=== PATIENT | male | born 1965 | race African-American/Black ===

== ENCOUNTER → 2016-05-22 | Outpatient (CLI) | payer OTHER ==
[2016-05-22 12:27] LABS: ALANINE AMINOTRANSFERASE 24 U/L (21-72); ALBUMIN 4.1 g/dL (3.5-5.0); ALKALINE PHOSPHATASE 130 U/L (38-126); ANION GAP 15 (5-19); ASPARTATE AMINO TRANSFERASE 15 U/L (17-59); BILIRUBIN,DIRECT 0.3 mg/dL (0.0-0.4); BILIRUBIN,TOTAL 0.5 mg/dL (0.2-1.3); BLOOD UREA NITROGEN 42 mg/dL (7-20); CALCIUM 9.6 mg/dL (8.4-10.2); CARBON DIOXIDE 23 mmol/L (22-30); CHLORIDE 102 mmol/L (98-107); CHOLESTEROL 229.78 mg/dL (0-200); CREATINE KINASE 490 U/L (55-170); CREATININE RESULT 4.01 mg/dL (0.52-1.25); Direct HDL 35 mg/dL (>40); GLUCOSE 360 mg/dL (75-110); MAGNESIUM 1.8 mg/dL (1.6-2.3); PHOSPHORUS 3.8 mg/dL (2.5-4.5); POTASSIUM 5.4 mmol/L (3.6-5.0); SODIUM 139.5 mmol/L (137-145); TOTAL PROTEIN 7.1 g/dL (6.3-8.2); TRIGLYCERIDES 289 mg/dL (<150)
[2016-05-22 12:38] LABS: DIRECT LDL 139 mg/dL (<100)
[2016-05-22 12:48] LABS: VLDL CHOLESTEROL 57.8 mg/dL (10-31)
== END ==
LOC: CCC 11:12
DX: I12.9 Hypertensive chronic kidney disease with stage 1 through stage 4 chronic kidney disease, or unspecified chronic kidney disease (principal); N18.9 Chronic kidney disease, unspecified; E11.9 Type 2 diabetes mellitus without complications; E78.5 Hyperlipidemia, unspecified
CPT/HCPCS: 36415; 80048; 80061; 80076; 82550; 83735; 84100

== ENCOUNTER → 2016-06-09 | Outpatient (CLI) | payer OTHER ==
[2016-06-09 11:06] LABS: ANION GAP 16 (5-19); BLOOD UREA NITROGEN 45 mg/dL (7-20); CALCIUM 9.6 mg/dL (8.4-10.2); CARBON DIOXIDE 21 mmol/L (22-30); CHLORIDE 108 mmol/L (98-107); GLUCOSE 105 mg/dL (75-110); MAGNESIUM 1.9 mg/dL (1.6-2.3); PHOSPHORUS 4.9 mg/dL (2.5-4.5); POTASSIUM 4.1 mmol/L (3.6-5.0); SODIUM 144.8 mmol/L (137-145)
== END ==
LOC: OD 10:00
DX: I12.9 Hypertensive chronic kidney disease with stage 1 through stage 4 chronic kidney disease, or unspecified chronic kidney disease (principal); N18.4 Chronic kidney disease, stage 4 (severe); E11.9 Type 2 diabetes mellitus without complications
CPT/HCPCS: 36415; 80048; 83036; 83735; 84100

== ENCOUNTER 2017-01-16 00:29 | Emergency (ER) | payer OTHER ==
[2017-01-16] MEDS ORDERED: NORMAL SALINE 1000 ML 1,000 ML IV ONE ×3 (01:16→03:10)
--- NOTE | 2017-01-16 01:17 | ER Document Report ---
ED General - General Mode of Arrival: Ambulatory Information source: Patient TRAVEL OUTSIDE OF THE [place] IN LAST 30 DAYS: No - HPI Onset: Just prior to arrival Quality of pain: Cramping <JONNY BIGGS - Last Filed: 01/16/17 01:27> <KANDY MARQUEZ - Last Filed: 01/16/17 05:13> - General Chief Complaint: High Blood Sugar Stated Complaint: THIGH AND HAND PAIN Time Seen by Provider: 01/16/17 01:08 Notes: Patient is a 51 year old male with a history of Insulin Dependent Diabetes presents to the emergency department complaining of severe cramping in his extremities onset around 22:30 tonight. 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 At bedside patient states only his right leg is cramping. Patient also states he has had frequent urination. Patient currently takes Neurontin. (JONNY BIGGS) - Related Data Allergies/Adverse Reactions: No Known Allergies Allergy (Verified 12/17/15 02:47) Past Medical History - General Information source: Patient - Social History Smoking Status: Never Smoker Cigarette use (# per day): No Chew tobacco use (# tins/day): No Smoking Education Provided: No Frequency of alcohol use: None Family History: Reviewed & Not Pertinent Patient has suicidal ideation: No Patient has homicidal ideation: No - Past Medical History Cardiac Medical History: Reports: Hx Hypercholesterolemia, Hx Hypertension Endocrine Medical History: Reports: Hx Diabetes Mellitus Type 1, Hx Diabetes Mellitus Type 2 - complicated by Neuropathy, nephropathy.Has proteinuria but unsure of his GI Medical History: Reports: Hx Gastroesophageal Reflux Disease Musculoskeltal Medical History: Reports Hx Arthritis <JONNY BIGGS - Last Filed: 01/16/17 01:27> Review of Systems - Review of Systems Constitutional: No symptoms reported EENT: No symptoms reported Cardiovascular: No symptoms reported Respiratory: No symptoms reported Gastrointestinal: No symptoms reported Genitourinary: See HPI, Frequency Male Genitourinary: No symptoms reported Musculoskeletal: See HPI, Other - severe cramping in all extremities. Skin: No symptoms reported Hematologic/Lymphatic: No symptoms reported Neurological/Psychological: No symptoms reported -: Yes All other systems reviewed and negative <JONNY BIGGS - Last Filed: 01/16/17 01:27> Physical Exam - General General appearance: Appears well, Alert In distress: None - HEENT Head: Normocephalic, Atraumatic Conjunctiva: Normal Pupils: PERRL Mucous membranes: Moist - Respiratory Respiratory status: No respiratory distress Chest status: Nontender Breath sounds: Normal - Cardiovascular Rhythm: Regular Heart sounds: Normal auscultation Murmur: No Friction rub: No Gallop: None auscultated - Abdominal Inspection: Obese Distension: No distension Bowel sounds: Normal Tenderness: Nontender Organomegaly: No organomegaly - Back Back: Normal - Extremities General upper extremity: Normal ROM General lower extremity: Normal ROM - Neurological Neuro grossly intact: Yes Cognition: Normal Orientation: AAOx4 [place] Coma Scale Eye Opening: Spontaneous [place] Coma Scale Verbal: Oriented [place] Coma Scale Motor: Obeys Commands Olga Coma Scale Total: 15 Speech: Normal - Psychological Associated symptoms: Normal affect, Normal mood - Skin Skin Temperature: Warm Skin Moisture: Dry <JONNY BIGGS - Last Filed: 01/16/17 01:27> Course - Laboratory Result Diagrams: 01/16/17 01:05 01/16/17 01:05 <JONNY BIGGS - Last Filed: 01/16/17 01:27> - Laboratory Result Diagrams: 01/16/17 01:05 01/16/17 01:05 <KANDY MARQUEZ - Last Filed: 01/16/17 05:13> - Re-evaluation Re-evalutation: 01/16/17 05:09 The patient's hemoglobin A1c is greater than 14. The BUN is 69 with a creatinine of 8.07 yielding a GFR of 8 the urine has greater than 500 protein and greater than 500 glucose the last lab work checked in the computer shows an April and May of this year he had a creatinine of 4.01 and 4.10 this is almost 2 times what it was in November of last year, today is 8.07 He is advised of the significance of this worsening renal failure and poorly controlled diabetes and is encouraged to take copies of all his lab work [facility] to discuss better diabetes control and nephrology referral. (KANDY MARQUEZ) - Laboratory Laboratory results interpreted by me: 01/16/17 01/16/17 01/16/17 01:03 01:05 01:05 RBC 3.96 L Hgb 11.3 L Hct 33.3 L Sodium 133.7 L Carbon Dioxide 19 L BUN 69 H Creatinine 8.07 H Est GFR ( Amer) 8 L Est GFR (Non-Af Amer) 7 L Glucose 411 H* POC Glucose 366 H Hemoglobin A1c % Alkaline Phosphatase 164 H Creatine Kinase Urine Protein Urine Glucose (UA) Urine Blood 01/16/17 01/16/17 01/16/17 01:05 01:05 02:55 RBC Hgb Hct Sodium Carbon Dioxide BUN Creatinine Est GFR ( Amer) Est GFR (Non-Af Amer) Glucose POC Glucose Hemoglobin A1c % > 14.0 H Alkaline Phosphatase Creatine Kinase 498 H Urine Protein >=500 H Urine Glucose (UA) >=500 H Urine Blood SMALL H Discharge <JONNY BIGGS - Last Filed: 01/16/17 01:27> <KANDY MARQUEZ - Last Filed: 01/16/17 05:13> - Discharge Clinical Impression: Muscle cramps, Poorly controlled diabetes mellitus, Dehydration Hyperglycemia due to type 2 diabetes mellitus Qualifiers: Diabetes mellitus local intermodal truck driver insulin use: unspecified local intermodal truck driver insulin use status Qualified Code(s): E11.65 - Type 2 diabetes mellitus with hyperglycemia Rhabdomyolysis Qualifiers: Rhabdomyolysis type: non-traumatic Qualified Code(s): M62.82 - Rhabdomyolysis Renal failure (ARF), acute on chronic Qualifiers: Chronic kidney disease stage: stage 5, not on chronic dialysis Condition: Stable Disposition: HOME, SELF-CARE Additional Instructions: Evaluation of your lab work today shows your diabetes is very poorly controlled , and your kidney function is declining rapidly. You must address these issues with your doctor, or you will soon be on dialysis. You need to drink a lot more water throughout the day and evening for the next few days. You should be sure to take your insulin on time, and check your blood sugars. [facility] with the [facility] or a local medical doctor in the next 2-3 days , and take the copies of the lab work with you.. RETURN TO THE EMERGENCY ROOM IF ANY NEW OR WORSENING SYMPTOMS. Scribe Attestation: 01/16/17 05:13 I personally performed the services described in the documentation, reviewed and edited the documentation which was dictated to the scribe in my presence, and it accurately records my words and actions. (KANDY MARQUEZ) Scribe Documentation - Scribe Written by Scribe:: Patricia Mesa, 01/16/2017 01:36 acting as scribe for :: María <JONNY BIGGS - Last Filed: 01/16/17 01:27>
[2017-01-16 01:19] LABS: ABSOLUTE BASOPHILS # (AUTO) 0.1 10^3/uL (0.0-0.2); ABSOLUTE EOSINOPHILS # (AUTO) 0.1 10^3/uL (0.0-0.6); ABSOLUTE LYMPHOCYTES (AUTO) 1.2 10^3/uL (0.5-4.7); ABSOLUTE MONOCYTES (AUTO) 0.4 10^3/uL (0.1-1.4); ABSOLUTE NEUT (AUTO) 4.4 10^3/uL (1.7-8.2); BASOPHILS % (AUTO) 1.1 % (0-2); EOSINOPHILS % (AUTO) 1.2 % (0-6); HEMATOCRIT 33.3 % (37.9-51.0); HEMOGLOBIN 11.3 g/dL (13.5-17.0); HGB HCT DIFFERENCE 0.6; LYMPHOCYTES % (AUTO) 19.1 % (13-45); MEAN CORPUSCULAR HEMOGLOBIN 28.6 pg (27.0-33.4); MEAN CORPUSCULAR VOLUME 84 fl (80-97); MONOCYTES % (AUTO) 5.9 % (3-13); RED BLOOD COUNT 3.96 10^6/uL (4.35-5.55); RED CELL DISTRIBUTION WIDTH 13.1 % (11.5-14.0); SEGMENTED NEUTROPHILS % (AUTO) 72.7 % (42-78)
[2017-01-16 01:20] LABS: ADD ON TESTING BLD IN LAB ACKNOWLEDGE
[2017-01-16 01:52] LABS: ALANINE AMINOTRANSFERASE 21 U/L (21-72); ALBUMIN 3.7 g/dL (3.5-5.0); ALKALINE PHOSPHATASE 164 U/L (38-126); ANION GAP 16 (5-19); ASPARTATE AMINO TRANSFERASE 18 U/L (17-59); BILIRUBIN,DIRECT 0.4 mg/dL (0.0-0.4); BILIRUBIN,TOTAL 0.5 mg/dL (0.2-1.3); BLOOD UREA NITROGEN 69 mg/dL (7-20); CALCIUM 8.5 mg/dL (8.4-10.2); CARBON DIOXIDE 19 mmol/L (22-30); CHLORIDE 99 mmol/L (98-107); CREATININE RESULT 8.07 mg/dL (0.52-1.25); POTASSIUM 4.2 mmol/L (3.6-5.0); SODIUM 133.7 mmol/L (137-145); TOTAL PROTEIN 6.6 g/dL (6.3-8.2)
[2017-01-16 02:02] LABS: GLUCOSE 411 mg/dL (75-110)
[2017-01-16 02:03] LABS: MAGNESIUM 1.9 mg/dL (1.6-2.3)
[2017-01-16 02:14] LABS: ADD ON TESTING BLD IN LAB ACKNOWLEDGE
[2017-01-16 02:42] LABS: CREATINE KINASE 498 U/L (55-170)
[2017-01-16 03:27] LABS: APPEARANCE,URINE CLEAR; BILIRUBIN,URINE NEGATIVE (NEGATIVE); GLUCOSE, URINE >=500 mg/dL (NEGATIVE); KETONES,URINE NEGATIVE (NEGATIVE); LEUKOCYTE ESTERASE,URINE NEGATIVE (NEGATIVE); NITRITE,URINE NEGATIVE (NEGATIVE); PROTEIN,URINE >=500 mg/dL (NEGATIVE); UROBILINOGEN,URINE NEGATIVE mg/dL (<2.0)
[2017-01-16 05:21] VITALS: BP 174/94
== END 2017-01-16 05:23 | disposition home or self-care (01) ==
LOC: ER 00:29
DX: E11.65 Type 2 diabetes mellitus with hyperglycemia (principal); N18.5 Chronic kidney disease, stage 5; M62.82 Rhabdomyolysis; E86.0 Dehydration; R35.0 Frequency of micturition; Z79.4 Long term (current) use of insulin
CPT/HCPCS: 99284; 96360; 96361; 36415; 82962; 82550; 83735; 85025; 80053; 81001; 83036; J7030

== ENCOUNTER 2017-03-14 22:07 | Inpatient (IN) | payer SELFPAY ==
[2017-03-14] MEDS ORDERED: IPRATROPIUM/ALBUTEROL 0.5-2.5 MG/3 ML AMPUL NEB ONE (23:37)
[2017-03-14] MEDS ORDERED: ACETAMINOPHEN 325 MG TABLET PO ONE (23:37)
--- NOTE | 2017-03-14 23:40 | ER Document Report ---
ED Medical Screen (RME) - General Chief Complaint: Congestion Stated Complaint: CONGESTION, DIFFICUTLY BREATHING Time Seen by Provider: 03/14/17 23:36 TRAVEL OUTSIDE OF THE [place] IN LAST 30 DAYS: No - HPI Notes: 03/14/17 23:38 51-year-old male with a history of hypertension, diabetes, hyperlipidemia presents today with complaints of shortness of breath and cough 4 days. states he has been diaphoretic and sweaty today. Reports fevers and chills. Reports at times productive cough. Denies any chest pain. Denies any nausea vomiting or diarrhea. Has taken [id number] sinus medication without relief. Denies any rashes. Worse with time, nothing makes better. Patient forgot to take his p.m. dosing of his blood pressure medication, cannot remember the name of it. I have greeted and performed a rapid initial assessment of this patient. A comprehensive ED assessment and evaluation of the patient, analysis of test results and completion of medical decision making process will be conducted by an additional ED providers. 03/14/17 23:39 - Related Data Allergies/Adverse Reactions: No Known Allergies Allergy (Verified 03/14/17 22:20) Past Medical History - Past Medical History Cardiac Medical History: Reports: Hx Hypercholesterolemia, Hx Hypertension Denies: Hx Congestive Heart Failure, Hx DVT, Hx Heart Attack, Hx Pulmonary Embolism Pulmonary Medical History: Denies: Hx Asthma, Hx COPD Neurological Medical History: Denies: Hx Seizures Endocrine Medical History: Reports: Hx Diabetes Mellitus Type 1, 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 Denies: Hx Hyperthyroidism, Hx Hypothyroidism Renal/ Medical History: Denies: Hx Peritoneal Dialysis GI Medical History: Reports: Hx Gastroesophageal Reflux Disease. Denies: Hx Cirrhosis, Hx Hepatitis Musculoskeltal Medical History: Reports Hx Arthritis Skin Medical History: Denies Hx Eczema, Denies Hx Psoriasis Psychiatric Medical History: Denies: Hx Depression Infectious Medical History: Denies: Hx Hepatitis Physical Exam - Vital signs Vitals: Temp Pulse Resp BP Pulse Ox 98.7 F 110 H 18 197/99 H 97 03/14/17 22:23 03/14/17 22:23 03/14/17 22:23 03/14/17 22:23 03/14/17 22:23 - Respiratory Respiratory status: No respiratory distress Chest status: Nontender Breath sounds: Decreased air movement, Wheezing Chest palpation: Normal - Cardiovascular Rhythm: Tachycardia Heart sounds: Normal auscultation Pulses: Normal: Radial Course - Vital Signs Vital signs: Temp Pulse Resp BP Pulse Ox 98.7 F 110 H 18 197/99 H 97 03/14/17 22:23 03/14/17 22:23 03/14/17 22:23 03/14/17 22:23 03/14/17 22:23
[2017-03-14] MEDS ORDERED: HYDRALAZINE HCL 10 MG TABLET PO ONE (23:41)
--- NOTE | 2017-03-15 01:05 | RADIOLOGY REPORT (SQ) ---
EXAM DESCRIPTION: CHEST PA/LAT CLINICAL HISTORY: 51 years, Male, cough x 1 week COMPARISON: None. NUMBER OF VIEWS: 2 LIMITATIONS: None. FINDINGS: Pulmonary vascular congestion. Normal cardiac silhouette. Mild disc desiccation. IMPRESSION: Pulmonary vascular congestion. 2011 [employer]- All Rights Reserved
--- NOTE | 2017-03-15 01:18 | ER Document Report ---
ED General - General Chief Complaint: Congestion Stated Complaint: CONGESTION, DIFFICUTLY BREATHING Time Seen by Provider: 03/14/17 23:36 Notes: Patient is a 51-year-old male who presents emergency department with a chief complaint of chest congestion, shortness of breath and orthopnea for the past 4 days. Patient states that his symptoms started on Tuesday and got progressively worse with her apnea developing on Tuesday. Patient states that today he developed dyspnea on exertion. Patient states that he has been taking cold medicines at home from [facility] with minimal improvement in his symptoms. Admits to nonproductive cough denies any fevers but admits to diaphoresis. Denies any nausea, vomiting, diarrhea. States that he has been pooping less. Admits to normal urine output. Denies any chest pain at this time. Denies any weight gain, lower extremity edema. Past medical history significant for hypertension, hyperlipidemia, diabetes on Lantus, Humalog and metformin. Review of the chart shows evidence of stage III kidney disease. Patient states that he has never followed up with the neurologist that he was evaluated by here in December. Admits to possible history of TIA Denies any past surgeries Social history: Denies any tobacco, alcohol or drug use. Primary care is with [facility] TRAVEL OUTSIDE OF THE [place] IN LAST 30 DAYS: No - Related Data Allergies/Adverse Reactions: No Known Allergies Allergy (Verified 03/14/17 22:20) Past Medical History - Social History Smoking Status: Current Every Day Smoker Family History: Reviewed & Not Pertinent - Past Medical History Cardiac Medical History: Reports: Hx Hypercholesterolemia, Hx Hypertension Denies: Hx Congestive Heart Failure, Hx DVT, Hx Heart Attack, Hx Pulmonary Embolism Pulmonary Medical History: Denies: Hx Asthma, Hx COPD Neurological Medical History: Denies: Hx Seizures Endocrine Medical History: Reports: Hx Diabetes Mellitus Type 1, 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 Denies: Hx Hyperthyroidism, Hx Hypothyroidism Renal/ Medical History: Denies: Hx Peritoneal Dialysis GI Medical History: Reports: Hx Gastroesophageal Reflux Disease. Denies: Hx Cirrhosis, Hx Hepatitis Musculoskeltal Medical History: Reports Hx Arthritis Skin Medical History: Denies Hx Eczema, Denies Hx Psoriasis Psychiatric Medical History: Denies: Hx Depression Infectious Medical History: Denies: Hx Hepatitis Review of Systems - Review of Systems Constitutional: See HPI EENT: No symptoms reported Cardiovascular: See HPI Respiratory: See HPI Gastrointestinal: No symptoms reported Musculoskeletal: No symptoms reported Neurological/Psychological: No symptoms reported -: Yes All other systems reviewed and negative Physical Exam - Vital signs Vitals: Temp Pulse Resp BP Pulse Ox 98.7 F 110 H 18 197/99 H 97 03/14/17 22:23 03/14/17 22:23 03/14/17 22:23 03/14/17 22:23 03/14/17 22:23 - Notes Notes: PHYSICAL EXAM GENERAL: Alert, interacts well. HEAD: Normocephalic, atraumatic. EYES: Pupils equal, round, and reactive to light. Extraocular movements intact. ENT: Oral mucosa moist, tongue midline. NECK: Full range of motion. Supple. Trachea midline. LUNGS: rales noted on expiration bilaterally no respiratory distress. HEART: Regular rate and rhythm. No murmurs, gallops, or rubs. ABDOMEN: Soft, nondistended, nontender. No guarding, rebound, or rigidity.. Bowel sounds present in all 4 quadrants. EXTREMITIES: Moves all 4 extremities spontaneously. No edema, radial and dorsalis pedis pulses 2/4 bilaterally. No cyanosis. NEUROLOGICAL: Alert and oriented x4. Normal speech. PSYCH: Normal affect, normal mood. SKIN: Warm, dry, normal turgor. No rashes or lesions noted. Course - Re-evaluation Re-evalutation: 03/15/17 02:55 Patient is a 51-year-old male who is hemodynamically stable, no acute distress and afebrile. Physical exam concerning for volume overload. CBC stable without any evidence of leukocytosis or anemia. Chemistry concerning for acute on chronic renal failure with associated heart failure. IV access being established and obtaining an EKG at this time. Patient will require inpatient treatment will evaluate patient is able to stay at our facility. 03/15/17 04:04 Patient to be admitted to the [facility] under the hospitalist who will receive emergency dialysis later today acute on chronic renal failure - Vital Signs Vital signs: Temp Pulse Resp BP Pulse Ox 98.4 F 106 H 27 H 140/85 H 96 03/15/17 02:28 03/15/17 02:28 03/15/17 07:01 03/15/17 07:01 03/15/17 07:01 - Laboratory Result Diagrams: 03/14/17 01:52 03/14/17 01:52 Laboratory results interpreted by me: 03/14/17 03/14/17 03/15/17 01:52 01:52 01:52 RBC 3.73 L Hgb 10.6 L Hct 32.4 L RDW 16.1 H Potassium 5.2 H Carbon Dioxide 20 L BUN 68 H Creatinine 10.03 H Est GFR ( Amer) 7 L Est GFR (Non-Af Amer) 5 L Glucose 530 H* AST 11 L Alkaline Phosphatase 129 H Creatine Kinase 357 H NT-Pro-B Natriuret Pep 8270 H Total Protein 6.0 L Albumin 3.4 L - Diagnostic Test Radiology reviewed: Image reviewed, Reports reviewed - EKG Interpretation by Me EKG shows normal: Sinus rhythm Rate: Normal Rhythm: NSR When compared to previous EKG there are: No significant change Discharge - Discharge Clinical Impression: Chronic kidney disease, stage III (moderate) HTN (hypertension) Qualifiers: Hypertension type: unspecified Qualified Code(s): I10 - Essential (primary) hypertension Heart failure Qualifiers: Heart failure type: unspecified Heart failure chronicity: unspecified Qualified Code(s): I50.9 - Heart failure, unspecified Condition: Stable Disposition: ADMITTED INPATIENT Admitting Provider: Hospitalist Unit Admitted: [facility]
[2017-03-15 02:19] LABS: ABSOLUTE BASOPHILS # (AUTO) 0.1 10^3/uL (0.0-0.2); ABSOLUTE EOSINOPHILS # (AUTO) 0.2 10^3/uL (0.0-0.6); ABSOLUTE LYMPHOCYTES (AUTO) 2.1 10^3/uL (0.5-4.7); ABSOLUTE MONOCYTES (AUTO) 0.7 10^3/uL (0.1-1.4); ABSOLUTE NEUT (AUTO) 5.5 10^3/uL (1.7-8.2); BASOPHILS % (AUTO) 0.8 % (0-2); EOSINOPHILS % (AUTO) 2.2 % (0-6); HEMATOCRIT 32.4 % (37.9-51.0); HEMOGLOBIN 10.6 g/dL (13.5-17.0); LYMPHOCYTES % (AUTO) 24.9 % (13-45); MEAN CORPUSCULAR HEMOGLOBIN 28.5 pg (27.0-33.4); MEAN CORPUSCULAR HGB CONC 32.8 g/dL (32.0-36.0); MEAN CORPUSCULAR VOLUME 87 fl (80-97); MONOCYTES % (AUTO) 7.9 % (3-13); PLATELET COUNT 289 10^3/uL (150-450); RED BLOOD COUNT 3.73 10^6/uL (4.35-5.55); RED CELL DISTRIBUTION WIDTH 16.1 % (11.5-14.0); SEGMENTED NEUTROPHILS % (AUTO) 64.2 % (42-78); TOTAL CELLS COUNTED % (AUTO) 100 %; WHITE BLOOD COUNT 8.5 10^3/uL (4.0-10.5)
[2017-03-15 02:27] LABS: ALANINE AMINOTRANSFERASE 21 U/L (21-72); ALBUMIN 3.4 g/dL (3.5-5.0); ALKALINE PHOSPHATASE 129 U/L (38-126); ANION GAP 14 (5-19); ASPARTATE AMINO TRANSFERASE 11 U/L (17-59); BILIRUBIN,DIRECT 0.3 mg/dL (0.0-0.4); BILIRUBIN,TOTAL 0.3 mg/dL (0.2-1.3); BLOOD UREA NITROGEN 68 mg/dL (7-20); CALCIUM 8.4 mg/dL (8.4-10.2); CARBON DIOXIDE 20 mmol/L (22-30); CHLORIDE 104 mmol/L (98-107); CREATINE KINASE 357 U/L (55-170); POTASSIUM 5.2 mmol/L (3.6-5.0); SODIUM 138.3 mmol/L (137-145)
[2017-03-15 02:31] LABS: C-REACTIVE PROTEIN < 5.0 mg/L (<10.0)
[2017-03-15 02:33] LABS: GLUCOSE 530 mg/dL (75-110)
[2017-03-15 02:36] LABS: CREATINE KINASE MB 3.33 ng/mL (<4.55)
[2017-03-15 02:39] LABS: TROPONIN I 0.138 ng/mL
[2017-03-15] MEDS ORDERED: INSULIN REG, HUMAN 100 UNIT/ML 3 ML VIAL (PYX) SUBCUT ONE (03:06)
[2017-03-15] MEDS ORDERED: NITROGLYCERIN 2% OINTMENT 1 GM PACKET TP ONE (04:00)
[2017-03-15] MEDS ORDERED: INFLUENZA ADLT QUAD (36MOS+) 2017-18 VAC 0.5 ML SYR IM PRN (04:42)
[2017-03-15] MEDS ORDERED: OXYCODONE-ACETAMINOPHEN 5-325 MG TABLET PO PRN (04:58)
[2017-03-15] MEDS ORDERED: INSULIN REG, HUMAN 100 UNIT/ML 3 ML VIAL (PYX) IV ONE (05:06)
[2017-03-15 05:54] LABS: APPEARANCE,URINE CLEAR; BILIRUBIN,URINE NEGATIVE (NEGATIVE); COLOR,URINE STRAW; GLUCOSE, URINE >=500 mg/dL (NEGATIVE); KETONES,URINE NEGATIVE (NEGATIVE); LEUKOCYTE ESTERASE,URINE NEGATIVE (NEGATIVE); NITRITE,URINE NEGATIVE (NEGATIVE); PROTEIN,URINE >=500 mg/dL (NEGATIVE); URINE SPECIFIC GRAVITY 1.011; UROBILINOGEN,URINE NEGATIVE mg/dL (<2.0)
[2017-03-15] MEDS: HYDRALAZINE HCL 50 MG TABLET PO SCH ×3 (06:09→21:55)
[2017-03-15] MEDS: HEPARIN SOD (PORCINE) 5,000 UNIT/ML 1 ML SYRINGE SUBCUT SCH ×3 (06:10→21:56)
[2017-03-15 06:11] LABS: URINE AMPHETAMINES SCREEN NEGATIVE; URINE BARBITURATES SCREEN NEGATIVE; URINE BENZODIAZEPINES SCREEN NEGATIVE; URINE COCAINE SCREEN NEGATIVE; URINE MARIJUANA (THC) SCREEN NEGATIVE; URINE METHADONE SCREEN NEGATIVE; URINE PHENCYCLIDINE SCREEN NEGATIVE
--- NOTE | 2017-03-15 06:26 | PDOC H&P ---
History of Present Illness Admission Date/PCP: 03/15/17 04:08 History of Present Illness: NAKUL MCNEIL is a 51 year old male with past medical history of diabetes, hypertension, and chronic kidney disease who presents to the emergency department with shortness of breath. He reports that he has had a cough over the last several days as well as increasing shortness of breath, orthopnea, and dyspnea on exertion. He denies any lower extremity swelling. He denies any chest pain, and cough productive of purulent sputum. He reports he does still make urine. Patient is referred to the hospitalist service for acute on chronic renal failure with volume overload and hyperglycemia. Past Medical History Cardiac Medical History: Reports: Hyperlipidema, Hypertension Denies: Congestive Heart Failure, DVT, Myocardial Infarction, Pulmonary Embolism Pulmonary Medical History: Denies: Asthma, Chronic Obstructive Pulmonary Disease (COPD) Neurological Medical History: Denies: Seizures Endocrine Medical History: Reports: Diabetes Mellitus Type 1, Diabetes Mellitus Type 2 - complicated by Neuropathy, nephropathy.Has proteinuria but unsure of his Denies: Hyperthyroidism, Hypothyroidism Renal/ Medical History: Reports: Chronic Kidney Disease GI Medical History: Reports: Gastroesophageal Reflux Disease Denies: Cirrhosis, Hepatitis Musculoskeltal Medical History: Reports: Arthritis Skin Medical History: Denies: Eczema, Psoriasis Psychiatric Medical History: Denies: Depression Past Surgical History Past Surgical History: Reports: None Social History Smoking Status: Never Smoker Frequency of Alcohol Use: None Hx Recreational Drug Use: No Drugs: None Hx Prescription Drug Abuse: No - Advance Directive Resuscitation Status: Full Code Surrogate healthcare decision maker:: Sharon Marie, significant other Family History Family History: CAD, DM Parental Family History Reviewed: Yes Children Family History Reviewed: Yes Sibling(s) Family History Reviewed.: Yes Medication/Allergy Home Medications: Amlodipine Besylate 10 mg PO DAILY 12/17/15 Aspirin [Aspirin EC] 81 mg PO DAILY 12/17/15 Atorvastatin Calcium 80 mg PO DAILY 12/17/15 Gabapentin [Neurontin 100 mg Capsule] 100 mg PO TID 12/17/15 Insulin Glargine,Hum.rec.anlog [Lantus] 35 unit SQ QAM 12/17/15 Insulin Glargine,Hum.rec.anlog [Lantus] 65 unit SUBCUT QHS 12/17/15 Lisinopril [Zestril] 10 mg PO BID 12/17/15 Hydralazine HCl [Apresoline 50 mg Tablet] 100 mg PO Q8 #90 tablet 12/20/15 Allergies/Adverse Reactions: No Known Allergies Allergy (Verified 03/14/17 22:20) Review of Systems Constitutional: PRESENT: fatigue, weakness. ABSENT: chills, fever(s), headache( s), weight gain, weight loss Eyes: ABSENT: visual disturbances Ears: ABSENT: hearing changes Cardiovascular: PRESENT: dyspnea on exertion, orthropnea. ABSENT: chest pain, edema, palpitations Respiratory: PRESENT: cough, dyspnea. ABSENT: hemoptysis, sputum Gastrointestinal: ABSENT: abdominal pain, constipation, diarrhea, hematemesis, hematochezia, melena, nausea, vomiting Genitourinary: ABSENT: dysuria, hematuria Musculoskeletal: ABSENT: joint swelling Integumentary: ABSENT: rash, wounds Neurological: ABSENT: abnormal gait, abnormal speech, confusion, dizziness, focal weakness, syncope Psychiatric: ABSENT: anxiety, depression, homidical ideation, suicidal ideation Endocrine: ABSENT: cold intolerance, heat intolerance, polydipsia, polyuria Hematologic/Lymphatic: ABSENT: easy bleeding, easy bruising Physical Exam Vital Signs: Temp Pulse Resp BP Pulse Ox 98.4 F 106 H 23 H 171/95 H 96 03/15/17 02:28 03/15/17 02:28 03/15/17 04:01 03/15/17 04:01 03/15/17 04:01 General appearance: PRESENT: mild distress, obese, well-developed, well- nourished Head exam: PRESENT: atraumatic, normocephalic Eye exam: PRESENT: conjunctiva pink, EOMI, PERRLA. ABSENT: scleral icterus Ear exam: PRESENT: normal external ear exam Mouth exam: PRESENT: moist, tongue midline Neck exam: PRESENT: JVD. ABSENT: lymphadenopathy, thyromegaly, tracheal deviation Respiratory exam: PRESENT: rales - Bilateral, symmetrical, tachypnea, unlabored. ABSENT: accessory muscle use, retraction, rhonchi, wheezes Cardiovascular exam: PRESENT: RRR, +S1, +S2, systolic murmur, tachycardia. ABSENT: diastolic murmur, rubs Pulses: PRESENT: normal dorsalis pedis pul Vascular exam: PRESENT: normal capillary refill GI/Abdominal exam: PRESENT: normal bowel sounds, soft. ABSENT: distended, guarding, mass, organolmegaly, rebound, tenderness Rectal exam: PRESENT: deferred Extremities exam: PRESENT: full ROM, pedal edema. ABSENT: calf tenderness, clubbing Neurological exam: PRESENT: alert, awake, oriented to person, oriented to place , oriented to time, oriented to situation, CN II-XII grossly intact. ABSENT: motor sensory deficit Psychiatric exam: PRESENT: appropriate affect, normal mood. ABSENT: homicidal ideation, suicidal ideation Skin exam: PRESENT: dry, intact, warm. ABSENT: cyanosis, rash Results Laboratory Results: 03/14/17 03/14/17 03/15/17 01:52 01:52 01:52 Hgb 10.6 L Plt Count 289 Potassium 5.2 H Chloride 104 Carbon Dioxide 20 L Anion Gap 14 BUN 68 H Creatinine 10.03 H Glucose 530 H* Alkaline Phosphatase 129 H Creatine Kinase 357 H Troponin I 0.138 NT-Pro-B Natriuret Pep 8270 H Total Protein 6.0 L Albumin 3.4 L Urine Ketones 03/15/17 05:35 Hgb Plt Count Potassium Chloride Carbon Dioxide Anion Gap BUN Creatinine Glucose Alkaline Phosphatase Creatine Kinase Troponin I NT-Pro-B Natriuret Pep Total Protein Albumin Urine Ketones NEGATIVE Impressions: Chest X-Ray 03/14/17 23:08 IMPRESSION: Pulmonary vascular congestion. 2010 [employer]- All Rights Reserved Assessment & Plan - Diagnosis (1) Acute on chronic renal failure Qualifiers: Chronic kidney disease stage: stage 4 (severe) Is this a current diagnosis for this admission?: Yes Plan: We will consult nephrology. 12/16/15 12/17/15 12/18/15 23:47 04:34 06:15 Creatinine 3.81 H 3.69 H 2.76 H 12/19/15 12/20/15 05/22/16 06:07 06:35 11:18 Creatinine 2.56 H 2.34 H 4.01 H 06/09/16 01/16/17 03/14/17 10:13 01:05 01:52 Creatinine 4.10 H 8.07 H 10.03 H Concerned that this could be possibly related to dehydration due to his hypoglycemia, but patient's anion gap actually appears to be getting smaller and overall patient does not appear clinically dehydrated. He does appear to be clinically volume overloaded. (2) Heart failure Qualifiers: Heart failure type: unspecified Heart failure chronicity: unspecified Qualified Code(s): I50.9 - Heart failure, unspecified Is this a current diagnosis for this admission?: Yes Plan: We will obtain echo. Likely secondary to diastolic dysfunction. Hold lisinopril or any JEB/ARB at this time. Patient currently on hydralazine and Norvasc. (3) HTN (hypertension) Qualifiers: Hypertension type: unspecified Qualified Code(s): I10 - Essential (primary ) hypertension Is this a current diagnosis for this admission?: Yes (4) Hyperosmolar non-ketotic state in patient with type 2 diabetes mellitus Is this a current diagnosis for this admission?: Yes Plan: Resume patient's home Lantus and a carb controlled diet. At this time I am reluctant to give this patient in the amount of volume as he does appear to be quite volume overloaded. (5) Hyperlipidemia Qualifiers: Hyperlipidemia type: unspecified Qualified Code(s): E78.5 - Hyperlipidemia , unspecified Is this a current diagnosis for this admission?: Yes (6) Anemia in chronic renal disease Is this a current diagnosis for this admission?: Yes Plan: Patient likely has anemia secondary to chronic renal disease. Place iron studies. - Time Time Spent: 30 to 50 Minutes Medications reviewed and adjusted accordingly: Yes - Inpatient Certification Based on my medical assessment, after consideration of the patient's comorbidities, presenting symptoms, or acuity I expect that the services needed warrant INPATIENT care.: Yes I certify that my determination is in accordance with my understanding of Medicare's requirements for reasonable and necessary INPATIENT services [42 CFR 412.3e].: Yes Medical Necessity: Need For Continuous Telemetry Monitoring, Risk of Complication if Not Cared For in Hospital Post Hospital Care: D/C Rn Forensic Documentation
[2017-03-15 07:11] LABS: VENOUS BLOOD BASE EXCESS -2.9 mmol/L; VENOUS BLOOD HCO3 21.8 mmol/L (20-32); VENOUS BLOOD PCO2 37.7 mmHg (35-63); VENOUS BLOOD PH 7.38 (7.30-7.42)
[2017-03-15 07:13] LABS: RETICULOCYTE COUNT (AUTO) 1.63 % (0.66-2.85)
[2017-03-15 07:23] LABS: IRON(TIBC) 56.1 ug/dL (49-181)
[2017-03-15 07:52] LABS: CREATINE KINASE MB 3.19 ng/mL (<4.55); TROPONIN I 0.151 ng/mL
[2017-03-15] MEDS ORDERED: INSULIN GLARGINE,HUM.REC.ANLOG 1,000 UNIT/10 ML UNIT SUBCUT SCH ×2 (08:00→22:00)
--- NOTE | 2017-03-15 09:48 | EKG REPORT ---
SEVERITY:- BORDERLINE ECG - SINUS RHYTHM PROBABLE LEFT ATRIAL ABNORMALITY BORDERLINE PROLONGED QT INTERVAL : Confirmed by: Franco Carpio 15-Mar-2017 09:48:17
[2017-03-15] MEDS: ASPIRIN 81 MG TABLET, ENT COATED PO SCH (10:53)
[2017-03-15] MEDS: AMLODIPINE BESYLATE 10 MG TABLET PO SCH (10:53)
[2017-03-15] MEDS: GABAPENTIN 100 MG CAPSULE PO SCH ×3 (10:54→18:00)
[2017-03-15] MEDS: ATORVASTATIN CALCIUM 80 MG TABLET PO SCH (10:54)
[2017-03-15] MEDS ORDERED: DEXTROSE 40% GEL 15 GM TUBE PO PRN ×2 (11:41)
[2017-03-15] MEDS ORDERED: DEXTROSE 50%-WATER 25 GM/50 ML DISP.SYRIN IV PRN ×2 (11:41)
[2017-03-15] MEDS ORDERED: GLUCAGON,HUMAN RECOMB 1 MG INJ IM PRN (11:41)
[2017-03-15] MEDS: INSULIN LISPRO 100 UNIT/ML 3 ML VIAL SUBCUT PRN ×3 (12:50→22:00)
[2017-03-15 13:34] LABS: CREATINE KINASE MB 2.98 ng/mL (<4.55); TROPONIN I 0.131 ng/mL
--- NOTE | 2017-03-15 17:02 | PDOC PROGRESS REPORT ---
Subjective Progress Note for:: 03/15/17 Subjective:: The patient is a 51-year-old male with a past medical history of diabetes, hypertension and chronic kidney disease. He came into the emergency department with increasing shortness of breath, dyspnea on exertion, orthopnea and PND. Apparently, he has known chronic kidney disease. He had an appointment to establish with a physician in the outpatient setting but could not make the appointment secondary to car trouble. Reason For Visit: HHNS, CKD, HYPERTENSIVE EMERGENCY Physical Exam Vital Signs: Temp Pulse Resp BP Pulse Ox 98.2 F 106 H 23 H 173/92 H 99 03/15/17 14:19 03/15/17 02:28 03/15/17 16:03 03/15/17 16:03 03/15/17 16:03 Intake & Output 03/14/17 03/15/17 03/16/17 06:59 06:59 06:59 Output Total 600 Balance -600 Additional comments: The patient is a middle-aged black male. He is well-developed and well- nourished. His cognition and mentation are appropriate. He does not appear to be in significant distress at this time. His facial appearance is unremarkable. His neck is supple. His lungs do not demonstrate rales. He has some scattered crackles in the basilar lung berry and some diminished breath sounds at the bases but otherwise, his lung berry are surprisingly clear. His cardiac exam demonstrates a regular rate and rhythm. I did not appreciate any murmurs, gallops or rubs. The abdomen is soft. Bowel sounds are noted in the lower quadrants. He does not have guarding or rebound noted and there are no hernias or masses present. Extremities only show trace edema. The skin is warm , dry and intact without lesions or rashes. Results Laboratory Results: 03/15/17 03/15/17 03/15/17 05:35 06:56 06:56 Retic Count (auto) Absolute Retic VBG pH 7.38 VBG pCO2 37.7 VBG HCO3 21.8 VBG Base Excess -2.9 Iron TIBC % Saturation Ferritin Vitamin B12 Folate TSH 2.66 Urine Color STRAW Urine Appearance CLEAR Urine pH 6.0 Ur Specific [place] 1.011 Urine Protein >=500 H Urine Glucose (UA) >=500 H Urine Ketones NEGATIVE Urine Blood SMALL H Urine Nitrite NEGATIVE Ur Leukocyte Esterase NEGATIVE Urine WBC (Auto) 1 Urine RBC (Auto) 1 01/16/18 01/16/18 06:56 06:56 Retic Count (auto) 1.63 Absolute Retic 0.060 VBG pH VBG pCO2 VBG HCO3 VBG Base Excess Iron 56.1 TIBC 260 % Saturation 22 Ferritin 114.00 Vitamin B12 588.0 Folate 11.40 TSH Urine Color Urine Appearance Urine pH Ur Specific [place] Urine Protein Urine Glucose (UA) Urine Ketones Urine Blood Urine Nitrite Ur Leukocyte Esterase Urine WBC (Auto) Urine RBC (Auto) 03/15/17 03/15/17 03/15/17 06:56 06:56 12:50 Creatine Kinase 329 H 310 H CK-MB (CK-2) 3.19 Troponin I 0.151 03/15/17 12:50 Creatine Kinase CK-MB (CK-2) 2.98 Troponin I 0.131 Impressions: Chest X-Ray 03/14/17 23:08 IMPRESSION: Pulmonary vascular congestion. 2010 [email or web address]- All Rights Reserved Assessment & Plan - Diagnosis (1) Acute on chronic renal failure Qualifiers: Chronic kidney disease stage: stage 4 (severe) Is this a current diagnosis for this admission?: Yes Plan: The patient presents with progressive kidney disease. He may require dialysis at some point in the near future. Nephrology has been consulted. He is still making urine at this point in time. He may also benefit from diuresis with Lasix. (2) Diabetes 1.5, managed as type 2 Is this a current diagnosis for this admission?: Yes Plan: At this point in time I do not think that the patient has hyperosmolar nonketotic coma. We will aggressively lower his blood sugars with insulin at this time. (3) Hyperglycemia Is this a current diagnosis for this admission?: Yes Plan: See above (4) Ventricular tachycardia Is this a current diagnosis for this admission?: Yes Plan: Continue telemetry monitoring. Will check troponins. Echocardiogram is pending. (5) Anemia in chronic renal disease Is this a current diagnosis for this admission?: Yes Plan: No intervention necessary at this time. (6) Heart failure Qualifiers: Heart failure type: unspecified Heart failure chronicity: unspecified Qualified Code(s): I50.9 - Heart failure, unspecified Is this a current diagnosis for this admission?: Yes Plan: Again, the suspicion is for diastolic congestive heart failure or diastolic dysfunction. Echocardiogram has been ordered. (7) HTN (hypertension) Qualifiers: Hypertension type: unspecified Qualified Code(s): I10 - Essential (primary ) hypertension Is this a current diagnosis for this admission?: Yes Plan: Continue amlodipine and hydralazine. We will get input from nephrology as patient may still be responsive to Lasix as he still making urine. (8) Hyperlipidemia Qualifiers: Hyperlipidemia type: unspecified Qualified Code(s): E78.5 - Hyperlipidemia , unspecified Is this a current diagnosis for this admission?: Yes Plan: Patient is receiving atorvastatin. - Inpatient Certification Medical Necessity: Significant Comorbidiites Make Outpatient Treatment Too Risky , Need Close Monitoring Due to Risk of Patient Decompensation, Need For Continuous Telemetry Monitoring, Risk of Complication if Not Cared For in Hospital, Risk of Diagnosis Which Will Require Inpatient Eval/Care/Monitoring
--- NOTE | 2017-03-15 18:07 | PDOC CONSULTATION ---
Consultation Consult Date: 03/15/17 Consult reason:: Acute on chronic kidney disease now stage V History of Present Illness Admission Date/PCP: 03/15/17 04:08 History of Present Illness: NAKUL MCNEIL is a 51 year old male with past medical history of diabetes, hypertension, and progressive chronic kidney disease who presents to the emergency department with shortness of breath. He reports that he has had a cough over the last several days as well as increasing shortness of breath, orthopnea, and dyspnea on exertion. He denies any lower extremity swelling. He denies any chest pain, and cough productive of purulent sputum. No history of nausea vomiting or diarrhea. He reports he does still make urine. Evaluations in the ER revealed that patient had hypertensive urgency and nonketotic hyperosmolar state. His creatinine now is 10+. Reviewing his labs from the last couple of years his creatinine was 2+ in and then it was 4+ in early 2016 and then 8 in late 2016. He has no insurance and he gets his medical care from the [facility] which is very erratic. He has been a diabetic for the last 15 years complicated by neuropathy and retinopathy. Obviously because of lack of medications on a continuous basis he takes his medications inconsistently. The same goes with hypertension. He takes sporadic nonsteroidals. He denies any history of obstructive uropathy. No history of any hematuria. No family history of dialysis/ESRD. Currently he feels comfortable and denies any specific symptoms. Past Medical History Cardiac Medical History: Reports: Hyperlipidemia, Hypertension-primary Denies: DVT, Myocardial Infarction, Pulmonary Embolism Pulmonary Medical History: Denies: Asthma, Chronic Obstructive Pulmonary Disease (COPD) Neurological Medical History: Denies: Seizures Endocrine Medical History: Reports: Diabetes Mellitus Type 2 - complicated by Neuropathy, nephropathy.Has proteinuria but unsure of his Denies: Hyperthyroidism, Hypothyroidism Renal/ Medical History: Reports: Chronic Kidney Disease Stage IV GI Medical History: Reports: Gastroesophageal Reflux Disease Denies: Cirrhosis, Hepatitis Musculoskeltal Medical History: Reports: Arthritis Skin Medical History: Denies: Eczema, Psoriasis Psychiatric Medical History: Denies: Depression Past Surgical History Past Surgical History: Reports: None Social History Smoking Status: Current Every Day Smoker Frequency of Alcohol Use: None Hx Recreational Drug Use: No Drugs: None Hx Prescription Drug Abuse: No - Advance Directive Resuscitation Status: Full Code Family History Parental Family History Reviewed: Yes - Unsure about mother's history who when he was young. Father had ische Children Family History Reviewed: No Sibling(s) Family History Reviewed.: Yes - History of diabetes in siblings but no CKD. Medication/Allergy Home Medications: Amlodipine Besylate [Norvasc 10 mg Tablet] 10 mg PO QHS 03/15/17 Aspirin [Aspirin EC] 81 mg PO DAILY 03/15/17 Gabapentin [Neurontin 300 mg Capsule] 300 mg PO Q12 03/15/17 Insulin Glargine,Hum.rec.anlog [Lantus Solostar] 30 unit SQ Q12 03/15/17 Insulin Lispro [Humalog Insulin 100 Unit/1 ml 3 ml Vial] 10 unit SUBCUT WBRKFST 03/15/17 Insulin Lispro [Humalog Insulin 100 Unit/1 ml 3 ml Vial] 20 unit SUBCUT WSUPPER 03/15/17 Lisinopril [Prinivil 10 mg Tablet] 10 mg PO DAILY 03/15/17 Allergies/Adverse Reactions: No Known Allergies Allergy (Verified 03/14/17 22:20) Review of Systems Constitutional: PRESENT: fatigue. ABSENT: anorexia, chills, fever(s), headache( s), night sweats, weakness Nose, Mouth, and Throat: ABSENT: mouth pain, sore throat Cardiovascular: PRESENT: dyspnea on exertion. ABSENT: chest pain, edema, orthropnea Gastrointestinal: ABSENT: abdominal pain, bloating, diarrhea, dysphagia, heartburn, hematemesis, hematochezia Genitourinary: ABSENT: dysuria, hematuria Neurological: ABSENT: abnormal movements, focal weakness, frequent falls Hematologic/Lymphatic: ABSENT: easy bruising, lymphadenopathy Physical Exam Vital Signs: Temp Pulse Resp BP Pulse Ox 98.2 F 106 H 34 H 182/89 H 98 03/15/17 14:19 03/15/17 02:28 03/15/17 17:01 03/15/17 17:01 03/15/17 17:01 Intake & Output 03/14/17 03/15/17 03/16/17 06:59 06:59 06:59 Output Total 600 Balance -600 General appearance: PRESENT: no acute distress Eye exam: PRESENT: conjunctiva pink, EOMI, PERRLA Mouth exam: PRESENT: neck supple. ABSENT: moist Neck exam: ABSENT: lymphadenopathy, meningismus, tenderness, thyromegaly, tracheal deviation Respiratory exam: PRESENT: clear to auscultation ursula. ABSENT: crackles, rhonchi Cardiovascular exam: PRESENT: +S1, +S2, systolic murmur GI/Abdominal exam: PRESENT: normal bowel sounds, soft. ABSENT: diminished bowel sounds, organomegaly, tenderness Extremities exam: ABSENT: pedal edema Neurological exam: PRESENT: alert, awake, oriented to person, oriented to place , oriented to time, other - Negative for asterixis Skin exam: PRESENT: dry. ABSENT: cyanosis, erythema, mottled Results Laboratory Results: 03/15/17 03/15/17 03/15/17 05:35 06:56 06:56 Retic Count (auto) Absolute Retic VBG pH 7.38 VBG pCO2 37.7 VBG HCO3 21.8 VBG Base Excess -2.9 Iron TIBC % Saturation Ferritin Vitamin B12 Folate TSH 2.66 Urine Color STRAW Urine Appearance CLEAR Urine pH 6.0 Ur Specific [place] 1.011 Urine Protein >=500 H Urine Glucose (UA) >=500 H Urine Ketones NEGATIVE Urine Blood SMALL H Urine Nitrite NEGATIVE Ur Leukocyte Esterase NEGATIVE Urine WBC (Auto) 1 Urine RBC (Auto) 1 03/15/17 03/15/17 06:56 06:56 Retic Count (auto) 1.63 Absolute Retic 0.060 VBG pH VBG pCO2 VBG HCO3 VBG Base Excess Iron 56.1 TIBC 260 % Saturation 22 Ferritin 114.00 Vitamin B12 588.0 Folate 11.40 TSH Urine Color Urine Appearance Urine pH Ur Specific [place] Urine Protein Urine Glucose (UA) Urine Ketones Urine Blood Urine Nitrite Ur Leukocyte Esterase Urine WBC (Auto) Urine RBC (Auto) 03/15/17 03/15/17 03/15/17 06:56 06:56 12:50 Creatine Kinase 329 H 310 H CK-MB (CK-2) 3.19 Troponin I 0.151 03/15/17 12:50 Creatine Kinase CK-MB (CK-2) 2.98 Troponin I 0.131 Impressions: Chest X-Ray 03/14/17 23:08 IMPRESSION: Pulmonary vascular congestion. 2010 [employer]- All Rights Reserved Assessment & Plan - Diagnosis (1) Acute on chronic renal failure Qualifiers: Chronic kidney disease stage: stage 4 (severe) Is this a current diagnosis for this admission?: Yes Plan: This patient has complicated diabetes with progressive CKD which as per review of labs had reached CKD stage V as of late 2017. He however has no uremic symptoms. Lites are stable but for mild hyperkalemia. Obviously there is an acute component in his present labs that needs to be reviewed on a continuous basis. Presently there is no acute indications for renal replacements discussed with patient on tight blood sugar blood pressure control which seems to be going to be difficult given his lack of insurance and continue his medical care. I am going to start him on clonidine for controlling his blood pressure along with gentle hydration. Monitor. (2) CKD (chronic kidney disease), stage IV Plan: Secondary to diabetic nephropathy. Discussed at length the consequences of poorly controlled blood sugar and and hypertension. (3) Hypertensive urgency Plan: Is better controlled. Starting clonidine and monitor. (4) Hyperkalemia Plan: Discussed the consequences of hyperkalemia including sudden in the face of advanced CKD stage V. Discussed with him about importance of strict renal diet. (5) Hyperosmolar non-ketotic state in patient with type 2 diabetes mellitus Is this a current diagnosis for this admission?: Yes Plan: As per hospitalist.
[2017-03-15] MEDS: 1/2 NORMAL SALINE 1,000 ML IV PRN (18:55)
[2017-03-15 20:18] LABS: ANION GAP 12 (5-19); BLOOD UREA NITROGEN 75 mg/dL (7-20); CALCIUM 8.8 mg/dL (8.4-10.2); CARBON DIOXIDE 20 mmol/L (22-30); CHLORIDE 105 mmol/L (98-107); MAGNESIUM 1.9 mg/dL (1.6-2.3); SODIUM 136.9 mmol/L (137-145)
[2017-03-15 20:29] LABS: CREATINE KINASE MB 2.91 ng/mL (<4.55); TROPONIN I 0.121 ng/mL
[2017-03-15 20:38] LABS: GLUCOSE 434 mg/dL (75-110)
[2017-03-15] MEDS: CLONIDINE HCL 0.1 MG TABLET PO SCH (21:55)
[2017-03-15] MEDS: INSULIN GLARGINE,HUM.REC.ANLOG 1,000 UNIT/10 ML UNIT SUBCUT SCH (22:01)
[2017-03-15] MEDS ORDERED: HYDRALAZINE HCL INJ/PF 20 MG/1 ML SDV IV PRN (23:00)
[2017-03-15 23:08] LABS: ANION GAP 15 (5-19); BLOOD UREA NITROGEN 74 mg/dL (7-20); CARBON DIOXIDE 19 mmol/L (22-30); CHLORIDE 104 mmol/L (98-107); POTASSIUM 4.7 mmol/L (3.6-5.0); SODIUM 137.9 mmol/L (137-145)
[2017-03-15 23:24] LABS: GLUCOSE 405 mg/dL (75-110)
[2017-03-16] MEDS: CLONIDINE HCL 0.1 MG TABLET PO SCH ×3 (06:34→21:04)
[2017-03-16] MEDS: HEPARIN SOD (PORCINE) 5,000 UNIT/ML 1 ML SYRINGE SUBCUT SCH ×3 (06:34→21:04)
[2017-03-16] MEDS: HYDRALAZINE HCL 50 MG TABLET PO SCH ×3 (06:34→21:05)
[2017-03-16 06:49] LABS: ABSOLUTE BASOPHILS # (AUTO) 0.1 10^3/uL (0.0-0.2); ABSOLUTE EOSINOPHILS # (AUTO) 0.2 10^3/uL (0.0-0.6); ABSOLUTE LYMPHOCYTES (AUTO) 1.5 10^3/uL (0.5-4.7); ABSOLUTE MONOCYTES (AUTO) 0.6 10^3/uL (0.1-1.4); ABSOLUTE NEUT (AUTO) 4.8 10^3/uL (1.7-8.2); EOSINOPHILS % (AUTO) 2.9 % (0-6); HEMATOCRIT 30.4 % (37.9-51.0); HEMOGLOBIN 10.2 g/dL (13.5-17.0); LYMPHOCYTES % (AUTO) 20.7 % (13-45); MEAN CORPUSCULAR HEMOGLOBIN 28.8 pg (27.0-33.4); MEAN CORPUSCULAR HGB CONC 33.6 g/dL (32.0-36.0); MEAN CORPUSCULAR VOLUME 86 fl (80-97); PLATELET COUNT 264 10^3/uL (150-450); RED BLOOD COUNT 3.55 10^6/uL (4.35-5.55); RED CELL DISTRIBUTION WIDTH 15.6 % (11.5-14.0); SEGMENTED NEUTROPHILS % (AUTO) 67.4 % (42-78); TOTAL CELLS COUNTED % (AUTO) 100 %; WHITE BLOOD COUNT 7.2 10^3/uL (4.0-10.5)
[2017-03-16 07:07] LABS: CHOLESTEROL 221.09 mg/dL (0-200); MAGNESIUM 1.9 mg/dL (1.6-2.3); PHOSPHORUS 4.8 mg/dL (2.5-4.5); TRIGLYCERIDES 244 mg/dL (<150)
[2017-03-16 07:19] LABS: DIRECT LDL 117 mg/dL (<100)
[2017-03-16 07:20] LABS: VLDL CHOLESTEROL 48.8 mg/dL (10-31)
[2017-03-16] MEDS: INSULIN GLARGINE,HUM.REC.ANLOG 1,000 UNIT/10 ML UNIT SUBCUT SCH ×2 (09:16→21:33)
[2017-03-16] MEDS: GABAPENTIN 100 MG CAPSULE PO SCH ×3 (09:17→17:08)
[2017-03-16] MEDS: AMLODIPINE BESYLATE 10 MG TABLET PO SCH (09:17)
[2017-03-16] MEDS: ASPIRIN 81 MG TABLET, ENT COATED PO SCH (09:17)
[2017-03-16] MEDS: INSULIN LISPRO 100 UNIT/ML 3 ML VIAL SUBCUT PRN ×4 (09:17→21:34)
[2017-03-16] MEDS: ATORVASTATIN CALCIUM 80 MG TABLET PO SCH (09:17)
[2017-03-16] MEDS: 1/2 NORMAL SALINE 1,000 ML IV PRN (09:22)
[2017-03-16 10:28] LABS: ANION GAP 14 (5-19); BLOOD UREA NITROGEN 71 mg/dL (7-20); CALCIUM 8.8 mg/dL (8.4-10.2); CARBON DIOXIDE 18 mmol/L (22-30); CHLORIDE 108 mmol/L (98-107); GLUCOSE 259 mg/dL (75-110); POTASSIUM 4.8 mmol/L (3.6-5.0); SODIUM 140.1 mmol/L (137-145)
--- NOTE | 2017-03-16 12:36 | PDOC PROGRESS REPORT ---
Subjective Progress Note for:: 03/16/17 Reason For Visit: Seen today.No c/o chest pains, dyspnea. No nausea or vomiting. Very good appetite.Labs and vital signs reviewed with patient. Physical Exam Vital Signs: Temp Pulse Resp BP Pulse Ox 98.6 F 94 18 134/68 H 94 03/16/17 08:18 03/16/17 08:18 03/16/17 08:18 03/16/17 08:18 03/16/17 08:18 Intake & Output 03/15/17 03/16/17 03/17/17 06:59 06:59 06:59 Intake Total 900 Output Total 600 Balance 300 General appearance: PRESENT: no acute distress Respiratory exam: PRESENT: clear to auscultation ursula. ABSENT: crackles, rhonchi Cardiovascular exam: PRESENT: +S1, +S2, systolic murmur GI/Abdominal exam: PRESENT: normal bowel sounds, soft. ABSENT: diminished bowel sounds, organomegaly, tenderness Extremities exam: ABSENT: pedal edema Neurological exam: PRESENT: alert, awake, oriented to person, oriented to place , oriented to time Skin exam: ABSENT: dry, erythema Results Laboratory Results: 03/16/17 06:23 03/16/17 09:59 03/15/17 03/15/17 03/15/17 06:56 19:30 22:30 WBC RBC Hgb Hct MCV MCH MCHC RDW Plt Count Seg Neutrophils % Lymphocytes % Monocytes % Eosinophils % Basophils % Absolute Neutrophils Absolute Lymphocytes Absolute Monocytes Absolute Eosinophils Absolute Basophils Sodium 136.9 L 137.9 Potassium 5.0 4.7 Chloride 105 104 Carbon Dioxide 20 L 19 L Anion Gap 12 15 BUN 75 H 74 H Creatinine 10.36 H 10.33 H Est GFR ( Amer) 6 L 6 L Est GFR (Non-Af Amer) 5 L 5 L Glucose 434 H* 405 H* Calcium 8.8 9.0 Phosphorus Magnesium 1.9 Transferrin 206 Triglycerides Cholesterol LDL Cholesterol Direct VLDL Cholesterol HDL Cholesterol PTH Intact 03/16/17 03/16/17 03/16/17 06:23 06:23 06:23 WBC 7.2 RBC 3.55 L Hgb 10.2 L Hct 30.4 L MCV 86 MCH 28.8 MCHC 33.6 RDW 15.6 H Plt Count 264 Seg Neutrophils % 67.4 Lymphocytes % 20.7 Monocytes % 8.0 Eosinophils % 2.9 Basophils % 1.0 Absolute Neutrophils 4.8 Absolute Lymphocytes 1.5 Absolute Monocytes 0.6 Absolute Eosinophils 0.2 Absolute Basophils 0.1 Sodium Potassium Chloride Carbon Dioxide Anion Gap BUN Creatinine Est GFR ( Amer) Est GFR (Non-Af Amer) Glucose Calcium Phosphorus 4.8 H Magnesium 1.9 Transferrin Triglycerides 244 H Cholesterol 221.09 H LDL Cholesterol Direct 117 H VLDL Cholesterol 48.8 H HDL Cholesterol 38 L PTH Intact Cancelled 03/16/17 03/16/17 07:07 09:59 WBC RBC Hgb Hct MCV MCH MCHC RDW Plt Count Seg Neutrophils % Lymphocytes % Monocytes % Eosinophils % Basophils % Absolute Neutrophils Absolute Lymphocytes Absolute Monocytes Absolute Eosinophils Absolute Basophils Sodium 140.1 Potassium 4.8 Chloride 108 H Carbon Dioxide 18 L Anion Gap 14 BUN 71 H Creatinine 10.45 H Est GFR ( Amer) 6 L Est GFR (Non-Af Amer) 5 L Glucose 259 H Calcium 8.8 Phosphorus Magnesium Transferrin Triglycerides Cholesterol LDL Cholesterol Direct VLDL Cholesterol HDL Cholesterol PTH Intact 490.0 H 03/15/17 03/15/17 03/15/17 06:56 06:56 12:50 Creatine Kinase 329 H 310 H CK-MB (CK-2) 3.19 Troponin I 0.151 03/15/17 03/15/17 03/15/17 12:50 19:30 19:30 Creatine Kinase 333 H CK-MB (CK-2) 2.98 2.91 Troponin I 0.131 0.121 Impressions: Chest X-Ray 03/14/17 23:08 IMPRESSION: Pulmonary vascular congestion. 2010 [employer]- All Rights Reserved Assessment & Plan - Diagnosis (1) Acute on chronic renal failure Qualifiers: Chronic kidney disease stage: stage 4 (severe) Is this a current diagnosis for this admission?: Yes Plan: This patient has complicated diabetes with progressive CKD which as per review of labs had reached CKD stage V as of late 2017. He however has no uremic symptoms. Lites are stable . Presently there is no acute indications for renal replacements. Discussed with patient on tight blood sugar blood pressure control which seems to be going to be difficult given his lack of insurance and continue his medical care. Right now BP and sugar seems decent. Needs out patient follow up to determine when he would need to start [employer]. Monitor. (2) CKD (chronic kidney disease), stage IV Plan: Secondary to diabetic nephropathy. Discussed at length the consequences of poorly controlled blood sugar and and hypertension. (3) Hypertensive urgency Plan: Is better controlled. Adv to continue on the clonidine and monitor. (4) Hyperkalemia Plan: Discussed the consequences of hyperkalemia including sudden in the face of advanced CKD stage V. Discussed with him about importance of strict renal diet. (5) Hyperosmolar non-ketotic state in patient with type 2 diabetes mellitus Is this a current diagnosis for this admission?: Yes Plan: As per hospitalist. (6) Anemia in chronic renal disease Is this a current diagnosis for this admission?: Yes Plan: Needs out patient monitoring.
--- NOTE | 2017-03-16 13:28 | PDOC PROGRESS REPORT ---
Subjective Progress Note for:: 03/16/17 Subjective:: The patient is a 51-year-old male who has had underlying diabetes for many years. He has both diabetic retinopathy and nephropathy. The patient came into the emergency department yesterday with worsening shortness of breath. Apparently, he was diagnosed with chronic kidney disease stage V back in December 2016. Looking back in the records it looks like he has had progressive kidney disease over the last several years. In any event the patient has had difficulty maintaining outpatient appointments secondary to lack of insurance. He presented yesterday with evidence of volume overload and uncontrolled blood sugars. He also has mild hyperkalemia. His high blood pressure is also uncontrolled. Reason For Visit: HHNS, CKD, HYPERTENSIVE EMERGENCY Physical Exam Vital Signs: Temp Pulse Resp BP Pulse Ox 98.6 F 94 18 134/68 H 94 03/16/17 08:18 03/16/17 08:18 03/16/17 08:18 03/16/17 08:18 03/16/17 08:18 Intake & Output 03/15/17 03/16/17 03/17/17 06:59 06:59 06:59 Intake Total 900 Output Total 600 Balance 300 Additional comments: The patient is noted to be sitting up on room air. He does appear to be less dyspneic and tachypneic than yesterday. His facial appearance is unremarkable. His lungs are in fact clear to auscultation bilaterally. His cardiac exam is regular without murmurs, gallops or rubs. The abdomen is obese but soft. Bowel sounds are present in the lower quadrants. He does not have guarding or rebound noted and there are no hernias or masses present. Surprisingly, the patient does not have any lower extremity edema. He does have some increased pigmentation of the lower extremities. Otherwise, there are no acute skin lesions or rashes. Results Laboratory Results: 03/16/17 06:23 03/16/17 09:59 03/15/17 03/15/17 03/15/17 06:56 19:30 22:30 WBC RBC Hgb Hct MCV MCH MCHC RDW Plt Count Seg Neutrophils % Lymphocytes % Monocytes % Eosinophils % Basophils % Absolute Neutrophils Absolute Lymphocytes Absolute Monocytes Absolute Eosinophils Absolute Basophils Sodium 136.9 L 137.9 Potassium 5.0 4.7 Chloride 105 104 Carbon Dioxide 20 L 19 L Anion Gap 12 15 BUN 75 H 74 H Creatinine 10.36 H 10.33 H Est GFR ( Amer) 6 L 6 L Est GFR (Non-Af Amer) 5 L 5 L Glucose 434 H* 405 H* Calcium 8.8 9.0 Phosphorus Magnesium 1.9 Transferrin 206 Triglycerides Cholesterol LDL Cholesterol Direct VLDL Cholesterol HDL Cholesterol PTH Intact 03/16/17 03/16/17 03/16/17 06:23 06:23 06:23 WBC 7.2 RBC 3.55 L Hgb 10.2 L Hct 30.4 L MCV 86 MCH 28.8 MCHC 33.6 RDW 15.6 H Plt Count 264 Seg Neutrophils % 67.4 Lymphocytes % 20.7 Monocytes % 8.0 Eosinophils % 2.9 Basophils % 1.0 Absolute Neutrophils 4.8 Absolute Lymphocytes 1.5 Absolute Monocytes 0.6 Absolute Eosinophils 0.2 Absolute Basophils 0.1 Sodium Potassium Chloride Carbon Dioxide Anion Gap BUN Creatinine Est GFR ( Amer) Est GFR (Non-Af Amer) Glucose Calcium Phosphorus 4.8 H Magnesium 1.9 Transferrin Triglycerides 244 H Cholesterol 221.09 H LDL Cholesterol Direct 117 H VLDL Cholesterol 48.8 H HDL Cholesterol 38 L PTH Intact Cancelled 03/16/17 03/16/17 07:07 09:59 WBC RBC Hgb Hct MCV MCH MCHC RDW Plt Count Seg Neutrophils % Lymphocytes % Monocytes % Eosinophils % Basophils % Absolute Neutrophils Absolute Lymphocytes Absolute Monocytes Absolute Eosinophils Absolute Basophils Sodium 140.1 Potassium 4.8 Chloride 108 H Carbon Dioxide 18 L Anion Gap 14 BUN 71 H Creatinine 10.45 H Est GFR ( Amer) 6 L Est GFR (Non-Af Amer) 5 L Glucose 259 H Calcium 8.8 Phosphorus Magnesium Transferrin Triglycerides Cholesterol LDL Cholesterol Direct VLDL Cholesterol HDL Cholesterol PTH Intact 490.0 H 03/15/17 03/15/17 03/15/17 06:56 06:56 12:50 Creatine Kinase 329 H 310 H CK-MB (CK-2) 3.19 Troponin I 0.151 03/15/17 03/15/17 03/15/17 12:50 19:30 19:30 Creatine Kinase 333 H CK-MB (CK-2) 2.98 2.91 Troponin I 0.131 0.121 Impressions: Chest X-Ray 03/14/17 23:08 IMPRESSION: Pulmonary vascular congestion. 2010 [employer]- All Rights Reserved Assessment & Plan - Diagnosis (1) Acute on chronic renal failure Qualifiers: Chronic kidney disease stage: stage 4 (severe) Is this a current diagnosis for this admission?: Yes Plan: Nephrology is following. I greatly appreciate Dr. Del Toro's recommendations. I have consulted Dr. Kristina Chou for consideration of fistula placement for the impending need for dialysis. (2) Diabetes 1.5, managed as type 2 Is this a current diagnosis for this admission?: Yes Plan: Blood sugars have improved significantly overnight. Continue basal insulin and sliding scale. (3) Hyperglycemia Is this a current diagnosis for this admission?: Yes Plan: See above. (4) Ventricular tachycardia Is this a current diagnosis for this admission?: Yes Plan: Continue telemetry monitoring. Troponins are slightly elevated likely secondary to underlying chronic kidney disease. Echocardiogram has been done, but the interpretation is pending at this time. (5) Anemia in chronic renal disease Is this a current diagnosis for this admission?: Yes Plan: Stable. Transfusion is not required at this time. (6) Heart failure Qualifiers: Heart failure type: unspecified Heart failure chronicity: unspecified Qualified Code(s): I50.9 - Heart failure, unspecified Is this a current diagnosis for this admission?: Yes Plan: Again, the suspicion is for diastolic congestive heart failure or diastolic dysfunction. Echocardiogram has been ordered and completed. Interpretation is pending. (7) HTN (hypertension) Qualifiers: Hypertension type: unspecified Qualified Code(s): I10 - Essential (primary ) hypertension Is this a current diagnosis for this admission?: Yes Plan: Continue amlodipine and hydralazine. Clonidine was added yesterday per nephrology. (8) Hyperlipidemia Qualifiers: Hyperlipidemia type: unspecified Qualified Code(s): E78.5 - Hyperlipidemia , unspecified Is this a current diagnosis for this admission?: Yes Plan: Patient is receiving atorvastatin. - Time Time Spent with patient: 25-34 minutes - Inpatient Certification Medical Necessity: Significant Comorbidiites Make Outpatient Treatment Too Risky , Need Close Monitoring Due to Risk of Patient Decompensation, Need For IV Fluids, Need For Continuous Telemetry Monitoring, Need for Surgery, Risk of Complication if Not Cared For in Hospital
--- NOTE | 2017-03-16 18:59 | XCELERA REPORT ---
[address] [address] Transthoracic Echocardiogram Report Name: NAKUL MCNEIL Age: 51 yrs Gender: Male : 1965 Patient Status: Inpatient Patient Location: [address] [place] [address] Study Date: 03/16/2017 10:53 AM Height: 75 in Weight: 275 lb BSA: 2.5 m2 Procedure: A two-dimensional transthoracic echocardiogram with color flow Doppler was performed. Study Quality: Good. Reason For Study: CHF History: CHF. Ordering Physician: WICHO RODRIGUEZ Performed By: Azucena Artis Interpretation Summary The left ventricle is normal in size. There is mild concentric left ventricular hypertrophy. LV EF is 60% Left ventricular systolic function is normal. Doppler measurements suggest normal left ventricular diastolic function The left ventricular wall motion is normal. There is no thrombus. There is no ventricular septal defect visualized. The right ventricle is normal in size and function. The right atrium is normal. The left atrium is mildly dilated. The interatrial septum is intact with no evidence for an atrial septal defect. There is no evidence of mitral valve prolapse. There is no vegetation seen on the mitral valve. There is no mitral valve stenosis. There is no mitral regurgitation noted. There is no aortic valve stenosis There is no LVOT obstruction. No aortic regurgitation is present. There is no tricuspid stenosis. No tricuspid regurgitation. uNABLE TO CALCULATE RVSP DUE TO LACK OF TR JET. There is no pulmonic valvular stenosis. There is no pulmonic valvular regurgitation. The aortic root is normal size. There is no pericardial effusion. MMode/2D Measurements & Calculations RVDd: 3.0 cm LVIDd: 5.6 cm FS: 31.0 % Ao root diam: 3.1 cm IVSd: 1.3 cm LVIDs: 3.9 cm EDV(Teich): 153.6 ml LVPWd: 1.0 cm ESV(Teich): 64.3 ml Ao root area: 7.4 cm2 EF(Teich): 58.1 % LA dimension: 4.3 cm Doppler Measurements & Calculations MV E max walker: MV P1/2t max walker: Ao V2 max: LV V1 max P.7 cm/sec 100.7 cm/sec 135.5 cm/sec 3.2 mmHg MV A max walker: MV P1/2t: 49.4 msec Ao max PG: LV V1 max: 69.6 cm/sec 7.6 mmHg 89.8 cm/sec MV E/A: 1.4 MVA(P1/2t): 4.4 cm2 MV dec slope: 596.5 cm/sec2 MV dec time: 0.17 sec PA V2 max: 116.0 cm/sec PA max P.4 mmHg Left Ventricle The left ventricle is normal in size. There is mild concentric left ventricular hypertrophy. LV EF is 60%. Left ventricular systolic function is normal. Doppler measurements suggest normal left ventricular diastolic function. The left ventricular wall motion is normal. There is no thrombus. There is no ventricular septal defect visualized. Right Ventricle The right ventricle is normal in size and function. Atria The right atrium is normal. The left atrium is mildly dilated. The interatrial septum is intact with no evidence for an atrial septal defect. Mitral Valve There is no evidence of mitral valve prolapse. There is no vegetation seen on the mitral valve. There is no mitral valve stenosis. There is no mitral regurgitation noted. Aortic Valve There is no aortic valvular vegetation. There is no aortic valve stenosis. There is no LVOT obstruction. No aortic regurgitation is present. Tricuspid Valve There is no tricuspid stenosis. No tricuspid regurgitation. uNABLE TO CALCULATE RVSP DUE TO LACK OF TR JET. Pulmonic Valve There is no pulmonic valvular stenosis. There is no pulmonic valvular regurgitation. Great Vessels The aortic root is normal size. Effusions There is no pericardial effusion. : WICHO RODRIGUEZ > Gypsy Recinos
[2017-03-17] MEDS: HEPARIN SOD (PORCINE) 5,000 UNIT/ML 1 ML SYRINGE SUBCUT SCH ×3 (05:42→21:12)
[2017-03-17] MEDS: CLONIDINE HCL 0.1 MG TABLET PO SCH ×3 (05:42→21:13)
[2017-03-17] MEDS: HYDRALAZINE HCL 50 MG TABLET PO SCH ×3 (05:44→21:14)
[2017-03-17] MEDS: ASPIRIN 81 MG TABLET, ENT COATED PO SCH (09:40)
[2017-03-17] MEDS: GABAPENTIN 100 MG CAPSULE PO SCH ×3 (09:40→17:22)
[2017-03-17] MEDS: ATORVASTATIN CALCIUM 80 MG TABLET PO SCH (09:40)
[2017-03-17] MEDS: AMLODIPINE BESYLATE 10 MG TABLET PO SCH (09:40)
[2017-03-17] MEDS: INSULIN GLARGINE,HUM.REC.ANLOG 1,000 UNIT/10 ML UNIT SUBCUT SCH ×2 (09:40→21:25)
[2017-03-17 11:02] LABS: ANION GAP 10 (5-19); BLOOD UREA NITROGEN 73 mg/dL (7-20); CARBON DIOXIDE 20 mmol/L (22-30); CHLORIDE 106 mmol/L (98-107); GLUCOSE 168 mg/dL (75-110); POTASSIUM 4.9 mmol/L (3.6-5.0); SODIUM 136.1 mmol/L (137-145)
[2017-03-17] MEDS: INSULIN LISPRO 100 UNIT/ML 3 ML VIAL SUBCUT PRN ×3 (12:26→21:26)
--- NOTE | 2017-03-17 13:41 | PDOC PROGRESS REPORT ---
Subjective Progress Note for:: 03/17/17 Subjective:: Denies any complaints. Reason For Visit: HHNS, CKD, HYPERTENSIVE EMERGENCY Physical Exam Vital Signs: Temp Pulse Resp BP Pulse Ox 97.5 F 87 22 H 137/71 H 98 03/17/17 09:17 03/17/17 09:17 03/17/17 09:17 03/17/17 09:17 03/17/17 09:17 Intake & Output 03/16/17 03/17/17 03/18/17 06:59 06:59 06:59 Intake Total 900 2484 Output Total 600 Balance 300 2484 Weight 130.7 kg General appearance: PRESENT: no acute distress Eye exam: PRESENT: conjunctiva pink. ABSENT: scleral icterus Mouth exam: PRESENT: moist, tongue midline Neck exam: ABSENT: JVD Respiratory exam: PRESENT: clear to auscultation ursula. ABSENT: rales, rhonchi, wheezes Cardiovascular exam: PRESENT: RRR. ABSENT: diastolic murmur, rubs, systolic murmur GI/Abdominal exam: PRESENT: normal bowel sounds, soft. ABSENT: distended, guarding, mass, organolmegaly, rebound, tenderness Extremities exam: ABSENT: calf tenderness, clubbing, pedal edema Neurological exam: PRESENT: alert, awake, oriented to person, oriented to place , oriented to time, oriented to situation, CN II-XII grossly intact. ABSENT: motor sensory deficit Psychiatric exam: PRESENT: appropriate affect Skin exam: PRESENT: dry, intact, warm. ABSENT: cyanosis, rash Results Laboratory Results: 03/16/17 06:23 03/17/17 10:35 03/17/17 10:35 Sodium 136.1 L Potassium 4.9 Chloride 106 Carbon Dioxide 20 L Anion Gap 10 BUN 73 H Creatinine 10.28 H Est GFR ( Amer) 6 L Est GFR (Non-Af Amer) 5 L Glucose 168 H Calcium 9.0 03/15/17 05:35 Clean Catch Midstream Urine Culture - Final NO GROWTH 2 DAYS 03/15/17 03/15/17 03/15/17 06:56 06:56 12:50 Creatine Kinase 329 H 310 H CK-MB (CK-2) 3.19 Troponin I 0.151 03/15/17 03/15/17 03/15/17 12:50 19:30 19:30 Creatine Kinase 333 H CK-MB (CK-2) 2.98 2.91 Troponin I 0.131 0.121 Impressions: Chest X-Ray 03/14/17 23:08 IMPRESSION: Pulmonary vascular congestion. 2010 [employer]- All Rights Reserved Assessment & Plan - Diagnosis (1) Acute on chronic renal failure Qualifiers: Chronic kidney disease stage: stage 4 (severe) Is this a current diagnosis for this admission?: Yes Plan: We have asked vascular surgery to evaluate for AV fistula placement. The patient currently is euvolemic and has no hyperkalemia. He could potentially be discharged after evaluation by vascular surgery. (2) Anemia in chronic renal disease Is this a current diagnosis for this admission?: Yes Plan: Hemoglobin has remained stable. (3) Diabetes 1.5, managed as type 2 Is this a current diagnosis for this admission?: Yes Plan: Continue with Lantus and sliding scale insulin. (4) Heart failure Qualifiers: Heart failure type: unspecified Heart failure chronicity: unspecified Qualified Code(s): I50.9 - Heart failure, unspecified Is this a current diagnosis for this admission?: Yes Plan: Patient is currently euvolemic. (5) Hyperkalemia Is this a current diagnosis for this admission?: Yes Plan: This has resolved. Secondary to chronic renal failure. (6) HTN (hypertension) Qualifiers: Hypertension type: unspecified Qualified Code(s): I10 - Essential (primary ) hypertension Is this a current diagnosis for this admission?: Yes Plan: Continue with the Norvasc, clonidine and hydralazine. (7) Hyperlipidemia Qualifiers: Hyperlipidemia type: unspecified Qualified Code(s): E78.5 - Hyperlipidemia , unspecified Is this a current diagnosis for this admission?: Yes Plan: Continue with Lipitor. - Time Time Spent with patient: 25-34 minutes - Inpatient Certification Medical Necessity: Need Close Monitoring Due to Risk of Patient Decompensation
--- NOTE | 2017-03-17 23:47 | Physician Advisory Note ---
Physician Advisor ProgressNote .: Pursuant to the plan for [facility], I have reviewed the medical record for this patient. Physician Advisor Statement: Nice documentation of ARF on CRF stage 4. Please document, if you agree: 1. "Acute CHF, likely type, evidenced by (+)JVD, bilat rales, tachypnea, pedal edema, & pulmonary vascular congestion" ("HF w/preserved EF"? High Output CHF due to ____?) - or was CHF ruled out ? 2. "Hypertensive emergency, evidenced by " (specify what acute organ dysfunction/failure is due to the syst BP's >180) - will need to make a very strong case for this dx if believe it is present, since previous notes indicated "essential HTN" - - or is it "Hypertensive urgency" (which doesn't need to be associated with acute organ failure)? Thanks! CK
[2017-03-18] MEDS: HEPARIN SOD (PORCINE) 5,000 UNIT/ML 1 ML SYRINGE SUBCUT SCH ×2 (05:25→13:50)
[2017-03-18] MEDS: HYDRALAZINE HCL 50 MG TABLET PO SCH ×2 (05:27→13:50)
[2017-03-18] MEDS: CLONIDINE HCL 0.1 MG TABLET PO SCH ×2 (05:27→13:51)
[2017-03-18 05:47] LABS: ANION GAP 13 (5-19); BLOOD UREA NITROGEN 81 mg/dL (7-20); CALCIUM 8.7 mg/dL (8.4-10.2); CARBON DIOXIDE 19 mmol/L (22-30); CHLORIDE 107 mmol/L (98-107); GLUCOSE 57 mg/dL (75-110); POTASSIUM 4.4 mmol/L (3.6-5.0); SODIUM 138.6 mmol/L (137-145)
[2017-03-18] MEDS: ASPIRIN 81 MG TABLET, ENT COATED PO SCH (09:12)
[2017-03-18] MEDS: GABAPENTIN 100 MG CAPSULE PO SCH ×3 (09:12→17:35)
[2017-03-18] MEDS: ATORVASTATIN CALCIUM 80 MG TABLET PO SCH (09:12)
[2017-03-18] MEDS: INSULIN GLARGINE,HUM.REC.ANLOG 1,000 UNIT/10 ML UNIT SUBCUT SCH (09:13)
[2017-03-18] MEDS: AMLODIPINE BESYLATE 10 MG TABLET PO SCH (09:13)
--- NOTE | 2017-03-18 10:35 | PDOC PROGRESS REPORT ---
Subjective Progress Note for:: 03/18/17 Subjective:: He was sitting up in his chair when I came to see him. Currently he has not complaints. He denies SOB, decreased appetite, and N/V. Reason For Visit: HHNS, CKD, HYPERTENSIVE EMERGENCY Physical Exam Vital Signs: Temp Pulse Resp BP Pulse Ox 97.9 F 100 18 137/75 H 96 03/18/17 07:55 03/18/17 07:55 03/18/17 07:55 03/18/17 07:55 03/18/17 07:55 Intake & Output 03/17/17 03/18/17 03/19/17 06:59 06:59 06:59 Intake Total 2484 1816 Output Total 4 Balance 2484 1812 Weight 130.7 kg 131.2 kg General appearance: PRESENT: no acute distress, well-developed, well-nourished Mouth exam: PRESENT: moist, tongue midline Neck exam: PRESENT: full ROM. ABSENT: JVD Respiratory exam: PRESENT: clear to auscultation ursula. ABSENT: accessory muscle use, chest wall tenderness, crackles, rales, rhonchi, wheezes Cardiovascular exam: PRESENT: +S1, +S2, systolic murmur GI/Abdominal exam: PRESENT: normal bowel sounds, soft. ABSENT: diminished bowel sounds, organomegaly, tenderness Extremities exam: PRESENT: pedal edema - -trace+. ABSENT: tenderness Musculoskeletal exam: PRESENT: normal inspection. ABSENT: tenderness Neurological exam: PRESENT: alert, awake, oriented to person, oriented to place , oriented to time, oriented to situation Psychiatric exam: PRESENT: appropriate affect, normal mood Skin exam: PRESENT: dry, intact, warm. ABSENT: rash Results Laboratory Results: 03/16/17 06:23 03/18/17 05:06 03/17/17 03/18/17 10:35 05:06 Sodium 136.1 L 138.6 Potassium 4.9 4.4 Chloride 106 107 Carbon Dioxide 20 L 19 L Anion Gap 10 13 BUN 73 H 81 H Creatinine 10.28 H 10.54 H Est GFR ( Amer) 6 L 6 L Est GFR (Non-Af Amer) 5 L 5 L Glucose 168 H 57 L Calcium 9.0 8.7 03/15/17 05:35 Clean Catch Midstream Urine Culture - Final NO GROWTH 2 DAYS 03/15/17 03/15/17 03/15/17 06:56 06:56 12:50 Creatine Kinase 329 H 310 H CK-MB (CK-2) 3.19 Troponin I 0.151 03/15/17 03/15/17 03/15/17 12:50 19:30 19:30 Creatine Kinase 333 H CK-MB (CK-2) 2.98 2.91 Troponin I 0.131 0.121 Impressions: Chest X-Ray 03/14/17 23:08 IMPRESSION: Pulmonary vascular congestion. 2010 [employer]- All Rights Reserved Assessment & Plan - Diagnosis (1) CKD (chronic kidney disease) stage 5, GFR less than 15 ml/min Plan: This looks to be his new baseline creatinine. 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 Potassium is stable. No SOB. He will be seen by Dr. Chou today for evaluation of fistula placement. After that he is stable for discharge from nephrology's standpoint. Would like him to follow up with Dr. Del Toro' offices in two weeks. (2) Acute on chronic renal failure Qualifiers: Chronic kidney disease stage: stage 4 (severe) Is this a current diagnosis for this admission?: Yes Plan: looks to have a new baseline creatinine (3) Anemia in chronic renal disease Is this a current diagnosis for this admission?: Yes Plan: currently stable (4) Hyperkalemia Is this a current diagnosis for this admission?: Yes Plan: resolved (5) Hypertensive urgency Plan: resolved and blood pressure is currently controlled.
[2017-03-18 11:21] LABS: ANION GAP 13 (5-19); BLOOD UREA NITROGEN 78 mg/dL (7-20); CALCIUM 8.8 mg/dL (8.4-10.2); CARBON DIOXIDE 18 mmol/L (22-30); CHLORIDE 103 mmol/L (98-107); GLUCOSE 158 mg/dL (75-110); SODIUM 134.1 mmol/L (137-145)
[2017-03-18 12:43] VITALS: BP 132/75
--- NOTE | 2017-03-18 17:28 | PDOC DISCHARGE SUMMARY ---
General - Admit/Disc Date/PCP Admission Date/Primary Care Provider: 03/15/17 04:08 Discharge Date: 03/18/17 - Discharge Diagnosis (1) Acute on chronic renal failure Is this a current diagnosis for this admission?: Yes (2) Anemia in chronic renal disease Is this a current diagnosis for this admission?: Yes (3) Diabetes 1.5, managed as type 2 Is this a current diagnosis for this admission?: Yes (4) Heart failure Is this a current diagnosis for this admission?: Yes Summary: Echocardiogram showed no systolic or diastolic dysfunction. Is presumed to be diastolic dysfunction because of his elevated blood pressures when he presented. (5) Hyperkalemia Is this a current diagnosis for this admission?: Yes (6) HTN (hypertension) Is this a current diagnosis for this admission?: Yes (7) Hyperlipidemia Is this a current diagnosis for this admission?: Yes - Additional Information Resuscitation Status: Full Code Discharge Diet: Cardiac, Diabetic Discharge Activity: Activity As Tolerated, Balance Activity w/Rest, Weigh Daily Prescriptions: Atorvastatin Calcium [Lipitor 80 mg Tablet] 80 mg PO DAILY #30 tablet Calcitriol [Rocaltrol 0.25 mcg Capsule] 0.25 mcg PO DAILY #30 capsule Clonidine HCl [Catapres 0.1 mg Tablet] 0.1 mg PO Q8 #90 tablet Hydralazine HCl [Apresoline 50 mg Tablet] 100 mg PO Q8 #90 tablet Home Medications: Amlodipine Besylate [Norvasc 10 mg Tablet] 10 mg PO QHS 03/15/17 Aspirin [Aspirin EC] 81 mg PO DAILY 03/15/17 Gabapentin [Neurontin 300 mg Capsule] 300 mg PO Q12 03/15/17 Insulin Glargine,Hum.rec.anlog [Lantus Solostar] 30 unit SQ Q12 03/15/17 Insulin Lispro [Humalog Insulin (Lispro) 100 unit/mL] 10 unit SUBCUT WBRKFST Insulin Lispro [Humalog Insulin (Lispro) 100 unit/mL] 20 unit SUBCUT WSUPPER Lisinopril [Prinivil 10 mg Tablet] 10 mg PO DAILY 03/15/17 Atorvastatin Calcium [Lipitor 80 mg Tablet] 80 mg PO DAILY #30 tablet 03/18/17 Calcitriol [Rocaltrol 0.25 mcg Capsule] 0.25 mcg PO DAILY #30 capsule 03/18/17 Clonidine HCl [Catapres 0.1 mg Tablet] 0.1 mg PO Q8 #90 tablet 03/18/17 Flu Vacc [id number] [id number] Up/Pf [Fluzone Adlt Quad [id number] Vac 0.5 ml Syr] 0.5 ml IM .DISCHARGE PRN disp.syrin 03/18/17 Hydralazine HCl [Apresoline 50 mg Tablet] 100 mg PO Q8 #90 tablet 03/18/17 History of Present Illness History of Present Illness: NAKUL MCNEIL is a 51 year old male with history diabetes, hypertension and chronic renal failure presented to emergency room with shortness of breath. He has had a cough also along worsening shortness of breath, orthopnea, and dyspnea on exertion. Patient was noted to have an elevated blood pressure when he presented. He has no history of congestive heart failure. He does have known chronic renal failure stage IV. Patient was found to have congestive heart failure and is admitted for treatment. Hospital Course Hospital Course: 51-year-old male with chronic renal failure who presented with shortness of breath. Patient was found to have elevated blood pressures and was thought to have diastolic dysfunction. His blood pressure was lowered with the addition of clonidine and his wheezing improved. Also was noted to have hyperkalemia. Patient was seen by nephrology and given that his shortness of breath resolved as well as his hypokalemia there was no indications for acute dialysis. They have recommended that we manage his blood pressures and that he follow-up for impending dialysis in the near future. The patient also had an echocardiogram done while he was here and showed no evidence for systolic dysfunction. He had a normal ejection fraction and no obvious diastolic dysfunction. It is presumed that he did have diastolic dysfunction acute secondary to his elevated blood pressures when he presented. On the day of discharge he was back to his baseline. The patient has not yet seen vascular surgery for consideration of a fistula. Physical Exam Vital Signs: Temp Pulse Resp BP Pulse Ox 97.5 F 96 18 132/75 H 99 03/18/17 11:57 03/18/17 14:00 03/18/17 11:57 03/18/17 11:57 03/18/17 11:57 Intake & Output 03/17/17 03/18/17 03/19/17 06:59 06:59 06:59 Intake Total 2484 1816 459 Output Total 4 Balance 2484 1812 459 Weight 130.7 kg 131.2 kg General appearance: PRESENT: no acute distress Eye exam: PRESENT: conjunctiva pink. ABSENT: scleral icterus Mouth exam: PRESENT: moist, tongue midline Neck exam: ABSENT: JVD Respiratory exam: PRESENT: clear to auscultation ursula. ABSENT: rales, rhonchi, wheezes Cardiovascular exam: PRESENT: RRR. ABSENT: diastolic murmur, rubs, systolic murmur GI/Abdominal exam: PRESENT: normal bowel sounds, soft. ABSENT: distended, guarding, mass, organolmegaly, rebound, tenderness Extremities exam: ABSENT: calf tenderness, clubbing, pedal edema Neurological exam: PRESENT: alert, awake, oriented to person, oriented to place , oriented to time, oriented to situation, CN II-XII grossly intact. ABSENT: motor sensory deficit Psychiatric exam: PRESENT: appropriate affect Skin exam: PRESENT: dry, intact, warm. ABSENT: cyanosis, rash Results Laboratory Results: 03/16/17 06:23 03/18/17 10:00 03/18/17 03/18/17 05:06 10:00 Sodium 138.6 134.1 L Potassium 4.4 5.0 Chloride 107 103 Carbon Dioxide 19 L 18 L Anion Gap 13 13 BUN 81 H 78 H Creatinine 10.54 H 10.57 H Est GFR ( Amer) 6 L 6 L Est GFR (Non-Af Amer) 5 L 5 L Glucose 57 L 158 H Calcium 8.7 8.8 03/15/17 03/15/17 03/15/17 06:56 06:56 12:50 Creatine Kinase 329 H 310 H CK-MB (CK-2) 3.19 Troponin I 0.151 03/15/17 03/15/17 03/15/17 12:50 19:30 19:30 Creatine Kinase 333 H CK-MB (CK-2) 2.98 2.91 Troponin I 0.131 0.121 Impressions: Chest X-Ray 03/14/17 23:08 IMPRESSION: Pulmonary vascular congestion. 2010 [employer]- All Rights Reserved Qualifiers PATEINT BEING DISCHARGED WITH ANY OF THE FOLLOWING DIAGNOSIS?: Heart Failure HF Pt discharged on evidence-based Beta Nancy:: Yes Plan Discharge Plan: We will follow-up with Dr. Del Toro in 2 weeks. Patient will need to schedule an outpatient appointment with vascular surgery for fistula placement. Time Spent: Less than 30 Minutes
[2017-03-19] MEDS ORDERED: CALCITRIOL 0.25 MCG CAPSULE PO SCH (10:00)
== END 2017-03-18 17:49 | disposition home or self-care (01) | DRG 292 ==
LOC: ER 22:07 → EH 03-15 04:08 → 3W 03-15 22:17
PROVIDERS: ADMIT Family Medicine; ATTEND Family Medicine
DX: I13.2 Hypertensive heart and chronic kidney disease with heart failure and with stage 5 chronic kidney disease, or end stage renal disease (principal); N17.9 Acute kidney failure, unspecified; I47.2 Ventricular tachycardia; N18.5 Chronic kidney disease, stage 5; I50.9 Heart failure, unspecified; I16.0 Hypertensive urgency; E87.5 Hyperkalemia; E11.22 Type 2 diabetes mellitus with diabetic chronic kidney disease; E11.65 Type 2 diabetes mellitus with hyperglycemia; E78.5 Hyperlipidemia, unspecified; F17.210 Nicotine dependence, cigarettes, uncomplicated; Z79.4 Long term (current) use of insulin; Z79.84 Long term (current) use of oral hypoglycemic drugs; Z79.82 Long term (current) use of aspirin; Z79.899 Other long term (current) drug therapy
CPT/HCPCS: 36415; 71046; 80048; 80053; 80061; 80307; 81001; 82550; 82553; 82607; 82728; 82746; 82803; 82962; 83036; 83540; 83550; 83735; 83880; 83970; 84100; 84443; 84466; 84484; 85025; 85045; 86140; 87086; 93005; 93010; 93306; 94640; 99285; J1644; J1815; J3490; J7620

== ENCOUNTER → 2017-04-14 | Outpatient (CLI) | payer SELFPAY ==
[2017-04-14 14:52] LABS: HEMATOCRIT 32.3 % (37.9-51.0); HEMOGLOBIN 10.7 g/dL (13.5-17.0); MEAN CORPUSCULAR VOLUME 88 fl (80-97); PLATELET COUNT 236 10^3/uL (150-450); RED BLOOD COUNT 3.68 10^6/uL (4.35-5.55); RED CELL DISTRIBUTION WIDTH 15.9 % (11.5-14.0); WHITE BLOOD COUNT 5.8 10^3/uL (4.0-10.5)
[2017-04-14 15:02] LABS: APPEARANCE,URINE CLEAR; BILIRUBIN,URINE NEGATIVE (NEGATIVE); COLOR,URINE YELLOW; GLUCOSE, URINE 50 mg/dL (NEGATIVE); KETONES,URINE NEGATIVE (NEGATIVE); LEUKOCYTE ESTERASE,URINE NEGATIVE (NEGATIVE); NITRITE,URINE NEGATIVE (NEGATIVE); PROTEIN,URINE >=500 mg/dL (NEGATIVE); UROBILINOGEN,URINE NEGATIVE mg/dL (<2.0)
[2017-04-14 15:11] LABS: ANION GAP 17 (5-19); BLOOD UREA NITROGEN 80 mg/dL (7-20); CALCIUM 9.3 mg/dL (8.4-10.2); CARBON DIOXIDE 17 mmol/L (22-30); CHLORIDE 107 mmol/L (98-107); GLUCOSE 70 mg/dL (75-110); PHOSPHORUS 5.4 mg/dL (2.5-4.5); POTASSIUM 4.2 mmol/L (3.6-5.0); SODIUM 140.7 mmol/L (137-145)
== END ==
LOC: OD 14:15
PROVIDERS: ATTEND Internal Medicine Nephrology
DX: I12.0 Hypertensive chronic kidney disease with stage 5 chronic kidney disease or end stage renal disease (principal); N18.5 Chronic kidney disease, stage 5; E11.9 Type 2 diabetes mellitus without complications
CPT/HCPCS: 36415; 80048; 81001; 83970; 84100; 85027

== ENCOUNTER → 2017-05-23 | Outpatient (CLI) | payer SELFPAY ==
[2017-05-23 10:08] LABS: APPEARANCE,URINE CLEAR; BILIRUBIN,URINE NEGATIVE (NEGATIVE); COLOR,URINE STRAW; GLUCOSE, URINE 50 mg/dL (NEGATIVE); KETONES,URINE NEGATIVE (NEGATIVE); LEUKOCYTE ESTERASE,URINE NEGATIVE (NEGATIVE); NITRITE,URINE NEGATIVE (NEGATIVE); PROTEIN,URINE >=500 mg/dL (NEGATIVE); UROBILINOGEN,URINE NEGATIVE mg/dL (<2.0)
[2017-05-23 10:11] LABS: HEMATOCRIT 33.2 % (37.9-51.0); HEMOGLOBIN 10.8 g/dL (13.5-17.0); MEAN CORPUSCULAR HEMOGLOBIN 28.8 pg (27.0-33.4); MEAN CORPUSCULAR HGB CONC 32.6 g/dL (32.0-36.0); MEAN CORPUSCULAR VOLUME 88 fl (80-97); PLATELET COUNT 238 10^3/uL (150-450); RED BLOOD COUNT 3.77 10^6/uL (4.35-5.55); RED CELL DISTRIBUTION WIDTH 14.7 % (11.5-14.0); WHITE BLOOD COUNT 4.5 10^3/uL (4.0-10.5)
[2017-05-23 10:25] LABS: ALANINE AMINOTRANSFERASE 22 U/L (21-72); ALBUMIN 3.6 g/dL (3.5-5.0); ALKALINE PHOSPHATASE 85 U/L (38-126); ANION GAP 17 (5-19); ASPARTATE AMINO TRANSFERASE 12 U/L (17-59); BILIRUBIN,DIRECT 0.4 mg/dL (0.0-0.4); BILIRUBIN,TOTAL 0.4 mg/dL (0.2-1.3); BLOOD UREA NITROGEN 96 mg/dL (7-20); CALCIUM 8.9 mg/dL (8.4-10.2); CARBON DIOXIDE 15 mmol/L (22-30); CHLORIDE 104 mmol/L (98-107); GLUCOSE 146 mg/dL (75-110); PHOSPHORUS 7.6 mg/dL (2.5-4.5); POTASSIUM 5.2 mmol/L (3.6-5.0); SODIUM 136.4 mmol/L (137-145); TOTAL PROTEIN 6.1 g/dL (6.3-8.2)
[2017-05-23 11:04] LABS: UR PRO/CREAT RATIO RESULT 8.5 mg/mg (0.0-0.2); URINE PROTEIN 769.8 mg/dL (<12)
== END ==
LOC: OD 09:21
PROVIDERS: ATTEND Internal Medicine Nephrology
DX: I12.9 Hypertensive chronic kidney disease with stage 1 through stage 4 chronic kidney disease, or unspecified chronic kidney disease (principal); N18.3 Chronic kidney disease, stage 3 (moderate); D64.9 Anemia, unspecified; E11.9 Type 2 diabetes mellitus without complications
CPT/HCPCS: 36415; 80053; 81001; 82570; 83735; 83970; 84100; 84156; 85027

== ENCOUNTER → 2017-06-17 | Outpatient (CLI) | payer SELFPAY ==
[2017-06-17 15:53] LABS: HEMATOCRIT 29.4 % (37.9-51.0); HEMOGLOBIN 9.8 g/dL (13.5-17.0); MEAN CORPUSCULAR HEMOGLOBIN 29.2 pg (27.0-33.4); MEAN CORPUSCULAR HGB CONC 33.4 g/dL (32.0-36.0); MEAN CORPUSCULAR VOLUME 87 fl (80-97); PLATELET COUNT 201 10^3/uL (150-450); RED BLOOD COUNT 3.37 10^6/uL (4.35-5.55); RED CELL DISTRIBUTION WIDTH 14.1 % (11.5-14.0); WHITE BLOOD COUNT 3.5 10^3/uL (4.0-10.5)
[2017-06-17 16:45] LABS: ANION GAP 19 (5-19); BLOOD UREA NITROGEN 101 mg/dL (7-20); CARBON DIOXIDE 17 mmol/L (22-30); CHLORIDE 103 mmol/L (98-107); GLUCOSE 130 mg/dL (75-110); POTASSIUM 4.4 mmol/L (3.6-5.0); SODIUM 139.1 mmol/L (137-145)
== END ==
LOC: OD 14:44
PROVIDERS: ATTEND Physician Assistant Medical
DX: E11.22 Type 2 diabetes mellitus with diabetic chronic kidney disease (principal); I12.9 Hypertensive chronic kidney disease with stage 1 through stage 4 chronic kidney disease, or unspecified chronic kidney disease; N18.5 Chronic kidney disease, stage 5; D64.9 Anemia, unspecified
CPT/HCPCS: 36415; 80048; 85027

== ENCOUNTER 2017-06-28 09:57 | Inpatient (IN) | payer SELFPAY ==
--- NOTE | 2017-06-28 10:36 | ER Document Report ---
ED Medical Screen (RME) - General Chief Complaint: Weakness Stated Complaint: COUGH/SHORTNESS OF BREATH Time Seen by Provider: 06/28/17 10:31 Notes: The patient is a 51-year-old male, past medical history CKD, presents with frequent coughing over the past few days. His blood work from 10 days ago showed a BUN of 102 and creatinine of 15.4. His flag decorator, Dr. Del Toro, told him to go to the ER to begin preparation for dialysis because he does not have insurance. PE: Frequent dry cough, RRR, rhonchi I have greeted and performed a rapid initial assessment of this patient. A comprehensive ED assessment and evaluation of the patient, analysis of test results and completion of the medical decision making process will be conducted by additional ED providers. TRAVEL OUTSIDE OF THE [place] IN LAST 30 DAYS: No - Related Data Allergies/Adverse Reactions: No Known Allergies Allergy (Verified 06/28/17 10:03) Past Medical History - Social History Frequency of alcohol use: None Drug Abuse: None - Past Medical History Cardiac Medical History: Reports: Hx Hypercholesterolemia, Hx Hypertension Denies: Hx Congestive Heart Failure, Hx DVT, Hx Heart Attack, Hx Pulmonary Embolism Pulmonary Medical History: Denies: Hx Asthma, Hx COPD Neurological Medical History: Denies: Hx Seizures Endocrine Medical History: Reports: Hx Diabetes Mellitus Type 1, 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 Denies: Hx Hyperthyroidism, Hx Hypothyroidism Renal/ Medical History: Denies: Hx Peritoneal Dialysis GI Medical History: Reports: Hx Gastroesophageal Reflux Disease. Denies: Hx Cirrhosis, Hx Hepatitis Musculoskeltal Medical History: Reports Hx Arthritis Skin Medical History: Denies Hx Eczema, Denies Hx Psoriasis Psychiatric Medical History: Denies: Hx Depression Infectious Medical History: Denies: Hx Hepatitis - Immunizations History of Influenza Vaccine for 11/2016 - 04/2017 Season: No Physical Exam - Vital signs Vitals: Temp Pulse Resp BP Pulse Ox 98.4 F 94 14 170/103 H 95 06/28/17 10:07 06/28/17 10:07 06/28/17 10:07 06/28/17 10:07 06/28/17 10:07 Course - Vital Signs Vital signs: Temp Pulse Resp BP Pulse Ox 98.4 F 94 14 170/103 H 95 06/28/17 10:07 06/28/17 10:07 06/28/17 10:07 06/28/17 10:07 06/28/17 10:07
[2017-06-28 11:15] LABS: ABSOLUTE BASOPHILS # (AUTO) 0.1 10^3/uL (0.0-0.2); ABSOLUTE EOSINOPHILS # (AUTO) 0.6 10^3/uL (0.0-0.6); ABSOLUTE MONOCYTES (AUTO) 0.2 10^3/uL (0.1-1.4); ABSOLUTE NEUT (AUTO) 3.4 10^3/uL (1.7-8.2); BASOPHILS % (AUTO) 1.1 % (0-2); EOSINOPHILS % (AUTO) 11.3 % (0-6); HEMOGLOBIN 10.7 g/dL (13.5-17.0); LYMPHOCYTES % (AUTO) 18.5 % (13-45); MEAN CORPUSCULAR HEMOGLOBIN 28.8 pg (27.0-33.4); MEAN CORPUSCULAR HGB CONC 33.3 g/dL (32.0-36.0); MEAN CORPUSCULAR VOLUME 87 fl (80-97); MONOCYTES % (AUTO) 4.4 % (3-13); PLATELET COUNT 285 10^3/uL (150-450); RED CELL DISTRIBUTION WIDTH 14.3 % (11.5-14.0); SEGMENTED NEUTROPHILS % (AUTO) 64.7 % (42-78); TOTAL CELLS COUNTED % (AUTO) 100 %; WHITE BLOOD COUNT 5.3 10^3/uL (4.0-10.5)
--- NOTE | 2017-06-28 11:26 | ER Document Report ---
ED General - General Chief Complaint: Weakness Stated Complaint: COUGH/SHORTNESS OF BREATH Time Seen by Provider: 06/28/17 10:31 Notes: 51-year-old male presents to the ER complaining of cough and shortness of breath. The patient has a history of chronic kidney disease has been following with Dr. Del Toro nephrology. Patient's labs have been getting worse and the patient was told on Tuesday to go to the emergency department. The patient waited till today Tuesday and is come in for evaluation. Patient is a he has been coughing which is been the same for several months he is short of breath with exertion. The patient denies any fever chills or sore throat. Denies any chest pain. Does complain of dyspnea upon exertion. TRAVEL OUTSIDE OF THE [place] IN LAST 30 DAYS: No - Related Data Allergies/Adverse Reactions: No Known Allergies Allergy (Verified 06/28/17 10:03) Past Medical History - Social History Smoking Status: Never Smoker Frequency of alcohol use: None Drug Abuse: None Family History: Reviewed & Not Pertinent Patient has suicidal ideation: No Patient has homicidal ideation: No - Past Medical History Cardiac Medical History: Reports: Hx Hypercholesterolemia, Hx Hypertension Denies: Hx Congestive Heart Failure, Hx DVT, Hx Heart Attack, Hx Pulmonary Embolism Pulmonary Medical History: Denies: Hx Asthma, Hx COPD Neurological Medical History: Denies: Hx Seizures Endocrine Medical History: Reports: Hx Diabetes Mellitus Type 1, 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 Denies: Hx Hyperthyroidism, Hx Hypothyroidism Renal/ Medical History: Denies: Hx Peritoneal Dialysis GI Medical History: Reports: Hx Gastroesophageal Reflux Disease. Denies: Hx Cirrhosis, Hx Hepatitis Musculoskeltal Medical History: Reports Hx Arthritis Skin Medical History: Denies Hx Eczema, Denies Hx Psoriasis Psychiatric Medical History: Denies: Hx Depression Infectious Medical History: Denies: Hx Hepatitis Review of Systems - Review of Systems Cardiovascular: denies: Chest pain Respiratory: Cough, Short of breath. denies: Hurts to breathe, Hemoptysis -: Yes All other systems reviewed and negative Physical Exam - Vital signs Vitals: Temp Pulse Resp BP Pulse Ox 98.4 F 94 14 170/103 H 95 06/28/17 10:07 06/28/17 10:06/28/17 10:06/28/17 10:07 06/28/17 10:07 - Notes Notes: GENERAL_APPEARANCE: well_nourished, alert, cooperative VITALS: reviewed, see vital signs table. HEAD: no_swelling\tenderness on the head. EYES: PERRL, EOMI, conjunctiva_clear. NOSE: no_nasal_discharge. MOUTH: (-)decreased moisture. THROAT: no_tonsilar_inflammation, no_airway_obstruction. no_lymphadenopathy NECK: supple, no_neck_tenderness, (-)thyromegaly. BACK: no_back_tenderness. CHEST_WALL: no_chest_tenderness. LUNGS: no_wheezing, bibasilar crackles, no_rhonchi, (-)accessory muscle use, good air exchange bilateral. HEART: normal_rate, normal_rhythm, normal_S1, normal_S2, (-)S3, (-)S4, no_ murmur, no_rub. ABDOMEN: normal_BS, soft, no_abd_tenderness, (-)guarding, (-)rebound, no_ organomegaly, no_abd_masses. EXTREMITIES: good pulses in all_extremities, no_swelling\tenderness in the extremities, 1+_edema. SKIN: warm, dry, good_color, no_rash. MENTAL_STATUS: speech_clear, oriented_X_3, normal_affect, responds_ appropriately to questions. NEURO: Neg Motor or Sensory Deficits on exam, CN 2-12 intact, DTR 2+ symmetric x 4, No cerbellar signs Course - Re-evaluation Re-evalutation: 06/28/17 11:25 51-year-old male with a history of chronic kidney disease presents with cough and shortness of breath. Patient was told to come to the ER on Tuesday. He is waited till Tuesday. He does have some crackles on auscultation. We will redraw his labs and call nephrology. He has never had dialysis in the past. 06/28/17 12:47 Show pulmonary edema. Lab work shows a normal potassium and an elevated BUN and creatinine. I called Dr. Del Toro nephrology. His instructions were to give the patient a high dose of Lasix and diurese him admit him to the hospitalist service will continue diuresing. Patient will need consultation by Dr. Chou surgery for peritoneal dialysis catheter placement. The patient is dyspneic on exertion but not at rest. He is not dropping his sats and is stable at this time. Chest X-Ray 06/28/17 10:34 IMPRESSION: Congestive failure with pulmonary edema. Laboratory 06/28/17 06/28/17 10:53 10:53 WBC 5.3 RBC 3.70 L Hgb 10.7 L Hct 32.0 L MCV 87 MCH 28.8 MCHC 33.3 RDW 14.3 H Plt Count 285 Seg Neutrophils % 64.7 Lymphocytes % 18.5 Monocytes % 4.4 Eosinophils % 11.3 H Basophils % 1.1 Absolute Neutrophils 3.4 Absolute Lymphocytes 1.0 Absolute Monocytes 0.2 Absolute Eosinophils 0.6 Absolute Basophils 0.1 Sodium 141.8 Potassium 4.3 Chloride 103 Carbon Dioxide 21 L Anion Gap 18 BUN 94 H Creatinine 15.64 H Est GFR ( Amer) 4 L Est GFR (Non-Af Amer) 3 L Glucose 255 H Calcium 7.8 L Total Bilirubin 0.5 Direct Bilirubin 0.5 H Neonat Total Bilirubin Not Reportable Neonat Direct Bilirubin Not Reportable Neonat Indirect Bili Not Reportable AST 16 L ALT 15 L Alkaline Phosphatase 76 Total Protein 6.6 Albumin 3.5 - Vital Signs Vital signs: Temp Pulse Resp BP Pulse Ox 98.4 F 94 14 170/103 H 95 06/28/17 10:07 06/28/17 10:07 06/28/17 10:07 06/28/17 10:07 06/28/17 10:07 - Laboratory Result Diagrams: 06/28/17 10:53 06/28/17 10:53 Laboratory results interpreted by me: 06/28/17 06/28/17 10:53 10:53 RBC 3.70 L Hgb 10.7 L Hct 32.0 L RDW 14.3 H Eosinophils % 11.3 H Carbon Dioxide 21 L BUN 94 H Creatinine 15.64 H Est GFR ( Amer) 4 L Est GFR (Non-Af Amer) 3 L Glucose 255 H Calcium 7.8 L Direct Bilirubin 0.5 H AST 16 L ALT 15 L Discharge - Discharge Clinical Impression: Acute on chronic renal failure Qualifiers: Acute renal failure type: unspecified Chronic kidney disease stage: stage 4 ( severe) Qualified Code(s): N17.9 - Acute kidney failure, unspecified; N18.4 - Chronic kidney disease, stage 4 (severe); N18.4 - Chronic kidney disease, stage 4 (severe); N18.4 - Chronic kidney disease, stage 4 (severe); N18.4 - Chronic kidney disease, stage 4 (severe) Pulmonary edema Qualifiers: Chronicity: acute Qualified Code(s): J81.0 - Acute pulmonary edema Condition: Fair Disposition: ADMITTED INPATIENT Admitting Provider: Hospitalist
[2017-06-28 11:33] LABS: ALANINE AMINOTRANSFERASE 15 U/L (21-72); ALBUMIN 3.5 g/dL (3.5-5.0); ALKALINE PHOSPHATASE 76 U/L (38-126); ANION GAP 18 (5-19); ASPARTATE AMINO TRANSFERASE 16 U/L (17-59); BILIRUBIN,DIRECT 0.5 mg/dL (0.0-0.4); BILIRUBIN,TOTAL 0.5 mg/dL (0.2-1.3); BLOOD UREA NITROGEN 94 mg/dL (7-20); CALCIUM 7.8 mg/dL (8.4-10.2); CARBON DIOXIDE 21 mmol/L (22-30); CHLORIDE 103 mmol/L (98-107); GLUCOSE 255 mg/dL (75-110); POTASSIUM 4.3 mmol/L (3.6-5.0); SODIUM 141.8 mmol/L (137-145); TOTAL PROTEIN 6.6 g/dL (6.3-8.2)
--- NOTE | 2017-06-28 12:01 | RADIOLOGY REPORT (SQ) ---
EXAM DESCRIPTION: CHEST 2 VIEWS COMPLETED DATE/TIME: 06/28/2017 11:10 am REASON FOR STUDY: kidney failure, cough COMPARISON: 03/15/2017 EXAM PARAMETERS: NUMBER OF VIEWS: two views TECHNIQUE: Digital Frontal and Lateral radiographic views of the chest acquired. RADIATION DOSE: NA LIMITATIONS: none FINDINGS: LUNGS AND PLEURA: Perihilar and basilar opacities. Small effusions. MEDIASTINUM AND HILAR STRUCTURES: No masses or contour abnormalities. HEART AND VASCULAR STRUCTURES: Heart enlarged. Vascular congestion. BONES: No acute findings. HARDWARE: None in the chest. OTHER: No other significant finding. IMPRESSION: Congestive failure with pulmonary edema. TECHNICAL DOCUMENTATION: JOB ID: [id number] [employer]- All Rights Reserved Reading location - IP/workstation name: [email or web address]
[2017-06-28] MEDS ORDERED: FUROSEMIDE INJ/PF 100 MG/10 ML SDV IV ONE (12:44)
[2017-06-28] MEDS ORDERED: DEXTROSE 50%-WATER SYRINGE 12.5 GM/25 ML DOSE IV PRN (16:19)
[2017-06-28] MEDS ORDERED: DEXTROSE 40% GEL 15 GM TUBE PO PRN (16:19)
[2017-06-28] MEDS ORDERED: DEXTROSE 40% GEL 15 GM TUBE X 2 PO PRN (16:19)
[2017-06-28] MEDS ORDERED: GLUCAGON,HUMAN RECOMB 1 MG INJ IM PRN (16:19)
[2017-06-28] MEDS ORDERED: DEXTROSE 50%-WATER SYRINGE 25 GM/50 ML DOSE IV PRN (16:19)
--- NOTE | 2017-06-28 16:25 | PDOC CONSULTATION ---
Consultation Consult Date: 06/28/17 Consult reason:: ESRD History of Present Illness Admission Date/PCP: 06/28/17 14:16 JAZMIN DEL TORO MD History of Present Illness: NAKUL MCNEIL is a 51 year old male with history CKD5, CHF, long standing hypertension and diabetes that is poorly controlled comes in complaining of SOB. He was seen by Dr. Del Toro last Tuesday and was advised to go to the ER due to SOB. He had not been taking his meds because he ran out of money to buy them with. He decided to wait until today to come to the ER. He says that he was getting progressively worse and was to the point where he was SOB while laying down. He showed up to the ED SOB, a chest x-ray was done showing CHF with some edema. He was given 100mg of IV lasix and started to improve. When examining him he says that he is still SOB exerting himself, but currently can lay down without being short of breath. He is currently coughing with clear sputum. He denies chest pain, fevers, chills, n/v/d/c or decreased appetite. Past Medical History Cardiac Medical History: Reports: Hyperlipidemia, Hypertension-primary Denies: DVT, Myocardial Infarction, Pulmonary Embolism Pulmonary Medical History: Denies: Asthma, Chronic Obstructive Pulmonary Disease (COPD) Neurological Medical History: Denies: Seizures Endocrine Medical History: Reports: Diabetes Mellitus Type 1, Diabetes Mellitus Type 2 - complicated by Neuropathy, nephropathy.Has proteinuria but unsure of his Denies: Hyperthyroidism, Hypothyroidism Renal/ Medical History: Reports: Chronic Kidney Disease Stage IV GI Medical History: Reports: Gastroesophageal Reflux Disease Denies: Cirrhosis, Hepatitis Musculoskeltal Medical History: Reports: Arthritis Skin Medical History: Denies: Eczema, Psoriasis Psychiatric Medical History: Denies: Depression Past Surgical History Past Surgical History: Reports: None Social History Smoking Status: Never Smoker Frequency of Alcohol Use: None Hx Recreational Drug Use: No Drugs: None Hx Prescription Drug Abuse: No - Advance Directive Resuscitation Status: Full Code Family History Parental Family History Reviewed: No Children Family History Reviewed: NA Sibling(s) Family History Reviewed.: NA Medication/Allergy Home Medications: Aspirin [Aspirin EC] 81 mg PO DAILY 03/15/17 Insulin Glargine,Hum.rec.anlog [Lantus Solostar] 15 unit SQ Q12 03/15/17 Insulin Lispro [Humalog Insulin (Lispro) 100 unit/mL] 5 unit SUBCUT WBRKFST Insulin Lispro [Humalog Insulin (Lispro) 100 unit/mL] 10 unit SUBCUT WSUPPER Lisinopril [Prinivil 10 mg Tablet] 10 mg PO DAILY 03/15/17 Atorvastatin Calcium [Lipitor 80 mg Tablet] 80 mg PO DAILY #30 tablet 03/18/17 Allergies/Adverse Reactions: No Known Allergies Allergy (Verified 06/28/17 10:03) Review of Systems Constitutional: ABSENT: anorexia, chills, fever(s), weakness Eyes: ABSENT: visual disturbances Cardiovascular: PRESENT: dyspnea on exertion, edema, orthropnea. ABSENT: chest pain, palpitations Respiratory: PRESENT: cough, dyspnea, sputum - -clear Gastrointestinal: ABSENT: abdominal pain, constipation, diarrhea, nausea, vomiting Genitourinary: ABSENT: difficulty urinating, dysuria Musculoskeletal: ABSENT: back pain, muscle weakness Neurological: PRESENT: numbness, tingling. ABSENT: confusion, dizziness, focal weakness, weakness Psychiatric: ABSENT: anxiety, depression Physical Exam Vital Signs: Temp Pulse Resp BP Pulse Ox 98.4 F 86 14 170/103 H 95 06/28/17 10:07 06/28/17 15:12 06/28/17 10:07 06/28/17 10:07 06/28/17 10:07 General appearance: PRESENT: no acute distress - -at the time of examination, well-developed, well-nourished Eye exam: PRESENT: PERRLA. ABSENT: scleral icterus Mouth exam: PRESENT: moist, neck supple Neck exam: PRESENT: full ROM. ABSENT: JVD Respiratory exam: PRESENT: clear to auscultation ursula, crackles - -bases of the lungs, rales. ABSENT: accessory muscle use, rhonchi, wheezes Cardiovascular exam: PRESENT: RRR, +S1, +S2, systolic murmur GI/Abdominal exam: PRESENT: normal bowel sounds, soft. ABSENT: ascites, distended, firm, tenderness Extremities exam: PRESENT: pedal edema, +1 edema. ABSENT: tenderness, +2 edema Musculoskeletal exam: PRESENT: normal inspection. ABSENT: tenderness Neurological exam: PRESENT: alert, awake, oriented to person, oriented to place , oriented to time, oriented to situation Psychiatric exam: PRESENT: appropriate affect, normal mood Skin exam: PRESENT: dry, intact, warm. ABSENT: cyanosis Results Impressions: Chest X-Ray 06/28/17 10:34 IMPRESSION: Congestive failure with pulmonary edema. Assessment & Plan - Diagnosis (1) ESRD (end stage renal disease) Plan: Converting to dialysis. Will look to have Dr. Chou place a PD catheter tomorrow morning and will look to start fast track PD. Will also set him up on lasix 80mg Q8 (2) Acute on chronic renal failure Qualifiers: Acute renal failure type: unspecified Chronic kidney disease stage: stage 4 (severe) Qualified Code(s): N17.9 - Acute kidney failure, unspecified; N18.4 - Chronic kidney disease, stage 4 (severe); N18.4 - Chronic kidney disease , stage 4 (severe); N18.4 - Chronic kidney disease, stage 4 (severe); N18.4 - Chronic kidney disease, stage 4 (severe) Plan: will set him up for lasix 80mg q8 (3) Hypertension Qualifiers: Hypertension type: essential hypertension Qualified Code(s): I10 - Essential (primary) hypertension Is this a current diagnosis for this admission?: Yes Plan: Will need to restart on home bp meds once more fluid is removed. (4) Pulmonary edema Qualifiers: Chronicity: acute Qualified Code(s): J81.0 - Acute pulmonary edema Plan: start lasix 80mg q8 (5) Anemia in chronic renal disease Plan: stable (6) Diabetes 1.5, managed as type 2 Is this a current diagnosis for this admission?: Yes Plan: discussed proper diet and tighter control of sugar levels (7) Metabolic acidosis Plan: stable (8) Hypocalcemia Plan: will reassess for the need to start a calcium supplement once more fluid is removed - Notes Notes: patient's case and care plan was discussed with Dr. Del Toro
[2017-06-28] MEDS: FUROSEMIDE INJ/PF 40 MG/4 ML SDV IV SCH (16:59)
[2017-06-28] MEDS: INSULIN LISPRO 100 UNIT/ML 3 ML VIAL SUBCUT PRN ×2 (16:59→22:58)
[2017-06-28] MEDS ORDERED: TUBERCULIN,PURIF.PROT.DERIV. 5 TU/0.1 ML TEST 1 ML VIAL ID ONE (18:00)
[2017-06-28] MEDS: INSULIN DETEMIR 100 UNIT/ML 3 ML PEN SUBCUT SCH (22:58)
[2017-06-29] MEDS: FUROSEMIDE INJ/PF 40 MG/4 ML SDV IV SCH ×3 (02:11→17:10)
[2017-06-29 06:48] LABS: HEMATOCRIT 32.5 % (37.9-51.0); HEMOGLOBIN 10.9 g/dL (13.5-17.0); MEAN CORPUSCULAR HGB CONC 33.7 g/dL (32.0-36.0); MEAN CORPUSCULAR VOLUME 86 fl (80-97); PLATELET COUNT 294 10^3/uL (150-450); RED BLOOD COUNT 3.78 10^6/uL (4.35-5.55); RED CELL DISTRIBUTION WIDTH 14.3 % (11.5-14.0); WHITE BLOOD COUNT 5.9 10^3/uL (4.0-10.5)
[2017-06-29 07:03] LABS: BLOOD UREA NITROGEN 91 mg/dL (7-20); CALCIUM 8.1 mg/dL (8.4-10.2); GLUCOSE 217 mg/dL (75-110); POTASSIUM 4.3 mmol/L (3.6-5.0)
[2017-06-29 07:08] LABS: CARBON DIOXIDE 20 mmol/L (22-30); CHLORIDE 99 mmol/L (98-107); SODIUM 138.6 mmol/L (137-145)
[2017-06-29 07:13] LABS: ANION GAP 20 (5-19)
[2017-06-29 07:33] LABS: ABSOLUTE LYMPHOCYTES# (MANUAL) 1.2 10^3/uL (0.5-4.7); ABSOLUTE MONOCYTES # (MANUAL) 0.2 10^3/uL (0.1-1.4); BASOPHILS % (MANUAL) 4 % (0-2); EOSINOPHILS % (MANUAL) 5 % (0-6); LYMPHOCYTES % (MANUAL) 20 % (13-45); MONOCYTES % (MANUAL) 3 % (3-13); SEGMENTED NEUTROPHILS % (MAN) 68 % (42-78); TOTAL CELLS COUNTED 100
[2017-06-29 07:34] LABS: BURR CELLS SLIGHT; HYPOCHROMASIA SLIGHT; PLATELET COMMENT ADEQUATE; POIKILOCYTOSIS SLIGHT; SCHISTOCYTES SLIGHT
--- NOTE | 2017-06-29 09:48 | PDOC H&P ---
History of Present Illness Admission Date/PCP: JAZMIN DEL TORO MD Patient complains of: Cough, sob History of Present Illness: NAKUL MCNEIL is a 51 year old male with history of diabetes mellitus type 2 , hypertension, chronic kidney disease, sees Dr. Del Toro of nephrology. Patient has had problems with cough in the past week, sometimes productive of frothy sputum. Also has had worsening shortness of breath and orthopnea, no PND. No chest pain or palpitations. Labs were checked by his billet header and creatinine was found to have significantly worsened and patient thought to be in end-stage renal disease. He was referred to the emergency room where evaluation significant for BUN 94, creatinine 15.6. Chest x-ray revealed CHF. Patient denies fever or chills. He was referred to the hospitalist service for admission to initiate peritoneal dialysis. Patient still makes urine. He received a high dose of Lasix 100 mg in the ED and is making good urine and breathing improving. Past Medical History Cardiac Medical History: Reports: Hyperlipidema, Hypertension Denies: Congestive Heart Failure, DVT, Myocardial Infarction, Pulmonary Embolism Pulmonary Medical History: Denies: Asthma, Chronic Obstructive Pulmonary Disease (COPD) Neurological Medical History: Denies: Seizures Endocrine Medical History: Reports: Diabetes Mellitus Type 1, Diabetes Mellitus Type 2 - complicated by Neuropathy, nephropathy.Has proteinuria but unsure of his Denies: Hyperthyroidism, Hypothyroidism GI Medical History: Reports: Gastroesophageal Reflux Disease Denies: Cirrhosis, Hepatitis Musculoskeltal Medical History: Reports: Arthritis Skin Medical History: Denies: Eczema, Psoriasis Psychiatric Medical History: Denies: Depression Social History Smoking Status: Never Smoker Frequency of Alcohol Use: None Hx Recreational Drug Use: No Drugs: None Hx Prescription Drug Abuse: No Family History Family History: Reviewed & Not Pertinent Parental Family History Reviewed: Yes Children Family History Reviewed: Yes Sibling(s) Family History Reviewed.: Yes Medication/Allergy Home Medications: Aspirin [Aspirin EC] 81 mg PO DAILY 03/15/17 Insulin Glargine,Hum.rec.anlog [Lantus Solostar] 15 unit SQ Q12 03/15/17 Insulin Lispro [Humalog Insulin (Lispro) 100 unit/mL] 5 unit SUBCUT WBRKFST Insulin Lispro [Humalog Insulin (Lispro) 100 unit/mL] 10 unit SUBCUT WSUPPER Lisinopril [Prinivil 10 mg Tablet] 10 mg PO DAILY 03/15/17 Atorvastatin Calcium [Lipitor 80 mg Tablet] 80 mg PO DAILY #30 tablet 03/18/17 Allergies/Adverse Reactions: No Known Allergies Allergy (Verified 06/28/17 10:03) Review of Systems Review of Systems: CONSTITUTIONAL : Fever, chills -- No; unexpalined fatigue --patient has fatigue EENT: Denies eye, ear, throat, or mouth pain or symptoms. Denies nasal or sinus congestion or discharge. Denies throat, tongue, or mouth swelling or difficulty swallowing. CARDIOVASCULAR: Denies chest pain. No racing heart RESPIRATORY: As in HPI. GASTROINTESTINAL: Denies abdominal pain or distention. Denies nausea, vomiting , or diarrhea. No rectal bleeding. GENITOURINARY: Urinary symptoms -- no. MUSCULOSKELETAL: No acute weakness SKIN: Denies rash, lesions or sores. HEMATOLOGIC : Denies easy bruising or bleeding. LYMPHATIC: Denies swollen, enlarged glands. NEUROLOGICAL: New weakness, headaches, slured speach - No PSYCHIATRIC: Changes anxiety or stress, depression, suicidal ideation, or homicidal ideation -- No ALL OTHER SYSTEMS REVIEWED AND NEGATIVE. Physical Exam Vital Signs: Temp Pulse Resp BP Pulse Ox 98.4 F 94 14 170/103 H 95 06/28/17 10:07 06/28/17 10:07 06/28/17 10:07 06/28/17 10:07 06/28/17 10:07 Intake & Output 06/27/17 06/28/17 06/29/17 06:59 06:59 06:59 Weight 115.5 kg GENERAL: Well-developed, no acute distress HEENT: Normocephalic/atraumatic NECK supple, no JVD CARDIOVASCULAR: RRR, normal S1-S2 LUNGS: Few basilar crackles bilaterally ABDOMEN: Soft, NT, NL bowel sounds EXTREMITIES: Trace pedal lower extremity edema, no clubbing or cyanosis NEUROLOGICAL: Alert, oriented x 3, nonfocal Results Laboratory Results: 06/28/17 10:53 06/28/17 10:53 06/28/17 06/28/17 10:53 10:53 WBC 5.3 RBC 3.70 L Hgb 10.7 L Hct 32.0 L MCV 87 MCH 28.8 MCHC 33.3 RDW 14.3 H Plt Count 285 Seg Neutrophils % 64.7 Lymphocytes % 18.5 Monocytes % 4.4 Eosinophils % 11.3 H Basophils % 1.1 Absolute Neutrophils 3.4 Absolute Lymphocytes 1.0 Absolute Monocytes 0.2 Absolute Eosinophils 0.6 Absolute Basophils 0.1 Sodium 141.8 Potassium 4.3 Chloride 103 Carbon Dioxide 21 L Anion Gap 18 BUN 94 H Creatinine 15.64 H Est GFR ( Amer) 4 L Est GFR (Non-Af Amer) 3 L Glucose 255 H Calcium 7.8 L Total Bilirubin 0.5 AST 16 L ALT 15 L Alkaline Phosphatase 76 Total Protein 6.6 Albumin 3.5 Impressions: Chest X-Ray 06/28/17 10:34 IMPRESSION: Congestive failure with pulmonary edema. Assessment & Plan - Diagnosis (1) Pulmonary edema Qualifiers: Chronicity: acute Qualified Code(s): J81.0 - Acute pulmonary edema Plan: Suspect secondary to worsening renal failure, now new end-stage renal disease. Will diurese aggressively with IV Lasix per billet header's recommendation. Plan is to catheter placed and patient begin peritoneal dialysis. (2) CKD (chronic kidney disease) stage 5, GFR less than 15 ml/min Is this a current diagnosis for this admission?: Yes Plan: Suspect stage 5/now new end-stage renal disease. Patient to have catheter placed to start peritoneal dialysis. Dr. Chou consulted for this. I have also consult his billet header, Dr. Duque. (3) Diabetes 1.5, managed as type 2 Is this a current diagnosis for this admission?: Yes Plan: Continue home regimen, also Accu-Cheks with sliding scale insulin coverage. (4) Hypertension Qualifiers: Hypertension type: essential hypertension Qualified Code(s): I10 - Essential (primary) hypertension Is this a current diagnosis for this admission?: Yes Plan: Start home regimen and monitor. - Inpatient Certification Based on my medical assessment, after consideration of the patient's comorbidities, presenting symptoms, or acuity I expect that the services needed warrant INPATIENT care.: Yes Medical Necessity: Failure to Improve With Outpatient Therapy, Need Close Monitoring Due to Risk of Patient Decompensation
[2017-06-29] MEDS ORDERED: LISINOPRIL 10 MG TABLET PO SCH (10:00)
[2017-06-29] MEDS: INSULIN DETEMIR 100 UNIT/ML 3 ML PEN SUBCUT SCH ×2 (10:01→22:27)
--- NOTE | 2017-06-29 10:01 | PDOC PROGRESS REPORT ---
Subjective Progress Note for:: 06/29/17 Subjective:: Still with cough. Shortness of breath slightly better. No chest pain or palpitations, no nausea or vomiting. Denies fever or chills. Status post catheter placement this morning plan is to start peritoneal dialysis. Reason For Visit: VOLUME OVERLOAD NEW ESRD Physical Exam Vital Signs: Temp Pulse Resp BP Pulse Ox 98.7 F 96 22 H 178/101 H 95 06/29/17 07:00 06/29/17 07:00 06/29/17 07:00 06/29/17 07:00 06/29/17 07:00 Intake & Output 06/28/17 06/29/17 06/30/17 06:59 06:59 06:59 Intake Total 996 Output Total 1300 Balance -304 Weight 115.5 kg GEN: NAD, well-developed, well-nourished CV: RRR, NL S1S2 LUNGS: Few crackles bilaterally ABDOMEN Soft, NT, +BS EXTERMITIES: No e/c/c, catheter right groin NEURO: Alert, oriented 3, nonfocal Results Laboratory Results: 06/29/17 06:34 06/29/17 06:34 06/29/17 06/29/17 06:34 06:34 WBC 5.9 RBC 3.78 L Hgb 10.9 L Hct 32.5 L MCV 86 MCH 29.0 MCHC 33.7 RDW 14.3 H Plt Count 294 Seg Neutrophils % Not Reportable Lymphocytes % Not Reportable Monocytes % Not Reportable Eosinophils % Not Reportable Basophils % Not Reportable Absolute Neutrophils Not Reportable Absolute Lymphocytes Not Reportable Absolute Monocytes Not Reportable Absolute Eosinophils Not Reportable Absolute Basophils Not Reportable Sodium 138.6 Potassium 4.3 Chloride 99 Carbon Dioxide 20 L Anion Gap 20 H BUN 91 H Creatinine 15.86 H Est GFR ( Amer) 4 L Est GFR (Non-Af Amer) 3 L Glucose 217 H Calcium 8.1 L Impressions: Chest X-Ray 06/28/17 10:34 IMPRESSION: Congestive failure with pulmonary edema. Assessment & Plan - Diagnosis (1) Pulmonary edema Qualifiers: Chronicity: acute Qualified Code(s): J81.0 - Acute pulmonary edema Is this a current diagnosis for this admission?: Yes Plan: Suspect secondary to worsening renal failure, now new end-stage renal disease. Patient to start dialysis today and plans for diureses will be per nephrology. (2) CKD (chronic kidney disease) stage 5, GFR less than 15 ml/min Is this a current diagnosis for this admission?: Yes Plan: Suspect stage 5/now new end-stage renal disease. Patient to start dialysis. (3) Diabetes 1.5, managed as type 2 Is this a current diagnosis for this admission?: Yes Plan: Continue home regimen, also Accu-Cheks with sliding scale insulin coverage. (4) Hypertension Qualifiers: Hypertension type: essential hypertension Qualified Code(s): I10 - Essential (primary) hypertension Is this a current diagnosis for this admission?: Yes Plan: Continue management. Continue to monitor. (5) Anemia in chronic renal disease Is this a current diagnosis for this admission?: Yes Plan: Stable. Will continue to follow.
[2017-06-29] MEDS ORDERED: HEPARIN SOD (PORCINE) 1,000 UNIT/ML 10 ML VIAL IV PRN (12:17)
[2017-06-29] MEDS ORDERED: LISINOPRIL 10 MG TABLET PO ONE (16:23)
--- NOTE | 2017-06-29 16:25 | PDOC PROGRESS REPORT ---
Subjective Progress Note for:: 06/29/17 Subjective:: Patient seen on dialysis this morning. He is undergoing dialysis without any issues. He is feeling better compared to when he first came into the hospital and even better than when he first woke up this morning.Labs and medications were reviewed. Orders for dialysis were discussed with the treating dialysis nurse. Reason For Visit: VOLUME OVERLOAD NEW ESRD Physical Exam Vital Signs: Temp Pulse Resp BP Pulse Ox 98.8 F 102 H 18 151/113 H 95 06/29/17 15:52 06/29/17 15:52 06/29/17 15:52 06/29/17 15:52 06/29/17 15:52 Intake & Output 06/28/17 06/29/17 06/30/17 06:59 06:59 06:59 Intake Total 996 Output Total 1300 Balance -304 Weight 115.5 kg General appearance: PRESENT: no acute distress, well-developed, well-nourished Mouth exam: PRESENT: moist, neck supple Neck exam: PRESENT: full ROM. ABSENT: JVD Respiratory exam: PRESENT: crackles, rales, rhonchi. ABSENT: accessory muscle use, clear to auscultation ursula, wheezes Cardiovascular exam: PRESENT: RRR, +S1, +S2, systolic murmur GI/Abdominal exam: PRESENT: normal bowel sounds, soft. ABSENT: ascites, distended, firm, tenderness Extremities exam: ABSENT: pedal edema, tenderness, +1 edema, +2 edema Musculoskeletal exam: PRESENT: normal inspection. ABSENT: tenderness Neurological exam: PRESENT: alert, awake, oriented to person, oriented to place , oriented to time, oriented to situation Skin exam: PRESENT: dry, intact. ABSENT: cyanosis, warm Results Laboratory Results: 06/29/17 06:34 06/29/17 06:34 06/29/17 06/29/17 06:34 06:34 WBC 5.9 RBC 3.78 L Hgb 10.9 L Hct 32.5 L MCV 86 MCH 29.0 MCHC 33.7 RDW 14.3 H Plt Count 294 Seg Neutrophils % Not Reportable Lymphocytes % Not Reportable Monocytes % Not Reportable Eosinophils % Not Reportable Basophils % Not Reportable Absolute Neutrophils Not Reportable Absolute Lymphocytes Not Reportable Absolute Monocytes Not Reportable Absolute Eosinophils Not Reportable Absolute Basophils Not Reportable Sodium 138.6 Potassium 4.3 Chloride 99 Carbon Dioxide 20 L Anion Gap 20 H BUN 91 H Creatinine 15.86 H Est GFR ( Amer) 4 L Est GFR (Non-Af Amer) 3 L Glucose 217 H Calcium 8.1 L Impressions: Chest X-Ray 06/28/17 10:34 IMPRESSION: Congestive failure with pulmonary edema. Assessment & Plan - Diagnosis (1) ESRD (end stage renal disease) Plan: Patient had to be shifted to hemodialysis because he was not able to lay flat. Dr. Chou placed a temporary femoral catheter. He will place a PD cath once more fluid is removed. Patient is undergoing dialysis without any issues. Vital Signs are stable. Plan to remove 3-4 L as tolerated. Dialysis is being supervised to ensure safe and smooth procedure. Orders reviewed with the nurse. (2) Hypertension Qualifiers: Hypertension type: essential hypertension Qualified Code(s): I10 - Essential (primary) hypertension Is this a current diagnosis for this admission?: Yes Plan: increasing lisinopril to 20mg (3) Pulmonary edema Qualifiers: Chronicity: acute Qualified Code(s): J81.0 - Acute pulmonary edema Is this a current diagnosis for this admission?: Yes Plan: improving, removed several liters off and continue IV lasix (4) Anemia in chronic renal disease Is this a current diagnosis for this admission?: Yes Plan: currently stable (5) Diabetes 1.5, managed as type 2 Is this a current diagnosis for this admission?: Yes (6) Metabolic acidosis Plan: will re-evaluate after dialysis (7) Hypocalcemia Plan: improving
[2017-06-29] MEDS ORDERED: DEXTROSE 50%-WATER 25 GM/50 ML DISP.SYRIN IV PRN ×2 (16:43)
[2017-06-29] MEDS ORDERED: DEXTROSE 40% GEL 15 GM TUBE PO PRN ×2 (16:43)
[2017-06-29] MEDS ORDERED: GLUCAGON,HUMAN RECOMB 1 MG INJ SUBCUT PRN (16:43)
--- NOTE | 2017-06-29 17:05 | Operative Report ---
Operative Report DATE OF SURGERY: 06/29/17 PREOPERATIVE DIAGNOSIS: 1. End-stage renal disease on hemodialysis. 2. Multiple comorbidities. POSTOPERATIVE DIAGNOSIS: 1. End-stage renal disease on hemodialysis. 2. Multiple comorbidities. OPERATION: 1. Ultrasound evaluation of the right femoral vein. 2. Insertion of temporary hemodialysis catheter in the right femoral vein under real-time ultrasound guidance. SURGEON: JOMAR CUEVAS [employer]CHANIC: None ANESTHESIA: Local TISSUE REMOVED OR ALTERED: Not applicable. COMPLICATIONS: None. ESTIMATED BLOOD LOSS: 5 mL. INTRAOPERATIVE FINDINGS: Of a satisfactory right femoral vein estimated to be about 2 centimeters in diameter. Satisfactory access skin using real-time ultrasound guidance. Easy egress of blood and ingress of heparinized saline. PROCEDURE: After obtaining informed consent, the patient was positioned supine at bedside. The[ left groin] and adjacent areas were prepared with chlorhexidine and draped out with sterile linen. After the universal timeout the procedure commenced. A steriley sheathed ultrasound probe was used to evaluate the [right femoral vein]. Local anesthesia was infiltrated adjacent to the probe. Access into the left femoral was accomplished using a micropuncture needle followed, by micropuncture wire and then with a micropuncture catheter. This was followed by introduction of a 0.035 guidewire, the skin opening was enlarged slightly, serially larger dilators were now placed followed by introduction of a triaysis catheter. All of these transitions were smooth. Each lumen was aspirated of blood and irrigated with heparinized solution. The catheter was now sutured to the skin using 3-0 nylon. A Bio A patch was now applied, followed by sterile dressings. Caps were placed on the end of the each of the lumens. The procedure concluded. Copies dictated operative report to Dr. Jomar Chou MD.
--- NOTE | 2017-06-29 17:10 | PDOC CONSULTATION ---
Consultation Consult Date: 06/28/17 Attending physician:: JOMAR VANESSA Consult reason:: This patient presented in congestive heart failure due to overload. He needs dialysis. Appropriate dialysis access is needed. History of Present Illness Admission Date/PCP: 06/28/17 14:16 JAZMIN DEL TORO MD Patient complains of: Shortness of breath. History of Present Illness: NAKUL MCNEIL is a 51 year old male. He has been followed by Dr. Del Toro for this for some time. Lately this has been worsening and presenting mostly with shortness of breath particularly when lying flat. This prompted his arrival in the emergency room was where he is he has been evaluated and admitted. Past Medical History Cardiac Medical History: Reports: Hyperlipidema, Hypertension Denies: Congestive Heart Failure, DVT, Myocardial Infarction, Pulmonary Embolism Pulmonary Medical History: Denies: Asthma, Chronic Obstructive Pulmonary Disease (COPD) Neurological Medical History: Denies: Seizures Endocrine Medical History: Reports: Diabetes Mellitus Type 1, Diabetes Mellitus Type 2 - complicated by Neuropathy, nephropathy.Has proteinuria but unsure of his Denies: Hyperthyroidism, Hypothyroidism GI Medical History: Reports: Gastroesophageal Reflux Disease Denies: Cirrhosis, Hepatitis Musculoskeltal Medical History: Reports: Arthritis Skin Medical History: Denies: Eczema, Psoriasis Psychiatric Medical History: Denies: Depression Past Surgical History Past Surgical History: Reports: None Social History Smoking Status: Never Smoker Frequency of Alcohol Use: None Hx Recreational Drug Use: No Drugs: None Hx Prescription Drug Abuse: No - Advance Directive Resuscitation Status: Full Code Family History Family History: Reviewed & Not Pertinent Parental Family History Reviewed: No Children Family History Reviewed: No Sibling(s) Family History Reviewed.: No Medication/Allergy Home Medications: Aspirin [Aspirin EC] 81 mg PO DAILY 03/15/17 Insulin Glargine,Hum.rec.anlog [Lantus Solostar] 15 unit SQ Q12 03/15/17 Insulin Lispro [Humalog Insulin (Lispro) 100 unit/mL] 5 unit SUBCUT WBRKFST Insulin Lispro [Humalog Insulin (Lispro) 100 unit/mL] 10 unit SUBCUT WSUPPER Lisinopril [Prinivil 10 mg Tablet] 10 mg PO DAILY 03/15/17 Atorvastatin Calcium [Lipitor 80 mg Tablet] 80 mg PO DAILY #30 tablet 03/18/17 Allergies/Adverse Reactions: No Known Allergies Allergy (Verified 06/28/17 10:03) Physical Exam Vital Signs: Temp Pulse Resp BP Pulse Ox 98.8 F 117 H 18 151/113 H 95 06/29/17 16:35 06/29/17 16:35 06/29/17 16:35 06/29/17 16:35 06/29/17 16:35 Intake & Output 06/28/17 06/29/17 06/30/17 06:59 06:59 06:59 Intake Total 996 Output Total 1300 Balance -304 Weight 115.5 kg Additional comments: Constitutional: Well-developed well-nourished -[place] gentleman. No apparent acute distress. Eyes: Mucous membranes pink and moist, pupils equal and reactive to light. Conjunctiva normal. Cornea normal. ENT: Hearing grossly normal. External pinna normal to inspection. Teeth intact. Tongue normal to inspection. Cardiac: Heart sounds 1 and 2 normal, no murmurs. Respiratory breath sounds are present bilaterally, normal. Normal respiratory effort. Skin: Normal to inspection. No ulcers, normal turgor. Abdomen: Soft, nontender. Liver and spleen are not palpably enlarged. Bowel sounds are normal. No hernia noted. Surgical scars absent. Psychiatric: Judgment, memory, insight seem normal. Mood is pleasant and appropriate. Extremities: Upper extremities show normal range of movement. Pulses present noted to the radial arteries. Capillary refill normal. No cyanosis noted. No muscle wasting noted. . Results Laboratory Results: 06/29/17 06:34 06/29/17 06:34 06/29/17 06/29/17 06:34 06:34 WBC 5.9 RBC 3.78 L Hgb 10.9 L Hct 32.5 L MCV 86 MCH 29.0 MCHC 33.7 RDW 14.3 H Plt Count 294 Seg Neutrophils % Not Reportable Lymphocytes % Not Reportable Monocytes % Not Reportable Eosinophils % Not Reportable Basophils % Not Reportable Absolute Neutrophils Not Reportable Absolute Lymphocytes Not Reportable Absolute Monocytes Not Reportable Absolute Eosinophils Not Reportable Absolute Basophils Not Reportable Sodium 138.6 Potassium 4.3 Chloride 99 Carbon Dioxide 20 L Anion Gap 20 H BUN 91 H Creatinine 15.86 H Est GFR ( Amer) 4 L Est GFR (Non-Af Amer) 3 L Glucose 217 H Calcium 8.1 L Impressions: Chest X-Ray 06/28/17 10:34 IMPRESSION: Congestive failure with pulmonary edema. Assessment & Plan - Diagnosis (2) Hypertension Qualifiers: Hypertension type: essential hypertension Qualified Code(s): I10 - Essential (primary) hypertension Is this a current diagnosis for this admission?: Yes (3) Diabetes 1.5, managed as type 2 Is this a current diagnosis for this admission?: Yes (4) Heart failure Qualifiers: Heart failure type: unspecified Heart failure chronicity: unspecified Qualified Code(s): I50.9 - Heart failure, unspecified - Plan Summary Plan Summary: This patient requires dialysis due to worsening renal failure. Ideally he would be started on peritoneal dialysis. Because this would require general anesthesia for optimal placement, an initial dialysis via a catheter seems well indicated. This was discussed with the patient who is agreeable. At this point the plan will be to go ahead and put in a temporary hemodialysis catheter and follow with insertion of a peritoneal dialysis catheter under general anesthesia in the operating room. This is most likely be laparoscopic. Risks including infection, bleeding, heart , lung complications, injury to other structures, failure of catheter were discussed with the patient. His questions and concerns addressed and he wishes to proceed.
--- NOTE | 2017-06-29 17:36 | RADIOLOGY REPORT (SQ) ---
EXAM DESCRIPTION: CHEST 2 VIEWS COMPLETED DATE/TIME: 06/29/2017 5:26 pm REASON FOR STUDY: follow up xray COMPARISON: Two-view chest 06/28/2017, 03/15/2017 EXAM PARAMETERS: NUMBER OF VIEWS: two views TECHNIQUE: Digital Frontal and Lateral radiographic views of the chest acquired. RADIATION DOSE: NA LIMITATIONS: none FINDINGS: LUNGS AND PLEURA: There is persistent consolidation in the medial right lung base worrisom e for pneumonia.There is persistent left lower lobe diffuse airspace disease worrisome for pneumonia. These findings are stable compared to 06/28/2017. No gross pleural effusions or pneumothorax. MEDIASTINUM AND HILAR STRUCTURES: No masses or contour abnormalities. HEART AND VASCULAR STRUCTURES: Heart normal size. No evidence for failure. BONES: No acute findings. HARDWARE: None in the chest. OTHER: No other significant finding. IMPRESSION: No change in consolidation medial right lung base and left lower lobe worrisome for pneu monia. TECHNICAL DOCUMENTATION: JOB ID: [id number] [employer]- All Rights Reserved Reading location - IP/workstation name: [email or web address]
[2017-06-29] MEDS: INSULIN LISPRO 100 UNIT/ML 3 ML VIAL SUBCUT PRN ×2 (17:45→22:28)
[2017-06-29 17:52] LABS: HEMATOCRIT 33.5 % (37.9-51.0); HEMOGLOBIN 11.3 g/dL (13.5-17.0); MEAN CORPUSCULAR HEMOGLOBIN 29.2 pg (27.0-33.4); MEAN CORPUSCULAR HGB CONC 33.7 g/dL (32.0-36.0); MEAN CORPUSCULAR VOLUME 87 fl (80-97); PLATELET COUNT 285 10^3/uL (150-450); RED BLOOD COUNT 3.86 10^6/uL (4.35-5.55); RED CELL DISTRIBUTION WIDTH 14.5 % (11.5-14.0); WHITE BLOOD COUNT 6.1 10^3/uL (4.0-10.5)
[2017-06-29 18:16] LABS: ANION GAP 19 (5-19); CALCIUM 8.4 mg/dL (8.4-10.2); CARBON DIOXIDE 21 mmol/L (22-30); CHLORIDE 96 mmol/L (98-107); POTASSIUM 4.2 mmol/L (3.6-5.0); SODIUM 136.2 mmol/L (137-145)
[2017-06-29 18:31] LABS: BLOOD UREA NITROGEN 68 mg/dL (7-20)
[2017-06-29 18:33] LABS: GLUCOSE 412 mg/dL (75-110)
[2017-06-29] MEDS ORDERED: METOPROLOL TARTRATE 25 MG TABLET PO ONE (23:45)
[2017-06-30] MEDS: FUROSEMIDE INJ/PF 40 MG/4 ML SDV IV SCH (02:57)
[2017-06-30] MEDS ORDERED: CEFAZOLIN 1 GM/D5W RTU 1 GM/50 ML RTUPB IV PRN (05:00)
[2017-06-30 05:35] LABS: ABSOLUTE BASOPHILS # (AUTO) 0.1 10^3/uL (0.0-0.2); ABSOLUTE EOSINOPHILS # (AUTO) 0.6 10^3/uL (0.0-0.6); ABSOLUTE LYMPHOCYTES (AUTO) 0.9 10^3/uL (0.5-4.7); ABSOLUTE MONOCYTES (AUTO) 0.4 10^3/uL (0.1-1.4); BASOPHILS % (AUTO) 1.1 % (0-2); EOSINOPHILS % (AUTO) 12.3 % (0-6); HEMATOCRIT 31.9 % (37.9-51.0); HEMOGLOBIN 10.7 g/dL (13.5-17.0); MEAN CORPUSCULAR HEMOGLOBIN 28.8 pg (27.0-33.4); MEAN CORPUSCULAR HGB CONC 33.6 g/dL (32.0-36.0); MEAN CORPUSCULAR VOLUME 86 fl (80-97); MONOCYTES % (AUTO) 7.4 % (3-13); PLATELET COUNT 246 10^3/uL (150-450); RED BLOOD COUNT 3.72 10^6/uL (4.35-5.55); RED CELL DISTRIBUTION WIDTH 14.2 % (11.5-14.0); SEGMENTED NEUTROPHILS % (AUTO) 61.2 % (42-78); TOTAL CELLS COUNTED % (AUTO) 100 %; WHITE BLOOD COUNT 4.9 10^3/uL (4.0-10.5)
[2017-06-30 06:02] LABS: ANION GAP 19 (5-19); BLOOD UREA NITROGEN 72 mg/dL (7-20); CALCIUM 8.1 mg/dL (8.4-10.2); CARBON DIOXIDE 24 mmol/L (22-30); CHLORIDE 100 mmol/L (98-107); GLUCOSE 190 mg/dL (75-110); POTASSIUM 4.1 mmol/L (3.6-5.0); SODIUM 143.3 mmol/L (137-145)
[2017-06-30] MEDS ORDERED: BUPIVACAINE HCL 0.25 % INJ/PF (2.5 MG/1 ML) 30 ML VIAL ONE (07:26)
[2017-06-30] MEDS ORDERED: LIDOCAINE 0.5% INJ-PF (5 MG/ML) 50 ML SDV ONE (07:26)
[2017-06-30] MEDS ORDERED: BACITRACIN INJ 50,000 UNIT VIAL ONE (07:26)
[2017-06-30] MEDS ORDERED: HEPARIN SOD (PORCINE) 1,000 UNIT/ML 1 ML VIAL ONE (07:26)
[2017-06-30 07:43] LABS: HEPATITS B SURFACE ANTIGEN Negative (Negative)
[2017-06-30 08:13] LABS: HEPATITIS B CORE AB TOT Negative (Negative); HEPATITIS B SURFACE AB QUANT <3.1 mIU/mL (Immunity>9.9)
[2017-06-30] MEDS ORDERED: LISINOPRIL 10 MG TABLET PO SCH (10:00)
[2017-06-30] MEDS ORDERED: CEFAZOLIN INJ 1 GM VIAL ONE (10:47)
[2017-06-30] MEDS ORDERED: KETAMINE HCL INJ 500 MG/10 ML VIAL ONE (10:52)
[2017-06-30] MEDS ORDERED: FENTANYL CITRATE INJ/PF 100 MCG/2 ML AMPUL ONE (10:52)
[2017-06-30] MEDS ORDERED: MIDAZOLAM 2 MG/2 ML INJ ONE (10:53)
[2017-06-30] MEDS ORDERED: PROPOFOL INJ 200 MG/20 ML VIAL IV ONE (10:53)
[2017-06-30] MEDS ORDERED: DIPHENHYDRAMINE HCL 50 MG/ML VIAL IV PRN (12:30)
[2017-06-30] MEDS ORDERED: ONDANSETRON HCL INJ/PF 4 MG/2 ML SDV IV PRN (12:30)
[2017-06-30] MEDS ORDERED: PROMETHAZINE HCL INJ 25 MG/1 ML VIAL IV PRN (12:30)
--- NOTE | 2017-06-30 12:45 | Operative Report ---
Operative Report DATE OF SURGERY: 06/29/17 PREOPERATIVE DIAGNOSIS: 1. End-stage renal disease on hemodialysis. 2. Multiple comorbidities. POSTOPERATIVE DIAGNOSIS: 1. End-stage renal disease on hemodialysis. 2. Multiple comorbidities. OPERATION: 1. Ultrasound evaluation of the right femoral vein. 2. Insertion of PermCath hemodialysis catheter in the right internal jugular vein under real- time ultrasound guidance. 3. Angiogram and interpretation. SURGEON: JOMAR CUEVAS GRAIN MERCHANDISER: None ANESTHESIA: LMAC TISSUE REMOVED OR ALTERED: Not applicable. COMPLICATIONS: None. ESTIMATED BLOOD LOSS: 5 mL. INTRAOPERATIVE FINDINGS: Of a satisfactory right internal jugular vein estimated to be about 1.5 centimeters in diameter. Satisfactory access skin using real-time ultrasound guidance. Easy egress of blood and ingress of heparinized saline. PROCEDURE: After obtaining informed consent, the patient was taken to the operating room and positioned supine. The [right neck] and chest were prepared with chlorhexidine and draped out with sterile linen. After the " universal timeout ", in which it was verified that the patient continued to receive antibiotic, the procedure commenced. A steriley sheathed ultrasound probe was used to evaluate the [right internal jugular] vein. Local anesthesia was infiltrated adjacent to the probe. Access into the [right internal jugular] vein was obtained using a micropuncture needle, followed by micropuncture wire and then a micropuncture catheter. This was followed by introduction of a 0.035 guidewire the tip of which was placed down into the inferior vena cava . A 27 cm long [split catheter] was now positioned over the chest and an exit site marked and locally anesthetized ,the catheter was placed between the 2 incisions. Proximally, the catheter was now positioned using a peel-away sheath, after dilation. Easy ingress of heparinized solution and egress of blood obtained through both ports. A completion angiogram was done by injecting contrast. The findings were as dictated. The neck incision was now closed using interrupted 3-0 PDS to the subcutaneous tissues, the catheter was anchored at the exit site using 3-0 PDS. A Biopatch device was now placed adjacent to the catheter. Dressings were applied and the procedure concluded. Exposure time: [0.7 minutes]. Exposure: [3.9 cGy] per centimeters squared. Contrast amount: [15 mL] of [id number] low osmolality. Copies of the dictated operative report for Dr. Jomar Chou MD.concluded. Copies of the dictated operative report for Dr. Jomar Chou MD.
--- NOTE | 2017-06-30 13:26 | RADIOLOGY REPORT (SQ) ---
EXAM DESCRIPTION: FLUORO/CV PLACEMENT COMPLETED DATE/TIME: 06/30/2017 12:42 pm REASON FOR STUDY: PERMCATH PLCMD RIGHT SIDE ASST WITH FLUORO IN OR COMPARISON: TWO-VIEW CHEST 06/29/2017 FLUOROSCOPY TIME: 1 MINUTES 18 digital series of images saved to PACS. TECHNIQUE: Intra-operative images acquired during surgical procedure to evaluate progress. NUMBER OF IMAGES: 18 digital series of images saved to pac's LIMITATIONS: None. FINDINGS: Intra procedural imaging and fluoro during central venous dialysis catheter placement by Sudha Chou. Please see the operative report for further details IMPRESSION: Intra procedural imaging and fluoro COMMENT: Quality ID [id number]: Final reports for procedures using fluoroscopy that document radiation exp osure indices, or exposure time and number of fluorographic images (if radiation exposure indices are not available) Please consult full operative report of the attending physician for description of the procedure. TECHNICAL DOCUMENTATION: JOB ID: [id number] [employer]- All Rights Reserved Reading location - IP/workstation name: [email or web address]
--- NOTE | 2017-06-30 13:30 | PDOC PROGRESS REPORT ---
Subjective Progress Note for:: 06/30/17 Subjective:: Patient was seen laying down in his bed this morning. Denies beign short of breath while laying down. He is still occasionally coughing with some clear sputum coming up. He denies fever or chills. He denies chest pain, n/v/d/c or decreased appetite. Reason For Visit: VOLUME OVERLOAD NEW ESRD Physical Exam Vital Signs: Temp Pulse Resp BP Pulse Ox 97.8 F 91 25 H 187/105 H 97 06/30/17 13:05 06/30/17 13:05 06/30/17 13:05 06/30/17 13:05 06/30/17 13:05 Intake & Output 06/29/17 06/30/17 07/01/17 06:59 06:59 06:59 Intake Total 996 750 15 Output Total 1300 4300 0 Balance -304 -3550 15 Weight 115.5 kg 112.2 kg General appearance: PRESENT: no acute distress, well-developed, well-nourished Mouth exam: PRESENT: moist, neck supple Neck exam: PRESENT: full ROM. ABSENT: JVD Respiratory exam: PRESENT: crackles - -bases of the lungs. ABSENT: accessory muscle use, clear to auscultation ursula, rales, rhonchi, stridor, wheezes Cardiovascular exam: PRESENT: RRR, +S1, +S2, systolic murmur GI/Abdominal exam: PRESENT: normal bowel sounds, soft. ABSENT: ascites, distended, firm, tenderness Extremities exam: PRESENT: pedal edema, +1 edema. ABSENT: tenderness, +2 edema Musculoskeletal exam: PRESENT: normal inspection. ABSENT: tenderness Neurological exam: PRESENT: alert, awake, oriented to person, oriented to place , oriented to time, oriented to situation Skin exam: PRESENT: dry, intact, warm. ABSENT: cyanosis Results Laboratory Results: 06/30/17 04:53 06/30/17 04:53 06/29/17 06/29/17 06/30/17 17:42 17:42 04:53 WBC 6.1 4.9 RBC 3.86 L 3.72 L Hgb 11.3 L 10.7 L Hct 33.5 L 31.9 L MCV 87 86 MCH 29.2 28.8 MCHC 33.7 33.6 RDW 14.5 H 14.2 H Plt Count 285 246 Seg Neutrophils % 61.2 Lymphocytes % 18.0 Monocytes % 7.4 Eosinophils % 12.3 H Basophils % 1.1 Absolute Neutrophils 3.0 Absolute Lymphocytes 0.9 Absolute Monocytes 0.4 Absolute Eosinophils 0.6 Absolute Basophils 0.1 Sodium 136.2 L Potassium 4.2 Chloride 96 L Carbon Dioxide 21 L Anion Gap 19 BUN 68 H D Creatinine 11.75 H Est GFR ( Amer) 6 L Est GFR (Non-Af Amer) 5 L Glucose 412 H* Calcium 8.4 06/30/17 04:53 WBC RBC Hgb Hct MCV MCH MCHC RDW Plt Count Seg Neutrophils % Lymphocytes % Monocytes % Eosinophils % Basophils % Absolute Neutrophils Absolute Lymphocytes Absolute Monocytes Absolute Eosinophils Absolute Basophils Sodium 143.3 Potassium 4.1 Chloride 100 Carbon Dioxide 24 Anion Gap 19 BUN 72 H Creatinine 13.29 H Est GFR ( Amer) 5 L Est GFR (Non-Af Amer) 4 L Glucose 190 H Calcium 8.1 L 06/28/17 16:44 Nasophary (Mrsa Only) MRSA Culture - Final NO MRSA RECOVERED Impressions: Chest X-Ray 06/29/17 00:00 IMPRESSION: No change in consolidation medial right lung base and left lower lobe worrisome for pneumonia. Assessment & Plan - Diagnosis (1) ESRD (end stage renal disease) Plan: will look to continue dialysis tomorrow and remove more fluid. Awaiting the opportunity to get a PD catheter placed. (2) Hypertension Qualifiers: Hypertension type: essential hypertension Qualified Code(s): I10 - Essential (primary) hypertension Is this a current diagnosis for this admission?: Yes Plan: metoprolol was recently increased to 25mg bid. Will look to reassess in the afternoon and will adjust accordingly (3) Pulmonary edema Qualifiers: Chronicity: acute Qualified Code(s): J81.0 - Acute pulmonary edema Is this a current diagnosis for this admission?: Yes Plan: improving will look to get a chest x-ray (4) Anemia in chronic renal disease Is this a current diagnosis for this admission?: Yes Plan: stable (5) Diabetes 1.5, managed as type 2 Is this a current diagnosis for this admission?: Yes (6) Metabolic acidosis Plan: stable (7) Hypocalcemia Plan: improving with fluid removal (8) Pneumonia Plan: will look to get a sputum culture and PA and lateral chest x-ray. Will reassess from there and consider starting him on ceftriaxone
[2017-06-30] MEDS: INSULIN DETEMIR 100 UNIT/ML 3 ML PEN SUBCUT SCH ×2 (13:47→21:31)
[2017-06-30] MEDS: METOPROLOL TARTRATE 25 MG TABLET PO SCH ×2 (13:48→18:23)
--- NOTE | 2017-06-30 16:50 | RADIOLOGY REPORT (SQ) ---
EXAM DESCRIPTION: CHEST 2 VIEWS COMPLETED DATE/TIME: 06/30/2017 4:12 pm REASON FOR STUDY: possible pneumonia or CHF COMPARISON: 06/29/2017 EXAM PARAMETERS: NUMBER OF VIEWS: two views TECHNIQUE: Digital Frontal and Lateral radiographic views of the chest acquired. RADIATION DOSE: NA LIMITATIONS: none FINDINGS: LUNGS AND PLEURA: There is persistent consolidation predominately in the perihilar regions bilaterally left greater than right which demonstrate only minimal if any interval improvement. Rem aining lung berry are clear. No pneumothorax is seen. MEDIASTINUM AND HILAR STRUCTURES: No masses or contour abnormalities. HEART AND VASCULAR STRUCTURES: Heart normal size. No evidence for failure. BONES: No acute findings. HARDWARE: PermCath is identified with its tip at the approximate junction of superior vena cava and r ight atrium. OTHER: No other significant finding. IMPRESSION: Persistent consolidation predominately in the perihilar regions bilaterally left greater than right demonstrating only minimal if any interval improvement. No pneumothorax is seen. PermCa th as noted above. Other findings as noted above TECHNICAL DOCUMENTATION: JOB ID: [id number] [employer]- All Rights Reserved Reading location - IP/workstation name: [email or web address]
[2017-06-30] MEDS ORDERED: CEFTRIAXONE 1 GM/D5W RTU 1 GM/50 ML RTUPB IV SCH (18:00)
[2017-06-30] MEDS ORDERED: CEFTRIAXONE SODIUM 1,000 MG in DEXTROSE 5%-WATER 50 ML IV SCH (18:00)
[2017-06-30] MEDS: INSULIN LISPRO 100 UNIT/ML 3 ML VIAL SUBCUT PRN ×2 (18:23→21:45)
[2017-06-30] MEDS: FUROSEMIDE INJ/PF 100 MG/10 ML SDV IV SCH (18:24)
[2017-06-30] MEDS ORDERED: ACETAMINOPHEN 325 MG TABLET PO PRN (19:44)
[2017-06-30] MEDS: DIPHENHYDRAMINE HCL 25 MG CAPSULE PO SCH (21:31)
[2017-06-30 21:36] LABS: HEPATITIS C QUANTITATION HCV Not Detected IU/mL (.)
--- NOTE | 2017-06-30 22:11 | PDOC PROGRESS REPORT ---
Subjective Progress Note for:: 06/30/17 Subjective:: Doing okay, status post insertion of PermCath hemodialysis catheter in the right internal jugular vein and has received a session of hemodialysis. Peritoneal dialysis is not started at this time because there was concern for possible pneumonia. No chest pain or palpitation, no significant shortness of breath. Denies fever or chills at this time. Patient appears to have a low- grade fever at 99 today. Reason For Visit: VOLUME OVERLOAD NEW ESRD Physical Exam Vital Signs: Temp Pulse Resp BP Pulse Ox 98.8 F 89 18 160/95 H 96 06/30/17 15:56 06/30/17 15:56 06/30/17 15:56 06/30/17 15:56 06/30/17 15:56 Intake & Output 06/29/17 06/30/17 07/01/17 06:59 06:59 06:59 Intake Total 996 750 165 Output Total 1300 4300 5 Balance -304 -3550 160 Weight 115.5 kg 112.2 kg GEN: NAD, well-developed, well-nourished CV: RRR, NL S1S2, PermCath IJ LUNGS: Few crackles bilaterally ABDOMEN Soft, NT, +BS EXTERMITIES: No e/c/c, catheter right groin NEURO: Alert, oriented 3, nonfocal Results Laboratory Results: 06/30/17 04:53 06/30/17 04:53 06/30/17 06/30/17 04:53 04:53 WBC 4.9 RBC 3.72 L Hgb 10.7 L Hct 31.9 L MCV 86 MCH 28.8 MCHC 33.6 RDW 14.2 H Plt Count 246 Seg Neutrophils % 61.2 Lymphocytes % 18.0 Monocytes % 7.4 Eosinophils % 12.3 H Basophils % 1.1 Absolute Neutrophils 3.0 Absolute Lymphocytes 0.9 Absolute Monocytes 0.4 Absolute Eosinophils 0.6 Absolute Basophils 0.1 Sodium 143.3 Potassium 4.1 Chloride 100 Carbon Dioxide 24 Anion Gap 19 BUN 72 H Creatinine 13.29 H Est GFR ( Amer) 5 L Est GFR (Non-Af Amer) 4 L Glucose 190 H Calcium 8.1 L 06/28/17 16:44 Nasophary (Mrsa Only) MRSA Culture - Final NO MRSA RECOVERED Impressions: Guidance Fluoroscopy 06/30/17 00:00 IMPRESSION: Intra procedural imaging and fluoro Chest X-Ray 06/30/17 10:11 IMPRESSION: Persistent consolidation predominately in the perihilar regions bilaterally left greater than right demonstrating only minimal if any interval improvement. No pneumothorax is seen. PermCath as noted above. Other findings as noted above Assessment & Plan - Diagnosis (1) Pulmonary edema Qualifiers: Chronicity: acute Qualified Code(s): J81.0 - Acute pulmonary edema Is this a current diagnosis for this admission?: Yes Plan: Suspect secondary to worsening renal failure, now new end-stage renal disease. Patient is status post PermCath and received hemodialysis today, with further plans for dialysis per nephrology. (2) CKD (chronic kidney disease) stage 5, GFR less than 15 ml/min Is this a current diagnosis for this admission?: Yes Plan: Suspect stage 5/now new end-stage renal disease. Patient started on dialysis. (3) Diabetes 1.5, managed as type 2 Is this a current diagnosis for this admission?: Yes Plan: Continue home regimen, also Accu-Cheks with sliding scale insulin coverage. (4) Hypertension Qualifiers: Hypertension type: essential hypertension Qualified Code(s): I10 - Essential (primary) hypertension Is this a current diagnosis for this admission?: Yes Plan: Continue management. Continue to monitor. (5) Anemia in chronic renal disease Is this a current diagnosis for this admission?: Yes Plan: Stable. Will continue to follow. (6) Pneumonia Is this a current diagnosis for this admission?: Yes Plan: This is possible. Chest x-ray with suspicion of consolidation perihilar bilaterally. Patient has normal white count, although today with low-grade fever of 99. Sputum cultures pending. Will obtain blood cultures and start empiric antibiotics with Levaquin. Consider consulting [facility] infectious disease for assistance.
[2017-07-01] MEDS: FUROSEMIDE INJ/PF 100 MG/10 ML SDV IV SCH ×3 (01:12→18:55)
[2017-07-01] MEDS: INSULIN LISPRO 100 UNIT/ML 3 ML VIAL SUBCUT PRN ×3 (08:18→19:01)
[2017-07-01 08:55] LABS: ABSOLUTE BASOPHILS # (AUTO) 0.1 10^3/uL (0.0-0.2); ABSOLUTE EOSINOPHILS # (AUTO) 0.9 10^3/uL (0.0-0.6); ABSOLUTE LYMPHOCYTES (AUTO) 0.9 10^3/uL (0.5-4.7); ABSOLUTE MONOCYTES (AUTO) 0.4 10^3/uL (0.1-1.4); ABSOLUTE NEUT (AUTO) 4.2 10^3/uL (1.7-8.2); BASOPHILS % (AUTO) 1.2 % (0-2); HEMATOCRIT 34.4 % (37.9-51.0); HEMOGLOBIN 11.3 g/dL (13.5-17.0); LYMPHOCYTES % (AUTO) 13.5 % (13-45); MEAN CORPUSCULAR HEMOGLOBIN 28.4 pg (27.0-33.4); MEAN CORPUSCULAR HGB CONC 32.8 g/dL (32.0-36.0); MEAN CORPUSCULAR VOLUME 87 fl (80-97); MONOCYTES % (AUTO) 6.5 % (3-13); PLATELET COUNT 271 10^3/uL (150-450); RED BLOOD COUNT 3.97 10^6/uL (4.35-5.55); RED CELL DISTRIBUTION WIDTH 14.5 % (11.5-14.0); SEGMENTED NEUTROPHILS % (AUTO) 64.8 % (42-78); TOTAL CELLS COUNTED % (AUTO) 100 %; WHITE BLOOD COUNT 6.4 10^3/uL (4.0-10.5)
[2017-07-01 09:14] LABS: ANION GAP 18 (5-19); BLOOD UREA NITROGEN 81 mg/dL (7-20); CALCIUM 8.6 mg/dL (8.4-10.2); CARBON DIOXIDE 23 mmol/L (22-30); CHLORIDE 97 mmol/L (98-107); GLUCOSE 375 mg/dL (75-110); POTASSIUM 4.5 mmol/L (3.6-5.0); SODIUM 138.3 mmol/L (137-145)
[2017-07-01] MEDS ORDERED: AZITHROMYCIN 500 MG in DEXTROSE 5%-WATER 250 ML IV SCH (10:00)
--- NOTE | 2017-07-01 10:19 | Physician Advisory Note ---
Physician Advisor ProgressNote .: Pursuant to the plan for [facility], I have reviewed the medical record for this patient. Physician Advisor Statement: Please consider documenting, if you agree: 1. "Possible Pneumonia, suspect gram-____ type, present [or developing] on admission, & evidenced by " -S/s of PNA documented by attg so far: cough, sputum, SOB, temp elevation -S/s of PNA documented by ED dr/nursing, but not yet by attg: crackles, tachycardia,, tachypnea, 2. "Acute CHF with preserved EF, due to ESRD w/fluid overload, evidenced by orthopnea, SOB, SRIVASTAVA, crackles, acute pulmonary edema on CXR, ..." ? -Initial CXR was read as "CHF", & pt remains on Lasix. EF 60% & there is mild concentric LVH on ECHO from February. -CHF w/preserved EF can result from ESRD with insufficient/missed/unstarted dialysis. Thanks! CK
[2017-07-01] MEDS: LISINOPRIL 10 MG TABLET PO SCH (11:06)
[2017-07-01] MEDS: INSULIN DETEMIR 100 UNIT/ML 3 ML PEN SUBCUT SCH ×2 (11:08→21:12)
[2017-07-01] MEDS ORDERED: ALTEPLASE INJ 2 MG VIAL (CATH CLEARANCE) IV ONE (13:00)
[2017-07-01] MEDS ORDERED: CLONIDINE HCL 0.1 MG TABLET PO ONE (16:14)
--- NOTE | 2017-07-01 17:27 | PDOC PROGRESS REPORT ---
Subjective Progress Note for:: 07/01/17 Subjective:: No overnight events. Feeling fatigued. PLanned to get iHD today. Awaiting placement at outpatient dialysis unit. No other complaints. Reason For Visit: VOLUME OVERLOAD NEW ESRD Physical Exam Vital Signs: Temp Pulse Resp BP Pulse Ox 98.4 F 96 16 154/102 H 96 07/01/17 12:00 07/01/17 14:00 07/01/17 12:00 07/01/17 12:00 07/01/17 12:00 Intake & Output 06/30/17 07/01/17 07/02/17 06:59 06:59 06:59 Intake Total 750 375 Output Total 4300 355 Balance -3550 20 Weight 112.2 kg 113.5 kg General appearance: PRESENT: no acute distress, obese, other - Pleasant, resting in bed Mouth exam: PRESENT: moist Respiratory exam: PRESENT: clear to auscultation ursula, unlabored Cardiovascular exam: PRESENT: +S1, +S2. ABSENT: tachycardia GI/Abdominal exam: PRESENT: soft. ABSENT: tenderness Neurological exam: PRESENT: alert, awake, CN II-XII grossly intact Psychiatric exam: PRESENT: appropriate affect Results Laboratory Results: 07/01/17 08:33 07/01/17 08:33 07/01/17 07/01/17 08:33 08:33 WBC 6.4 RBC 3.97 L Hgb 11.3 L Hct 34.4 L MCV 87 MCH 28.4 MCHC 32.8 RDW 14.5 H Plt Count 271 Seg Neutrophils % 64.8 Lymphocytes % 13.5 Monocytes % 6.5 Eosinophils % 14.0 H Basophils % 1.2 Absolute Neutrophils 4.2 Absolute Lymphocytes 0.9 Absolute Monocytes 0.4 Absolute Eosinophils 0.9 H Absolute Basophils 0.1 Sodium 138.3 Potassium 4.5 Chloride 97 L Carbon Dioxide 23 Anion Gap 18 BUN 81 H Creatinine 14.34 H Est GFR ( Amer) 4 L Est GFR (Non-Af Amer) 4 L Glucose 375 H Calcium 8.6 Impressions: Guidance Fluoroscopy 06/30/17 00:00 IMPRESSION: Intra procedural imaging and fluoro Chest X-Ray 06/30/17 10:11 IMPRESSION: Persistent consolidation predominately in the perihilar regions bilaterally left greater than right demonstrating only minimal if any interval improvement. No pneumothorax is seen. PermCath as noted above. Other findings as noted above Assessment & Plan - Diagnosis (1) ESRD (end stage renal disease) Is this a current diagnosis for this admission?: Yes Plan: New diagnosis. Received iHD on 06/30 again today - Due to lack of insurance will need to have assistance with getting set up for HD as outpatient prior to discharge - Nephrology following, appreciate rec - Will need permanent PD cath placed (2) Hypertension Qualifiers: Hypertension type: essential hypertension Qualified Code(s): I10 - Essential (primary) hypertension Is this a current diagnosis for this admission?: Yes Plan: BP remain elevated, will likely improve following dialysis, - Continued current meds including lopressor, lisinopril - If BP remain elevated on 07/02, will add 3rd agent (3) Heart failure Qualifiers: Heart failure type: unspecified Heart failure chronicity: unspecified Qualified Code(s): I50.9 - Heart failure, unspecified Is this a current diagnosis for this admission?: Yes Plan: History of HFpEF likely due to ESRD - Continue to monitor, medical management - on BB per above (4) Hyperglycemia Is this a current diagnosis for this admission?: Yes Plan: Blood sugars remain elevated - Will consider changing to Lantus on .5 - Time Time Spent with patient: 15-24 minutes Anticipated discharge: Home Within: within 72 hours
[2017-07-01] MEDS: METOPROLOL TARTRATE 25 MG TABLET PO SCH ×2 (18:52→18:55)
[2017-07-01] MEDS: DIPHENHYDRAMINE HCL 25 MG CAPSULE PO SCH (21:12)
[2017-07-02] MEDS: FUROSEMIDE INJ/PF 100 MG/10 ML SDV IV SCH ×3 (02:49→18:34)
[2017-07-02 06:55] LABS: ANION GAP 12 (5-19); BLOOD UREA NITROGEN 63 mg/dL (7-20); CALCIUM 8.5 mg/dL (8.4-10.2); CARBON DIOXIDE 28 mmol/L (22-30); CHLORIDE 98 mmol/L (98-107); GLUCOSE 284 mg/dL (75-110); POTASSIUM 3.8 mmol/L (3.6-5.0); SODIUM 138.4 mmol/L (137-145)
[2017-07-02] MEDS: INSULIN LISPRO 100 UNIT/ML 3 ML VIAL SUBCUT PRN ×4 (08:41→21:22)
[2017-07-02] MEDS: INSULIN DETEMIR 100 UNIT/ML 3 ML PEN SUBCUT SCH ×2 (11:24→21:22)
[2017-07-02] MEDS: LISINOPRIL 10 MG TABLET PO SCH (11:25)
[2017-07-02] MEDS: METOPROLOL TARTRATE 25 MG TABLET PO SCH ×2 (11:25→18:34)
--- NOTE | 2017-07-02 12:15 | PDOC PROGRESS REPORT ---
Subjective Progress Note for:: 07/02/17 Subjective:: Tolerated dialysis yesterday afternoon without issue. Doing well today. No other complaints. Requesting to go outside and walk. Reason For Visit: VOLUME OVERLOAD NEW ESRD Physical Exam Vital Signs: Temp Pulse Resp BP Pulse Ox 99.0 F 95 16 157/110 H 97 07/02/17 08:16 07/02/17 08:16 07/02/17 08:16 07/02/17 08:16 07/02/17 08:16 Intake & Output 07/01/17 07/02/17 07/03/17 06:59 06:59 06:59 Intake Total 375 1176 Output Total 355 1475 Balance 20 -299 Weight 113.5 kg 109.8 kg General appearance: PRESENT: no acute distress, cooperative, well-developed, well-nourished Mouth exam: PRESENT: moist Respiratory exam: PRESENT: unlabored Cardiovascular exam: PRESENT: +S1, +S2. ABSENT: tachycardia GI/Abdominal exam: PRESENT: soft. ABSENT: tenderness Neurological exam: PRESENT: alert, awake, CN II-XII grossly intact Psychiatric exam: PRESENT: appropriate affect Skin exam: PRESENT: dry Results Laboratory Results: 07/01/17 08:33 07/02/17 06:20 07/02/17 06:20 Sodium 138.4 Potassium 3.8 Chloride 98 Carbon Dioxide 28 Anion Gap 12 BUN 63 H Creatinine 12.12 H Est GFR ( Amer) 5 L Est GFR (Non-Af Amer) 4 L Glucose 284 H Calcium 8.5 Impressions: Guidance Fluoroscopy 06/30/17 00:00 IMPRESSION: Intra procedural imaging and fluoro Chest X-Ray 06/30/17 10:11 IMPRESSION: Persistent consolidation predominately in the perihilar regions bilaterally left greater than right demonstrating only minimal if any interval improvement. No pneumothorax is seen. PermCath as noted above. Other findings as noted above Assessment & Plan - Diagnosis (1) ESRD (end stage renal disease) Is this a current diagnosis for this admission?: Yes Plan: New diagnosis. Received iHD on 06/30, next 07/03 - Due to lack of insurance will need to have assistance with getting set up for HD as outpatient prior to discharge - Nephrology following, appreciate rec - Will need permanent PD cath placed (2) Hypertension Qualifiers: Hypertension type: essential hypertension Qualified Code(s): I10 - Essential (primary) hypertension Is this a current diagnosis for this admission?: Yes Plan: BP better controlled on current regimen and with iHD - Continued current meds including lopressor and lisinopril - If BP remain elevated over weekend, will add 3rd agent (3) Heart failure Qualifiers: Heart failure type: unspecified Heart failure chronicity: unspecified Qualified Code(s): I50.9 - Heart failure, unspecified Is this a current diagnosis for this admission?: Yes Plan: History of HFpEF likely due to ESRD - Continue to monitor, medical management - on Beta-wilber per above (4) Hyperglycemia Is this a current diagnosis for this admission?: Yes Plan: Blood sugars remain elevated - Increased Levemir from 10U to 20U BID - Continue sliding scale - Time Anticipated discharge: Home Within: within 72 hours
[2017-07-02] MEDS: DIPHENHYDRAMINE HCL 25 MG CAPSULE PO SCH (21:22)
[2017-07-03] MEDS: FUROSEMIDE INJ/PF 100 MG/10 ML SDV IV SCH ×3 (01:10→17:07)
[2017-07-03 05:44] LABS: ANION GAP 13 (5-19); BLOOD UREA NITROGEN 70 mg/dL (7-20); CALCIUM 8.9 mg/dL (8.4-10.2); CARBON DIOXIDE 29 mmol/L (22-30); CHLORIDE 99 mmol/L (98-107); GLUCOSE 112 mg/dL (75-110); POTASSIUM 4.1 mmol/L (3.6-5.0); SODIUM 140.8 mmol/L (137-145)
[2017-07-03] MEDS: LISINOPRIL 10 MG TABLET PO SCH (10:24)
[2017-07-03] MEDS: INSULIN DETEMIR 100 UNIT/ML 3 ML PEN SUBCUT SCH ×2 (10:24→22:26)
[2017-07-03] MEDS: METOPROLOL TARTRATE 25 MG TABLET PO SCH ×2 (10:25→17:10)
[2017-07-03] MEDS: INSULIN LISPRO 100 UNIT/ML 3 ML VIAL SUBCUT PRN ×3 (12:01→22:26)
--- NOTE | 2017-07-03 14:18 | PDOC PROGRESS REPORT ---
Subjective Progress Note for:: 07/03/17 Subjective:: Doing well overall. Had mild muscle cramps yesterday but otherwise no complaints. Went outside and walked with his . Denies fevers, chills, CP, SOB, NV. PO intake good. Reason For Visit: VOLUME OVERLOAD NEW ESRD Physical Exam Vital Signs: Temp Pulse Resp BP Pulse Ox 98.6 F 84 14 140/89 H 99 07/03/17 00:00 07/03/17 00:00 07/03/17 00:00 07/03/17 00:00 07/03/17 00:00 Intake & Output 07/02/17 07/03/17 07/04/17 06:59 06:59 06:59 Intake Total 1176 1219 Output Total 1475 1175 Balance -299 44 Weight 109.8 kg General appearance: PRESENT: no acute distress, cooperative Respiratory exam: PRESENT: unlabored Cardiovascular exam: PRESENT: +S1, +S2 GI/Abdominal exam: PRESENT: soft. ABSENT: tenderness Musculoskeletal exam: PRESENT: ambulatory Neurological exam: PRESENT: alert, awake, CN II-XII grossly intact Psychiatric exam: PRESENT: appropriate affect Results Laboratory Results: 07/01/17 08:33 07/03/17 05:15 07/03/17 05:15 Sodium 140.8 Potassium 4.1 Chloride 99 Carbon Dioxide 29 Anion Gap 13 BUN 70 H Creatinine 14.06 H Est GFR ( Amer) 4 L Est GFR (Non-Af Amer) 4 L Glucose 112 H Calcium 8.9 Impressions: Guidance Fluoroscopy 06/30/17 00:00 IMPRESSION: Intra procedural imaging and fluoro Chest X-Ray 06/30/17 10:11 IMPRESSION: Persistent consolidation predominately in the perihilar regions bilaterally left greater than right demonstrating only minimal if any interval improvement. No pneumothorax is seen. PermCath as noted above. Other findings as noted above Assessment & Plan - Diagnosis (1) ESRD (end stage renal disease) Is this a current diagnosis for this admission?: Yes Plan: New diagnosis. Received iHD on 06/30, next 07/03 - Due to lack of insurance will need to have assistance with getting set up for HD as outpatient prior to discharge - Nephrology following, appreciate rec - Will need permanent PD cath placed (2) Hypertension Qualifiers: Hypertension type: essential hypertension Qualified Code(s): I10 - Essential (primary) hypertension Is this a current diagnosis for this admission?: Yes Plan: BP better controlled on current regimen and with iHD - Continued current meds including lopressor and lisinopril - If BP remain elevated over weekend, will add 3rd agent (3) Heart failure Qualifiers: Heart failure type: unspecified Heart failure chronicity: unspecified Qualified Code(s): I50.9 - Heart failure, unspecified Is this a current diagnosis for this admission?: Yes Plan: History of HFpEF likely due to ESRD - Continue to monitor, medical management - on Beta-wilber per above (4) Hyperglycemia Is this a current diagnosis for this admission?: Yes Plan: Blood sugars remain elevated - Increased to Levemir 25 BID, if remain elevated would increased to 30U - Continue sliding scale - Time Time Spent with patient: Less than 15 minutes Anticipated discharge: Home Within: Other - When outpatient dialysis has been set
[2017-07-03] MEDS: DIPHENHYDRAMINE HCL 25 MG CAPSULE PO SCH (22:26)
[2017-07-04] MEDS: FUROSEMIDE INJ/PF 100 MG/10 ML SDV IV SCH ×3 (02:57→18:07)
[2017-07-04 06:43] LABS: HEMATOCRIT 34.2 % (37.9-51.0); HEMOGLOBIN 11.3 g/dL (13.5-17.0); MEAN CORPUSCULAR HEMOGLOBIN 28.7 pg (27.0-33.4); MEAN CORPUSCULAR HGB CONC 33.2 g/dL (32.0-36.0); MEAN CORPUSCULAR VOLUME 86 fl (80-97); PLATELET COUNT 238 10^3/uL (150-450); RED BLOOD COUNT 3.95 10^6/uL (4.35-5.55); RED CELL DISTRIBUTION WIDTH 14.1 % (11.5-14.0); WHITE BLOOD COUNT 7.7 10^3/uL (4.0-10.5)
[2017-07-04 07:03] LABS: ANION GAP 19 (5-19); BLOOD UREA NITROGEN 76 mg/dL (7-20); CALCIUM 8.7 mg/dL (8.4-10.2); CARBON DIOXIDE 23 mmol/L (22-30); CHLORIDE 98 mmol/L (98-107); GLUCOSE 159 mg/dL (75-110); POTASSIUM 3.8 mmol/L (3.6-5.0); SODIUM 139.5 mmol/L (137-145)
[2017-07-04] MEDS: INSULIN LISPRO 100 UNIT/ML 3 ML VIAL SUBCUT PRN (07:04)
--- NOTE | 2017-07-04 11:18 | PDOC PROGRESS REPORT ---
Subjective Progress Note for:: 07/04/17 Reason For Visit: Seen on dialysis. Patient undergoing dialysis without any issues. Vital signs are stable. Patient denies any history of chest pain shortness of breath. Orders were discussed with the treating dialysis nurse. Patient posted for PD catheter most likely tomorrow. Labs and medications were reviewed. Physical Exam Vital Signs: Temp Pulse Resp BP Pulse Ox 98.5 F 90 16 144/81 H 100 07/04/17 08:00 07/04/17 08:00 07/04/17 08:00 07/04/17 08:00 07/04/17 08:00 Intake & Output 07/03/17 07/04/17 07/05/17 06:59 06:59 06:59 Intake Total 1219 831 Output Total 1175 2500 Balance 44 -1669 Weight 109.5 kg General appearance: PRESENT: no acute distress Respiratory exam: PRESENT: clear to auscultation ursula. ABSENT: crackles, rhonchi Cardiovascular exam: PRESENT: RRR, +S1, +S2, systolic murmur GI/Abdominal exam: PRESENT: normal bowel sounds, soft. ABSENT: ascites, distended, firm, tenderness Neurological exam: PRESENT: awake, oriented to person, oriented to place, oriented to time Results Laboratory Results: 07/04/17 05:23 07/04/17 05:23 07/04/17 07/04/17 05:23 05:23 WBC 7.7 RBC 3.95 L Hgb 11.3 L Hct 34.2 L MCV 86 MCH 28.7 MCHC 33.2 RDW 14.1 H Plt Count 238 Sodium 139.5 Potassium 3.8 Chloride 98 Carbon Dioxide 23 Anion Gap 19 BUN 76 H Creatinine 14.76 H Est GFR ( Amer) 4 L Est GFR (Non-Af Amer) 3 L Glucose 159 H Calcium 8.7 Impressions: Guidance Fluoroscopy 06/30/17 00:00 IMPRESSION: Intra procedural imaging and fluoro Chest X-Ray 06/30/17 10:11 IMPRESSION: Persistent consolidation predominately in the perihilar regions bilaterally left greater than right demonstrating only minimal if any interval improvement. No pneumothorax is seen. PermCath as noted above. Other findings as noted above Assessment & Plan - Diagnosis (1) ESRD (end stage renal disease) Is this a current diagnosis for this admission?: Yes Plan: Patient undergoing dialysis without any issues. Is being supervised to ensure safe and smooth procedure. Vital signs are stable. Orders were reviewed and discussed with the treating dialysis nurse. Will remove approximately 2-3 L as tolerated. (2) Hypertension Qualifiers: Hypertension type: essential hypertension Qualified Code(s): I10 - Essential (primary) hypertension Is this a current diagnosis for this admission?: Yes Plan: Quite well controlled. Continue current medications. See response further to dialysis and fluid removal. (3) Anemia in chronic renal disease Is this a current diagnosis for this admission?: Yes Plan: No current indications for erythropoietin. Monitor. (4) Diabetes 1.5, managed as type 2 Is this a current diagnosis for this admission?: Yes Plan: As per hospitalist.
[2017-07-04] MEDS: INSULIN DETEMIR 100 UNIT/ML 3 ML PEN SUBCUT SCH ×2 (12:37→22:32)
[2017-07-04] MEDS: LISINOPRIL 10 MG TABLET PO SCH (12:38)
[2017-07-04] MEDS: METOPROLOL TARTRATE 25 MG TABLET PO SCH ×2 (12:38→18:09)
[2017-07-04] MEDS ORDERED: INSULIN DETEMIR 100 UNIT/ML 3 ML PEN SUBCUT SCH (12:55)
--- NOTE | 2017-07-04 16:56 | PDOC PROGRESS REPORT ---
Subjective Progress Note for:: 07/04/17 Subjective:: Patient seen resting inside of the bed. He denies any chest pain, shortness of breath or dyspnea. Is not requiring any oxygen any further. He recently returned from dialysis. He denies any significant problems with hemodialysis today being his second treatment. Denies any nausea, vomiting or abdominal pain. He denies any diarrhea. He denies any significant arthralgias or myalgias. Remaining review of systems are negative. Reason For Visit: VOLUME OVERLOAD NEW ESRD Physical Exam Vital Signs: Temp Pulse Resp BP Pulse Ox 98.6 F 86 16 135/83 H 100 07/04/17 16:00 07/04/17 16:00 07/04/17 16:00 07/04/17 16:00 07/04/17 16:00 Intake & Output 07/03/17 07/04/17 07/05/17 06:59 06:59 06:59 Intake Total 1219 831 Output Total 1175 2500 3000 Balance 44 -6049 -3000 Weight 109.5 kg General appearance: PRESENT: no acute distress, well-developed, well-nourished Head exam: PRESENT: atraumatic, normocephalic Eye exam: PRESENT: conjunctiva pink, EOMI, PERRLA. ABSENT: scleral icterus Ear exam: PRESENT: normal external ear exam Mouth exam: PRESENT: moist, tongue midline Teeth exam: PRESENT: poor dentation Neck exam: ABSENT: carotid bruit, JVD, lymphadenopathy, thyromegaly Respiratory exam: PRESENT: clear to auscultation ursula. ABSENT: rales, rhonchi, wheezes Cardiovascular exam: PRESENT: RRR. ABSENT: diastolic murmur, rubs, systolic murmur Pulses: PRESENT: normal dorsalis pedis pul Vascular exam: PRESENT: normal capillary refill GI/Abdominal exam: PRESENT: normal bowel sounds, soft. ABSENT: distended, guarding, mass, organolmegaly, rebound, tenderness Rectal exam: PRESENT: deferred Extremities exam: PRESENT: full ROM. ABSENT: calf tenderness, clubbing, pedal edema Musculoskeletal exam: PRESENT: ambulatory Neurological exam: PRESENT: alert, awake, oriented to person, oriented to place , oriented to time, oriented to situation, CN II-XII grossly intact. ABSENT: motor sensory deficit Psychiatric exam: PRESENT: appropriate affect, normal mood. ABSENT: homicidal ideation, suicidal ideation Skin exam: PRESENT: dry, intact, warm. ABSENT: cyanosis, rash Results Laboratory Results: 07/04/17 05:23 07/04/17 05:23 18 07/04/17 05:23 05:23 WBC 7.7 RBC 3.95 L Hgb 11.3 L Hct 34.2 L MCV 86 MCH 28.7 MCHC 33.2 RDW 14.1 H Plt Count 238 Sodium 139.5 Potassium 3.8 Chloride 98 Carbon Dioxide 23 Anion Gap 19 BUN 76 H Creatinine 14.76 H Est GFR ( Amer) 4 L Est GFR (Non-Af Amer) 3 L Glucose 159 H Calcium 8.7 Impressions: Guidance Fluoroscopy 06/30/17 00:00 IMPRESSION: Intra procedural imaging and fluoro Chest X-Ray 06/30/17 10:11 IMPRESSION: Persistent consolidation predominately in the perihilar regions bilaterally left greater than right demonstrating only minimal if any interval improvement. No pneumothorax is seen. PermCath as noted above. Other findings as noted above Assessment & Plan - Diagnosis (1) ESRD (end stage renal disease) Is this a current diagnosis for this admission?: Yes Plan: Patient had his second dialysis treatment today. Social work is attempting to get outpatient dialysis set up at [facility] as an outpatient. The patient will be following up with Dr Jian Chou as an outpatient for PD catheter placement (2) Hypertension Qualifiers: Hypertension type: essential hypertension Qualified Code(s): I10 - Essential (primary) hypertension Is this a current diagnosis for this admission?: Yes Plan: Continue current medications he is normotensive (3) Hypocalcemia Is this a current diagnosis for this admission?: Yes Plan: Replete and monitor (4) Pulmonary edema Qualifiers: Chronicity: acute Qualified Code(s): J81.0 - Acute pulmonary edema Is this a current diagnosis for this admission?: Yes Plan: Resolved with dialysis. Echo in February showed an EF of 60% with no diastolic dysfunction (5) Anemia in chronic renal disease Is this a current diagnosis for this admission?: Yes Plan: Stable (6) Hyperlipidemia Qualifiers: Hyperlipidemia type: unspecified Qualified Code(s): E78.5 - Hyperlipidemia , unspecified Is this a current diagnosis for this admission?: Yes Plan: Continue statin (7) Diabetes 1.5, managed as type 1 Is this a current diagnosis for this admission?: Yes Plan: Increased lantus to 25 units bid - Time Time Spent with patient: 15-24 minutes Medications reviewed and adjusted accordingly: Yes Anticipated discharge: Home
[2017-07-04] MEDS ORDERED: INSULIN LISPRO 100 UNIT/ML 3 ML VIAL SUBCUT ONE ×2 (18:00→19:45)
[2017-07-04 22:59] LABS: HEMATOCRIT 36.9 % (37.9-51.0); HEMOGLOBIN 12.3 g/dL (13.5-17.0); MEAN CORPUSCULAR HEMOGLOBIN 28.9 pg (27.0-33.4); MEAN CORPUSCULAR HGB CONC 33.4 g/dL (32.0-36.0); MEAN CORPUSCULAR VOLUME 87 fl (80-97); PLATELET COUNT 270 10^3/uL (150-450); RED BLOOD COUNT 4.26 10^6/uL (4.35-5.55); RED CELL DISTRIBUTION WIDTH 14.3 % (11.5-14.0); WHITE BLOOD COUNT 6.9 10^3/uL (4.0-10.5)
[2017-07-04 23:05] LABS: ANION GAP 18 (5-19); CALCIUM 8.8 mg/dL (8.4-10.2); CARBON DIOXIDE 26 mmol/L (22-30); CHLORIDE 95 mmol/L (98-107); GLUCOSE 127 mg/dL (75-110); POTASSIUM 3.4 mmol/L (3.6-5.0); SODIUM 139.2 mmol/L (137-145)
[2017-07-04 23:50] LABS: BLOOD UREA NITROGEN 55 mg/dL (7-20)
[2017-07-04] MEDS: DIPHENHYDRAMINE HCL 25 MG CAPSULE PO SCH (23:54)
[2017-07-05] MEDS: FUROSEMIDE INJ/PF 100 MG/10 ML SDV IV SCH ×3 (03:06→17:13)
[2017-07-05] MEDS: INSULIN LISPRO 100 UNIT/ML 3 ML VIAL SUBCUT PRN ×4 (09:23→21:47)
[2017-07-05] MEDS: LISINOPRIL 10 MG TABLET PO SCH (09:48)
[2017-07-05] MEDS: METOPROLOL TARTRATE 25 MG TABLET PO SCH ×2 (09:48→17:13)
[2017-07-05] MEDS: INSULIN DETEMIR 100 UNIT/ML 3 ML PEN SUBCUT SCH ×2 (09:48→21:47)
--- NOTE | 2017-07-05 10:57 | PDOC PROGRESS REPORT ---
Subjective Progress Note for:: 07/05/17 Subjective:: Patient seen resting inside of the bed. He denies any chest pain, shortness of breath or dyspnea. Is not requiring any oxygen any further. He recently returned from dialysis. He denies any significant problems with hemodialysis today being his second treatment. Denies any nausea, vomiting or abdominal pain. He denies any diarrhea. He denies any significant arthralgias or myalgias. Remaining review of systems are negative. Reason For Visit: VOLUME OVERLOAD NEW ESRD Physical Exam Vital Signs: Temp Pulse Resp BP Pulse Ox 98.6 F 86 18 139/83 H 100 07/05/17 07:26 07/05/17 07:26 07/05/17 07:26 07/05/17 07:26 07/05/17 07:26 Intake & Output 07/04/17 07/05/17 07/06/17 06:59 06:59 06:59 Intake Total 831 858 Output Total 2500 6500 Balance -2524 -7675 Weight 109.5 kg 106.5 kg General appearance: PRESENT: no acute distress, obese, well-developed, well- nourished Head exam: PRESENT: atraumatic, normocephalic Eye exam: PRESENT: conjunctiva pink, EOMI, PERRLA. ABSENT: scleral icterus Ear exam: PRESENT: normal external ear exam Mouth exam: PRESENT: moist, tongue midline Teeth exam: PRESENT: poor dentation Neck exam: PRESENT: carotid bruit, full ROM Respiratory exam: PRESENT: clear to auscultation ursula. ABSENT: rales, rhonchi, wheezes Cardiovascular exam: PRESENT: RRR. ABSENT: diastolic murmur, rubs, systolic murmur Pulses: PRESENT: normal dorsalis pedis pul Vascular exam: PRESENT: normal capillary refill GI/Abdominal exam: PRESENT: normal bowel sounds, soft. ABSENT: distended, guarding, mass, organolmegaly, rebound, tenderness Rectal exam: PRESENT: deferred Extremities exam: PRESENT: full ROM. ABSENT: calf tenderness, clubbing, pedal edema Neurological exam: PRESENT: alert, awake, oriented to person, oriented to place , oriented to time, oriented to situation, CN II-XII grossly intact. ABSENT: motor sensory deficit Psychiatric exam: PRESENT: appropriate affect, normal mood. ABSENT: homicidal ideation, suicidal ideation Skin exam: PRESENT: dry, intact, warm. ABSENT: cyanosis, rash Results Laboratory Results: 07/04/17 22:15 07/04/17 22:15 07/04/17 07/04/17 22:15 22:15 WBC 6.9 RBC 4.26 L Hgb 12.3 L Hct 36.9 L MCV 87 MCH 28.9 MCHC 33.4 RDW 14.3 H Plt Count 270 Sodium 139.2 Potassium 3.4 L Chloride 95 L Carbon Dioxide 26 Anion Gap 18 BUN 55 H D Creatinine 10.96 H Est GFR ( Amer) 6 L Est GFR (Non-Af Amer) 5 L Glucose 127 H Calcium 8.8 Impressions: Guidance Fluoroscopy 06/30/17 00:00 IMPRESSION: Intra procedural imaging and fluoro Chest X-Ray 06/30/17 10:11 IMPRESSION: Persistent consolidation predominately in the perihilar regions bilaterally left greater than right demonstrating only minimal if any interval improvement. No pneumothorax is seen. PermCath as noted above. Other findings as noted above Assessment & Plan - Diagnosis (1) ESRD (end stage renal disease) Is this a current diagnosis for this admission?: Yes Plan: Patient had his second dialysis treatment today. Social work is attempting to get outpatient dialysis set up at [facility] as an outpatient. The patient will be following up with Dr Jian Chou as an outpatient for PD catheter placement (2) Hypertension Qualifiers: Hypertension type: essential hypertension Qualified Code(s): I10 - Essential (primary) hypertension Is this a current diagnosis for this admission?: Yes Plan: Continue current medications he is normotensive (3) Hypocalcemia Is this a current diagnosis for this admission?: Yes Plan: Replete and monitor (4) Pulmonary edema Qualifiers: Chronicity: acute Qualified Code(s): J81.0 - Acute pulmonary edema Is this a current diagnosis for this admission?: Yes Plan: Resolved with dialysis. Echo in February showed an EF of 60% with no diastolic dysfunction (5) Anemia in chronic renal disease Is this a current diagnosis for this admission?: Yes Plan: Stable (6) Hyperlipidemia Qualifiers: Hyperlipidemia type: unspecified Qualified Code(s): E78.5 - Hyperlipidemia , unspecified Is this a current diagnosis for this admission?: Yes Plan: Continue statin (7) Diabetes 1.5, managed as type 1 Is this a current diagnosis for this admission?: Yes Plan: Increased lantus to 25 units bid - Time Time Spent with patient: 25-34 minutes Total Critical Time (Minutes): 15 Medications reviewed and adjusted accordingly: Yes
--- NOTE | 2017-07-05 15:10 | RADIOLOGY REPORT (SQ) ---
EXAM DESCRIPTION: CHEST 2 VIEWS COMPLETED DATE/TIME: 07/05/2017 2:38 pm REASON FOR STUDY: PNEUMONIA COMPARISON: 06/30/2017 EXAM PARAMETERS: NUMBER OF VIEWS: two views TECHNIQUE: Digital Frontal and Lateral radiographic views of the chest acquired. RADIATION DOSE: NA LIMITATIONS: none FINDINGS: LUNGS AND PLEURA: Improved aeration with residual subsegmental airspace disease in the [place]. No effusions. MEDIASTINUM AND HILAR STRUCTURES: No masses or contour abnormalities. HEART AND VASCULAR STRUCTURES: Stable heart size. BONES: No acute findings. HARDWARE: None in the chest. OTHER: Stable position of right-sided central line. IMPRESSION: Improving pneumonia. TECHNICAL DOCUMENTATION: JOB ID: [id number] [employer]- All Rights Reserved Reading location - IP/workstation name: [facility] [email or web address]
[2017-07-05] MEDS: DIPHENHYDRAMINE HCL 25 MG CAPSULE PO SCH (21:47)
[2017-07-06] MEDS: FUROSEMIDE INJ/PF 100 MG/10 ML SDV IV SCH ×3 (04:01→17:58)
[2017-07-06 07:06] LABS: HEMATOCRIT 35.7 % (37.9-51.0); HEMOGLOBIN 11.8 g/dL (13.5-17.0); MEAN CORPUSCULAR HEMOGLOBIN 28.5 pg (27.0-33.4); MEAN CORPUSCULAR HGB CONC 32.9 g/dL (32.0-36.0); MEAN CORPUSCULAR VOLUME 87 fl (80-97); PLATELET COUNT 215 10^3/uL (150-450); RED BLOOD COUNT 4.13 10^6/uL (4.35-5.55); WHITE BLOOD COUNT 6.8 10^3/uL (4.0-10.5)
[2017-07-06 07:25] LABS: ANION GAP 17 (5-19); BLOOD UREA NITROGEN 66 mg/dL (7-20); CALCIUM 9.2 mg/dL (8.4-10.2); CARBON DIOXIDE 24 mmol/L (22-30); CHLORIDE 96 mmol/L (98-107); GLUCOSE 163 mg/dL (75-110); POTASSIUM 4.2 mmol/L (3.6-5.0); SODIUM 137.2 mmol/L (137-145)
[2017-07-06] MEDS ORDERED: SUCCINYLCHOLINE CHLORIDE INJ 200 MG/10 ML VIAL ONE (09:11)
[2017-07-06] MEDS ORDERED: NEOSTIGMINE METHYLSULFATE 10 MG/10 ML VIAL ONE (09:11)
[2017-07-06] MEDS ORDERED: GLYCOPYRROLATE INJ 0.4 MG/2 ML VIAL ONE (09:11)
[2017-07-06] MEDS ORDERED: LIDOCAINE 2% INJ-PF (20 MG/ML) 2 ML AMPUL ONE (09:11)
[2017-07-06] MEDS ORDERED: ONDANSETRON HCL INJ/PF 4 MG/2 ML SDV ONE (09:11)
[2017-07-06] MEDS ORDERED: KETOROLAC TROMETHAMINE 60 MG/2 ML SDV ONE (09:11)
[2017-07-06] MEDS ORDERED: METOCLOPRAMIDE HCL INJ/PF 10 MG/2 ML SDV ONE (09:11)
[2017-07-06] MEDS ORDERED: ROCURONIUM BROMIDE INJ 50 MG/5 ML VIAL IV ONE (09:11)
[2017-07-06] MEDS: INSULIN DETEMIR 100 UNIT/ML 3 ML PEN SUBCUT SCH ×2 (10:13→21:32)
[2017-07-06] MEDS ORDERED: BUPIVACAINE HCL 0.25 % INJ/PF (2.5 MG/1 ML) 30 ML VIAL ONE (10:19)
[2017-07-06] MEDS ORDERED: BACITRACIN INJ 50,000 UNIT VIAL ONE (10:19)
[2017-07-06] MEDS ORDERED: LIDOCAINE 0.5% INJ-PF (5 MG/ML) 50 ML SDV ONE (10:19)
[2017-07-06] MEDS ORDERED: HEPARIN SODIUM,PORCINE/NS/PF 0 UNIT/0 ML RTUINJ IV ONE (10:26)
[2017-07-06] MEDS: METOPROLOL TARTRATE 25 MG TABLET PO SCH ×2 (10:30→17:58)
[2017-07-06] MEDS: LISINOPRIL 10 MG TABLET PO SCH (10:31)
[2017-07-06] MEDS ORDERED: FENTANYL CITRATE INJ/PF 100 MCG/2 ML AMPUL ONE (10:47)
[2017-07-06] MEDS ORDERED: MIDAZOLAM 2 MG/2 ML INJ ONE (10:47)
[2017-07-06] MEDS ORDERED: PROPOFOL INJ 200 MG/20 ML VIAL IV ONE (10:48)
[2017-07-06] MEDS ORDERED: HYDROMORPHONE HCL INJ/PF 2 MG/ML AMPULE ONE (10:48)
[2017-07-06] MEDS ORDERED: MEPERIDINE HCL/PF INJ 25 MG/1 ML DISP.SYRIN IV PRN (12:05)
[2017-07-06] MEDS ORDERED: PROMETHAZINE HCL INJ 25 MG/1 ML VIAL IV PRN ×2 (12:05)
[2017-07-06] MEDS ORDERED: OXYCODONE-ACETAMINOPHEN 5-325 MG TABLET PO PRN ×2 (12:05)
[2017-07-06] MEDS ORDERED: ONDANSETRON HCL INJ/PF 4 MG/2 ML SDV IV PRN (12:05)
[2017-07-06] MEDS ORDERED: DIPHENHYDRAMINE HCL 50 MG/ML VIAL IV PRN (12:05)
[2017-07-06] MEDS ORDERED: FENTANYL CITRATE INJ/PF 100 MCG/2 ML AMPUL IV PRN ×3 (12:05)
[2017-07-06] MEDS ORDERED: HEPARIN SOD (PORCINE) 1,000 UNIT/ML 1 ML VIAL ONE (12:16)
[2017-07-06] MEDS ORDERED: HEPARIN SOD (PORCINE) 1,000 UNIT/ML 10 ML VIAL ONE (12:17)
--- NOTE | 2017-07-06 12:55 | Operative Report ---
Operative Report DATE OF SURGERY: 06/29/17 PREOPERATIVE DIAGNOSIS: 1. End-stage renal disease on hemodialysis. 2. Multiple comorbidities. POSTOPERATIVE DIAGNOSIS: 1. End-stage renal disease on hemodialysis. 2. Multiple comorbidities. OPERATION: Laparoscopically guided insertion of peritoneal dialysis catheter. SURGEON: JOMAR CUEVAS SOCIAL WELFARE RESEARCH WORKER: SIN CRUZ ANESTHESIA: GA TISSUE REMOVED OR ALTERED: Not applicable. COMPLICATIONS: None. ESTIMATED BLOOD LOSS: 5 mL. INTRAOPERATIVE FINDINGS: Of a satisfactory placement with tip well down in the pelvis. Photographs taken for documentation. Ingress of heparinized solution quite easily also egress. Both 200 mils of heparinized saline were left intraperitoneal intentionally. Inspection of the abdomen shows intestine in the pelvis with no omentum to impede flow. PROCEDURE: After obtaining informed consent and going over the procedure with the patient, he was taken to the operating room, [he was] anesthetized and intubated. The abdomen was prepped and draped in the usual sterile fashion. After the universal timeout, in which it was verified that the patient received IV antibiotic, the procedure commenced. The topographical location for the peritoneal dialysis catheter was sketched by applying it to the anterior abdominal wall. The reference point was the pubic symphysis the coil of the catheter, just beneath this level. In this way the position for the cuffs and the external catheter exit were ascertained and marked. The catheter was now replaced in antibiotic containing solution. An entry into the abdomen was sketched just to the right of the midline and transversely in the epigastrium. Local anesthesia was infiltrated. A 1 cm, transverse incision was made with a [15 blade scalpel]. Dissection now proceeded to the medial aspect of the right rectus sheath. This was opened and the muscle gently reflected. The posterior rectus sheath and peritoneum were opened between hemostats and entry was gained to the peritoneal cavity. This allowed introduction of a 5 mm laparoscopic port. The abdomen was now insufflated with carbon dioxide up to a maximum pressure of 12 mm of mercury. The camera was inserted and a good view gained of the abdomen. Photographs were taken. Local anesthesia was now infiltrated and an incision made in respect to the curve of the catheter. A 1 cm transverse incision was made at this point and dissection proceeded down to the rectus sheath. This was opened and a Veress needle on a reducing sleeve were were now introduced through the rectus muscle and the manipulated down to about 4 cm inferior to the incision. The peritoneum was now entered and the Veress needle removed. The internal cannula was now placed under direct vision. A swan neck peritoneal dialysis catheter was now placed on a stylette. Great care was taken to keep the orientation in reference to the white line on the catheter. It was now inserted into the peritoneal cavity under direct vision, through the introducer. As the catheter entered the abdomen the stylette was slowly withdrawn allowing it to assume its normal orientation and shape within the peritoneal cavity. Both the stylet and introducer were removed so as to place the internal cuff about 3 cm from the entry point of the peritoneal cavity, and within the rectus sheath. This was verified with respect to the incision. The external curve of the catheter was allowed to form precisely at the level of the incision. Externally the catheter was affixed to a Todd stylette which was now used to tunnel the catheter in the subcutaneous tissues to its exit site where it was now used to exit the skin. The catheter orientation and position and, particularly the 2 cuffs of the catheter were verified. Once this was done the external portion of the catheter was affixed to a Leur lock adapter and connected to a sterile IV tubing. This allowed introduction of 1 L of heparinized saline into the peritoneal cavity via the catheter. This occurred with brisk and free flow of fluid into the peritoneal cavity. Once the entire liter had been infused, the bag was now placed beneath the level of the patient and very satisfactory outflow was observed. With this in place, the camera and the catheter were removed and abdomen desufflated. The subcutaneous tissue in each incision was closed with interrupted 3-0 PDS. The skin in each incision was closed using interrupted and continuous sutures of 4-0 Monocryl. Once about 800 mils of the Infusaid had been passively removed from the abdomen, the catheter was flushed with 10 mL of heparinized solution and capped. The bio a patch was applied at the exit site. Benzoin was applied and Steri-Strips used to reinforce each of the wounds. It was also used to help anchor the Biopatch. It was also used to anchor the main catheter so that any external pressure would not dislodge the catheter. Dry gauze and tape applied and the procedure concluded.
--- NOTE | 2017-07-06 13:11 | PDOC PROGRESS REPORT ---
Subjective Progress Note for:: 07/06/17 Subjective:: Seen on dialysis. Patient undergoing dialysis without any issues. Vital signs are stable. Patient denies any history of chest pain or shortness of breath. Orders were discussed with the treating dialysis nurse. He is going to have a PD catheter placed today after dialysis. Reason For Visit: VOLUME OVERLOAD NEW ESRD Physical Exam Vital Signs: Temp Pulse Resp BP Pulse Ox 98.2 F 77 18 134/84 H 100 07/06/17 10:16 07/06/17 10:16 07/06/17 10:16 07/06/17 10:16 07/06/17 10:16 Intake & Output 07/05/17 07/06/17 07/07/17 06:59 06:59 06:59 Intake Total 858 766 Output Total 6500 600 500 Balance -5642 166 -500 Weight 106.5 kg 108.3 kg General appearance: PRESENT: no acute distress, well-developed, well-nourished Mouth exam: PRESENT: moist, neck supple Neck exam: PRESENT: full ROM. ABSENT: JVD Respiratory exam: PRESENT: clear to auscultation ursula. ABSENT: accessory muscle use, crackles, rales, rhonchi, wheezes Cardiovascular exam: PRESENT: RRR, +S1, +S2, systolic murmur GI/Abdominal exam: PRESENT: normal bowel sounds, soft. ABSENT: ascites, distended, firm, tenderness Neurological exam: PRESENT: alert, awake, oriented to person, oriented to place , oriented to time, oriented to situation Skin exam: PRESENT: dry, intact, warm. ABSENT: cyanosis Results Laboratory Results: 07/06/17 06:09 07/06/17 06:09 07/06/17 07/06/17 06:09 06:09 WBC 6.8 RBC 4.13 L Hgb 11.8 L Hct 35.7 L MCV 87 MCH 28.5 MCHC 32.9 RDW 14.0 Plt Count 215 Sodium 137.2 Potassium 4.2 Chloride 96 L Carbon Dioxide 24 Anion Gap 17 BUN 66 H Creatinine 12.71 H Est GFR ( Amer) 5 L Est GFR (Non-Af Amer) 4 L Glucose 163 H Calcium 9.2 Impressions: Guidance Fluoroscopy 06/30/17 00:00 IMPRESSION: Intra procedural imaging and fluoro Chest X-Ray 07/05/17 00:00 IMPRESSION: Improving pneumonia. Assessment & Plan - Diagnosis (1) ESRD (end stage renal disease) Is this a current diagnosis for this admission?: Yes Plan: Patient undergoing dialysis without any issues. Is being supervised to ensure safe and smooth procedure. Vital signs are stable. Orders were reviewed and discussed with the treating dialysis nurse. Will remove approximately 0.5L. Gets PD catheter placed today. Tomorrow if he is stable, he is clear for discharge for HD at one of the units. Once his PD cath heals he will then be transitioned to PD. (2) Hypertension Qualifiers: Hypertension type: essential hypertension Qualified Code(s): I10 - Essential (primary) hypertension Is this a current diagnosis for this admission?: Yes Plan: controlled (3) Pulmonary edema Qualifiers: Chronicity: acute Qualified Code(s): J81.0 - Acute pulmonary edema Is this a current diagnosis for this admission?: Yes Plan: resolved (4) Anemia in chronic renal disease Is this a current diagnosis for this admission?: Yes Plan: currently not needing procrit (5) Diabetes 1.5, managed as type 2 Is this a current diagnosis for this admission?: Yes - Notes Notes: case and care plan were reviewed with Dr. Del Toro
--- NOTE | 2017-07-06 15:08 | PDOC PROGRESS REPORT ---
Subjective Progress Note for:: 07/06/17 Subjective:: Seen during hemodialysis. Scheduled for a peritoneal dialysis catheter later today. Reason For Visit: VOLUME OVERLOAD NEW ESRD Physical Exam Vital Signs: Temp Pulse Resp BP Pulse Ox 97.6 F 71 16 132/83 H 100 07/06/17 13:41 07/06/17 13:41 07/06/17 13:41 07/06/17 13:41 07/06/17 13:41 Intake & Output 07/05/17 07/06/17 07/07/17 05:59 05:59 05:59 Intake Total 978 766 700 Output Total 7300 1145 Balance -6322 766 -445 Weight 241 lb 6.499 oz 234 lb 12.677 oz 238 lb 12.17 oz General appearance: PRESENT: no acute distress Respiratory exam: PRESENT: clear to auscultation ursula Cardiovascular exam: PRESENT: RRR GI/Abdominal exam: PRESENT: soft Extremities exam: ABSENT: other - No edema Neurological exam: PRESENT: alert Psychiatric exam: PRESENT: appropriate affect Skin exam: PRESENT: warm Results Laboratory Results: 07/06/17 06:09 07/06/17 06:09 07/06/17 07/06/17 06:09 06:09 WBC 6.8 RBC 4.13 L Hgb 11.8 L Hct 35.7 L MCV 87 MCH 28.5 MCHC 32.9 RDW 14.0 Plt Count 215 Sodium 137.2 Potassium 4.2 Chloride 96 L Carbon Dioxide 24 Anion Gap 17 BUN 66 H Creatinine 12.71 H Est GFR ( Amer) 5 L Est GFR (Non-Af Amer) 4 L Glucose 163 H Calcium 9.2 Impressions: Guidance Fluoroscopy 06/30/17 00:00 IMPRESSION: Intra procedural imaging and fluoro Chest X-Ray 07/05/17 00:00 IMPRESSION: Improving pneumonia. Assessment & Plan - Diagnosis (1) ESRD (end stage renal disease) Is this a current diagnosis for this admission?: Yes Plan: Currently on hemodialysis. Plan is to transition him to peritoneal. I would anticipate he can go home tomorrow and continue hemodialysis until his peritoneal dialysis catheter is healed. (2) Diabetes 1.5, managed as type 1 Is this a current diagnosis for this admission?: Yes Plan: Continue current medications and cover with sliding scale insulin. (3) Hypertension Qualifiers: Hypertension type: essential hypertension Qualified Code(s): I10 - Essential (primary) hypertension Is this a current diagnosis for this admission?: Yes Plan: Well-controlled on current medications. (4) Anemia in chronic renal disease Is this a current diagnosis for this admission?: Yes Plan: Stable. No need for Procrit
[2017-07-06] MEDS: INSULIN LISPRO 100 UNIT/ML 3 ML VIAL SUBCUT PRN ×2 (17:58→21:32)
[2017-07-06] MEDS: OXYCODONE-ACETAMINOPHEN 5-325 MG TABLET PO PRN ×2 (18:12→23:49)
[2017-07-06] MEDS ORDERED: INSULIN REG, HUMAN 100 UNIT/ML 3 ML VIAL (PYX) ONE (21:29)
[2017-07-06] MEDS: DIPHENHYDRAMINE HCL 25 MG CAPSULE PO SCH (21:32)
[2017-07-06] MEDS ORDERED: INSULIN REG, HUMAN 100 UNIT/ML 3 ML VIAL (PYX) IV ONE (22:00)
[2017-07-07] MEDS: FUROSEMIDE INJ/PF 100 MG/10 ML SDV IV SCH ×2 (03:25→10:05)
[2017-07-07 06:07] LABS: ANION GAP 16 (5-19); BLOOD UREA NITROGEN 64 mg/dL (7-20); CALCIUM 8.5 mg/dL (8.4-10.2); CARBON DIOXIDE 25 mmol/L (22-30); CHLORIDE 93 mmol/L (98-107); GLUCOSE 369 mg/dL (75-110); POTASSIUM 4.7 mmol/L (3.6-5.0); SODIUM 133.6 mmol/L (137-145)
[2017-07-07] MEDS: INSULIN LISPRO 100 UNIT/ML 3 ML VIAL SUBCUT PRN (07:24)
[2017-07-07] MEDS ORDERED: INSULIN LISPRO 100 UNIT/ML 3 ML VIAL SUBCUT PRN (08:31)
[2017-07-07] MEDS ORDERED: INSULIN DETEMIR 100 UNIT/ML 3 ML PEN SUBCUT SCH (10:00)
--- NOTE | 2017-07-07 10:04 | PDOC PROGRESS REPORT ---
Subjective Progress Note for:: 07/07/17 Subjective:: Patient was sitting up in his chair with no complaints at the time of examination. Patient denies chest pain or SOB. His abdomen is a little sore. Had PD catheter placed yesterday. Reason For Visit: VOLUME OVERLOAD NEW ESRD Physical Exam Vital Signs: Temp Pulse Resp BP Pulse Ox 98.6 F 86 18 141/83 H 100 07/07/17 00:00 07/07/17 02:00 07/07/17 00:00 07/07/17 00:00 07/07/17 00:00 Intake & Output 07/06/17 07/07/17 07/08/17 06:59 06:59 06:59 Intake Total 766 1610 Output Total 600 845 Balance 166 765 Weight 108.3 kg 106.2 kg General appearance: PRESENT: no acute distress, well-developed, well-nourished Mouth exam: PRESENT: moist, neck supple Neck exam: PRESENT: full ROM. ABSENT: JVD Respiratory exam: PRESENT: clear to auscultation ursula. ABSENT: accessory muscle use, crackles, rales, rhonchi, wheezes Cardiovascular exam: PRESENT: RRR, +S1, +S2, systolic murmur GI/Abdominal exam: PRESENT: normal bowel sounds, soft. ABSENT: ascites, distended, firm, tenderness Extremities exam: ABSENT: pedal edema, tenderness, +1 edema, +2 edema Musculoskeletal exam: PRESENT: normal inspection. ABSENT: tenderness Neurological exam: PRESENT: alert, awake, oriented to person, oriented to place , oriented to time, oriented to situation Psychiatric exam: PRESENT: appropriate affect, normal mood Skin exam: PRESENT: dry, intact, warm. ABSENT: cyanosis Results Laboratory Results: 07/06/17 06:09 07/07/17 05:10 07/07/17 05:10 Sodium 133.6 L Potassium 4.7 Chloride 93 L Carbon Dioxide 25 Anion Gap 16 BUN 64 H Creatinine 11.72 H Est GFR ( Amer) 6 L Est GFR (Non-Af Amer) 5 L Glucose 369 H Calcium 8.5 Impressions: Guidance Fluoroscopy 06/30/17 00:00 IMPRESSION: Intra procedural imaging and fluoro Chest X-Ray 07/05/17 00:00 IMPRESSION: Improving pneumonia. Assessment & Plan - Diagnosis (1) ESRD (end stage renal disease) Is this a current diagnosis for this admission?: Yes Plan: If discharge planning has him lined up for the [place] dialysis unit as outpatient than he is ready for discharge from nephrology's standpoint. Orders will be placed to continue HD for now and start PD once his catheter site has healed. (2) Hypertension Qualifiers: Hypertension type: essential hypertension Qualified Code(s): I10 - Essential (primary) hypertension Is this a current diagnosis for this admission?: Yes Plan: controlled (3) Pulmonary edema Qualifiers: Chronicity: acute Qualified Code(s): J81.0 - Acute pulmonary edema Is this a current diagnosis for this admission?: Yes Plan: stable (4) Anemia in chronic renal disease Is this a current diagnosis for this admission?: Yes Plan: currently not needing procrit (5) Diabetes 1.5, managed as type 2 Is this a current diagnosis for this admission?: Yes - Notes Notes: care plan was discussed with Dr. Del Toro
[2017-07-07] MEDS: OXYCODONE-ACETAMINOPHEN 5-325 MG TABLET PO PRN (10:05)
[2017-07-07] MEDS: LISINOPRIL 10 MG TABLET PO SCH (10:05)
[2017-07-07] MEDS: METOPROLOL TARTRATE 25 MG TABLET PO SCH (10:05)
[2017-07-07 12:53] VITALS: BP 124/80
--- NOTE | 2017-07-07 13:21 | PDOC DISCHARGE SUMMARY ---
General - Admit/Disc Date/PCP Admission Date/Primary Care Provider: 06/28/17 14:16 JAZMIN DEL TORO MD Discharge Date: 07/07/17 - Discharge Diagnosis (1) ESRD (end stage renal disease) Is this a current diagnosis for this admission?: Yes Summary: Previously stage V chronic kidney disease now at end-stage. Started on hemodialysis. A peritoneal dialysis catheter was also placed and once that has healed he will be transitioned over to PD (2) Diabetes 1.5, managed as type 1 Is this a current diagnosis for this admission?: Yes Summary: Very poorly controlled. Noncompliant with medications due to financial concerns. (3) Hypertension Is this a current diagnosis for this admission?: Yes Summary: Very poorly controlled. Eyes with medications due to financial concerns. (4) Anemia in chronic renal disease Is this a current diagnosis for this admission?: Yes Summary: Stable. No need for Procrit as yet - Additional Information Resuscitation Status: Full Code Discharge Diet: Cardiac, Diabetic Discharge Activity: Activity As Tolerated, Balance Activity w/Rest, Weigh Daily Prescriptions: Insulin Glargine,Hum.rec.anlog [Lantus Solostar] 30 unit SQ Q12 #1 insuln.pen Insulin Lispro [Humalog Insulin (Lispro) 100 unit/mL] 0 - 12 unit SUBCUT [id number] PRN #1 vial PRN Reason: Lisinopril [Zestril] 40 mg PO DAILY #30 tablet Metoprolol Tartrate [Lopressor 25 mg Tablet] 25 mg PO BID #60 tablet Home Medications: Aspirin [Aspirin EC] 81 mg PO DAILY 03/15/17 Atorvastatin Calcium [Lipitor 80 mg Tablet] 80 mg PO DAILY #30 tablet 03/18/17 Insulin Glargine,Hum.rec.anlog [Lantus Solostar] 30 unit SQ Q12 #1 insuln.pen Insulin Lispro [Humalog Insulin (Lispro) 100 unit/mL] 0 - 12 unit SUBCUT [id number] PRN #1 vial 07/07/17 Lisinopril [Zestril] 40 mg PO DAILY #30 tablet 07/07/17 Metoprolol Tartrate [Lopressor 25 mg Tablet] 25 mg PO BID #60 tablet 07/07/17 History of Present Illness Patient complains of: Short of breath History of Present Illness: NAKUL MCNEIL is a 51 year old male with history of diabetes mellitus type 2 , hypertension, chronic kidney disease, sees Dr. Del Toro of nephrology. Patient has had problems with cough in the past week, sometimes productive of frothy sputum. Also has had worsening shortness of breath and orthopnea, no PND. No chest pain or palpitations. Labs were checked by his packing machine pilot can router and creatinine was found to have significantly worsened and patient thought to be in end-stage renal disease. He was referred to the emergency room where evaluation significant for BUN 94, creatinine 15.6. Chest x-ray revealed CHF. Patient denies fever or chills. He was referred to the hospitalist service for admission to initiate peritoneal dialysis. Patient still makes urine. He received a high dose of Lasix 100 mg in the ED and is making good urine and breathing improving. Hospital Course Hospital Course: He was seen in consultation by nephrology. A PermCath was placed and he was started on hemodialysis. Meanwhile a peritoneal dialysis catheter has been placed. Dialysis chair is been arranged and he will continue to receive hemodialysis until he can be transitioned over to peritoneal dialysis. His blood sugars were very uncontrolled and insulin regimen was adjusted. Blood pressure was also markedly elevated and those medications have been adjusted as well. He is rather anxious to go home. Physical Exam Vital Signs: Temp Pulse Resp BP Pulse Ox 97.7 F 84 16 124/80 98 07/07/17 11:18 07/07/17 11:18 07/07/17 11:18 07/07/17 11:18 07/07/17 11:18 Intake & Output 07/06/17 07/07/17 07/08/17 05:59 05:59 05:59 Intake Total 766 1510 100 Output Total 1445 0 Balance 766 65 100 Weight 234 lb 12.677 oz 238 lb 12.17 oz 234 lb 2.095 oz General appearance: PRESENT: no acute distress, obese Respiratory exam: PRESENT: clear to auscultation ursula Cardiovascular exam: PRESENT: RRR GI/Abdominal exam: PRESENT: soft, other - Peritoneal dialysis catheter in place without evidence of infection or complication. Extremities exam: ABSENT: other - No edema Neurological exam: PRESENT: alert Psychiatric exam: PRESENT: appropriate affect Skin exam: PRESENT: warm Results Laboratory Results: 07/06/17 06:09 07/07/17 05:10 07/07/17 05:10 Sodium 133.6 L Potassium 4.7 Chloride 93 L Carbon Dioxide 25 Anion Gap 16 BUN 64 H Creatinine 11.72 H Est GFR ( Amer) 6 L Est GFR (Non-Af Amer) 5 L Glucose 369 H Calcium 8.5 Impressions: Guidance Fluoroscopy 06/30/17 00:00 IMPRESSION: Intra procedural imaging and fluoro Chest X-Ray 07/05/17 00:00 IMPRESSION: Improving pneumonia. Qualifiers - * PATIENT BEING DISCHARGED WITH ANY OF THE FOLLOWING DIAGNOSIS: No
== END 2017-07-07 12:30 | disposition home or self-care (01) | DRG 673 ==
LOC: ER 09:57 → EH 14:16 → 4N 15:10
PROVIDERS: ADMIT Internal Medicine; ATTEND Internal Medicine
PROC: 0WHG43Z Insertion of Infusion Device into Peritoneal Cavity, Percutaneous Endoscopic Approach (ICD-10-PCS; principal; 2017-06-29)
PROC: 3E1M39Z Irrigation of Peritoneal Cavity using Dialysate, Percutaneous Approach (ICD-10-PCS; 2017-06-29)
PROC: 06H033Z Insertion of Infusion Device into Inferior Vena Cava, Percutaneous Approach (ICD-10-PCS; 2017-06-29)
PROC: B549ZZA Ultrasonography of Inferior Vena Cava, Guidance (ICD-10-PCS; 2017-06-29)
PROC: 5A1D70Z Performance of Urinary Filtration, Intermittent, Less than 6 Hours Per Day (ICD-10-PCS; 2017-06-29)
PROC: 06HM33Z Insertion of Infusion Device into Right Femoral Vein, Percutaneous Approach (ICD-10-PCS; 2017-06-29)
PROC: B54BZZA Ultrasonography of Right Lower Extremity Veins, Guidance (ICD-10-PCS; 2017-06-29)
PROC: 5A1D70Z Performance of Urinary Filtration, Intermittent, Less than 6 Hours Per Day (ICD-10-PCS; 2017-07-01)
PROC: 5A1D70Z Performance of Urinary Filtration, Intermittent, Less than 6 Hours Per Day (ICD-10-PCS; 2017-07-04)
PROC: 5A1D70Z Performance of Urinary Filtration, Intermittent, Less than 6 Hours Per Day (ICD-10-PCS; 2017-07-06)
DX: I12.0 Hypertensive chronic kidney disease with stage 5 chronic kidney disease or end stage renal disease (principal); N18.6 End stage renal disease; J81.0 Acute pulmonary edema; J18.9 Pneumonia, unspecified organism; N17.9 Acute kidney failure, unspecified; E87.2 Acidosis; E11.22 Type 2 diabetes mellitus with diabetic chronic kidney disease; D63.1 Anemia in chronic kidney disease; I13.2 Hypertensive heart and chronic kidney disease with heart failure and with stage 5 chronic kidney disease, or end stage renal disease; I50.9 Heart failure, unspecified; E78.00 Pure hypercholesterolemia, unspecified; E11.40 Type 2 diabetes mellitus with diabetic neuropathy, unspecified; K21.9 Gastro-esophageal reflux disease without esophagitis; M19.90 Unspecified osteoarthritis, unspecified site; E83.51 Hypocalcemia; E11.65 Type 2 diabetes mellitus with hyperglycemia; B95.62 Methicillin resistant Staphylococcus aureus infection as the cause of diseases classified elsewhere; Z79.82 Long term (current) use of aspirin; Z79.4 Long term (current) use of insulin; Z79.899 Other long term (current) drug therapy
CPT/HCPCS: 36415; 36556; 532; 71046; 76937; 77001; 790; 80048; 80053; 82962; 85025; 85027; 86317; 86704; 87070; 87340; 87522; 96374; 99285; C1752; J0330; J0456; J0690; J0696; J1170; J1642; J1644; J1815; J1885; J1940; J2250; J2405; J2704; J2765; J3010; J3490; J7060; Q9967

== ENCOUNTER 2017-11-01 08:45 | Day surgery (SDC) | payer MEDICARE ==
[~2017-11-01 08:45] MED LIST: BACITRACIN INJ 50,000 UNIT VIAL ONE; BUPIVACAINE HCL 0.5 % INJ/PF 30 ML SDV ONE; CEFAZOLIN 1 GM/D5W RTU 1 GM/50 ML RTUPB IV PRN; HEPARIN SOD (PORCINE) 1,000 UNIT/ML 10 ML VIAL ONE; LIDOCAINE 0.5% INJ-PF (5 MG/ML) 50 ML SDV ONE; LIDOCAINE 1% INJ-PF (10 MG/ML) 30 ML SDV ONE
[2017-11-01 09:37] LABS: HEMOGLOBIN 12.4 g/dL (13.5-17.0); MEAN CORPUSCULAR HEMOGLOBIN 29.5 pg (27.0-33.4); MEAN CORPUSCULAR HGB CONC 33.4 g/dL (32.0-36.0); MEAN CORPUSCULAR VOLUME 88 fl (80-97); PLATELET COUNT 212 10^3/uL (150-450); RED BLOOD COUNT 4.19 10^6/uL (4.35-5.55); RED CELL DISTRIBUTION WIDTH 15.9 % (11.5-14.0); WHITE BLOOD COUNT 3.4 10^3/uL (4.0-10.5)
[2017-11-01 09:58] LABS: ANION GAP 11 (5-19); BLOOD UREA NITROGEN 38 mg/dL (7-20); CALCIUM 9.5 mg/dL (8.4-10.2); CARBON DIOXIDE 27 mmol/L (22-30); CHLORIDE 98 mmol/L (98-107); GLUCOSE 319 mg/dL (75-110); POTASSIUM 5.5 mmol/L (3.6-5.0); SODIUM 136.1 mmol/L (137-145)
[2017-11-01] MEDS ORDERED: NITROGLYCERIN/D5W 50 MG/250 ML RTUINJ IV ONE (10:02)
[2017-11-01] MEDS ORDERED: EPHEDRINE SULFATE INJ 50 MG/1 ML AMPULE ONE (10:17)
[2017-11-01] MEDS ORDERED: MIDAZOLAM 2 MG/2 ML INJ ONE (10:17)
[2017-11-01] MEDS ORDERED: FENTANYL CITRATE INJ/PF 100 MCG/2 ML AMPUL ONE ×2 (10:17)
[2017-11-01] MEDS ORDERED: PROPOFOL INJ 200 MG/20 ML VIAL IV ONE ×2 (10:18→13:09)
[2017-11-01] MEDS ORDERED: ONDANSETRON HCL INJ/PF 4 MG/2 ML SDV IV PRN (11:18)
[2017-11-01] MEDS ORDERED: FENTANYL CITRATE INJ/PF 100 MCG/2 ML AMPUL IV PRN ×3 (11:18)
[2017-11-01] MEDS ORDERED: DIPHENHYDRAMINE HCL 50 MG/ML VIAL IV PRN (11:18)
--- NOTE | 2017-11-01 12:21 | Operative Report ---
Operative Report PREOPERATIVE DIAGNOSIS: 1. End-stage renal disease on hemodialysis. 2. Peritoneal dialysis catheter in place. 3. Diabetes mellitus type 2. 4. Hypertension. POSTOPERATIVE DIAGNOSIS: 1. End-stage renal disease on hemodialysis. 2. Peritoneal dialysis catheter in place. 3. Diabetes mellitus type 2. 4. Hypertension. OPERATION: Insertion of left radiocephalic arteriovenous fistula. SURGEON: JOMAR CUEVAS PHOTOCOPIER TECHNICIAN: None. ANESTHESIA: LMAC TISSUE REMOVED OR ALTERED: Not applicable. COMPLICATIONS: None. ESTIMATED BLOOD LOSS: 5 mL. INTRAOPERATIVE FINDINGS: Of a satisfactory cephalic vein at the wrist easily accommodating a 3.5 mm coronary dilator. The radial artery is somewhat on the small size with some spasm appreciated. Lumen estimated to be 2-2.5 mm. Satisfactory function with good bruit auscultated externally at end of the procedure. PROCEDURE: Operative Report PROCEDURE: After reviewing the procedure with the patient, he was taken to the operating room. The patient was sedated and the [left upper extremity] prepared with chlorhexidine and draped out with sterile linen. After the "" universal timeout", in which it was verified that the patient [received IV antibiotics] the procedure commenced. The sterilely sheathed ultrasound probe was used to evaluate the left venous and arterial systems, pertinent to the previously done vein mapping. Local anesthesia was infiltrated and a longitudinal incision made over the lower f forearm,. Dissection proceeded through the subcutaneous tissues down to the cephalic vein. This was dissected out proximally and distally for about 3 cm. Likewise major branches. The the radial artery dissected out for a distance of about 1.5 cm. Rubber loops were placed on either end. The patient was given 2500 units of heparin intravenously. The cephalic vein was transected and irrigated with heparinized solution. The l branches were clipped Coronary dilators were accepted [up to 3.5 mm]. The artery was controlled proximally and distally with rubber loops. An arteriotomy approximately [1.2 cm] in length was made, the artery was irrigated proximally and distally with heparinized solution. The transected vein was now spatulated, it was then anastomosed end to side to side into the radial artery. This was done using a continuous suture of 6-0 Prolene. Controls of the fistula were now released and it was analyzed using a Doppler probe. Hemostasis was secured once optimal function was assured, the wound was irrigated with antibiotic containing solution and closed. Closure was done using interrupted 3-0 PDS for the subcutaneous tissues. The skin was closed using a continuous subcutaneous suture of 4-0 Monocryl which was reinforced with Steri-Strips over benzoin. I then left the operative field and returned with a stethoscope covered with a sterile Tegaderm dressing. This allowed external auscultation of the fistula. Auscultation was [satisfactory]. The procedure was concluded by applying a Kerlix dressing over the surgical site. DICTATING PHYSICIAN: JOMAR VANESSA M.D.
--- NOTE | 2017-11-01 13:11 | Operative Report ---
Operative Report DATE OF SURGERY: 11/01/17 PREOPERATIVE DIAGNOSIS: 1. End-stage renal disease on hemodialysis. 2. Peritoneal dialysis catheter in place. 3. Diabetes mellitus type 2. 4. Hypertension. POSTOPERATIVE DIAGNOSIS: 1. End-stage renal disease on hemodialysis. 2. Peritoneal dialysis catheter in place. 3. Diabetes mellitus type 2. 4. Hypertension. OPERATION: Removal of peritoneal dialysis catheter. SURGEON: JOMAR CUEVAS LONG DISTANCE OPERATOR: None. ANESTHESIA: LMAC TISSUE REMOVED OR ALTERED: Not applicable. COMPLICATIONS: None. ESTIMATED BLOOD LOSS: 5 mL. INTRAOPERATIVE FINDINGS: Of a well founded peritoneal dialysis catheter. The catheter was removed in its entirety including the 2 cuffs. Some bleeding was noted in the rectus muscle and this was controlled with cautery. PROCEDURE: After obtaining informed consent and going over the procedure with [the patient] , he was taken to the operating room,. The abdomen was prepped and draped in the usual sterile fashion. After the universal timeout, in which it was verified that the patient received IV antibiotic, the procedure commenced. The topographical location for the peritoneal dialysis catheter was sketched by applying it to the anterior abdominal wall.. Local anesthesia was infiltrated. A 1 cm, ncision was made with a [15 blade scalpel] at the site of the previous insertion. Dissection now proceeded to the catheter. Gentle traction was applied and the external cuff dissected away from the surrounding tissues. The catheter was now transected and brought into the main incision. Gentle traction was now applied and dissection proceeded superficially over the catheter down to the internal cough. The internal cough was now dissected out. Wants to is free the entirety of the catheter easily came out and was removed and discarded. A search for hemostasis was now done. Persisting bleeding was noted in the rectus muscle. This was carefully sought after, cauterized. Once adequate control was achieved wound was closed. Closure was done using interrupted mattress sutures of 3-0 PDS by gauze and tape.
--- NOTE | 2017-11-01 13:13 | Discharge Summary ---
Discharge Summary (SDC) - Discharge Final Diagnosis: 1. End-stage renal disease on hemodialysis. 2. Peritoneal dialysis catheter in place. 3. Diabetes mellitus type 2. 4. Hypertension. Date of Surgery: 11/01/17 Discharge Date: 11/01/17 Forms: ASU Anesthesia D/C Instruction, Discharge POC-Surgical Service Treatment or Instructions: Discharge home [after recovery per ASU criteria]. Diet , [renal],as tolerated, when fully awake advance as tolerated. Activities within moderation encouraged. Follow up in my office by appointment in about [1 week]. Call for appointment. Leave wounds [covered], [keep clean and dry, until office visit in 1 week]. Hold of on school/work [until evaluation in office]. Meds per med rec. Percocet. May shower [in 48 hrs], [try to keep operated area as dry as possible]. Prescriptions: Oxycodone HCl/Acetaminophen [Percocet 5-325 mg Tablet] 1 tab PO ASDIR PRN #15 tab PRN Reason: Referrals: JARETH POWELL DO [ACTIVE STAFF] - (Keep your scheduled follow-up appointment.) Discharge Diet: Other (Comments) - Renal, diabetic. Respiratory Treatments at Home: Deep Breathing/Coughing Discharge Activity: Activity As Tolerated Report the Following to Your Physician Immediately: Shortness of Breath, Unusual Bleeding
[2017-11-01] MEDS: OXYCODONE-ACETAMINOPHEN 5-325 MG TABLET ONE ×2 (14:15→14:33)
[2017-11-01 15:38] VITALS: BP 181/89
== END 2017-11-01 15:25 | disposition home or self-care (01) ==
LOC: OROUT 08:45
PROVIDERS: ATTEND Surgery
DX: I13.2 Hypertensive heart and chronic kidney disease with heart failure and with stage 5 chronic kidney disease, or end stage renal disease (principal); I50.9 Heart failure, unspecified; E11.22 Type 2 diabetes mellitus with diabetic chronic kidney disease; N18.6 End stage renal disease; Z99.2 Dependence on renal dialysis; E66.9 Obesity, unspecified; Z68.29 Body mass index [BMI] 29.0-29.9, adult
CPT/HCPCS: 36415; 82962; 85027; 80048; 49422; J2250; J3490 ×5; J0690; J3010; J1644; A9270; J2704; 1844

== ENCOUNTER 2017-12-13 09:24 | Day surgery (SDC) | payer MEDICARE ==
[2017-12-13] MEDS ORDERED: DIAZEPAM 5 MG TABLET PO ONE (10:00)
[2017-12-13] MEDS ORDERED: OXYCODONE-ACETAMINOPHEN 5-325 MG TABLET PO ONE (10:00)
[2017-12-13] MEDS ORDERED: DIAZEPAM 5 MG TABLET ONE (10:06)
[2017-12-13] MEDS ORDERED: OXYCODONE-ACETAMINOPHEN 5-325 MG TABLET ONE (10:06)
[2017-12-13 10:19] LABS: HEMATOCRIT 32.9 % (37.9-51.0); HEMOGLOBIN 11.3 g/dL (13.5-17.0); MEAN CORPUSCULAR HEMOGLOBIN 31.3 pg (27.0-33.4); MEAN CORPUSCULAR HGB CONC 34.3 g/dL (32.0-36.0); MEAN CORPUSCULAR VOLUME 91 fl (80-97); PLATELET COUNT 202 10^3/uL (150-450); RED CELL DISTRIBUTION WIDTH 17.3 % (11.5-14.0); WHITE BLOOD COUNT 5.3 10^3/uL (4.0-10.5)
[2017-12-13 10:24] LABS: PROTHROMBIN TIME 13.7 SEC (11.4-15.4)
[2017-12-13 10:25] LABS: PARTIAL THROMBOPLASTIN TIME 32.2 SEC (23.5-35.8)
[2017-12-13 11:01] LABS: ABSOLUTE LYMPHOCYTES# (MANUAL) 1.4 10^3/uL (0.5-4.7); ABSOLUTE MONOCYTES # (MANUAL) 0.2 10^3/uL (0.1-1.4); ABSOLUTE NEUTROPHILS# (MANUAL) 3.6 10^3/uL (1.7-8.2); ANISOCYTOSIS 2+; BASOPHILS % (MANUAL) 0 % (0-2); EOSINOPHILS % (MANUAL) 2 % (0-6); HYPOCHROMASIA SLIGHT; LYMPHOCYTES % (MANUAL) 27 % (13-45); MONOCYTES % (MANUAL) 4 % (3-13); PLATELET COMMENT ADEQUATE; POLYCHROMASIA SLIGHT; SEGMENTED NEUTROPHILS % (MAN) 67 % (42-78); TOTAL CELLS COUNTED 100; TOXIC GRANULATION SLIGHT; TOXIC VACUOLATION PRESENT
[2017-12-13] MEDS ORDERED: MIDAZOLAM 2 MG/2 ML INJ ONE (11:11)
[2017-12-13] MEDS ORDERED: HEPARIN SOD (PORCINE) 5,000 UNIT/ML 1 ML SYRINGE ONE (11:11)
[2017-12-13] MEDS ORDERED: LIDOCAINE 0.5% INJ-PF (5 MG/ML) 50 ML SDV ONE (11:11)
[2017-12-13] MEDS ORDERED: FENTANYL CITRATE INJ/PF 100 MCG/2 ML AMPUL ONE (11:11)
[2017-12-13 11:49] LABS: ANION GAP 14 (5-19); BLOOD UREA NITROGEN 50 mg/dL (7-20); CALCIUM 8.8 mg/dL (8.4-10.2); CARBON DIOXIDE 25 mmol/L (22-30); CHLORIDE 96 mmol/L (98-107); GLUCOSE 340 mg/dL (75-110); POTASSIUM 5.8 mmol/L (3.6-5.0); SODIUM 135.4 mmol/L (137-145)
--- NOTE | 2017-12-13 13:04 | EKG REPORT ---
SEVERITY:- NORMAL ECG - SINUS RHYTHM : Confirmed by: Juarez Gallo MD 13-Dec-2017 13:03:13
--- NOTE | 2017-12-13 13:29 | RADIOLOGY REPORT (SQ) ---
EXAM DESCRIPTION: FISTULAGRAM W/PLASTY COMPLETED DATE/TIME: 12/13/2017 12:26 pm REASON FOR STUDY: T82.858A T82.858A STENOSIS OF OTHER VASCULAR PROSTH DEV/GRFT, INIT Z79.01 LONG T ERM (CURRENT) USE OF ANTICOAGULANTS COMPARISON: None. FLUOROSCOPY TIME: 0.6 minutes Spot images saved to PACS. TECHNIQUE: Intra-operative images acquired during surgical procedure to evaluate progress. NUMBER OF IMAGES: 87 LIMITATIONS: None. FINDINGS: Fluoroscopy was provided for intraoperative procedure refer to the operative report furthe r IMPRESSION: IMAGE(S) OBTAINED DURING PROCEDURE. COMMENT: Quality ID [id number]: Final reports for procedures using fluoroscopy that document radiation exp osure indices, or exposure time and number of fluorographic images (if radiation exposure indices are not available) Please consult full operative report of the attending physician for description of the procedure. TECHNICAL DOCUMENTATION: JOB ID: [id number] [employer].- All Rights Reserved Reading location - IP/workstation name: [email or web address]
--- NOTE | 2017-12-13 13:42 | Discharge Summary ---
Discharge Summary (SDC) - Discharge Final Diagnosis: #1 malfunctioning AV fistula, left radiocephalic. 2. PermCath in place. 3. End-stage renal disease on hemodialysis. 4. Diabetes mellitus type 2. 5. Hypertension. Date of Surgery: 12/13/17 Discharge Date: 12/13/17 Condition: Good Forms: ASU Anesthesia D/C Instruction, Discharge POC-Surgical Service Treatment or Instructions: KEEP DRESSING CLEAN, DRY, AND INTACT UNTIL FOLLOW-UP APPOINTMENT WITH DR VANESSA. USE PERM CATH FOR DIALYSIS ACCESS. FOLLOW UP IN ONE WEEK. MAY RETURN TO WORK AFTER 24 HOURS. Referrals: JOMAR VANESSA MD [ACTIVE STAFF] - 12/22/17 1:45 pm Discharge Diet: Other (Comments) - Renal, ADA. Respiratory Treatments at Home: Deep Breathing/Coughing Discharge Activity: Activity As Tolerated, No Lifting Over 10 Pounds, No Lifting /Push/Pulling Home Care Assistance: None Needed Report the Following to Your Physician Immediately: Shortness of Breath, Nausea , Vomiting, Increase in Pain, Fever over 101 Degrees, Unusual Bleeding, Redness , Swelling, Warmth, Increased Soreness, Numbness, Tingling Sensation, IV Site Infection Signs
--- NOTE | 2017-12-13 13:49 | Operative Report ---
Operative Report DATE OF SURGERY: 12/13/17 PREOPERATIVE DIAGNOSIS: #1 malfunctioning AV fistula, left radiocephalic. 2. PermCath in place. 3. End-stage renal disease on hemodialysis. 4. Diabetes mellitus type 2. 5. Hypertension. POSTOPERATIVE DIAGNOSIS: #1 malfunctioning AV fistula, left radiocephalic. 2. PermCath in place. 3. End-stage renal disease on hemodialysis. 4. Diabetes mellitus type 2. 5. Hypertension. OPERATION: 1. Needle introduction into arteriovenous fistula left radiocephalic. Real-time ultrasound-guided. 2. Angioplasty. 3. Angiogram and interpretation. SURGEON: JOMAR CUEVAS DITCHING MACHINE ENGINEER: None. ANESTHESIA: Moderate Sedation TISSUE REMOVED OR ALTERED: Not applicable. COMPLICATIONS: None. ESTIMATED BLOOD LOSS: 2 mL. INTRAOPERATIVE FINDINGS: Of a palpable left forearm radiocephalic fistula. More appreciable on cephalad partial pressure. On the small side on ultrasound biopsy about 4 mm but dilated up to about 5 on cephalad partial obstruction. More robust and larger after dilatation with a 6 mm angioplasty balloon. Pertinently there is a large draining vein medially and about 2 cm from the anastomosis. Another lateral at 14 cm. Ligation of these would undoubtedly help with definition and maturation of the main fistula. For the time being the fistula may be accessed. I will reevaluated in a week or so. If it does not adequate for comfortable routine use we will then ligated the branches under ultrasound guidance, probably in the operating room. This was discussed with the patient. I believe he understands. PROCEDURE: PROCEDURE: After verifying the procedure and having obtained informed consent, the patient's left arm and forearm were prepared with Chlorhexidine and draped out with sterile linen. Local anesthesia infiltrated. Percutaneous access into the fistula ,[retrograde], obtained about [20 cm] from the arteriovenous anastomosis using a micro puncture needle followed by micro puncture wire and then a micro puncture catheter. This was done on ultrasound guidance using real-time access into the vein. Ultrasound was also used to size the vein. Angiogram demonstrated the aforementioned findings. Angioplasty was elected. A 0.035 [place] wire was inserted, and over this, a 5 Frisian short introducer was placed, this was followed by a 6 mm conformable angioplasty balloon . Angiogram was once more done through this with the findings as dictated above. Angioplasty was now done at the fistula body starting about 2 cm above the anastomosis. Several dilatations were needed in this relatively short 4 cm long balloon. Over a segment in the body for about 12 cms. This was done very carefully and sustained for 1 to 2 minutes. Angiogram demonstrated successful outcome. Completion angiogram demonstrated [satisfactory result]. The instrumentation was now withdrawn over hand pressure for 10 minutes. Dressings applied, procedure concluded. Exposure time: 0.6 minutes Radiation: 7.27 brannon thompson. Contrast: 25 mL of Isovue-M 300 low osmolality. DICTATING PHYSICIAN: JOMAR VANESSA M.D. cc: JOMAR VANESSA M.D. ([id number]) >>
--- NOTE | 2017-12-13 13:53 | PDOC H&P ---
General Chief Complaint: This patient presents with a relatively immature left forearm radiocephalic fistula. Usage has been suboptimal at dialysis and is therefore with referred across for correction. - Diagnosis (1) Dialysis AV fistula malfunction Is this a Current Diagnosis?: Yes (2) Diabetes 1.5, managed as type 1 Is this a Current Diagnosis?: Yes (3) ESRD (end stage renal disease) Is this a Current Diagnosis?: Yes (4) Hypertension Is this a Current Diagnosis?: Yes - Current Medications/Allergies Home Medications: Atorvastatin Calcium 80 mg PO DAILY 12/13/17 Clonidine HCl 0.2 mg PO BID 12/13/17 Furosemide [Lasix 40 mg Tablet] 40 mg PO DAILY 12/13/17 Insulin Glargine,Hum.rec.anlog [Lantus] 25 units SUBCUT DAILY 12/13/17 Sodium Bicarbonate [Sodium Bicarbonate 650 mg Tablet] 650 mg PO BID 12/13/17 Allergies/Adverse Reactions: No Known Allergies Allergy (Verified 06/28/17 10:03) Past Medical History Cardiac Medical History: Reports: Hyperlipidema, Hypertension Denies: Congestive Heart Failure, Coronary Artery Disease, DVT, Myocardial Infarction, Pulmonary Embolism Pulmonary Medical History: Denies: Asthma, Bronchitis, Chronic Obstructive Pulmonary Disease (COPD), Pneumonia Neurological Medical History: Denies: Seizures Endocrine Medical History: Reports: Diabetes Mellitus Type 1, Diabetes Mellitus Type 2 - complicated by Neuropathy, nephropathy.Has proteinuria but unsure of his Denies: Hyperthyroidism, Hypothyroidism GI Medical History: Reports: Gastroesophageal Reflux Disease Denies: Cirrhosis, Hepatitis Musculoskeltal Medical History: Reports: Arthritis Skin Medical History: Denies: Eczema, Psoriasis Psychiatric Medical History: Denies: Depression Hematology: Denies: Anemia Family History Family History: Reviewed & Not Pertinent Parental Family History Reviewed: No Children Family History Reviewed: No Sibling(s) Family History Reviewed.: No Social History Smoking Status: Never Smoker Frequency of Alcohol Use: None Hx Recreational Drug Use: No Drugs: None Hx Prescription Drug Abuse: No Physical Exam Vital Signs: Temp Pulse Resp BP Pulse Ox 97.7 F 67 16 150/87 H 100 12/13/17 10:32 12/13/17 13:15 12/13/17 13:15 12/13/17 13:15 12/13/17 13:15 Intake & Output 12/12/17 12/13/17 12/14/17 06:59 06:59 06:59 Weight 106.594 kg Additional comments: Constitutional: Well-developed well-nourished -[place] gentleman. No apparent acute distress. Eyes: Mucous membranes pink and moist, pupils equal and reactive to light. Conjunctiva normal. Cornea normal. ENT: Hearing grossly normal. External pinna normal to inspection. Teeth intact. Tongue normal to inspection. Chest: Normal to inspection. Respiratory breath sounds are present bilaterally, normal. Normal respiratory effort. Psychiatric: Judgment, memory, insight seem normal. Mood is pleasant and appropriate. Extremities: Upper extremities show normal range of movement. Pulses present noted to the radial arteries. Capillary refill normal. No cyanosis noted. No muscle wasting noted. Left forearm radiocephalic fistula palpable good thrill. Easy to palpate with cephalad partial obstruction. Impression/Plan Plan: The patient is recommended to have angiogram and possible angioplasty. The goal is successful and routine use of fistula. The risks, benefits expected outcome and alternatives are familiar to the patient. He wishes to proceed.
[2017-12-13 14:39] VITALS: BP 148/78
== END 2017-12-13 13:50 | disposition home or self-care (01) ==
LOC: CCL 09:24
PROVIDERS: ATTEND Surgery
DX: T82.858A Stenosis of other vascular prosthetic devices, implants and grafts, initial encounter (principal); Y83.2 Surgical operation with anastomosis, bypass or graft as the cause of abnormal reaction of the patient, or of later complication, without mention of misadventure at the time of the procedure; I12.0 Hypertensive chronic kidney disease with stage 5 chronic kidney disease or end stage renal disease; N18.6 End stage renal disease; Z99.2 Dependence on renal dialysis; E10.22 Type 1 diabetes mellitus with diabetic chronic kidney disease; Z79.899 Other long term (current) drug therapy; Z79.4 Long term (current) use of insulin; E78.5 Hyperlipidemia, unspecified; M19.90 Unspecified osteoarthritis, unspecified site; K21.9 Gastro-esophageal reflux disease without esophagitis
CPT/HCPCS: 36415; 85025; 85610; 85730; 80048; 36902; 76937; 93005; 93010; C1752; C1725; Q9967; C1769; J2250; J1644 ×2; A9270 ×2; J3010; J3490

== ENCOUNTER 2018-01-30 07:11 | Day surgery (SDC) | payer MEDICARE ==
[~2018-01-30 07:11] MED LIST changes: -BACITRACIN INJ 50,000 UNIT VIAL ONE; -BUPIVACAINE HCL 0.5 % INJ/PF 30 ML SDV ONE; -CEFAZOLIN 1 GM/D5W RTU 1 GM/50 ML RTUPB IV PRN; +DIAZEPAM 5 MG TABLET PO PRN; -HEPARIN SOD (PORCINE) 1,000 UNIT/ML 10 ML VIAL ONE; -LIDOCAINE 0.5% INJ-PF (5 MG/ML) 50 ML SDV ONE; -LIDOCAINE 1% INJ-PF (10 MG/ML) 30 ML SDV ONE
[2018-01-30] MEDS ORDERED: DIAZEPAM 5 MG TABLET ONE (08:10)
[2018-01-30 08:39] LABS: HEMATOCRIT 33.8 % (37.9-51.0); HEMOGLOBIN 11.5 g/dL (13.5-17.0); MEAN CORPUSCULAR HEMOGLOBIN 32.6 pg (27.0-33.4); MEAN CORPUSCULAR VOLUME 96 fl (80-97); PLATELET COUNT 259 10^3/uL (150-450); RED BLOOD COUNT 3.52 10^6/uL (4.35-5.55); RED CELL DISTRIBUTION WIDTH 15.8 % (11.5-14.0); WHITE BLOOD COUNT 4.9 10^3/uL (4.0-10.5)
[2018-01-30] MEDS ORDERED: HEPARIN SOD (PORCINE) 5,000 UNIT/ML 1 ML SYRINGE ONE (09:25)
[2018-01-30] MEDS ORDERED: MIDAZOLAM 2 MG/2 ML INJ ONE (09:25)
[2018-01-30] MEDS ORDERED: FENTANYL CITRATE INJ/PF 100 MCG/2 ML AMPUL ONE (09:25)
[2018-01-30 10:37] LABS: ANION GAP 15 (5-19); BLOOD UREA NITROGEN 66 mg/dL (7-20); CALCIUM 9.3 mg/dL (8.4-10.2); CARBON DIOXIDE 26 mmol/L (22-30); CHLORIDE 100 mmol/L (98-107); GLUCOSE 163 mg/dL (75-110); SODIUM 141.2 mmol/L (137-145)
--- NOTE | 2018-01-30 10:39 | PDOC H&P ---
General Chief Complaint: This patient was referred across from dialysis because of increased pressures in his left forearm radiocephalic fistula. - Diagnosis (1) Dialysis AV fistula malfunction Is this a Current Diagnosis?: Yes (2) ESRD (end stage renal disease) Is this a Current Diagnosis?: Yes (3) Diabetes 1.5, managed as type 2 Is this a Current Diagnosis?: Yes (4) Hypertension Is this a Current Diagnosis?: Yes - Current Medications/Allergies Home Medications: Atorvastatin Calcium 80 mg PO DAILY 12/13/17 Clonidine HCl 0.2 mg PO BID 12/13/17 Furosemide [Lasix 40 mg Tablet] 40 mg PO DAILY 12/13/17 Insulin Glargine,Hum.rec.anlog [Lantus] 25 units SUBCUT DAILY 12/13/17 Sodium Bicarbonate [Sodium Bicarbonate 650 mg Tablet] 650 mg PO BID 12/13/17 Allergies/Adverse Reactions: No Known Allergies Allergy (Verified 06/28/17 10:03) Past Medical History Cardiac Medical History: Reports: Hyperlipidema, Hypertension Denies: Congestive Heart Failure, Coronary Artery Disease, DVT, Myocardial Infarction, Pulmonary Embolism Pulmonary Medical History: Reports: Pneumonia Denies: Asthma, Bronchitis, Chronic Obstructive Pulmonary Disease (COPD) Neurological Medical History: Denies: Seizures Endocrine Medical History: Reports: Diabetes Mellitus Type 1, Diabetes Mellitus Type 2 - complicated by Neuropathy, nephropathy.Has proteinuria but unsure of his Denies: Hyperthyroidism, Hypothyroidism GI Medical History: Reports: Gastroesophageal Reflux Disease Denies: Cirrhosis, Hepatitis Musculoskeltal Medical History: Reports: Arthritis Skin Medical History: Denies: Eczema, Psoriasis Psychiatric Medical History: Denies: Depression Hematology: Denies: Anemia Family History Family History: Reviewed & Not Pertinent Parental Family History Reviewed: No Children Family History Reviewed: No Sibling(s) Family History Reviewed.: No Social History Smoking Status: Unknown if Ever Smoked Frequency of Alcohol Use: None Hx Recreational Drug Use: No Drugs: None Hx Prescription Drug Abuse: No Physical Exam Vital Signs: Temp Pulse Resp BP Pulse Ox 97.2 F 72 16 159/93 H 100 01/30/18 08:16 01/30/18 08:16 01/30/18 08:16 01/30/18 08:16 01/30/18 08:16 Intake & Output 01/29/18 01/30/18 01/31/18 06:59 06:59 06:59 Weight 108.862 kg Additional comments: Constitutional: Well-developed well-nourished -[place] gentleman. No apparent acute distress. Eyes: Mucous membranes pink and moist, pupils equal and reactive to light. Conjunctiva normal. Cornea normal. ENT: Hearing grossly normal. External pinna normal to inspection. Teeth intact. Tongue normal to inspection. Cardiac: Normal. Respiratory: Normal respiratory effort. Skin: Normal to inspection. No ulcers, normal turgor. Psychiatric: Judgment, memory, insight seem normal. Mood is pleasant and appropriate. Extremities: Upper extremities show normal range of movement. Pulses present noted to the radial arteries. Capillary refill normal. No cyanosis noted. No muscle wasting noted. Left forearm radiocephalic fistula noted. Hyper pulsatile lumen for 6 cm, softer thereafter. Impression/Plan Plan: In this patient on hemodialysis, optimal function of his AV fistula requires angiogram and possible intervention. The risks, benefits, expected outcome and alternatives are familiar to the patient and he wishes to proceed.
[2018-01-30] MEDS ORDERED: LIDOCAINE 0.5% INJ-PF (5 MG/ML) 50 ML SDV INJ PRN (10:40)
--- NOTE | 2018-01-30 10:40 | Discharge Summary ---
Discharge Summary (SDC) - Discharge Final Diagnosis: #1 malfunctioning AV fistula, left radiocephalic. 2. End-stage renal disease on hemodialysis. 3. Beatties mellitus type II. 4. Hypertension. Date of Surgery: 01/30/18 Discharge Date: 01/30/18 Condition: Good Treatment or Instructions: Discharge home [after recovery per ASU criteria]. Diet , [renal],as tolerated, when fully awake advance as tolerated. Activities within moderation encouraged. Follow up in my office by appointment in about [1 week]. Call for appointment. Leave wounds [covered], [keep clean and dry, until hemodialysis. Hold of on school/work [until evaluation in office]. Meds per med rec. May shower [in 48 hrs], [try to keep operated area as dry as possible]. Discharge Diet: Other (Comments) - Renal, diabetic. Respiratory Treatments at Home: Deep Breathing/Coughing Discharge Activity: Activity As Tolerated Report the Following to Your Physician Immediately: Shortness of Breath, Unusual Bleeding
[2018-01-30 10:45] LABS: POTASSIUM 7.6 mmol/L (3.6-5.0)
--- NOTE | 2018-01-30 10:45 | Operative Report ---
Operative Report DATE OF SURGERY: 01/30/18 PREOPERATIVE DIAGNOSIS: #1 malfunctioning AV fistula, left radiocephalic. 2. End-stage renal disease on hemodialysis. 3. Beatties mellitus type II. 4. Hypertension. POSTOPERATIVE DIAGNOSIS: #1 malfunctioning AV fistula, left radiocephalic. 2. End-stage renal disease on hemodialysis. 3. Beatties mellitus type II. 4. Hypertension. OPERATION: 1. Needle access into arteriovenous fistula. 2. Angioplasty. 3. Angiogram and interpretation. SURGEON: JOMAR CUEVAS SENIOR INSTRUCTOR: None. ANESTHESIA: Moderate Sedation TISSUE REMOVED OR ALTERED: Not applicable. COMPLICATIONS: None. ESTIMATED BLOOD LOSS: 2 mL. INTRAOPERATIVE FINDINGS: Of a well founded left radiocephalic fistula. A prominent draining branch noted laterally about 6 cm above the anastomosis. This is undoubtedly part of the fistula malfunction problem. It will need to be addressed by ligation and we will arrange to do this in the operating room at another setting. In addition stenosis at the arteriovenous anastomosis is suggested on angiogram and confirmed by the presence of a waist on a 5 mm balloon which was eliminated. Post dilatation evaluation of the fistula shows a much better thrill and function. PROCEDURE: Indication: This patient who has been successfully dialyzed through a left forearm radiocephalic fistula presents. Dialysis is noted increased pressures. He is therefore submitted for angiogram and angioplasty in the hopes of improving fistula function and prolonged access. PROCEDURE: After verifying the procedure and having obtained informed consent, the patient's left arm and forearm were prepared with Chlorhexidine and draped out with sterile linen. Local anesthesia infiltrated. Percutaneous access into the fistula ,[retrograde], obtained about [20 cm] from the arteriovenous anastomosis using a micro puncture needle followed by micro puncture wire and then a micro puncture catheter. This was done on ultrasound guidance using real-time access into the vein. Ultrasound was also used to size the vein. Angiogram demonstrated the aforementioned findings. Angioplasty was elected. A 0.035 [place] wire was inserted, and over this, a 5 Arabic short introducer was placed, this was followed by a [4] angioplasty balloon . Angioplasty was now done at the distal radial artery just at the anastomosis and over the anastomotic and perianastomotic segment. This was done very carefully using a 3 mils syringe and inflated for 1 minute. Angiogram demonstrated successful outcome. Completion angiogram demonstrated [satisfactory result]. The instrumentation was now withdrawn and mild hand pressure 10 minutes . Dressings applied, procedure concluded. Exposure time: 1.2 minutes Radiation: 3.27 mGy. Contrast: 25 mL of Isovue-M 300 low osmolality. DICTATING PHYSICIAN: JOMAR VANESSA M.D. cc: JOMAR VANESSA M.D. ([id number]) >>
[2018-01-30] MEDS ORDERED: DEXTROSE 50%-WATER 25 GM/50 ML DISP.SYRIN IV ONE (11:00)
[2018-01-30] MEDS ORDERED: CALCIUM GLUCONATE 1000 MG/10 ML INJ IV ONE (11:01)
[2018-01-30] MEDS ORDERED: INSULIN REG, HUMAN 100 UNIT/ML 3 ML VIAL (PYX) ONE (11:01)
[2018-01-30 11:36] VITALS: BP 153/86
--- NOTE | 2018-01-30 15:03 | RADIOLOGY REPORT (SQ) ---
EXAM DESCRIPTION: FISTULAGRAM W/PLASTY COMPLETED DATE/TIME: 01/30/2018 1:52 pm REASON FOR STUDY: T82.858A T82.858A STENOSIS OF OTHER VASCULAR PROSTH DEV/GRFT, INIT COMPARISON: 12/13/2017 FLUOROSCOPY TIME: 1.2 minutes 34 digital radiographic images saved to PACS. TECHNIQUE: Intra-operative images acquired during surgical procedure to evaluate progress. NUMBER OF IMAGES: 34 digital radiographic images LIMITATIONS: None. FINDINGS: Intra procedural imaging and fluoro during evaluation and plasty of left upper extremity d ialysis access. Please see Dr. Chou operative report for further details IMPRESSION: IMAGE(S) OBTAINED DURING PROCEDURE. COMMENT: Quality ID [id number]: Final reports for procedures using fluoroscopy that document radiation exp osure indices, or exposure time and number of fluorographic images (if radiation exposure indices are not available) Please consult full operative report of the attending physician for description of the procedure. TECHNICAL DOCUMENTATION: JOB ID: [id number] [employer]- All Rights Reserved Reading location - IP/workstation name: [email or web address]
--- NOTE | 2018-01-30 18:36 | EKG REPORT ---
SEVERITY:- NORMAL ECG - SINUS RHYTHM : Confirmed by: Franco Carpio 30-Jan-2018 18:36:33
== END 2018-01-30 12:15 | disposition home or self-care (01) ==
LOC: CCL 07:11
PROVIDERS: ATTEND Surgery
DX: T82.858A Stenosis of other vascular prosthetic devices, implants and grafts, initial encounter (principal); Y82.8 Other medical devices associated with adverse incidents; E11.22 Type 2 diabetes mellitus with diabetic chronic kidney disease; I12.0 Hypertensive chronic kidney disease with stage 5 chronic kidney disease or end stage renal disease; N18.6 End stage renal disease; Z99.2 Dependence on renal dialysis; Z79.4 Long term (current) use of insulin
CPT/HCPCS: 36415; 82962; 85027; 80048; 36902; 76937; 93005; 93010; C1752; C1725; C1887; C1769; J2250; J0610; J1644 ×2; J3490; A9270 ×2; J3010; J1815

== ENCOUNTER 2018-02-14 10:58 | Day surgery (SDC) | payer MEDICARE ==
[~2018-02-14 10:58] MED LIST changes: -DIAZEPAM 5 MG TABLET PO PRN; +LIDOCAINE 0.5% INJ-PF (5 MG/ML) 50 ML SDV SUBCUT PRN; +NORMAL SALINE 1000 ML (RENAL PATIENTS) IV PRN
[2018-02-14] MEDS ORDERED: LIDOCAINE 0.5% INJ-PF (5 MG/ML) 50 ML SDV ONE (11:22)
[2018-02-14] MEDS ORDERED: BUPIVACAINE HCL 0.25 % INJ/PF (2.5 MG/1 ML) 30 ML VIAL ONE (11:22)
[2018-02-14] MEDS ORDERED: FENTANYL CITRATE INJ/PF 100 MCG/2 ML AMPUL ONE (12:50)
[2018-02-14] MEDS ORDERED: MIDAZOLAM 2 MG/2 ML INJ ONE (12:50)
[2018-02-14] MEDS ORDERED: PROPOFOL INJ 200 MG/20 ML VIAL IV ONE (12:51)
[2018-02-14] MEDS ORDERED: DEXTROSE 50%-WATER 25 GM/50 ML DISP.SYRIN IV ONE (12:51)
--- NOTE | 2018-02-14 13:08 | PDOC H&P ---
General Chief Complaint: This patient has a left forearm radiocephalic fistula in use. It is suboptimal because of a draining branch. He is here today for ligation of this draining branch. - Diagnosis (1) Dialysis AV fistula malfunction Is this a Current Diagnosis?: Yes (2) ESRD (end stage renal disease) Is this a Current Diagnosis?: Yes (3) Diabetes 1.5, managed as type 2 Is this a Current Diagnosis?: Yes (4) Hypertension Is this a Current Diagnosis?: Yes - Current Medications/Allergies Home Medications: Atorvastatin Calcium 80 mg PO DAILY 12/13/17 Clonidine HCl 0.2 mg PO BID 12/13/17 Furosemide [Lasix 40 mg Tablet] 40 mg PO DAILY 12/13/17 Insulin Glargine,Hum.rec.anlog [Lantus] 25 units SUBCUT DAILY 12/13/17 Sodium Bicarbonate [Sodium Bicarbonate 650 mg Tablet] 650 mg PO BID 12/13/17 Allergies/Adverse Reactions: latex Adverse Reaction (Verified 02/14/18 12:25) Past Medical History Cardiac Medical History: Reports: Hyperlipidema, Hypertension Denies: Congestive Heart Failure, Coronary Artery Disease, DVT, Myocardial Infarction, Pulmonary Embolism Pulmonary Medical History: Reports: Pneumonia Denies: Asthma, Bronchitis, Chronic Obstructive Pulmonary Disease (COPD) Neurological Medical History: Denies: Seizures Endocrine Medical History: Reports: Diabetes Mellitus Type 1, Diabetes Mellitus Type 2 - complicated by Neuropathy, nephropathy.Has proteinuria but unsure of his Denies: Hyperthyroidism, Hypothyroidism GI Medical History: Reports: Gastroesophageal Reflux Disease Denies: Cirrhosis, Hepatitis Musculoskeltal Medical History: Reports: Arthritis Skin Medical History: Denies: Eczema, Psoriasis Psychiatric Medical History: Denies: Depression Hematology: Denies: Anemia Family History Family History: Reviewed & Not Pertinent Parental Family History Reviewed: No Children Family History Reviewed: No Sibling(s) Family History Reviewed.: No Social History Smoking Status: Never Smoker Frequency of Alcohol Use: None Hx Recreational Drug Use: No Drugs: None Hx Prescription Drug Abuse: No Physical Exam Vital Signs: Temp Pulse Resp BP Pulse Ox 98 F 71 16 161/75 H 100 02/14/18 11:30 02/14/18 11:30 02/14/18 11:30 02/14/18 11:30 02/14/18 11:30 Intake & Output 12/17/18 12/18/18 12/19/18 06:59 06:59 06:59 Intake Total 0 Balance 0 Weight 111.13 kg Additional comments: Constitutional: Well-developed well-nourished -[place] gentleman. No apparent acute distress. Eyes: Mucous membranes pink and moist, pupils equal and reactive to light. Conjunctiva normal. Cornea normal. ENT: Hearing grossly normal. External pinna normal to inspection. Teeth intact. Tongue normal to inspection. Cardiac: Heart sounds normal. Respiratory: Normal respiratory effort. Psychiatric: Judgment, memory, insight seem normal. Mood is pleasant and appropriate. Extremities: Upper extremities show normal range of movement. Pulses present noted to the radial arteries. Capillary refill normal. No cyanosis noted. No muscle wasting noted. Left forearm radiocephalic fistula. . Impression/Plan Plan: In this patient with a malfunctioning AV fistula, ligation of a draining branch is hoped to improve his function. The risks, procedure, expected benefits and alternatives were discussed with the patient and he is agreeable. He wishes to proceed.
[2018-02-14] MEDS ORDERED: CEFAZOLIN INJ 1 GM VIAL ONE (13:18)
[2018-02-14] MEDS ORDERED: MEPERIDINE HCL/PF INJ 25 MG/1 ML DISP.SYRIN IV PRN (13:28)
[2018-02-14] MEDS ORDERED: PROMETHAZINE HCL INJ 25 MG/1 ML VIAL IV PRN ×2 (13:28)
[2018-02-14] MEDS ORDERED: OXYCODONE-ACETAMINOPHEN 5-325 MG TABLET PO PRN ×2 (13:28)
[2018-02-14] MEDS ORDERED: DIPHENHYDRAMINE HCL 50 MG/ML VIAL IV PRN (13:28)
[2018-02-14] MEDS ORDERED: MORPHINE SULFATE 10 MG/ML INJ IV PRN (13:28)
[2018-02-14] MEDS ORDERED: FENTANYL CITRATE INJ/PF 100 MCG/2 ML AMPUL IV PRN ×3 (13:28)
--- NOTE | 2018-02-14 14:06 | Discharge Summary ---
Discharge Summary (SDC) - Discharge Final Diagnosis: #1 malfunctioning AV fistula, left radiocephalic. 2. End-stage renal disease on hemodialysis. 3. Diabetes mellitus type 2. 4. Hypertension. Date of Surgery: 02/14/18 Discharge Date: 02/14/18 Condition: Good Treatment or Instructions: Discharge home [after recovery per ASU criteria]. Diet , [renal],as tolerated, when fully awake advance as tolerated. Activities within moderation encouraged. Follow up in my office by appointment in about [1 week]. Call for appointment. Leave wounds [covered], [keep clean and dry, until hemodialysis. Hold of on school/work [until evaluation in office]. Meds per med rec. May shower [in 48 hrs], [try to keep operated area as dry as possible]. Discharge Diet: Other (Comments) - Renal, diabetic. Respiratory Treatments at Home: Deep Breathing/Coughing Discharge Activity: Activity As Tolerated Report the Following to Your Physician Immediately: Shortness of Breath, Unusual Bleeding
--- NOTE | 2018-02-14 14:11 | Operative Report ---
Operative Report DATE OF SURGERY: 02/14/18 PREOPERATIVE DIAGNOSIS: #1 malfunctioning AV fistula, left radiocephalic. 2. End-stage renal disease on hemodialysis. 3. Diabetes mellitus type 2. 4. Hypertension. POSTOPERATIVE DIAGNOSIS: #1 malfunctioning AV fistula, left radiocephalic. 2. End-stage renal disease on hemodialysis. 3. Diabetes mellitus type 2. 4. Hypertension. OPERATION: Ligation of draining venous branch to left forearm radiocephalic fistula. SURGEON: JOMAR CUEVAS CLOTH SECONDS SORTER: None. ANESTHESIA: LMAC TISSUE REMOVED OR ALTERED: Not applicable. COMPLICATIONS: None. ESTIMATED BLOOD LOSS: 2 mL. INTRAOPERATIVE FINDINGS: Of a well founded left radiocephalic fistula. Somewhat soft cephalad to the lateral branch. After ligation the main body of the fistula much more normal. PROCEDURE: Operative Report Indication: This patient has a left forearm radiocephalic fistula which is in use for hemodialysis. Decreased flow has been noted. Partial correction with perianastomotic dilatation. At this point a large draining branch lateral to the fistula is reducing fistula flow. The procedure today is undertaken in order to improve flow in the fistula. PROCEDURE: After reviewing the procedure with the patient, he was taken to the operating room. The patient was sedated and the [left upper extremity] prepared with chlorhexidine and draped out with sterile linen. After the "" universal timeout", in which it was verified that the patient [received IV antibiotics] the procedure commenced. The sterilely sheathed ultrasound probe was used to evaluate the left forearm AV fistula . Ultrasound to use it was used to identify the precise location of the lateral draining branch. Its effect was analyzed by temporary pressure occlusion. This confirmed his hemodynamic significance. Local anesthesia was infiltrated and a transverse incision made over the venous branch. Dissection proceeded through the subcutaneous tissues down to the draining vein. This was dissected out proximally and distally for about 0.5 cm. 2 separate 3-0 PDS sutures were used to ligate this branch. Closure was done using interrupted 3-0 PDS for the subcutaneous tissues. The skin was closed using a continuous subcutaneous suture of 4-0 Monocryl which was reinforced with Steri-Strips over benzoin. I then left the operative field and returned with a stethoscope covered with a sterile Tegaderm dressing. DICTATING PHYSICIAN: JOMAR VANESSA M.D.
[2018-02-14 16:21] VITALS: BP 163/92
== END 2018-02-14 15:50 | disposition home or self-care (01) ==
LOC: OROUT 10:58
PROVIDERS: ATTEND Surgery
DX: T82.858A Stenosis of other vascular prosthetic devices, implants and grafts, initial encounter (principal); Y83.2 Surgical operation with anastomosis, bypass or graft as the cause of abnormal reaction of the patient, or of later complication, without mention of misadventure at the time of the procedure; I12.0 Hypertensive chronic kidney disease with stage 5 chronic kidney disease or end stage renal disease; E11.22 Type 2 diabetes mellitus with diabetic chronic kidney disease; N18.6 End stage renal disease; Z99.2 Dependence on renal dialysis; E78.5 Hyperlipidemia, unspecified; Z79.4 Long term (current) use of insulin; Z79.899 Other long term (current) drug therapy; Z91.040 Latex allergy status; Z01.818 Encounter for other preprocedural examination; F43.29 Adjustment disorder with other symptoms
CPT/HCPCS: 36415; 82962; 82947; 84132; 36821; J2250; J0690; J3490 ×2; J3010; 1844; J2704

== ENCOUNTER 2018-08-20 08:01 | Inpatient (IN) | payer MEDICARE ==
[2018-08-20] MEDS ORDERED: KETOROLAC TROMETHAMINE INJ/PF 30 MG/1 ML SDV IV ONE (08:46)
[2018-08-20] MEDS ORDERED: NORMAL SALINE 1000 ML 1,000 ML IV ONE ×2 (08:46→09:01)
[2018-08-20] MEDS ORDERED: ACETAMINOPHEN 325 MG TABLET PO ONE (09:01)
[2018-08-20 09:04] LABS: HEMATOCRIT 37.5 % (37.9-51.0); HEMOGLOBIN 12.7 g/dL (13.5-17.0); MEAN CORPUSCULAR HEMOGLOBIN 32.5 pg (27.0-33.4); MEAN CORPUSCULAR HGB CONC 33.8 g/dL (32.0-36.0); MEAN CORPUSCULAR VOLUME 96 fl (80-97); PLATELET COUNT 173 10^3/uL (150-450); RED BLOOD COUNT 3.91 10^6/uL (4.35-5.55); RED CELL DISTRIBUTION WIDTH 14.6 % (11.5-14.0); WHITE BLOOD COUNT 8.7 10^3/uL (4.0-10.5)
--- NOTE | 2018-08-20 09:04 | ER Document Report ---
ED General - General Chief Complaint: Nausea/Vomiting Stated Complaint: VOMITING Time Seen by Provider: 08/20/18 08:41 Information source: Patient Notes: 53-year-old male with past medical history of dialysis, high blood pressure, and diabetes who presents today with the onset 3 days ago of initially runny nose, congestion, sore throat, and cough. Patient denies any headache, neck stiffness, chest pain, abdominal pain, dysuria, diarrhea, or rash. Patient did receive his dialysis treatment on Tuesday. His cash manager is Dr. Del Toro. TRAVEL OUTSIDE OF THE [place] IN LAST 30 DAYS: No - Related Data Allergies/Adverse Reactions: latex Adverse Reaction (Verified 08/20/18 08:06) Past Medical History - Social History Smoking Status: Never Smoker Chew tobacco use (# tins/day): No Frequency of alcohol use: Rare Drug Abuse: None Family History: Reviewed & Not Pertinent Patient has suicidal ideation: No Patient has homicidal ideation: No - Past Medical History Cardiac Medical History: Reports: Hx Coronary Artery Disease, Hx Hypercholesterolemia, Hx Hypertension Denies: Hx Congestive Heart Failure, Hx DVT, Hx Heart Attack, Hx Pulmonary Embolism Pulmonary Medical History: Reports: Hx Pneumonia Denies: Hx Asthma, Hx Bronchitis, Hx COPD Neurological Medical History: Denies: Hx Cerebrovascular Accident, Hx Seizures Endocrine Medical History: Reports: Hx Diabetes Mellitus Type 1, 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 Denies: Hx Hyperthyroidism, Hx Hypothyroidism Renal/ Medical History: Reports: Hx Peritoneal Dialysis - Jul GI Medical History: Reports: Hx Gastroesophageal Reflux Disease. Denies: Hx Cirrhosis, Hx Hepatitis Musculoskeletal Medical History: Reports Hx Arthritis Skin Medical History: Denies Hx Eczema, Denies Hx Psoriasis Psychiatric Medical History: Denies: Hx Depression Infectious Medical History: Denies: Hx Hepatitis - Immunizations Hx Diphtheria, Pertussis, Tetanus Vaccination: Yes Review of Systems - Review of Systems EENT: Nose congestion, Nose discharge. denies: Ear pain Cardiovascular: denies: Chest pain, Palpitations Gastrointestinal: denies: Abdominal pain, Diarrhea Genitourinary: denies: Burning, Dysuria Musculoskeletal: denies: Back pain Neurological/Psychological: denies: Confusion -: Yes All other systems reviewed and negative Physical Exam - Vital signs Vitals: Temp Pulse Resp BP Pulse Ox 99.6 F 126 H 24 H 202/98 H 90 L 08/20/18 08:20 08/20/18 08:20 08/20/18 08:20 08/20/18 08:20 08/20/18 08:20 Notes: Reviewed vital signs and nursing note as charted by RN. CONSTITUTIONAL: Alert and oriented and responds appropriately to questions. Well-appearing; well-nourished HEAD: Normocephalic; atraumatic EYES: PERRL; Conjunctivae clear, sclerae non-icteric ENT: Normal nose; no rhinorrhea; moist mucous membranes; pharynx minimally erythematous with no peritonsillar swelling with a midline uvula NECK: Supple without meningismus; full painless range of motion of the neck; non-tender; no cervical lymphadenopathy, no masses CARD: Regular rate and rhythm; no murmurs; symmetric distal pulses RESP: Normal chest excursion without splinting or tachypnea; breath sounds clear and equal bilaterally; scattered rhonchi without wheezing or rales ABD/GI: Normal bowel sounds; non-distended; soft, non-tender to deep palpation of all 4 quadrants of the abdomen BACK: The back appears normal and is non-tender to palpation EXT: Normal ROM in all joints; non-tender to palpation; no edema SKIN: No acute lesions noted NEURO: CN 2-12 intact; 5/5 bilateral upper and lower extremity strength with sensation intact to light touch PSYCH: The patient's mood and manner are appropriate. Grooming and personal hygiene are appropriate. Course - Re-evaluation Re-evalutation: 08/20/18 09:03 Given the history and physical examination, we will obtain basic labs, rapid strep, x-ray of the chest, blood cultures, urine analysis, and reassess. Temperature 99.6. Patient did not take any antipyretics today. Given the history of dialysis I will provide a 500 cc bolus. Given the runny nose, congestion, sore throat, and cough, I do believe that this is most likely viral in etiology. Patient has no headache, neck stiffness, rash, or other meningeal signs. Patient has no abdominal pain, dysuria, or diarrhea. He does still make some urine. I will provide Tylenol instead of Toradol. 08/20/18 10:00 Glucose as recorded. Normal lactic acid. Normal pH. Rapid strep and x-ray of the chest are pending. I will provide every 7 units of IV insulin. Q1hr accuchecks. 08/20/18 10:20 X-ray of the chest shows what appears to be a bilateral pneumonia. Normal heart size. I will provide a gram of Rocephin as well as azithromycin. Patient has not missed any dialysis sessions. No lower extremity edema. Good oxygen saturation. Blood cultures have been sent. I have called the on-call monotype keyboard operator and the patient's cash manager Dr. Del Toro will be on-call tomorrow morning. - Vital Signs Vital signs: Temp Pulse Resp BP Pulse Ox 99.6 F 126 H 20 198/94 H 98 08/20/18 08:40 08/20/18 08:20 08/20/18 08:40 08/20/18 08:40 08/20/18 08:40 - Laboratory Result Diagrams: 08/20/18 08:39 08/20/18 08:39 Laboratory results interpreted by me: 08/20/18 08/20/18 08:39 08:39 RBC 3.91 L Hgb 12.7 L Hct 37.5 L RDW 14.6 H Seg Neuts % (Manual) 91 H Lymphocytes % (Manual) 6 L Monocytes % (Manual) 2 L Sodium 134.2 L Potassium 5.2 H Chloride 94 L BUN 62 H Creatinine 12.18 H Est GFR ( Amer) 5 L Est GFR (Non-Af Amer) 4 L Glucose 554 H* Direct Bilirubin 0.8 H ALT 14 L Alkaline Phosphatase 150 H Discharge - Discharge Clinical Impression: Hyperglycemia Bilateral pneumonia Qualifiers: Pneumonia type: due to unspecified organism Lung location: unspecified part of lung Qualified Code(s): J18.9 - Pneumonia, unspecified organism Fever Qualifiers: Fever type: unspecified Qualified Code(s): R50.9 - Fever, unspecified Condition: Fair Disposition: ADMITTED INPATIENT Admitting Provider: Julito (Hospitalist) Unit Admitted: [facility]
[2018-08-20] MEDS ORDERED: ONDANSETRON HCL INJ/PF 4 MG/2 ML SDV IV ONE (09:17)
[2018-08-20 09:21] LABS: ALANINE AMINOTRANSFERASE 14 U/L (21-72); ALBUMIN 4.4 g/dL (3.5-5.0); ALKALINE PHOSPHATASE 150 U/L (38-126); ANION GAP 17 (5-19); ASPARTATE AMINO TRANSFERASE 20 U/L (17-59); BILIRUBIN,DIRECT 0.8 mg/dL (0.0-0.4); BLOOD UREA NITROGEN 62 mg/dL (7-20); CALCIUM 9.1 mg/dL (8.4-10.2); CARBON DIOXIDE 23 mmol/L (22-30); CHLORIDE 94 mmol/L (98-107); POTASSIUM 5.2 mmol/L (3.6-5.0); SODIUM 134.2 mmol/L (137-145)
--- NOTE | 2018-08-20 09:27 | RADIOLOGY REPORT (SQ) ---
EXAM DESCRIPTION: CHEST 2 VIEWS COMPLETED DATE/TIME: 08/20/2018 9:16 am REASON FOR STUDY: 11; fever COMPARISON: 07/05/2017 EXAM PARAMETERS: NUMBER OF VIEWS: two views TECHNIQUE: Digital Frontal and Lateral radiographic views of the chest acquired. RADIATION DOSE: NA LIMITATIONS: none FINDINGS: LUNGS AND PLEURA: Diffuse parenchymal opacities in the lungs particular at the bases. No effusions. No pneumothorax. MEDIASTINUM AND HILAR STRUCTURES: No masses or contour abnormalities. HEART AND VASCULAR STRUCTURES: Heart normal size. No evidence for failure. BONES: No acute findings. HARDWARE: None in the chest. OTHER: No other significant finding. IMPRESSION: Bilateral extensive pneumonia. TECHNICAL DOCUMENTATION: JOB ID: [id number] [employer]- All Rights Reserved Reading location - IP/workstation name: [email or web address]
[2018-08-20 09:29] LABS: GLUCOSE 554 mg/dL (75-110)
--- NOTE | 2018-08-20 09:32 | EKG REPORT ---
SEVERITY:- BORDERLINE ECG - SINUS TACHYCARDIA BORDERLINE PROLONGED QT INTERVAL : Confirmed by: Gypsy Recinos MD 20-Aug-2018 09:31:24
[2018-08-20 09:43] LABS: VENOUS BLOOD BASE EXCESS -2.1 mmol/L; VENOUS BLOOD HCO3 23.1 mmol/L (20-32); VENOUS BLOOD PCO2 40.7 mmHg (35-63); VENOUS BLOOD PH 7.37 (7.30-7.42)
[2018-08-20 09:53] LABS: ABSOLUTE LYMPHOCYTES# (MANUAL) 0.5 10^3/uL (0.5-4.7); ABSOLUTE MONOCYTES # (MANUAL) 0.2 10^3/uL (0.1-1.4); BASOPHILS % (MANUAL) 1 % (0-2); EOSINOPHILS % (MANUAL) 0 % (0-6); LYMPHOCYTES % (MANUAL) 6 % (13-45); MONOCYTES % (MANUAL) 2 % (3-13); SEGMENTED NEUTROPHILS % (MAN) 91 % (42-78); TOTAL CELLS COUNTED 100
[2018-08-20 09:54] LABS: ANISOCYTOSIS SLIGHT; PLATELET COMMENT ADEQUATE; TOXIC VACUOLATION PRESENT
[2018-08-20] MEDS ORDERED: INSULIN REG, HUMAN 100 UNIT/ML 3 ML VIAL (PYX) IV ONE (10:01)
[2018-08-20] MEDS ORDERED: AZITHROMYCIN INJ 500 MG VIAL IV ONE (10:19)
[2018-08-20] MEDS ORDERED: CEFTRIAXONE 1 GM/D5W RTU 1 GM/50 ML RTUPB IV ONE (10:19)
[2018-08-20 10:40] LABS: APPEARANCE,URINE CLEAR; BILIRUBIN,URINE NEGATIVE (NEGATIVE); COLOR,URINE STRAW; GLUCOSE, URINE >=500 mg/dL (NEGATIVE); KETONES,URINE TRACE mg/dL (NEGATIVE); LEUKOCYTE ESTERASE,URINE NEGATIVE (NEGATIVE); NITRITE,URINE NEGATIVE (NEGATIVE); PROTEIN,URINE 100 mg/dL (NEGATIVE); URINE SPECIFIC GRAVITY 1.012; UROBILINOGEN,URINE NEGATIVE mg/dL (<2.0)
[2018-08-20] MEDS ORDERED: ACETAMINOPHEN 325 MG TABLET PO PRN (11:10)
[2018-08-20] MEDS ORDERED: ONDANSETRON 4 MG TAB.RAPDIS PO PRN (11:10)
[2018-08-20] MEDS ORDERED: GLUCAGON,HUMAN RECOMB 1 MG INJ IM PRN (11:10)
[2018-08-20] MEDS ORDERED: TEMAZEPAM 15 MG CAPSULE PO PRN (11:10)
[2018-08-20] MEDS ORDERED: DEXTROSE 50%-WATER 25 GM/50 ML DISP.SYRIN IV PRN ×2 (11:10)
[2018-08-20] MEDS ORDERED: DEXTROSE 40% GEL 15 GM TUBE PO PRN ×2 (11:10)
--- NOTE | 2018-08-20 11:10 | PDOC H&P ---
History of Present Illness Admission Date/PCP: 08/20/18 10:50 History of Present Illness: NAKUL MCNEIL is a 53 year old black male with past medical history of hypertension, hyperlipidemia, obesity, type 2 diabetes mellitus, end-stage renal disease on renal replacement therapy presented with chief complaint fever, sore throat, cough of yellowish sputum of 3 days duration. Patient has also associated shortness of breath. Patient denies any fever, chills, chest pain, or diaphoresis but is tachycardic. Denies any nausea, vomiting, abdominal pain, diarrhea, headache, dizziness, seizure activity or urinary complaints. His chest x-ray reported as bilateral extensive pneumonia. His blood work shows sodium 134, potassium 5.2, BUN 62, creatinine 12.18 and blood glucose of 554. His last dialysis last Tuesday. His primary logger all round is Dr. Del Toro at Past Medical History Cardiac Medical History: Reports: Coronary Artery Disease, Hyperlipidema, Hypertension Denies: Congestive Heart Failure, DVT, Myocardial Infarction, Pulmonary Emb olism Pulmonary Medical History: Reports: Pneumonia Denies: Asthma, Bronchitis, Chronic Obstructive Pulmonary Disease (COPD) Neurological Medical History: Denies: Seizures Endocrine Medical History: Reports: Diabetes Mellitus Type 1, Diabetes Mellitus Type 2 - complicated by Neuropathy, nephropathy.Has proteinuria but unsure of his Denies: Hyperthyroidism, Hypothyroidism GI Medical History: Reports: Gastroesophageal Reflux Disease Denies: Cirrhosis, Hepatitis Musculoskeltal Medical History: Reports: Arthritis Skin Medical History: Denies: Eczema, Psoriasis Psychiatric Medical History: Denies: Depression Hematology: Denies: Anemia Social History Smoking Status: Never Smoker Frequency of Alcohol Use: None Hx Recreational Drug Use: No Drugs: None Hx Prescription Drug Abuse: No - Advance Directive Resuscitation Status: Full Code Family History Family History: Reviewed & Not Pertinent, DM, Hypertension Parental Family History Reviewed: Yes Children Family History Reviewed: Yes Sibling(s) Family History Reviewed.: Yes Medication/Allergy Allergies/Adverse Reactions: latex Adverse Reaction (Verified 08/20/18 08:06) Review of Systems Constitutional: ABSENT: chills, fever(s), headache(s), weight gain, weight loss Eyes: ABSENT: visual disturbances Ears: ABSENT: hearing changes Cardiovascular: ABSENT: chest pain, dyspnea on exertion, edema, orthropnea, palpitations Respiratory: PRESENT: cough, dyspnea, sputum Gastrointestinal: ABSENT: abdominal pain, constipation, diarrhea, hematemesis, hematochezia, nausea, vomiting Genitourinary: ABSENT: dysuria, hematuria Musculoskeletal: ABSENT: joint swelling Integumentary: ABSENT: rash, wounds Neurological: ABSENT: abnormal gait, abnormal speech, confusion, dizziness, focal weakness, syncope Psychiatric: ABSENT: anxiety, depression, homidical ideation, suicidal ideation Endocrine: ABSENT: cold intolerance, heat intolerance, polydipsia, polyuria Hematologic/Lymphatic: ABSENT: easy bleeding, easy bruising Physical Exam Vital Signs: Temp Pulse Resp BP Pulse Ox 99.6 F 126 H 35 H 166/78 H 99 08/20/18 08:40 08/20/18 08:20 08/20/18 10:01 08/20/18 10:01 08/20/18 10:01 Intake & Output 08/19/18 08/20/18 08/21/18 06:59 06:59 06:59 Intake Total 1000 Balance 1000 Weight 112.1 kg General appearance: PRESENT: no acute distress Head exam: PRESENT: atraumatic Eye exam: PRESENT: conjunctiva pink Neck exam: ABSENT: carotid bruit, JVD, lymphadenopathy, thyromegaly Respiratory exam: PRESENT: crackles - Bilateral Cardiovascular exam: PRESENT: RRR. ABSENT: diastolic murmur, rubs, systolic murmur GI/Abdominal exam: PRESENT: normal bowel sounds, soft. ABSENT: distended, guarding, mass, organolmegaly, rebound, tenderness Results Laboratory Results: 08/20/18 08:39 08/20/18 08:39 08/20/18 08/20/18 08/20/18 08:39 08:39 08:39 WBC 8.7 RBC 3.91 L Hgb 12.7 L Hct 37.5 L MCV 96 MCH 32.5 MCHC 33.8 RDW 14.6 H Plt Count 173 Seg Neutrophils % Not Reportable Lymphocytes % Not Reportable Monocytes % Not Reportable Eosinophils % Not Reportable Basophils % Not Reportable Absolute Neutrophils Not Reportable Absolute Lymphocytes Not Reportable Absolute Monocytes Not Reportable Absolute Eosinophils Not Reportable Absolute Basophils Not Reportable VBG pH VBG pCO2 VBG HCO3 VBG Base Excess Sodium 134.2 L Potassium 5.2 H Chloride 94 L Carbon Dioxide 23 Anion Gap 17 BUN 62 H Creatinine 12.18 H Est GFR ( Amer) 5 L Est GFR (Non-Af Amer) 4 L Glucose 554 H* Lactic Acid 1.3 Calcium 9.1 Total Bilirubin 1.0 AST 20 ALT 14 L Alkaline Phosphatase 150 H Total Protein 8.0 Albumin 4.4 Urine Color Urine Appearance Urine pH Ur Specific [place] Urine Protein Urine Glucose (UA) Urine Ketones Urine Blood Urine Nitrite Ur Leukocyte Esterase Urine WBC (Auto) Urine RBC (Auto) 08/20/18 08/20/18 08:39 10:20 WBC RBC Hgb Hct MCV MCH MCHC RDW Plt Count Seg Neutrophils % Lymphocytes % Monocytes % Eosinophils % Basophils % Absolute Neutrophils Absolute Lymphocytes Absolute Monocytes Absolute Eosinophils Absolute Basophils VBG pH 7.37 VBG pCO2 40.7 VBG HCO3 23.1 VBG Base Excess -2.1 Sodium Potassium Chloride Carbon Dioxide Anion Gap BUN Creatinine Est GFR ( Amer) Est GFR (Non-Af Amer) Glucose Lactic Acid Calcium Total Bilirubin AST ALT Alkaline Phosphatase Total Protein Albumin Urine Color STRAW Urine Appearance CLEAR Urine pH 7.0 Ur Specific [place] 1.012 Urine Protein 100 H Urine Glucose (UA) >=500 H Urine Ketones TRACE H Urine Blood SMALL H Urine Nitrite NEGATIVE Ur Leukocyte Esterase NEGATIVE Urine WBC (Auto) 1 Urine RBC (Auto) 1 Impressions: Chest X-Ray 08/20/18 08:45 IMPRESSION: Bilateral extensive pneumonia. Assessment and Plan - Diagnosis (1) Bilateral pneumonia Is this a current diagnosis for this admission?: Yes Plan: Patient has been started on Zithromax and ceftriaxone so we will continue the same antibiotics Based on his clinical progress and culture result will escalate his antibiotics if needed. (2) Hyperglycemia due to type 2 diabetes mellitus Is this a current diagnosis for this admission?: Yes Plan: We will continue his home medications and evaluate his hemoglobin A1c status. And will put him on sliding scale. (3) Coronary artery disease Qualifiers: Coronary Disease-Associated Artery/Lesion type: [place] artery Is this a current diagnosis for this admission?: Yes Plan: No anginal symptoms (4) Hypertension Qualifiers: Hypertension type: essential hypertension Qualified Code(s): I10 - Essential (primary) hypertension Is this a current diagnosis for this admission?: Yes Plan: Continue his home medication. (5) Hyperlipidemia Qualifiers: Hyperlipidemia type: unspecified Qualified Code(s): E78.5 - Hyperlipidemia, unspecified Is this a current diagnosis for this admission?: Yes Plan: Continue his home medication. (6) End stage renal disease Is this a current diagnosis for this admission?: Yes Plan: I will consult his primary logger all round. - Inpatient Certification Medical Necessity: Need Close Monitoring Due to Risk of Patient Decompensation, Need for IV Antibiotics
[2018-08-20] MEDS: HEPARIN SOD (PORCINE) 5,000 UNIT/ML 1 ML SYRINGE SUBCUT SCH ×2 (14:18→22:19)
[2018-08-20] MEDS ORDERED: METOPROLOL TARTRATE 100 MG TABLET ONE (16:55)
[2018-08-20] MEDS ORDERED: CLONIDINE HCL 0.2 MG TABLET ONE (16:55)
[2018-08-20] MEDS ORDERED: METOPROLOL TARTRATE 100 MG TABLET PO ONE (17:00)
[2018-08-20] MEDS ORDERED: CLONIDINE HCL 0.2 MG TABLET PO ONE (17:00)
[2018-08-20] MEDS: INSULIN LISPRO 100 UNIT/ML 3 ML VIAL SUBCUT SCH ×2 (17:02→17:37)
[2018-08-20] MEDS: DOCUSATE SODIUM 100 MG/10 ML UDC PO SCH (17:03)
[2018-08-20] MEDS ORDERED: CLONIDINE HCL 0.2 MG TABLET PO SCH (22:00)
[2018-08-20] MEDS ORDERED: INSULIN GLARGINE,HUM.REC.ANLOG 1,000 UNIT/10 ML VIAL (PYX) SUBCUT ONE (22:15)
[2018-08-20] MEDS: INSULIN GLARGINE,HUM.REC.ANLOG 1,000 UNIT/10 ML VIAL SUBCUT SCH (22:18)
[2018-08-20] MEDS: FAMOTIDINE 20 MG TABLET PO SCH (22:19)
[2018-08-20] MEDS: CLONIDINE HCL 0.1 MG TABLET PO SCH (22:20)
[2018-08-21 04:43] LABS: ABSOLUTE BASOPHILS # (AUTO) 0.1 10^3/uL (0.0-0.2); ABSOLUTE MONOCYTES (AUTO) 0.6 10^3/uL (0.1-1.4); ABSOLUTE NEUT (AUTO) 12.4 10^3/uL (1.7-8.2); BASOPHILS % (AUTO) 0.4 % (0-2); EOSINOPHILS % (AUTO) 0.1 % (0-6); HEMOGLOBIN 10.8 g/dL (13.5-17.0); LYMPHOCYTES % (AUTO) 6.9 % (13-45); MEAN CORPUSCULAR HGB CONC 33.7 g/dL (32.0-36.0); MEAN CORPUSCULAR VOLUME 95 fl (80-97); MONOCYTES % (AUTO) 3.9 % (3-13); PLATELET COUNT 173 10^3/uL (150-450); RED BLOOD COUNT 3.37 10^6/uL (4.35-5.55); RED CELL DISTRIBUTION WIDTH 14.3 % (11.5-14.0); SEGMENTED NEUTROPHILS % (AUTO) 88.7 % (42-78); TOTAL CELLS COUNTED % (AUTO) 100 %; WHITE BLOOD COUNT 13.9 10^3/uL (4.0-10.5)
[2018-08-21 05:05] LABS: ANION GAP 15 (5-19); BLOOD UREA NITROGEN 74 mg/dL (7-20); CALCIUM 9.2 mg/dL (8.4-10.2); CARBON DIOXIDE 23 mmol/L (22-30); CHLORIDE 99 mmol/L (98-107); GLUCOSE 119 mg/dL (75-110); SODIUM 136.9 mmol/L (137-145)
[2018-08-21] MEDS: HEPARIN SOD (PORCINE) 5,000 UNIT/ML 1 ML SYRINGE SUBCUT SCH ×3 (06:24→22:14)
[2018-08-21] MEDS: CALCIUM ACETATE 667 MG CAPSULE PO SCH ×3 (08:13→17:15)
[2018-08-21] MEDS: INSULIN LISPRO 100 UNIT/ML 3 ML VIAL SUBCUT SCH ×4 (10:30→22:12)
--- NOTE | 2018-08-21 10:43 | PDOC PROGRESS REPORT ---
Subjective Progress Note for:: 08/21/18 Subjective:: NAKUL MCNEIL is a 53 year old black male with past medical history of hypertension, hyperlipidemia, obesity, type 2 diabetes mellitus, end-stage renal disease on renal replacement therapy presented with chief complaint fever, sore throat, cough of yellowish sputum of 3 days duration. Patient has also associated shortness of breath. Patient denies any fever, chills, chest pain, or diaphoresis but is tachycardic. Denies any nausea, vomiting, abdominal pain, diarrhea, headache, dizziness, seizure activity or urinary complaints. His chest x-ray reported as bilateral extensive pneumonia. His blood work shows sodium 134, potassium 5.2, BUN 62, creatinine 12.18 and blood glucose of 554. His last dialysis last Tuesday. His primary distributor cleaner is Dr. Del Toro at 08/21/2018: Patient seen and examined while he is getting hemodialysis. He is awake alert and oriented. Reports he still has cough but the phlegm is decreasing. His blood culture is positive for gram-positive cocci in chains. Patient has been on ceftriaxone and Zithromax for bilateral pneumonia. He will have repeat chest x-ray tomorrow. Reason For Visit: BILATERAL PNEUMONIA Physical Exam Vital Signs: Temp Pulse Resp BP Pulse Ox 99.9 F 96 18 122/57 L 94 08/21/18 07:27 08/21/18 07:27 08/21/18 07:27 08/21/18 07:27 08/21/18 07:27 Intake & Output 08/20/18 08/21/18 08/22/18 06:59 06:59 06:59 Intake Total 2580 Balance 2580 Weight 113.2 kg General appearance: PRESENT: mild distress Head exam: PRESENT: atraumatic Neck exam: ABSENT: carotid bruit, JVD, lymphadenopathy, thyromegaly Respiratory exam: PRESENT: clear to auscultation ursula. ABSENT: rales, rhonchi, wheezes Cardiovascular exam: PRESENT: RRR. ABSENT: diastolic murmur, rubs, systolic murmur GI/Abdominal exam: PRESENT: normal bowel sounds, soft. ABSENT: distended, guarding, mass, organolmegaly, rebound, tenderness Neurological exam: PRESENT: alert, awake, oriented to person, oriented to place, oriented to time, oriented to situation Results Laboratory Results: 08/21/18 04:09 06/24/19 04:09 08/20/18 08/21/18 08/21/18 10:20 04:09 04:09 WBC 13.9 H RBC 3.37 L Hgb 10.8 L Hct 32.0 L MCV 95 MCH 32.0 MCHC 33.7 RDW 14.3 H Plt Count 173 Seg Neutrophils % 88.7 H Lymphocytes % 6.9 L Monocytes % 3.9 Eosinophils % 0.1 Basophils % 0.4 Absolute Neutrophils 12.4 H Absolute Lymphocytes 1.0 Absolute Monocytes 0.6 Absolute Eosinophils 0.0 Absolute Basophils 0.1 Sodium 136.9 L Potassium 5.0 Chloride 99 Carbon Dioxide 23 Anion Gap 15 BUN 74 H Creatinine 13.77 H Est GFR ( Amer) 5 L Est GFR (Non-Af Amer) 4 L Glucose 119 H Calcium 9.2 Urine Color STRAW Urine Appearance CLEAR Urine pH 7.0 Ur Specific [place] 1.012 Urine Protein 100 H Urine Glucose (UA) >=500 H Urine Ketones TRACE H Urine Blood SMALL H Urine Nitrite NEGATIVE Ur Leukocyte Esterase NEGATIVE Urine WBC (Auto) 1 Urine RBC (Auto) 1 Impressions: Chest X-Ray 08/20/18 08:45 IMPRESSION: Bilateral extensive pneumonia. Assessment and Plan - Diagnosis (1) Bilateral pneumonia Is this a current diagnosis for this admission?: Yes Plan: His blood culture is positive for gram-positive cocci in chains. Probably it is a strep pneumonia. Patient has been on ceftriaxone and Zithromax. We will adjust his antibiotics based on his clinical response and culture results. (2) Hyperglycemia due to type 2 diabetes mellitus Is this a current diagnosis for this admission?: Yes Plan: His hyperglycemia is improving. Patient is given multiple dose of Humalog yesterday. He is put on Lantus. (3) Coronary artery disease Qualifiers: Coronary Disease-Associated Artery/Lesion type: [place] artery Is this a current diagnosis for this admission?: Yes Plan: No anginal symptoms (4) Hypertension Qualifiers: Hypertension type: essential hypertension Qualified Code(s): I10 - Essential (primary) hypertension Is this a current diagnosis for this admission?: Yes Plan: Continue his home medication. (5) Hyperlipidemia Qualifiers: Hyperlipidemia type: unspecified Qualified Code(s): E78.5 - Hyperlipidemia, unspecified Is this a current diagnosis for this admission?: Yes Plan: Continue his home medication. (6) End stage renal disease Is this a current diagnosis for this admission?: Yes Plan: I will consult his primary distributor cleaner.
[2018-08-21] MEDS: CLONIDINE HCL 0.1 MG TABLET PO SCH ×3 (12:19→22:16)
[2018-08-21] MEDS: METOPROLOL TARTRATE 50 MG TABLET PO SCH ×2 (12:26→17:14)
[2018-08-21] MEDS: FAMOTIDINE 20 MG TABLET PO SCH ×2 (12:26→22:16)
[2018-08-21] MEDS: DOCUSATE SODIUM 100 MG/10 ML UDC PO SCH ×2 (12:27→17:15)
[2018-08-21] MEDS: CEFTRIAXONE 2 GM/D5W RTU 2 GM/50 ML RTUPB IV SCH (12:34)
[2018-08-21] MEDS: AZITHROMYCIN 500 MG in DEXTROSE 5%-WATER 250 ML IV SCH (13:06)
--- NOTE | 2018-08-21 14:24 | PDOC CONSULTATION ---
Consultation Consult Date: 08/21/18 Provider Consulted: Aga STEVEN History of Present Illness Admission Date/PCP: 08/20/18 10:50 History of Present Illness: NAKLU MCNEIL is a 53 year old male with a past medical history significant for ESRD on hemodialysis, diabetes mellitus, hypertension presented with compla ints of fever, chills, cough and shortness of breath of couple of days duration. Evaluations including chest x-ray at the ER revealed that the patient had bilateral pneumonia. He has been admitted and started on IV antibiotics and currently feels some better. No complaints of any chest pain fever or chills. Patient undergoing dialysis without any issues.He feels better than when he came in.Labs and medications were reviewed with the patient. Past Medical History Cardiac Medical History: Reports: Coronary Artery Disease, Hyperlipidemia, Hypertension-primary Denies: DVT, Myocardial Infarction, Pulmonary Embolism Pulmonary Medical History: Reports: Pneumonia Denies: Asthma, Bronchitis, Chronic Obstructive Pulmonary Disease (COPD) Neurological Medical History: Denies: Seizures Endocrine Medical History: Reports: Diabetes Mellitus Type 2 - complicated by Neuropathy, nephropathy.Has proteinuria but unsure of his Denies: Hyperthyroidism, Hypothyroidism Renal/ Medical History: Reports: Chronic Kidney Disease Stage IV, Secondary Hyperparathyroidism GI Medical History: Reports: Gastroesophageal Reflux Disease Denies: Cirrhosis, Hepatitis Musculoskeltal Medical History: Reports: Arthritis Skin Medical History: Denies: Eczema, Psoriasis Psychiatric Medical History: Denies: Depression Hematology Medical History: Reports Anemia of Chronic Kidney Disease Social History Smoking Status: Never Smoker Frequency of Alcohol Use: None Hx Recreational Drug Use: No Drugs: None Hx Prescription Drug Abuse: No - Advance Directive Resuscitation Status: Full Code Family History Parental Family History Reviewed: Yes - Negative for ESRD. Children Family History Reviewed: No Sibling(s) Family History Reviewed.: No Medication/Allergy Home Medications: Calcium Acetate [Phoslo 667 Mg Capsule] 667 mg PO MEALS 08/20/18 Clonidine HCl [Catapres 0.3 mg Tablet] 0.3 mg PO Q8 08/20/18 Lisinopril [Prinivil 10 mg Tablet] 20 mg PO Q12 08/20/18 Allergies/Adverse Reactions: latex Adverse Reaction (Verified 08/20/18 08:06) Review of Systems Constitutional: PRESENT: fatigue, weakness. ABSENT: anorexia, chills, fever(s), headache(s), night sweats Nose, Mouth, and Throat: ABSENT: mouth pain, sore throat Cardiovascular: PRESENT: dyspnea on exertion. ABSENT: chest pain, edema, orthropnea Respiratory: PRESENT: cough, dyspnea, sputum - Yellow-green with times tinge of blood.. ABSENT: hemoptysis Gastrointestinal: ABSENT: abdominal pain, coffee ground emesis, dysphagia, heartburn, hematemesis, hematochezia, melena, nausea, vomiting Genitourinary: ABSENT: dysuria, hematuria Musculoskeletal: ABSENT: deformity, joint swelling Integumentary: ABSENT: diaphoresis, erythema, lesions, pruritus, rash Neurological: ABSENT: abnormal movements, abnormal speech, focal weakness, frequent falls, lack of coordination, paresthesias, restless legs Hematologic/Lymphatic: ABSENT: easy bleeding, easy bruising, lymphadenopathy Physical Exam Vital Signs: Temp Pulse Resp BP Pulse Ox 98.8 F 101 H 18 147/70 H 97 08/21/18 12:24 08/21/18 12:24 08/21/18 12:24 08/21/18 12:24 08/21/18 12:24 Intake & Output 08/20/18 08/21/18 08/22/18 06:59 06:59 06:59 Intake Total 2580 300 Output Total 4200 Balance 2580 -3900 Weight 113.2 kg General appearance: PRESENT: no acute distress Respiratory exam: PRESENT: clear to auscultation ursula. ABSENT: crackles, decreased breath sounds Cardiovascular exam: PRESENT: +S1, +S2 GI/Abdominal exam: PRESENT: normal bowel sounds, soft. ABSENT: rebound, tenderness Extremities exam: ABSENT: pedal edema Neurological exam: PRESENT: alert, awake, oriented to person, oriented to place, oriented to time Psychiatric exam: PRESENT: appropriate affect Skin exam: ABSENT: cyanosis, erythema, mottled, rash Results Laboratory Results: 08/21/18 04:09 08/21/18 04:09 08/21/18 08/21/18 04:09 04:09 WBC 13.9 H RBC 3.37 L Hgb 10.8 L Hct 32.0 L MCV 95 MCH 32.0 MCHC 33.7 RDW 14.3 H Plt Count 173 Seg Neutrophils % 88.7 H Lymphocytes % 6.9 L Monocytes % 3.9 Eosinophils % 0.1 Basophils % 0.4 Absolute Neutrophils 12.4 H Absolute Lymphocytes 1.0 Absolute Monocytes 0.6 Absolute Eosinophils 0.0 Absolute Basophils 0.1 Sodium 136.9 L Potassium 5.0 Chloride 99 Carbon Dioxide 23 Anion Gap 15 BUN 74 H Creatinine 13.77 H Est GFR ( Amer) 5 L Est GFR (Non-Af Amer) 4 L Glucose 119 H Calcium 9.2 Impressions: Chest X-Ray 08/20/18 08:45 IMPRESSION: Bilateral extensive pneumonia. Assessment & Plan - Diagnosis (1) Bilateral pneumonia Qualifiers: Pneumonia type: due to unspecified organism Lung location: unspecified part of lung Qualified Code(s): J18.9 - Pneumonia, unspecified organism Plan: Patient clinically better on current antibiotic regimen. Blood cultures growing GPC. Sputum cultures pending. (2) End stage renal disease Is this a current diagnosis for this admission?: Yes Plan: Patient currently undergoing dialysis without any issues. Dialysis is being supervised to ensure safe and smooth procedure. Vital signs are stable. Plan to remove approximately 2 L as tolerated. Dialysis orders were reviewed with the treating dialysis nurse. (3) Hypertension Qualifiers: Hypertension type: essential hypertension Qualified Code(s): I10 - Essential (primary) hypertension Is this a current diagnosis for this admission?: Yes Plan: Controlled. (4) Anemia in chronic renal disease Plan: Stable. No indications for erythropoietin for this treatment. Will monitor. (5) Diabetes 1.5, managed as type 2 Plan: Advised tight control.
--- NOTE | 2018-08-21 15:13 | RADIOLOGY REPORT (SQ) ---
EXAM DESCRIPTION: CHEST SINGLE VIEW COMPLETED DATE/TIME: 08/21/2018 3:03 pm REASON FOR STUDY: Bilateral extensive pneumonia COMPARISON: 08/20/2018 EXAM PARAMETERS: NUMBER OF VIEWS: One view. TECHNIQUE: Single frontal radiographic view of the chest acquired. RADIATION DOSE: NA LIMITATIONS: None. FINDINGS: LUNGS AND PLEURA: There is improved aeration in the lungs, but there appear to be residual infiltrates, left more than right. MEDIASTINUM AND HILAR STRUCTURES: No masses. Contour normal. HEART AND VASCULAR STRUCTURES: Heart normal in size. Normal vasculature. BONES: No acute findings. HARDWARE: None in the chest. OTHER: No other significant finding. IMPRESSION: Improving pneumonia. TECHNICAL DOCUMENTATION: JOB ID: [id number] [employer]- All Rights Reserved Reading location - IP/workstation name: [email or web address]
[2018-08-21] MEDS ORDERED: INSULIN REG, HUMAN 100 UNIT/ML 3 ML VIAL (PYX) SUBCUT ONE (22:00)
[2018-08-21] MEDS: INSULIN GLARGINE,HUM.REC.ANLOG 1,000 UNIT/10 ML VIAL SUBCUT SCH (22:16)
[2018-08-22] MEDS: HEPARIN SOD (PORCINE) 5,000 UNIT/ML 1 ML SYRINGE SUBCUT SCH (06:06)
[2018-08-22] MEDS: CLONIDINE HCL 0.1 MG TABLET PO SCH (06:07)
[2018-08-22 06:26] LABS: ANION GAP 15 (5-19); BLOOD UREA NITROGEN 62 mg/dL (7-20); CALCIUM 8.6 mg/dL (8.4-10.2); CARBON DIOXIDE 25 mmol/L (22-30); CHLORIDE 90 mmol/L (98-107); GLUCOSE 359 mg/dL (75-110); POTASSIUM 4.9 mmol/L (3.6-5.0)
[2018-08-22] MEDS: INSULIN LISPRO 100 UNIT/ML 3 ML VIAL SUBCUT SCH ×2 (08:50→12:35)
[2018-08-22] MEDS: CALCIUM ACETATE 667 MG CAPSULE PO SCH ×2 (08:50→12:34)
[2018-08-22] MEDS: FAMOTIDINE 20 MG TABLET PO SCH (09:01)
[2018-08-22] MEDS: DOCUSATE SODIUM 100 MG/10 ML UDC PO SCH (09:01)
[2018-08-22] MEDS: CEFTRIAXONE 2 GM/D5W RTU 2 GM/50 ML RTUPB IV SCH (09:01)
[2018-08-22] MEDS: METOPROLOL TARTRATE 50 MG TABLET PO SCH (09:01)
[2018-08-22] MEDS: AZITHROMYCIN 500 MG in DEXTROSE 5%-WATER 250 ML IV SCH (09:53)
[2018-08-22] MEDS ORDERED: DOCUSATE SODIUM 100 MG CAPSULE PO SCH (10:00)
--- NOTE | 2018-08-22 10:21 | PDOC DISCHARGE SUMMARY ---
General - Admit/Disc Date/PCP Admission Date/Primary Care Provider: 08/20/18 10:50 Discharge Date: 08/22/18 - Discharge Diagnosis (1) Bilateral pneumonia Is this a current diagnosis for this admission?: Yes (2) Hyperglycemia due to type 2 diabetes mellitus Is this a current diagnosis for this admission?: Yes (3) Coronary artery disease Is this a current diagnosis for this admission?: Yes (4) Hypertension Is this a current diagnosis for this admission?: Yes (5) Hyperlipidemia Is this a current diagnosis for this admission?: Yes (6) End stage renal disease Is this a current diagnosis for this admission?: Yes - Additional Information Resuscitation Status: Full Code Home Medications: Calcium Acetate [Phoslo 667 Mg Capsule] 667 mg PO MEALS 08/20/18 Clonidine HCl [Catapres 0.3 mg Tablet] 0.3 mg PO Q8 08/20/18 Lisinopril [Prinivil 10 mg Tablet] 20 mg PO Q12 08/20/18 History of Present Illness History of Present Illness: NAKUL MCNEIL is a 53 year old black male with past medical history of hypertension, hyperlipidemia, obesity, type 2 diabetes mellitus, end-stage renal disease on renal replacement therapy presented with chief complaint fever, sore throat, cough of yellowish sputum of 3 days duration. Patient has also associated shortness of breath. Patient denies any fever, chills, chest pain, or diaphoresis but is tachycardic. Denies any nausea, vomiting, abdominal pain, diarrhea, headache, dizziness, seizure activity or urinary complaints. His chest x-ray reported as bilateral extensive pneumonia. His blood work shows sodium 134, potassium 5.2, BUN 62, creatinine 12.18 and blood glucose of 554. His last dialysis last Tuesday. His primary manager lab is Dr. Del Toro at [facility] Course: NAKUL MCNEIL is a 53 year old black male with past medical history of hypertension, hyperlipidemia, obesity, type 2 diabetes mellitus, end-stage renal disease on renal replacement therapy presented with chief complaint fever, sore throat, cough of yellowish sputum of 3 days duration. Patient has also as sociated shortness of breath. Patient denies any fever, chills, chest pain, or diaphoresis but is tachycardic. Denies any nausea, vomiting, abdominal pain, diarrhea, headache, dizziness, seizure activity or urinary complaints. His chest x-ray reported as bilateral extensive pneumonia. His blood work shows sodium 134, potassium 5.2, BUN 62, creatinine 12.18 and blood glucose of 554. His last dialysis last Tuesday. His primary manager lab is Dr. Del Toro at 08/21/2018: Patient seen and examined while he is getting hemodialysis. He is awake alert and oriented. Reports he still has cough but the phlegm is decreasing. His blood culture is positive for gram-positive cocci in chains. Patient has been on ceftriaxone and Zithromax for bilateral pneumonia. He will have repeat chest x-ray tomorrow. 08/22/2018: Patient seen and examined while she is sitting on recliner. He is awake alert oriented. He is not in pain or distress. He reports much improvement in his breathing. His repeat chest x-ray reported as improving pneumonia. His vital signs are within normal limits. Patient is stable enough to go home today. I will send him with Zithromax 500 mg p.o. daily for 5 days. Patient advised to follow-up with his primary care physician in 1 week. Physical Exam Vital Signs: Temp Pulse Resp BP Pulse Ox 99.6 F 79 17 103/54 L 92 08/21/18 19:27 08/21/18 19:27 08/21/18 19:27 08/21/18 19:27 08/21/18 19:27 Intake & Output 08/21/18 08/22/18 08/23/18 06:59 06:59 06:59 Intake Total 2580 620 50 Output Total 4200 Balance 2580 -3580 50 Weight 113.2 kg 114.1 kg General appearance: PRESENT: no acute distress Head exam: PRESENT: atraumatic Eye exam: PRESENT: conjunctiva pink Mouth exam: PRESENT: moist Neck exam: ABSENT: carotid bruit, JVD, lymphadenopathy, thyromegaly Respiratory exam: PRESENT: crackles. ABSENT: rales, rhonchi, wheezes Cardiovascular exam: PRESENT: RRR. ABSENT: diastolic murmur, rubs, systolic murmur Pulses: PRESENT: normal dorsalis pedis pul Neurological exam: PRESENT: alert, awake, oriented to person, oriented to place, oriented to time, oriented to situation Results Laboratory Results: 08/21/18 04:09 08/22/18 05:27 08/22/18 05:27 Sodium 130.0 L Potassium 4.9 Chloride 90 L Carbon Dioxide 25 Anion Gap 15 BUN 62 H Creatinine 11.60 H Est GFR ( Amer) 6 L Est GFR (Non-Af Amer) 5 L Glucose 359 H Calcium 8.6 08/20/18 09:45 Throat Throat Culture - Final NORMAL [place] 08/20/18 08:39 Blood Blood Culture - Final Streptococcus Mitis Impressions: Chest X-Ray 08/21/18 00:00 IMPRESSION: Improving pneumonia. Qualifiers - * PATIENT BEING DISCHARGED WITH ANY OF THE FOLLOWING DIAGNOSIS: No Acute Heart Failure - Is this a Heart Failure Patient?: No LVEF < 40%?: No- if no continue to question #3 3. Anticoagulant therapy for permanect/persistent/paraoxysmal Afib or Aflutter: N/A
[2018-08-22] MEDS ORDERED: INSULIN LISPRO 100 UNIT/ML 3 ML VIAL SUBCUT ONE (12:15)
[2018-08-22 12:51] VITALS: BP 138/68
== END 2018-08-22 13:58 | disposition home or self-care (01) | DRG 193 ==
LOC: ER 08:01 → EH 10:50 → 5 13:25
PROVIDERS: ADMIT Internal Medicine; ATTEND Internal Medicine
DX: J18.9 Pneumonia, unspecified organism (principal); N18.6 End stage renal disease; I12.0 Hypertensive chronic kidney disease with stage 5 chronic kidney disease or end stage renal disease; I25.10 Atherosclerotic heart disease of native coronary artery without angina pectoris; E78.5 Hyperlipidemia, unspecified; E11.40 Type 2 diabetes mellitus with diabetic neuropathy, unspecified; E11.21 Type 2 diabetes mellitus with diabetic nephropathy; K21.9 Gastro-esophageal reflux disease without esophagitis; E66.9 Obesity, unspecified; E11.22 Type 2 diabetes mellitus with diabetic chronic kidney disease; Z99.2 Dependence on renal dialysis; M19.90 Unspecified osteoarthritis, unspecified site; E11.65 Type 2 diabetes mellitus with hyperglycemia
CPT/HCPCS: 36415; 71045; 71046; 80048; 80053; 81001; 82803; 82962; 83036; 83605; 85025; 87040; 87070; 87077; 87186; 87205; 87880; 93005; 93010; 96360; 99284; J0456; J0696; J1644; J1815; J3490; J7030; J7060

== ENCOUNTER 2018-09-17 19:33 | Inpatient (IN) | payer MEDICARE ==
--- NOTE | 2018-09-17 21:17 | ER Document Report ---
ED Medical Screen (RME) - General Chief Complaint: Shortness Of Breath Stated Complaint: DIFFICULTY BREATHING Time Seen by Provider: 09/17/18 21:09 Notes: Patient is a 53-year-old male with a history of hemodialysis, hypertension, congestive heart failure and type 2 diabetes who presents to the emergency department with cough. Patient states he was diagnosed with pneumonia 1 month ago and admitted to the hospital for IV antibiotics. Patient states he was feeling better but within the past few days had developed a productive cough with bloody to yellow sputum. Patient reports chills. Patient reports midsternal chest pain that is nonradiating. Patient reports a decreased appetite. Patient reports nausea without vomiting or diarrhea. Patient denies abdominal pain. TRAVEL OUTSIDE OF THE [place] IN LAST 30 DAYS: No - Related Data Allergies/Adverse Reactions: latex Adverse Reaction (Verified 08/20/18 08:06) Past Medical History - Past Medical History Cardiac Medical History: Reports: Hx Coronary Artery Disease, Hx Hypercholesterolemia, Hx Hypertension Denies: Hx Congestive Heart Failure, Hx DVT, Hx Heart Attack, Hx Pulmonary Embolism Pulmonary Medical History: Reports: Hx Pneumonia Denies: Hx Asthma, Hx Bronchitis, Hx COPD Neurological Medical History: Denies: Hx Cerebrovascular Accident, Hx Seizures Endocrine Medical History: Reports: Hx Diabetes Mellitus Type 1, 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 Denies: Hx Hyperthyroidism, Hx Hypothyroidism Renal/ Medical History: Reports: Hx Peritoneal Dialysis - Jul GI Medical History: Reports: Hx Gastroesophageal Reflux Disease. Denies: Hx Cirrhosis, Hx Hepatitis Musculoskeltal Medical History: Reports Hx Arthritis Skin Medical History: Denies Hx Eczema, Denies Hx Psoriasis Psychiatric Medical History: Denies: Hx Depression Infectious Medical History: Denies: Hx Hepatitis - Immunizations Hx Diphtheria, Pertussis, Tetanus Vaccination: Yes History of Influenza Vaccine for 11/2016 - 04/2017 Season: Yes Influenza Administration Date for 11/2016 - 04/2017 Season: 12/29/17 Physical Exam - Vital signs Vitals: Temp Pulse Resp BP Pulse Ox 98.5 F 102 H 19 172/91 H 92 09/17/18 19:45 09/17/18 19:45 09/17/18 19:45 09/17/18 19:45 09/17/18 19:45 - Respiratory Respiratory status: No respiratory distress Breath sounds: Normal, Productive cough Course - Re-evaluation Re-evalutation: 09/17/18 21:16 I have greeted and performed a rapid initial assessment of this patient. A comprehensive ED assessment and evaluation of the patient, analysis of test results and completion of the medical decision making process will be conducted by additional ED providers. - Vital Signs Vital signs: Temp Pulse Resp BP Pulse Ox 98.5 F 102 H 19 172/91 H 92 09/17/18 19:45 09/17/18 19:45 09/17/18 19:45 09/17/18 19:45 09/17/18 19:45
--- NOTE | 2018-09-17 22:07 | ER Document Report ---
ED General - General Chief Complaint: Shortness Of Breath Stated Complaint: DIFFICULTY BREATHING Time Seen by Provider: 09/17/18 21:09 Notes: She is 53-year-old male who presents with complaint of coughing that is been increasing over last couple days. Today start having subjective chills and fevers at home. He started bringing up sputum. Occasionally there is some blood in sputum. Said most time the sputum is more yellow. He says he does have some slight pain in his chest when he coughs but it is only when he coughs and is on the right side. No vomiting. No diarrhea. No abdominal pain. He is on dialysis. He gets dialysis Tuesday. Doctor is Dr. Franky Del Toro. TRAVEL OUTSIDE OF THE [place] IN LAST 30 DAYS: No - Related Data Allergies/Adverse Reactions: latex Adverse Reaction (Verified 08/20/18 08:06) Past Medical History - Social History Smoking Status: Unknown if Ever Smoked Frequency of alcohol use: None Drug Abuse: None Family History: Reviewed & Not Pertinent, DM, Hypertension - Past Medical History Cardiac Medical History: Reports: Hx Coronary Artery Disease, Hx Hypercholesterolemia, Hx Hypertension Denies: Hx Congestive Heart Failure, Hx DVT, Hx Heart Attack, Hx Pulmonary Embolism Pulmonary Medical History: Reports: Hx Pneumonia Denies: Hx Asthma, Hx Bronchitis, Hx COPD Neurological Medical History: Denies: Hx Cerebrovascular Accident, Hx Seizures Endocrine Medical History: Reports: Hx Diabetes Mellitus Type 1, 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 Denies: Hx Hyperthyroidism, Hx Hypothyroidism Renal/ Medical History: Reports: Hx Peritoneal Dialysis - Jul GI Medical History: Reports: Hx Gastroesophageal Reflux Disease. Denies: Hx Cirrhosis, Hx Hepatitis Musculoskeletal Medical History: Reports Hx Arthritis Skin Medical History: Denies Hx Eczema, Denies Hx Psoriasis Psychiatric Medical History: Denies: Hx Depression Infectious Medical History: Denies: Hx Hepatitis - Immunizations Hx Diphtheria, Pertussis, Tetanus Vaccination: Yes Review of Systems - Review of Systems Notes: My Normal Review Basic REVIEW OF SYSTEMS: CONSTITUTIONAL : Subjective fevers EENT: Denies eye, ear, throat, or mouth pain or symptoms. Denies nasal or sinus congestion. CARDIOVASCULAR: Pain in right side of chest only with coughing. RESPIRATORY: Coughing up sputum. GASTROINTESTINAL: Denies abdominal pain. Denies nausea, vomiting, or diarrhea MUSCULOSKELETAL: Denies neck or back pain or joint pain or swelling. SKIN: Denies rash or skin lesions. HEMATOLOGIC : Denies easy bruising or bleeding. NEUROLOGICAL: Denies altered mental status or loss of consciousness. Denies headache. Denies weakness or paralysis or loss of use of either side. Denies problems with gait or speech. Denies sensory or motor loss. ALL OTHER SYSTEMS REVIEWED AND NEGATIVE. Physical Exam - Vital signs Vitals: Temp Pulse Resp BP Pulse Ox 98.5 F 102 H 19 172/91 H 92 09/17/18 19:45 09/17/18 19:45 09/17/18 19:45 09/17/18 19:45 09/17/18 19:45 - Notes Notes: General Appearance: Well nourished, alert, cooperative, no acute distress, no obvious discomfort. Vitals: reviewed, See vital signs table. Head: no swelling or tenderness to the head Eyes: PERRL, EOMI, Conjuctiva clear Mouth: No decreasd moisture Lungs: No wheezing, No rales, No rhonci, No accessory muscle use, good air exchange bilaterally. Heart: Normal rate, Regular rythm, No murmur, no rub Abdomen: Normal BS, soft, No rigidity, No abdominal tenderness, No guarding, no rebound, no abdominal masses, no organomegaly Extremities: strength 5/5 in all extremities, good pulses in all extremities, no swelling or tenderness in the extremities, no edema. Fistula in left forearm. Good palpable thrill. Good distal pulses. Skin: warm, dry, appropriate color, no rash Neuro: speech clear, oriented x 3, normal affect, responds appropriately to questions. Course - Re-evaluation Re-evalutation: 09/17/18 23:25 Patient has obvious pneumonia on chest x-ray. She worse in the right. Does not have much leukocytosis. He said some subjective fevers at home. Is not any respiratory distress but his oxygenation is a bit low at 89 to 91% when he is off oxygen. I therefore placement to the use of oxygen. His creatinine is elevated with some hyperkalemia which is expected being that he is due for dialysis tomorrow. I did discuss the case the hospice Dr. Olivaers. I have a restraining a box. He does request that I give him 1 dose of Kayexalate. I have ordered that as per the request of Dr. Olivares, hospitalist. Patient to be admitted to the hospital for continued treatment of his pneumonia. Troponin is elevated but this is expected being that the patient does have end-stage renal disease. I do not suspect HI. The only pain he has in his chest is in the right of his chest that only occurs when he coughs. Dictation of this chart was performed using voice recognition software; the refore, there may be some unintended grammatical errors. 09/17/18 23:26 - Vital Signs Vital signs: Temp Pulse Resp BP Pulse Ox 98.5 F 102 H 19 172/91 H 92 09/17/18 19:45 09/17/18 19:45 09/17/18 19:45 09/17/18 19:45 09/17/18 19:45 - Laboratory Result Diagrams: 09/17/18 22:20 09/17/18 22:20 Laboratory results interpreted by me: 09/17/18 09/17/18 22:20 22:20 RBC 3.51 L Hgb 11.0 L Hct 33.3 L RDW 14.7 H Eosinophils % 7.3 H Potassium 5.6 H BUN 66 H Creatinine 12.41 H Est GFR ( Amer) 5 L Est GFR (Non-Af Amer) 4 L Glucose 254 H - EKG Interpretation by Me Additional EKG results interpreted by me: 09/17/18 22:06 EKG is reviewed and interpreted by me. EKG shows sinus rhythm with rate of [address] segment elevation or depression. No ischemic T wave inversions. WA interval, QRS duration are within normal range. QT interval is prolonged. Old EKG for comparison is from August 20, 2018. Discharge - Discharge Clinical Impression: Pneumonia, ESRD (end stage renal disease), Hyperkalemia Condition: Stable Disposition: ADMITTED INPATIENT Admitting Provider: Marshall (Hospitalist) Unit Admitted: [facility]
--- NOTE | 2018-09-17 22:27 | RADIOLOGY REPORT (SQ) ---
XR CHEST 2 VIEWS EXAM DATE: 09/17/2018 9:14 PM CDT HISTORY: productive cough, shortness of breath. COMPARISON: 08/21/2018 FINDINGS: The heart size is within normal limits. There is a patchy opacity in the right lower lobe, increased from prior study. No pleural effusions or pneumothorax. The bony thorax is intact. IMPRESSION: Increased pneumonia in the right lower lobe.
[2018-09-17 22:33] LABS: ABSOLUTE BASOPHILS # (AUTO) 0.1 10^3/uL (0.0-0.2); ABSOLUTE EOSINOPHILS # (AUTO) 0.5 10^3/uL (0.0-0.6); ABSOLUTE LYMPHOCYTES (AUTO) 1.6 10^3/uL (0.5-4.7); ABSOLUTE MONOCYTES (AUTO) 0.3 10^3/uL (0.1-1.4); BASOPHILS % (AUTO) 1.5 % (0-2); EOSINOPHILS % (AUTO) 7.3 % (0-6); HEMATOCRIT 33.3 % (37.9-51.0); LYMPHOCYTES % (AUTO) 21.3 % (13-45); MEAN CORPUSCULAR HEMOGLOBIN 31.4 pg (27.0-33.4); MEAN CORPUSCULAR HGB CONC 33.1 g/dL (32.0-36.0); MEAN CORPUSCULAR VOLUME 95 fl (80-97); MONOCYTES % (AUTO) 4.1 % (3-13); PLATELET COUNT 198 10^3/uL (150-450); RED BLOOD COUNT 3.51 10^6/uL (4.35-5.55); RED CELL DISTRIBUTION WIDTH 14.7 % (11.5-14.0); SEGMENTED NEUTROPHILS % (AUTO) 65.8 % (42-78); TOTAL CELLS COUNTED % (AUTO) 100 %; WHITE BLOOD COUNT 7.5 10^3/uL (4.0-10.5)
[2018-09-17 22:50] LABS: ALANINE AMINOTRANSFERASE 27 U/L (21-72); ALBUMIN 4.1 g/dL (3.5-5.0); ALKALINE PHOSPHATASE 116 U/L (38-126); ANION GAP 13 (5-19); ASPARTATE AMINO TRANSFERASE 22 U/L (17-59); BILIRUBIN,DIRECT 0.4 mg/dL (0.0-0.4); BILIRUBIN,TOTAL 0.6 mg/dL (0.2-1.3); BLOOD UREA NITROGEN 66 mg/dL (7-20); CALCIUM 8.8 mg/dL (8.4-10.2); CARBON DIOXIDE 26 mmol/L (22-30); CHLORIDE 98 mmol/L (98-107); GLUCOSE 254 mg/dL (75-110); POTASSIUM 5.6 mmol/L (3.6-5.0); TOTAL PROTEIN 6.7 g/dL (6.3-8.2)
[2018-09-17] MEDS ORDERED: VANCOMYCIN HCL INJ 1000 MG VIAL IV ONE (22:53)
[2018-09-17] MEDS ORDERED: PIPERACILLIN/TAZOBACTAM 3.375 GM VIAL IV ONE (22:54)
[2018-09-17] MEDS ORDERED: SODIUM POLYSTYRENE SULFONATE 15 GM/60 ML PO ONE (23:23)
[2018-09-17] MEDS ORDERED: IPRATROPIUM/ALBUTEROL 0.5-2.5 MG/3 ML AMPUL NEB PRN (23:25)
[2018-09-17] MEDS ORDERED: GUAIFENESIN SYRP 200 MG/10 ML UDC PO PRN (23:25)
[2018-09-17] MEDS ORDERED: ACETAMINOPHEN 325 MG TABLET PO PRN (23:25)
[2018-09-17] MEDS ORDERED: FLUTICASONE NASAL SPRAY 50 MCG/SPRY 120 SPRAY/16 GM NASL ONE (23:45)
[2018-09-17] MEDS ORDERED: CLONIDINE HCL 0.1 MG TABLET PO ONE (23:45)
[2018-09-18] MEDS ORDERED: FLUTICASONE NASAL SPRAY 50 MCG/SPRY 120 SPRAY/16 GM ONE (00:50)
[2018-09-18] MEDS: IPRATROPIUM/ALBUTEROL 0.5-2.5 MG/3 ML AMPUL NEB SCH ×4 (02:24→20:22)
[2018-09-18] MEDS ORDERED: DEXTROSE 40% GEL 15 GM TUBE X 2 PO PRN (05:00)
[2018-09-18] MEDS ORDERED: DEXTROSE 50%-WATER SYRINGE 12.5 GM/25 ML DOSE IV PRN (05:00)
[2018-09-18] MEDS ORDERED: GLUCAGON,HUMAN RECOMB 1 MG INJ IM PRN (05:00)
[2018-09-18] MEDS ORDERED: DEXTROSE 50%-WATER SYRINGE 25 GM/50 ML DOSE IV PRN (05:00)
[2018-09-18] MEDS ORDERED: DEXTROSE 40% GEL 15 GM TUBE PO PRN (05:00)
[2018-09-18] MEDS ORDERED: PIPERACILLIN SODIUM/TAZOBACTAM 2.25 GM in NORMAL SALINE 50 ML IV SCH ×2 (06:00→10:00)
[2018-09-18] MEDS: CLONIDINE HCL 0.2 MG TABLET PO SCH ×3 (06:06→21:19)
[2018-09-18] MEDS: HEPARIN SOD (PORCINE) 5,000 UNIT/ML 1 ML VIAL SUBCUT SCH ×3 (06:08→21:13)
--- NOTE | 2018-09-18 06:14 | PDOC H&P ---
History of Present Illness Admission Date/PCP: 09/17/18 23:35 Patient complains of: Cough and shortness of breath History of Present Illness: NAKUL MCNEIL is a 53 year old male with a partial past medical history of end-stage renal failure on hemodialysis Mondays, Tuesday and Tuesday, hypertension, diabetes and recent pneumonia requiring inpatient treatment 1 month ago. He presents with 2 weeks of progressive shortness of breath and productive cough of yellow and somewhat bloody sputum. he denies rhinorrhea, sore throat, acid reflux, aspiration or infectious contacts. In the emergency room he is found to have a right lower lobe infiltrate. He is started on empiric antibiotics and referred to the hospitalist for admission. He admits to recent unknown p.o. antibiotic discontinued approximately 10 days ago. Past Medical History Cardiac Medical History: Reports: Coronary Artery Disease, Hyperlipidema, Hypertension Denies: Congestive Heart Failure, DVT, Myocardial Infarction, Pulmonary Embolism Pulmonary Medical History: Reports: Pneumonia Denies: Asthma, Bronchitis, Chronic Obstructive Pulmonary Disease (COPD) Neurological Medical History: Denies: Seizures Endocrine Medical History: Reports: Diabetes Mellitus Type 1, Diabetes Mellitus Type 2 - complicated by Neuropathy, nephropathy.Has proteinuria but unsure of his Denies: Hyperthyroidism, Hypothyroidism GI Medical History: Reports: Gastroesophageal Reflux Disease Denies: Cirrhosis, Hepatitis Musculoskeltal Medical History: Reports: Arthritis Skin Medical History: Denies: Eczema, Psoriasis Psychiatric Medical History: Denies: Depression, Tobacco Dependency Hematology: Denies: Anemia Past Surgical History Past Surgical History: Reports: Vascular Surgery - left arm fistula 2018 Social History Information Source: Patient, [facility] Records Smoking Status: Never Smoker Frequency of Alcohol Use: None Hx Recreational Drug Use: No Drugs: None Hx Prescription Drug Abuse: No - Advance Directive Resuscitation Status: Full Code Family History Family History: DM, Hypertension Parental Family History Reviewed: Yes Children Family History Reviewed: Yes Sibling(s) Family History Reviewed.: Yes Medication/Allergy Home Medications: Calcium Acetate [Phoslo 667 mg Capsule] 667 mg PO MEALS 08/20/18 Clonidine HCl [Catapres 0.3 mg Tablet] 0.3 mg PO Q8 08/20/18 Lisinopril [Prinivil 10 mg Tablet] 20 mg PO Q12 08/20/18 Azithromycin [Zithromax 600 mg Tablet] 600 mg PO DAILY #7 tablet 08/22/18 Allergies/Adverse Reactions: latex Adverse Reaction (Verified 08/20/18 08:06) Review of Systems Constitutional: ABSENT: chills, fever(s), headache(s), weight gain, weight loss Eyes: ABSENT: visual disturbances Ears: ABSENT: hearing changes Cardiovascular: ABSENT: chest pain, dyspnea on exertion, edema, orthropnea, palpitations Respiratory: ABSENT: cough, hemoptysis Gastrointestinal: ABSENT: abdominal pain, constipation, diarrhea, hematemesis, hematochezia, nausea, vomiting Genitourinary: ABSENT: dysuria, hematuria Musculoskeletal: ABSENT: joint swelling Integumentary: ABSENT: rash, wounds Neurological: ABSENT: abnormal gait, abnormal speech, confusion, dizziness, focal weakness, syncope Psychiatric: ABSENT: anxiety, depression, homidical ideation, suicidal ideation Endocrine: ABSENT: cold intolerance, heat intolerance, polydipsia, polyuria Hematologic/Lymphatic: ABSENT: easy bleeding, easy bruising Physical Exam Vital Signs: Temp Pulse Resp BP Pulse Ox 97.6 F 79 18 109/67 87 L 09/18/18 03:56 09/18/18 03:56 09/18/18 03:56 09/18/18 03:56 09/18/18 03:56 Intake & Output 09/16/18 09/17/18 09/18/18 11:59 11:59 11:59 Weight 73.8 kg General appearance: PRESENT: cooperative, mild distress, well-developed, well- nourished Head exam: PRESENT: atraumatic, normocephalic Eye exam: PRESENT: conjunctiva pink, EOMI, PERRLA. ABSENT: scleral icterus Ear exam: PRESENT: normal external ear exam Mouth exam: PRESENT: moist, tongue midline Neck exam: ABSENT: carotid bruit, JVD, lymphadenopathy, thyromegaly Respiratory exam: PRESENT: crackles, decreased breath sounds, retraction, rhonc hi - Bilaterally, symmetrical, tachypnea. ABSENT: accessory muscle use, wheezes Cardiovascular exam: PRESENT: RRR. ABSENT: diastolic murmur, rubs, systolic murmur Pulses: PRESENT: normal dorsalis pedis pul Vascular exam: PRESENT: normal capillary refill GI/Abdominal exam: PRESENT: normal bowel sounds, soft. ABSENT: distended, guarding, mass, organolmegaly, rebound, tenderness Rectal exam: PRESENT: deferred Extremities exam: PRESENT: full ROM. ABSENT: calf tenderness, clubbing, pedal edema Neurological exam: PRESENT: alert, awake, oriented to person, oriented to place, oriented to time, oriented to situation, CN II-XII grossly intact. ABSENT: motor sensory deficit Psychiatric exam: PRESENT: appropriate affect, normal mood. ABSENT: homicidal ideation, suicidal ideation Skin exam: PRESENT: dry, intact, warm. ABSENT: cyanosis, rash Results Laboratory Results: 09/17/18 22:20 09/17/18 22:20 09/17/18 09/17/18 22:20 22:20 WBC 7.5 RBC 3.51 L Hgb 11.0 L Hct 33.3 L MCV 95 MCH 31.4 MCHC 33.1 RDW 14.7 H Plt Count 198 Seg Neutrophils % 65.8 Lymphocytes % 21.3 Monocytes % 4.1 Eosinophils % 7.3 H Basophils % 1.5 Absolute Neutrophils 5.0 Absolute Lymphocytes 1.6 Absolute Monocytes 0.3 Absolute Eosinophils 0.5 Absolute Basophils 0.1 Sodium 137.4 Potassium 5.6 H Chloride 98 Carbon Dioxide 26 Anion Gap 13 BUN 66 H Creatinine 12.41 H Est GFR ( Amer) 5 L Est GFR (Non-Af Amer) 4 L Glucose 254 H Calcium 8.8 Total Bilirubin 0.6 AST 22 ALT 27 Alkaline Phosphatase 116 Total Protein 6.7 Albumin 4.1 09/17/18 22:20 Troponin I 0.183 Impressions: Chest X-Ray 09/17/18 21:14 IMPRESSION: Increased pneumonia in the right lower lobe. Assessment and Plan - Diagnosis (1) Pneumonia Is this a current diagnosis for this admission?: Yes Plan: Pneumonia care set deployed, given presence of elevated eosinophils a possible alternate diagnosis of acute eosinophilic pneumonia if cultures negative and th erefore addition of steroids. Follow-up CBC blood and sputum cultures (2) End stage renal disease Is this a current diagnosis for this admission?: Yes Plan: Appears euvolemic, avoid nephrotoxic meds and doses, follow-up nephrology consult (3) Hyperkalemia Is this a current diagnosis for this admission?: Yes Plan: Without peak T waves, Kayexalate trial initiated. Follow-up chemistry - Time Time Spent with patient: 25-34 minutes - Inpatient Certification Medical Necessity: Need Close Monitoring Due to Risk of Patient Decompensation
[2018-09-18 06:25] LABS: ABSOLUTE BASOPHILS # (AUTO) 0.1 10^3/uL (0.0-0.2); ABSOLUTE EOSINOPHILS # (AUTO) 0.5 10^3/uL (0.0-0.6); ABSOLUTE MONOCYTES (AUTO) 0.3 10^3/uL (0.1-1.4); ABSOLUTE NEUT (AUTO) 3.1 10^3/uL (1.7-8.2); BASOPHILS % (AUTO) 1.3 % (0-2); EOSINOPHILS % (AUTO) 8.6 % (0-6); HEMATOCRIT 29.2 % (37.9-51.0); HEMOGLOBIN 9.7 g/dL (13.5-17.0); LYMPHOCYTES % (AUTO) 32.8 % (13-45); MEAN CORPUSCULAR HEMOGLOBIN 31.3 pg (27.0-33.4); MEAN CORPUSCULAR HGB CONC 33.3 g/dL (32.0-36.0); MEAN CORPUSCULAR VOLUME 94 fl (80-97); MONOCYTES % (AUTO) 5.2 % (3-13); PLATELET COUNT 158 10^3/uL (150-450); RED BLOOD COUNT 3.11 10^6/uL (4.35-5.55); RED CELL DISTRIBUTION WIDTH 14.5 % (11.5-14.0); SEGMENTED NEUTROPHILS % (AUTO) 52.1 % (42-78); TOTAL CELLS COUNTED % (AUTO) 100 %
--- NOTE | 2018-09-18 06:31 | EKG REPORT ---
SEVERITY:- BORDERLINE ECG - SINUS RHYTHM BORDERLINE PROLONGED QT INTERVAL : Confirmed by: Juarez Gallo MD 18-Sep-2018 06:30:53
[2018-09-18 06:48] LABS: ANION GAP 13 (5-19); BLOOD UREA NITROGEN 67 mg/dL (7-20); CALCIUM 8.4 mg/dL (8.4-10.2); CARBON DIOXIDE 23 mmol/L (22-30); CHLORIDE 101 mmol/L (98-107); GLUCOSE 210 mg/dL (75-110); POTASSIUM 5.4 mmol/L (3.6-5.0)
[2018-09-18] MEDS ORDERED: ACETAMINOPHEN 325 MG TABLET PO PRN (08:00)
[2018-09-18] MEDS ORDERED: EPOETIN ALFA INJ 20000 UNIT/1 ML VIAL (RENAL) IV PRN (08:08)
[2018-09-18] MEDS ORDERED: EPOETIN ALFA-EPBX 20,000 UNITS (ESRD) in SYRINGE IV PRN (08:25)
--- NOTE | 2018-09-18 11:32 | PDOC CONSULTATION ---
Consultation Consult Date: 09/18/18 Provider Consulted: Aga STEVEN Consult reason:: ESRD for hemodialysis. History of Present Illness Admission Date/PCP: 09/17/18 23:35 History of Present Illness: NAKUL MCNEIL is a 53 year old male with a partial past medical history of end-stage renal failure on hemodialysis Mondays, Tuesday and Tuesday, hypertension, diabetes and recent pneumonia requiring inpatient treatment 1 month ago. He presents with 2 weeks of progressive shortness of breath and productive cough of yellow and somewhat bloody sputum. Evaluations in the emergency room he is found to have a right lower lobe infiltrate. Also found to have some eosinophilia. He has been begun on antibiotics. Currently he is being seen while undergoing dialysis. He is undergoing dialysis without any issues. Vital signs are stable. Dialysis orders were reviewed with the treating dialysis nurse. Labs and medications were reviewed.. Past Medical History Cardiac Medical History: Reports: Coronary Artery Disease, Hyperlipidemia, Hypertension-primary Denies: DVT, Myocardial Infarction, Pulmonary Embolism Pulmonary Medical History: Reports: Pneumonia Denies: Asthma, Bronchitis, Chronic Obstructive Pulmonary Disease (COPD) Neurological Medical History: Denies: Seizures Endocrine Medical History: Reports: Diabetes Mellitus Type 2 - complicated by Neuropathy, nephropathy.Has proteinuria but unsure of his Denies: Hyperthyroidism, Hypothyroidism Renal/ Medical History: Reports: Chronic Kidney Disease Stage IV, Secondary Hyperparathyroidism GI Medical History: Reports: Gastroesophageal Reflux Disease Denies: Cirrhosis, Hepatitis Musculoskeltal Medical History: Reports: Arthritis Skin Medical History: Denies: Eczema, Psoriasis Psychiatric Medical History: Denies: Depression, Tobacco Dependency Hematology Medical History: Reports Anemia of Chronic Kidney Disease Past Surgical History Past Surgical History: Reports: Vascular Surgery - left arm fistula 2018 Social History Smoking Status: Never Smoker Frequency of Alcohol Use: None Hx Recreational Drug Use: No Drugs: None Hx Prescription Drug Abuse: No - Advance Directive Resuscitation Status: Full Code Family History Parental Family History Reviewed: Yes - Denies any history of ESRD. Children Family History Reviewed: No Sibling(s) Family History Reviewed.: No Medication/Allergy Home Medications: Clonidine HCl [Catapres 0.3 mg Tablet] 0.3 mg PO BID 08/20/18 Amlodipine Besylate [Norvasc 10 mg Tablet] 10 mg PO DAILY 09/18/18 Calcium Carbonate [Tums Chewable 500 mg Tab.chew] 1,000 mg PO MEALS 09/18/18 Allergies/Adverse Reactions: latex Adverse Reaction (Verified 08/20/18 08:06) Review of Systems Constitutional: PRESENT: fatigue. ABSENT: anorexia, fever(s), headache(s), night sweats, weakness Eyes: ABSENT: visual disturbances Ears: ABSENT: hearing changes Nose, Mouth, and Throat: ABSENT: mouth pain, sore throat Cardiovascular: PRESENT: dyspnea on exertion. ABSENT: chest pain, edema, orthropnea Respiratory: PRESENT: dyspnea, sputum. ABSENT: hemoptysis Gastrointestinal: ABSENT: abdominal pain, bloating, constipation, dysphagia, heartburn, hematemesis, hematochezia, nausea Genitourinary: ABSENT: dysuria, hematuria Musculoskeletal: ABSENT: deformity, joint swelling Integumentary: ABSENT: diaphoresis, lesions, pruritus Neurological: ABSENT: abnormal movements, abnormal speech, confusion, focal weakness, vertigo Hematologic/Lymphatic: ABSENT: easy bleeding, easy bruising, lymphadenopathy Physical Exam Vital Signs: Temp Pulse Resp BP Pulse Ox 97.7 F 81 18 114/66 93 09/18/18 07:43 09/18/18 07:48 09/18/18 07:48 09/18/18 07:43 09/18/18 07:48 Intake & Output 09/17/18 09/18/18 09/19/18 06:59 06:59 06:59 Weight 73.8 kg General appearance: PRESENT: no acute distress Eye exam: PRESENT: EOMI, PERRLA Ear exam: PRESENT: normal external ear exam Mouth exam: PRESENT: moist, neck supple Neck exam: ABSENT: meningismus, tenderness, thyromegaly, tracheal deviation Respiratory exam: PRESENT: clear to auscultation ursula, crackles Cardiovascular exam: PRESENT: +S1, +S2 GI/Abdominal exam: PRESENT: normal bowel sounds, soft. ABSENT: organomegaly, tenderness Extremities exam: ABSENT: pedal edema Neurological exam: PRESENT: alert, awake, oriented to person, oriented to place Psychiatric exam: PRESENT: appropriate affect Skin exam: ABSENT: erythema, mottled, rash Results Laboratory Results: 09/18/18 05:19 09/18/18 05:19 09/17/18 09/17/18 09/18/18 22:20 22:20 05:19 WBC 7.5 6.0 RBC 3.51 L 3.11 L Hgb 11.0 L 9.7 L Hct 33.3 L 29.2 L MCV 95 94 MCH 31.4 31.3 MCHC 33.1 33.3 RDW 14.7 H 14.5 H Plt Count 198 158 Seg Neutrophils % 65.8 52.1 Lymphocytes % 21.3 32.8 Monocytes % 4.1 5.2 Eosinophils % 7.3 H 8.6 H Basophils % 1.5 1.3 Absolute Neutrophils 5.0 3.1 Absolute Lymphocytes 1.6 2.0 Absolute Monocytes 0.3 0.3 Absolute Eosinophils 0.5 0.5 Absolute Basophils 0.1 0.1 Sodium 137.4 Potassium 5.6 H Chloride 98 Carbon Dioxide 26 Anion Gap 13 BUN 66 H Creatinine 12.41 H Est GFR ( Amer) 5 L Est GFR (Non-Af Amer) 4 L Glucose 254 H Calcium 8.8 Total Bilirubin 0.6 AST 22 ALT 27 Alkaline Phosphatase 116 Total Protein 6.7 Albumin 4.1 09/18/18 05:19 WBC RBC Hgb Hct MCV MCH MCHC RDW Plt Count Seg Neutrophils % Lymphocytes % Monocytes % Eosinophils % Basophils % Absolute Neutrophils Absolute Lymphocytes Absolute Monocytes Absolute Eosinophils Absolute Basophils Sodium 136.5 L Potassium 5.4 H Chloride 101 Carbon Dioxide 23 Anion Gap 13 BUN 67 H Creatinine 12.53 H Est GFR ( Amer) 5 L Est GFR (Non-Af Amer) 4 L Glucose 210 H Calcium 8.4 Total Bilirubin AST ALT Alkaline Phosphatase Total Protein Albumin 09/17/18 22:20 Troponin I 0.183 Impressions: Chest X-Ray 09/17/18 21:14 IMPRESSION: Increased pneumonia in the right lower lobe. Assessment & Plan - Diagnosis (1) End stage renal disease Is this a current diagnosis for this admission?: Yes Plan: Patient currently undergoing dialysis without any issues. Vital signs are stable. Dialysis is being supervised to ensure safe and smooth procedure. Plan to remove between 1 and 2 L as tolerated. Dialysis orders were reviewed with the treating dialysis nurse. Pottassium should respond to dialysis. (2) Hyperkalemia Is this a current diagnosis for this admission?: Yes Plan: Should respond to dialysis. Monitor. (3) Pneumonia Is this a current diagnosis for this admission?: Yes Plan: Has been begun on antibiotics dose for ESRD. Monitor. (4) Diabetes 1.5, managed as type 2 Plan: As per hospitalist. (5) Hypertension Qualifiers: Hypertension type: essential hypertension Qualified Code(s): I10 - Essential (primary) hypertension Plan: Stable. Monitor.
[2018-09-18] MEDS: INSULIN REG, HUMAN 100 UNIT/ML 3 ML VIAL (PYX) SUBCUT SCH ×3 (12:56→21:18)
[2018-09-18] MEDS: CALCIUM ACETATE 667 MG CAPSULE PO SCH ×3 (12:57→17:42)
[2018-09-18] MEDS: FLUTICASONE NASAL SPRAY 50 MCG/SPRY 120 SPRAY/16 GM NASL SCH ×2 (12:58→21:20)
[2018-09-18] MEDS ORDERED: LEVOFLOXACIN 750 MG/D5W RTU 750 MG/150 ML RTUPB IV ONE (16:00)
[2018-09-18] MEDS: PREDNISONE 20 MG TABLET PO SCH (17:41)
--- NOTE | 2018-09-18 18:28 | PDOC PROGRESS REPORT ---
Subjective Progress Note for:: 09/18/18 Subjective:: NAKUL MCNEIL is a 53 year old male with a partial past medical history of end-stage renal failure on hemodialysis Mondays, Tuesday and Tuesday, hypertension, diabetes and recent pneumonia requiring inpatient treatment 1 month ago. He presents with 2 weeks of progressive shortness of breath and productive cough of yellow and somewhat bloody sputum. he denies rhinorrhea, sore throat, acid reflux, aspiration or infectious contacts. In the emergency room he is found to have a right lower lobe infiltrate. He is started on empiric antibiotics and referred to the hospitalist for admission. He admits to recent unknown p.o. antibiotic discontinued approximately 10 days ago. 09/18/2018. No acute events overnight. Patient was going to be discharged however he was found to be still hypoxic. SPO2 high 80s on room air. Patient does not have history of COPD or asthma and has not been using oxygen. Denies any fever, chills, nausea, vomiting, diarrhea, constipation or any urinary symptoms. Status post hemodialysis. Reason For Visit: ESRD PNEUMONIA Physical Exam Vital Signs: Temp Pulse Resp BP Pulse Ox 97.6 F 91 19 145/73 H 97 09/18/18 15:17 09/18/18 15:17 09/18/18 15:17 09/18/18 15:17 09/18/18 15:17 Intake & Output 09/17/18 09/18/18 09/19/18 06:59 06:59 06:59 Intake Total 860 Output Total 2700 Balance -1840 Weight 73.8 kg General appearance: PRESENT: obese Head exam: PRESENT: atraumatic, normocephalic Respiratory exam: PRESENT: clear to auscultation ursula. ABSENT: rales, rhonchi, wheezes Cardiovascular exam: PRESENT: RRR. ABSENT: diastolic murmur, rubs, systolic murmur GI/Abdominal exam: PRESENT: normal bowel sounds, soft. ABSENT: distended, guarding, mass, organolmegaly, rebound, tenderness Extremities exam: PRESENT: full ROM. ABSENT: calf tenderness, clubbing, pedal edema Neurological exam: PRESENT: alert, awake, oriented to person, oriented to place, oriented to time, oriented to situation, CN II-XII grossly intact. ABSENT: motor sensory deficit Results Laboratory Results: 09/18/18 05:19 09/18/18 13:59 09/17/18 09/17/18 09/18/18 22:20 22:20 05:19 WBC 7.5 6.0 RBC 3.51 L 3.11 L Hgb 11.0 L 9.7 L Hct 33.3 L 29.2 L MCV 95 94 MCH 31.4 31.3 MCHC 33.1 33.3 RDW 14.7 H 14.5 H Plt Count 198 158 Seg Neutrophils % 65.8 52.1 Lymphocytes % 21.3 32.8 Monocytes % 4.1 5.2 Eosinophils % 7.3 H 8.6 H Basophils % 1.5 1.3 Absolute Neutrophils 5.0 3.1 Absolute Lymphocytes 1.6 2.0 Absolute Monocytes 0.3 0.3 Absolute Eosinophils 0.5 0.5 Absolute Basophils 0.1 0.1 Sodium 137.4 Potassium 5.6 H Chloride 98 Carbon Dioxide 26 Anion Gap 13 BUN 66 H Creatinine 12.41 H Est GFR ( Amer) 5 L Est GFR (Non-Af Amer) 4 L Glucose 254 H Calcium 8.8 Total Bilirubin 0.6 AST 22 ALT 27 Alkaline Phosphatase 116 Total Protein 6.7 Albumin 4.1 09/18/18 09/18/18 05:19 13:59 WBC RBC Hgb Hct MCV MCH MCHC RDW Plt Count Seg Neutrophils % Lymphocytes % Monocytes % Eosinophils % Basophils % Absolute Neutrophils Absolute Lymphocytes Absolute Monocytes Absolute Eosinophils Absolute Basophils Sodium 136.5 L Potassium 5.4 H 4.1 D Chloride 101 Carbon Dioxide 23 Anion Gap 13 BUN 67 H Creatinine 12.53 H Est GFR ( Amer) 5 L Est GFR (Non-Af Amer) 4 L Glucose 210 H Calcium 8.4 Total Bilirubin AST ALT Alkaline Phosphatase Total Protein Albumin 09/17/18 22:20 Troponin I 0.183 Impressions: Chest X-Ray 09/17/18 21:14 IMPRESSION: Increased pneumonia in the right lower lobe. Assessment and Plan - Diagnosis (1) Bilateral pneumonia Qualifiers: Pneumonia type: due to unspecified organism Lung location: unspecified part of lung Qualified Code(s): J18.9 - Pneumonia, unspecified organism Is this a current diagnosis for this admission?: Yes Plan: Possibly eosinophilic pneumonitis VS allergic pneumonitis. Unsure if this is bacterial pneumonia. Patient was admitted last month for pneumonia was given ceftriaxone and was discharged on azithromycin. CXR unchanged from previous admission. Chart review patient has been having eosinophilia however not being evaluated for eosinophilic pneumonia. Patient takes Tylenol PM nightly, denies asthma, COPD, any previous fungal infection. Reports exposure to a moldy pool and shortness of breath have been started since then. Day 2 IV antibiotics. Day 2 IV Zosyn. Day 2 p.o steroids. Continue empiric IV antibiotics, IV steroids, consult pulmonology for possible BAL and work-up for eosinophilic pneumonitis VS allergic pneumonitis. (2) End stage renal disease Is this a current diagnosis for this admission?: Yes Plan: Appears euvolemic, avoid nephrotoxic meds and doses, follow-up nephrology consult (3) GERD (gastroesophageal reflux disease) Is this a current diagnosis for this admission?: Yes Plan: Start home meds. (4) Hyperglycemia due to type 2 diabetes mellitus Is this a current diagnosis for this admission?: Yes Plan: Not on insulin however on chart review patient has been having severe hyperglycemia in the previous admission. We will get an A1c. Diabetic diet, sliding scale regimen, long-acting insulin, pre-meal insulin, adjust meds as needed. Outpatient PCP follow-up. (5) Hyperlipidemia Qualifiers: Hyperlipidemia type: unspecified Qualified Code(s): E78.5 - Hyperlipidemia, unspecified Is this a current diagnosis for this admission?: Yes Plan: High intensity statins. Diet and lifestyle modification.
[2018-09-18] MEDS: PIPERACILLIN SODIUM/TAZOBACTAM 2.25 GM in NORMAL SALINE 50 ML IV SCH (21:30)
[2018-09-19] MEDS: IPRATROPIUM/ALBUTEROL 0.5-2.5 MG/3 ML AMPUL NEB SCH ×4 (02:25→20:40)
[2018-09-19] MEDS: HEPARIN SOD (PORCINE) 5,000 UNIT/ML 1 ML VIAL SUBCUT SCH ×3 (05:37→21:46)
[2018-09-19] MEDS: CLONIDINE HCL 0.2 MG TABLET PO SCH ×3 (05:38→21:46)
[2018-09-19] MEDS ORDERED: GLUCAGON,HUMAN RECOMB 1 MG INJ IM PRN (07:57)
[2018-09-19] MEDS ORDERED: DEXTROSE 40% GEL 15 GM TUBE PO PRN ×2 (07:57)
[2018-09-19] MEDS ORDERED: DEXTROSE 50%-WATER 25 GM/50 ML DISP.SYRIN IV PRN ×2 (07:57)
[2018-09-19] MEDS: INSULIN LISPRO 100 UNIT/ML 3 ML VIAL SUBCUT SCH ×4 (08:26→21:47)
[2018-09-19] MEDS: CALCIUM ACETATE 667 MG CAPSULE PO SCH ×3 (08:28→16:48)
[2018-09-19] MEDS ORDERED: INSULIN GLARGINE,HUM.REC.ANLOG 1,000 UNIT/10 ML VIAL SUBCUT SCH (10:00)
[2018-09-19] MEDS: FLUTICASONE NASAL SPRAY 50 MCG/SPRY 120 SPRAY/16 GM NASL SCH ×2 (10:37→21:46)
[2018-09-19] MEDS: PREDNISONE 20 MG TABLET PO SCH (10:43)
[2018-09-19] MEDS: PIPERACILLIN SODIUM/TAZOBACTAM 2.25 GM in NORMAL SALINE 50 ML IV SCH ×2 (10:43→21:45)
--- NOTE | 2018-09-19 11:25 | PDOC CONSULTATION ---
Consultation Consult Date: 09/19/18 Attending physician:: RAFAEL MURRIETA Provider Consulted: CHRISTINA PENA Consult reason:: pna History of Present Illness Admission Date/PCP: 09/17/18 23:35 History of Present Illness: NAKUL MCNEIL is a 53 year old male, presented to the emergency room for his the third bout of pneumonia in the last 2 months wheezing shortness of breath cough that was occasionally productive of purulent phlegm but usually it was thick and white. His PPD status is staying negative dates unknown he denies rachell hemoptysis. He has no history of chronic lung disease as a child or adolescent. He admits to exposure to passive smoke as a child as well as adult. 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 One dog no recent travel. He denies angina-like chest pain he is on one pillow occasional PND occasional nocturnal cough. He denies edema. He is to snoring restless sleep nocturia 2-3 times per night unrestful sleep and excessive daytime somnolence. Past Medical History Cardiac Medical History: Reports: Coronary Artery Disease, Hyperlipidema, Hypertension Denies: Congestive Heart Failure, DVT, Myocardial Infarction, Pulmonary Embolism Pulmonary Medical History: Reports: Pneumonia Denies: Asthma, Bronchitis, Chronic Obstructive Pulmonary Disease (COPD) EENT Medical History: Denies: Cataracts, Eyes Neurological Medical History: Denies: Seizures Endocrine Medical History: Reports: Diabetes Mellitus Type 1, Diabetes Mellitus Type 2 - complicated by Neuropathy, nephropathy.Has proteinuria but unsure of his Denies: Hyperthyroidism, Hypothyroidism Renal/ Medical History: Reports: End Stage Renal Disease Malignancy Medical History: Reports: None GI Medical History: Reports: Gastroesophageal Reflux Disease Denies: Cirrhosis, Crohn's Disease, Hepatitis, Ulcerative Colitis Musculoskeltal Medical History: Reports: Arthritis Skin Medical History: Denies: Eczema, Psoriasis Psychiatric Medical History: Denies: Depression, Tobacco Dependency Traumatic Medical History: Denies: Gunshot Wound, Stab Wound Hematology: Denies: Anemia, Sickle Cell Disease Infectious Medical History: Denies: HIV Past Surgical History Past Surgical History: Reports: Vascular Surgery - left arm fistula 2018 Social History Information Source: Patient, [facility] Records Have you worked as/with:: [employer] Smoking Status: Never Smoker Passive smoke exposure as: Both Frequency of Alcohol Use: None Hx Recreational Drug Use: No Drugs: None Hx Prescription Drug Abuse: No Do you have pets?: Yes Have you had any respiratory illnesses as a child?: No Have you been exposed to any sick contacts recently?: No Have you had any recent respiratory illnesses?: Yes Have you travelled outside of [place] in the past 12 months?: No - Advance Directive Resuscitation Status: Full Code Family History Family History: CAD, DM, Hypertension Parental Family History Reviewed: Yes Children Family History Reviewed: Yes Sibling(s) Family History Reviewed.: Yes Medication/Allergy Home Medications: Clonidine HCl [Catapres 0.3 mg Tablet] 0.3 mg PO BID 08/20/18 Amlodipine Besylate [Norvasc 10 mg Tablet] 10 mg PO DAILY 09/18/18 Calcium Carbonate [Tums Chewable 500 mg Tab.chew] 1,000 mg PO MEALS 09/18/18 Levofloxacin [Levaquin 500 mg Tablet] 500 mg PO Q48HS 3 Days #3 tablet 09/18/18 Allergies/Adverse Reactions: latex Adverse Reaction (Verified 08/20/18 08:06) Review of Systems Constitutional: PRESENT: fatigue, fever(s), weakness. ABSENT: anorexia, headache(s) Eyes: ABSENT: visual disturbances Nose, Mouth, and Throat: ABSENT: mouth pain, sore throat Cardiovascular: PRESENT: dyspnea on exertion, orthropnea. ABSENT: chest pain, edema, palpitations Gastrointestinal: ABSENT: abdominal pain, bloating, coffee ground emesis, dysphagia, heartburn, hematemesis, hematochezia, melena Genitourinary: ABSENT: dysuria, hematuria Musculoskeletal: ABSENT: deformity, joint swelling Integumentary: ABSENT: pruritus, rash Neurological: ABSENT: abnormal gait, abnormal movements, abnormal speech, con fusion, frequent falls, lack of coordination, memory loss Psychiatric: ABSENT: hallucinations, homidical ideation, suicidal ideation Endocrine: ABSENT: cold intolerance, heat intolerance Hematologic/Lymphatic: ABSENT: easy bruising, lymphadenopathy Allergic/Immunologic: ABSENT: seasonal rhinorrhea Physical Exam Vital Signs: Temp Pulse Resp BP Pulse Ox 98.4 F 80 18 122/73 96 07/23/19 08:07 09/19/18 08:03 09/19/18 08:03 09/19/18 07:15 09/19/18 08:03 Pulse Oximeter Nocturnal Start: 09/18/18 15:46 Freq: RTQ4 Status: Active Protocol: Document 09/19/18 08:03 HCR (Rec: 09/19/18 08:17 HCR [id number]) Nocturnal Pulse Oximetry Equipment Usage Equipment Discontinued Continuous SpO2 Machine # 10 Intake & Output 09/18/18 09/19/18 09/20/18 06:59 06:59 06:59 Intake Total 1200 Output Total 2700 Balance -1500 Weight 73.8 kg 110.5 kg General appearance: PRESENT: no acute distress, cooperative, disheveled, well-developed, well-nourished Head exam: PRESENT: atraumatic, normocephalic Eye exam: PRESENT: conjunctiva pale, EOMI. ABSENT: nystagmus, periorbital swelling, scleral icterus Mouth exam: PRESENT: moist, neck supple, tongue midline Teeth exam: PRESENT: edentulous Neck exam: ABSENT: carotid bruit, full [place] - [address], JVD, lymphadenopathy, meningismus, tenderness, thyromegaly, tracheal deviation, tracheostomy, other Respiratory exam: PRESENT: decreased breath sounds, prolonged expiratory phas, rhonchi, symmetrical, unlabored. ABSENT: retraction, stridor, tachypnea Cardiovascular exam: PRESENT: RRR, rubs, +S2, tachycardia Pulses: PRESENT: normal radial pulses GI/Abdominal exam: PRESENT: soft. ABSENT: mass - [address], tenderness Extremities exam: PRESENT: full ROM. ABSENT: calf tenderness, clubbing, joint swelling, pedal edema Musculoskeletal exam: PRESENT: full ROM. ABSENT: deformity, dislocation Neurological exam: PRESENT: alert, awake Psychiatric exam: PRESENT: appropriate affect Skin exam: PRESENT: dry, warm Results Laboratory Results: 09/18/18 05:19 09/18/18 13:59 09/18/18 13:59 Potassium 4.1 D 09/17/18 22:20 Troponin I 0.183 Impressions: Chest X-Ray 09/17/18 21:14 IMPRESSION: Increased pneumonia in the right lower lobe. Assessment & Plan - Diagnosis (1) GERD (gastroesophageal reflux disease) Is this a current diagnosis for this admission?: Yes Plan: Denies dysphasia but still could be aspirating small amounts of gastric content microscopically (2) Bilateral pneumonia Qualifiers: Pneumonia type: due to unspecified organism Lung location: lower lobe of lung Qualified Code(s): J18.1 - Lobar pneumonia, unspecified organism Is this a current diagnosis for this admission?: Yes Plan: Interested patient has significant eosinophilia and onset of pneumonias began with him being around some water in the pool (3) ESRD (end stage renal disease) Is this a current diagnosis for this admission?: Yes Plan: Continue hemodialysis
--- NOTE | 2018-09-19 13:46 | PDOC PROGRESS REPORT ---
Subjective Progress Note for:: 09/19/18 Subjective:: NAKUL MCNEIL is a 53 year old male with a partial past medical history of end-stage renal failure on hemodialysis Mondays, Tuesday and Tuesday, hypertension, diabetes and recent pneumonia requiring inpatient treatment 1 month ago. He presents with 2 weeks of progressive shortness of breath and productive cough of yellow and somewhat bloody sputum. he denies rhinorrhea, sore throat, acid reflux, aspiration or infectious contacts. In the emergency room he is found to have a right lower lobe infiltrate. He is started on empiric antibiotics and referred to the hospitalist for admission. He admits to recent unknown p.o. antibiotic discontinued approximately 10 days ago. 09/18/2018. No acute events overnight. Patient was going to be discharged however he was found to be still hypoxic. SPO2 high 80s on room air. Patient does not have history of COPD or asthma and has not been using oxygen. Denies any fever, chills, nausea, vomiting, diarrhea, constipation or any urinary symptoms. Status post hemodialysis. 09/19/2018. No acute events overnight. Patient seen and was productive cough with thick white, mucousy sputum, which was sent to lab. Denies any fever, chills, nausea, vomiting, diarrhea, constipation or any urinary symptoms. Ambulatory p.o. tolerant. Having normal bowel movement. Reason For Visit: ESRD PNEUMONIA Physical Exam Vital Signs: Temp Pulse Resp BP Pulse Ox 98.0 F 87 20 140/79 H 100 09/19/18 11:25 09/19/18 11:25 09/19/18 11:25 09/19/18 11:25 09/19/18 11:25 Pulse Oximeter Nocturnal Start: 09/18/18 15:46 Freq: RTQ4 Status: Complete Protocol: Document 09/19/18 08:03 HCR (Rec: 09/19/18 08:17 HCR [id number]) Nocturnal Pulse Oximetry Equipment Usage Equipment Discontinued Continuous SpO2 Machine # 10 Intake & Output 09/18/18 09/19/18 09/20/18 06:59 06:59 06:59 Intake Total 1200 50 Output Total 2700 Balance -1500 50 Weight 73.8 kg 110.5 kg General appearance: PRESENT: no acute distress, well-developed, well-nourished Head exam: PRESENT: atraumatic, normocephalic Respiratory exam: PRESENT: clear to auscultation ursula. ABSENT: rales, rhonchi, wheezes Cardiovascular exam: PRESENT: RRR. ABSENT: diastolic murmur, rubs, systolic mu rmur GI/Abdominal exam: PRESENT: normal bowel sounds, soft. ABSENT: distended, guarding, mass, organolmegaly, rebound, tenderness Neurological exam: PRESENT: alert, awake, oriented to person, oriented to place, oriented to time, oriented to situation, CN II-XII grossly intact. ABSENT: motor sensory deficit Results Laboratory Results: 09/18/18 05:19 09/18/18 13:59 09/18/18 13:59 Potassium 4.1 D 09/17/18 22:20 Troponin I 0.183 Impressions: Chest X-Ray 09/17/18 21:14 IMPRESSION: Increased pneumonia in the right lower lobe. Assessment and Plan - Diagnosis (1) Bilateral pneumonia Qualifiers: Pneumonia type: due to unspecified organism Lung location: unspecified part of lung Qualified Code(s): J18.9 - Pneumonia, unspecified organism Is this a current diagnosis for this admission?: Yes Plan: Possibly eosinophilic pneumonitis VS allergic pneumonitis. Unsure if this is bacterial pneumonia. Patient was admitted last month for pneumonia was given ceftriaxone and was discharged on azithromycin. CXR unchanged from previous admission. Chart review patient has been having eosinophilia however not being evaluated for eosinophilic pneumonia. Patient takes Tylenol PM nightly, denies asthma, COPD, any previous fungal inf ection. Reports exposure to a moldy pool and shortness of breath have been started since then. Day 3 IV antibiotics. Day 3 IV Zosyn. Day 3 p.o steroids. Continue empiric IV antibiotics, IV steroids, consult pulmonology for possible BAL and work-up for eosinophilic pneumonitis VS allergic pneumonitis. Pulmonology has been consulted. Labs to rule out any eosinophilic versus allergic pneumonitis. Please refer to note. (2) End stage renal disease Is this a current diagnosis for this admission?: Yes Plan: On hemodialysis on Tuesday. Nephrology following. Dialysis tomorrow. Appears euvolemic, avoid nephrotoxic meds. Monitor volume status and electrolytes replace as needed. (3) GERD (gastroesophageal reflux disease) Is this a current diagnosis for this admission?: Yes Plan: Continue PPIs. Outpatient gastroenterology follow-up for after EGD. Denies any melena. (4) Hyperlipidemia Qualifiers: Hyperlipidemia type: unspecified Qualified Code(s): E78.5 - Hyperlipidemia, unspecified Is this a current diagnosis for this admission?: Yes Plan: High intensity statins. Diet and lifestyle modification. (5) Acute respiratory failure with hypoxia Is this a current diagnosis for this admission?: Yes Plan: Most likely due to #1 and underlying end-stage renal disease. As per #1 and #2. (6) Diabetes type 2, uncontrolled Qualifiers: Glycemic state: with hyperglycemia Qualified Code(s): E11.65 - Type 2 diabetes mellitus with hyperglycemia Is this a current diagnosis for this admission?: Yes Plan: Controlled most likely worsened by p.o. steroids. Patient not on antidiabetic's however based on chart review patient has been having uncontrolled diabetes and the previous admission. Diabetic diet, sliding scale insulin, long-acting insulin, pre-meal insulin, Accu-Chek, hypoglycemia protocol. Adjust meds as needed. (7) Anemia in chronic renal disease Qualifiers: Chronic kidney disease stage: on chronic dialysis Qualified Code(s): N18.6 - End stage renal disease; D63.1 - Anemia in chronic kidney disease; Z99.2 - Dependence on renal dialysis Is this a current diagnosis for this admission?: Yes Plan: Denies any external blood loss. Hemoglobin 9-10. May need Procrit in the future. Nephrology following.
[2018-09-19] MEDS: ASPIRIN 81 MG TABLET, CHEWABLE PO SCH (14:58)
[2018-09-19] MEDS ORDERED: INSULIN GLARGINE,HUM.REC.ANLOG 1,000 UNIT/10 ML VIAL (PYX) SUBCUT ONE (17:05)
[2018-09-19] MEDS ORDERED: INSULIN GLARGINE,HUM.REC.ANLOG 1,000 UNIT/10 ML VIAL SUBCUT ONE (18:30)
[2018-09-19] MEDS: ATORVASTATIN CALCIUM 40 MG TABLET PO SCH (21:46)
[2018-09-20] MEDS: IPRATROPIUM/ALBUTEROL 0.5-2.5 MG/3 ML AMPUL NEB SCH ×4 (01:29→20:16)
[2018-09-20] MEDS ORDERED: EPOETIN ALFA INJ 20000 UNIT/1 ML VIAL (RENAL) IV PRN (05:00)
[2018-09-20] MEDS ORDERED: EPOETIN ALFA-EPBX 10,000 UNIT in SYRINGE, DISPOSABLE, 1 EACH IV PRN (05:00)
[2018-09-20] MEDS: CLONIDINE HCL 0.2 MG TABLET PO SCH ×3 (05:09→21:49)
[2018-09-20] MEDS: HEPARIN SOD (PORCINE) 5,000 UNIT/ML 1 ML VIAL SUBCUT SCH ×3 (05:09→21:50)
[2018-09-20 05:38] LABS: HEMATOCRIT 30.4 % (37.9-51.0); HEMOGLOBIN 10.1 g/dL (13.5-17.0); MEAN CORPUSCULAR HEMOGLOBIN 31.2 pg (27.0-33.4); MEAN CORPUSCULAR HGB CONC 33.1 g/dL (32.0-36.0); MEAN CORPUSCULAR VOLUME 94 fl (80-97); PLATELET COUNT 170 10^3/uL (150-450); RED BLOOD COUNT 3.22 10^6/uL (4.35-5.55); RED CELL DISTRIBUTION WIDTH 14.7 % (11.5-14.0); WHITE BLOOD COUNT 11.2 10^3/uL (4.0-10.5)
[2018-09-20 05:58] LABS: ALANINE AMINOTRANSFERASE 19 U/L (21-72); ALBUMIN 3.7 g/dL (3.5-5.0); ALKALINE PHOSPHATASE 101 U/L (38-126); ANION GAP 17 (5-19); ASPARTATE AMINO TRANSFERASE 11 U/L (17-59); BILIRUBIN,DIRECT 0.5 mg/dL (0.0-0.4); BILIRUBIN,TOTAL 0.5 mg/dL (0.2-1.3); BLOOD UREA NITROGEN 68 mg/dL (7-20); CALCIUM 8.9 mg/dL (8.4-10.2); CARBON DIOXIDE 24 mmol/L (22-30); CHLORIDE 95 mmol/L (98-107); GLUCOSE 283 mg/dL (75-110); POTASSIUM 5.4 mmol/L (3.6-5.0); TOTAL PROTEIN 6.2 g/dL (6.3-8.2)
[2018-09-20] MEDS ORDERED: INSULIN GLARGINE,HUM.REC.ANLOG 1,000 UNIT/10 ML VIAL SUBCUT SCH (08:00)
[2018-09-20] MEDS: INSULIN LISPRO 100 UNIT/ML 3 ML VIAL SUBCUT SCH ×4 (09:00→21:49)
[2018-09-20] MEDS ORDERED: LEVOFLOXACIN 500 MG/D5W RTU 500 MG/100 ML RTUPB IV SCH (10:00)
--- NOTE | 2018-09-20 12:38 | PDOC PROGRESS REPORT ---
Subjective Progress Note for:: 09/20/18 Subjective:: NAKUL MCNEIL is a 53 year old male with a partial past medical history of end-stage renal failure on hemodialysis Mondays, Tuesday and Tuesday, hypertension, diabetes and recent pneumonia requiring inpatient treatment 1 month ago. He presents with 2 weeks of progressive shortness of breath and productive cough of yellow and somewhat bloody sputum. he denies rhinorrhea, sore throat, acid reflux, aspiration or infectious contacts. In the emergency room he is found to have a right lower lobe infiltrate. He is started on empiric antibiotics and referred to the hospitalist for admission. He admits to recent unknown p.o. antibiotic discontinued approximately 10 days ago. 09/18/2018. No acute events overnight. Patient was going to be discharged however he was found to be still hypoxic. SPO2 high 80s on room air. Patient does not have history of COPD or asthma and has not been using oxygen. Denies any fever, chills, nausea, vomiting, diarrhea, constipation or any urinary symptoms. Status post hemodialysis. 09/19/2018. No acute events overnight. Patient seen and was productive cough with thick white, mucousy sputum, which was sent to lab. Denies any fever, chills, nausea, vomiting, diarrhea, constipation or any urinary symptoms. Ambulatory p.o. tolerant. Having normal bowel movement. 09/20/2018. No acute events overnight. Blood sugars are controlled better, denies any shortness of breath, hemodialysis today. Reason For Visit: ESRD PNEUMONIA Physical Exam Vital Signs: Temp Pulse Resp BP Pulse Ox 97.4 F 80 18 123/79 99 09/20/18 04:58 09/20/18 07:00 09/20/18 04:58 09/20/18 04:58 09/20/18 04:58 Pulse Oximeter Nocturnal Start: 09/18/18 15:46 Freq: RTQ4 Status: Complete Protocol: Document 09/19/18 08:03 HCR (Rec: 09/19/18 08:17 HCR [id number]) Nocturnal Pulse Oximetry Equipment Usage Equipment Discontinued Continuous SpO2 Machine # 10 Intake & Output 09/19/18 09/20/18 09/21/18 06:59 06:59 06:59 Intake Total 1200 664 Output Total 2700 0 Balance -1500 664 Weight 110.5 kg 112.6 kg General appearance: PRESENT: no acute distress, obese, well-developed, well- nourished Head exam: PRESENT: atraumatic, normocephalic Eye exam: PRESENT: conjunctiva pink, EOMI, PERRLA. ABSENT: scleral icterus Ear exam: PRESENT: normal external ear exam Mouth exam: PRESENT: moist, tongue midline Neck exam: ABSENT: carotid bruit, JVD, lymphadenopathy, thyromegaly Respiratory exam: PRESENT: clear to auscultation ursula. ABSENT: rales, rhonchi, wheezes Cardiovascular exam: PRESENT: RRR. ABSENT: diastolic murmur, rubs, systolic murmur Pulses: PRESENT: normal dorsalis pedis pul Vascular exam: PRESENT: normal capillary refill GI/Abdominal exam: PRESENT: normal bowel sounds, soft. ABSENT: distended, guarding, mass, organolmegaly, rebound, tenderness Rectal exam: PRESENT: deferred Extremities exam: PRESENT: full ROM. ABSENT: calf tenderness, clubbing, pedal edema Neurological exam: PRESENT: alert, awake, oriented to person, oriented to place, oriented to time, oriented to situation, CN II-XII grossly intact. ABSENT: motor sensory deficit Psychiatric exam: PRESENT: appropriate affect, normal mood. ABSENT: homicidal ideation, suicidal ideation Skin exam: PRESENT: dry, intact, warm. ABSENT: cyanosis, rash Results Laboratory Results: 09/20/18 04:56 09/20/18 04:56 09/20/18 09/20/18 04:56 04:56 WBC 11.2 H RBC 3.22 L Hgb 10.1 L Hct 30.4 L MCV 94 MCH 31.2 MCHC 33.1 RDW 14.7 H Plt Count 170 Sodium 135.9 L Potassium 5.4 H Chloride 95 L Carbon Dioxide 24 Anion Gap 17 BUN 68 H Creatinine 12.10 H Est GFR ( Amer) 5 L Est GFR (Non-Af Amer) 4 L Glucose 283 H Calcium 8.9 Total Bilirubin 0.5 AST 11 L ALT 19 L Alkaline Phosphatase 101 Total Protein 6.2 L Albumin 3.7 09/17/18 22:20 Troponin I 0.183 Impressions: Chest X-Ray 09/17/18 21:14 IMPRESSION: Increased pneumonia in the right lower lobe. Assessment and Plan - Diagnosis (1) Bilateral pneumonia Qualifiers: Pneumonia type: due to unspecified organism Lung location: unspecified part of lung Qualified Code(s): J18.9 - Pneumonia, unspecified organism Is this a current diagnosis for this admission?: Yes Plan: Possibly eosinophilic pneumonitis VS allergic pneumonitis. Unsure if this is bacterial pneumonia. Patient was admitted last month for pneumonia was given ceftriaxone and was discharged on azithromycin. CXR unchanged from previous admission. Chart review patient has been having eosinophilia however not being evaluated for eosinophilic pneumonia. Patient takes Tylenol PM nightly, denies asthma, COPD, any previous fungal infection. Reports exposure to a moldy pool and shortness of breath have been started since then. Day 4 IV antibiotics. Day 4 IV Zosyn. Day 4 p.o steroids. Continue empiric IV antibiotics, IV steroids, consult pulmonology for possible BAL and work-up for eosinophilic pneumonitis VS allergic pneumonitis. Pulmonology has been consulted. Labs to rule out any eosinophilic versus allergic pneumonitis. Please refer to note. (2) End stage renal disease Is this a current diagnosis for this admission?: Yes Plan: On hemodialysis on Tuesday. Nephrology following. Dialysis tomorrow. Appears euvolemic, avoid nephrotoxic meds. Monitor volume status and electrolytes replace as needed. (3) GERD (gastroesophageal reflux disease) Is this a current diagnosis for this admission?: Yes Plan: Continue PPIs. Outpatient gastroenterology follow-up for after EGD. Denies any melena. (4) Hyperlipidemia Qualifiers: Hyperlipidemia type: unspecified Qualified Code(s): E78.5 - Hyperlipidemia, unspecified Is this a current diagnosis for this admission?: Yes Plan: High intensity statins. Diet and lifestyle modification. (5) Acute respiratory failure with hypoxia Is this a current diagnosis for this admission?: Yes Plan: Most likely due to #1 and underlying end-stage renal disease. As per #1 and #2. (6) Diabetes type 2, uncontrolled Qualifiers: Glycemic state: with hyperglycemia Qualified Code(s): E11.65 - Type 2 diabetes mellitus with hyperglycemia Is this a current diagnosis for this admission?: Yes Plan: Controlled most likely worsened by p.o. steroids. Patient not on antidiabetic's however based on chart review patient has been having uncontrolled diabetes and the previous admission. Diabetic diet, sliding scale insulin, long-acting insulin, pre-meal insulin, Accu-Chek, hypoglycemia protocol. Adjust meds as needed. (7) Anemia in chronic renal disease Qualifiers: Chronic kidney disease stage: on chronic dialysis Qualified Code(s): N18.6 - End stage renal disease; D63.1 - Anemia in chronic kidney disease; Z99.2 - Dependence on renal dialysis Is this a current diagnosis for this admission?: Yes Plan: Denies any external blood loss. Hemoglobin 9-10. May need Procrit in the future. Nephrology following.
[2018-09-20] MEDS: CALCIUM ACETATE 667 MG CAPSULE PO SCH ×3 (13:00→17:20)
[2018-09-20] MEDS: PREDNISONE 20 MG TABLET PO SCH (13:30)
[2018-09-20] MEDS: ASPIRIN 81 MG TABLET, CHEWABLE PO SCH (13:30)
[2018-09-20] MEDS: FLUTICASONE NASAL SPRAY 50 MCG/SPRY 120 SPRAY/16 GM NASL SCH ×2 (13:31→21:50)
[2018-09-20] MEDS: PIPERACILLIN SODIUM/TAZOBACTAM 2.25 GM in NORMAL SALINE 50 ML IV SCH ×2 (13:31→21:48)
[2018-09-20] MEDS ORDERED: DEXTROSE 40% GEL 15 GM TUBE PO PRN ×2 (13:36)
[2018-09-20] MEDS ORDERED: DEXTROSE 50%-WATER 25 GM/50 ML DISP.SYRIN IV PRN ×2 (13:36)
[2018-09-20] MEDS ORDERED: GLUCAGON,HUMAN RECOMB 1 MG INJ IM PRN (13:36)
[2018-09-20] MEDS ORDERED: INSULIN GLARGINE,HUM.REC.ANLOG 1,000 UNIT/10 ML VIAL SUBCUT ONE (16:00)
[2018-09-20] MEDS ORDERED: INSULIN LISPRO 100 UNIT/ML 3 ML VIAL SUBCUT SCH (16:00)
--- NOTE | 2018-09-20 16:03 | PDOC PROGRESS REPORT ---
Subjective Progress Note for:: 09/20/18 Reason For Visit: Patient seen today on dialysis. He is undergoing dialysis without any issues. Patient generally feels better. Less coughing. Breathing is a whole lot better. No complaints of any fever or chills. Labs and medications were reviewed. Dialysis orders were reviewed with the treating dialysis nurse. Physical Exam Vital Signs: Temp Pulse Resp BP Pulse Ox 97.8 F 85 16 137/91 H 100 09/20/18 12:42 09/20/18 13:16 09/20/18 13:16 09/20/18 12:42 09/20/18 13:16 Pulse Oximeter Nocturnal Start: 09/18/18 15:46 Freq: RTQ4 Status: Complete Protocol: Document 09/19/18 08:03 HCR (Rec: 09/19/18 08:17 HCR [email or web address]) Nocturnal Pulse Oximetry Equipment Usage Equipment Discontinued Continuous SpO2 Machine # 10 Intake & Output 09/19/18 09/20/18 09/21/18 06:59 06:59 06:59 Intake Total 1200 664 50 Output Total 2700 0 3900 Balance -1500 664 -3850 Weight 110.5 kg 112.6 kg General appearance: PRESENT: no acute distress Respiratory exam: PRESENT: clear to auscultation ursula. ABSENT: crackles Cardiovascular exam: PRESENT: +S1, +S2 GI/Abdominal exam: PRESENT: normal bowel sounds, soft. ABSENT: organomegaly, tenderness Extremities exam: ABSENT: pedal edema Neurological exam: PRESENT: alert, awake, oriented to person, oriented to place Psychiatric exam: PRESENT: appropriate affect Results Laboratory Results: 09/20/18 04:56 09/20/18 04:56 09/20/18 09/20/18 04:56 04:56 WBC 11.2 H RBC 3.22 L Hgb 10.1 L Hct 30.4 L MCV 94 MCH 31.2 MCHC 33.1 RDW 14.7 H Plt Count 170 Sodium 135.9 L Potassium 5.4 H Chloride 95 L Carbon Dioxide 24 Anion Gap 17 BUN 68 H Creatinine 12.10 H Est GFR ( Amer) 5 L Est GFR (Non-Af Amer) 4 L Glucose 283 H Calcium 8.9 Total Bilirubin 0.5 AST 11 L ALT 19 L Alkaline Phosphatase 101 Total Protein 6.2 L Albumin 3.7 09/17/18 22:20 Troponin I 0.183 Impressions: Chest X-Ray 09/17/18 21:14 IMPRESSION: Increased pneumonia in the right lower lobe. Assessment & Plan - Diagnosis (1) End stage renal disease Is this a current diagnosis for this admission?: Yes Plan: Patient currently undergoing dialysis without any issues. Vital signs are stable. Dialysis is being supervised to ensure safe and smooth procedure. Plan to remove between 2 and 3 L as tolerated. Dialysis orders were reviewed with the treating dialysis nurse. (2) Hyperkalemia Is this a current diagnosis for this admission?: Yes Plan: Should respond to dialysis. Advised low potassium diet. (3) Pneumonia Is this a current diagnosis for this admission?: Yes Plan: On antibiotics. Clinically improving. (4) Diabetes 1.5, managed as type 2 Plan: Advised tight control. (5) Hypertension Qualifiers: Hypertension type: essential hypertension Qualified Code(s): I10 - E ssential (primary) hypertension Plan: Controlled. Monitor.
[2018-09-20] MEDS: ATORVASTATIN CALCIUM 40 MG TABLET PO SCH (21:49)
[2018-09-21] MEDS: IPRATROPIUM/ALBUTEROL 0.5-2.5 MG/3 ML AMPUL NEB SCH ×2 (02:13→08:25)
[2018-09-21] MEDS: CLONIDINE HCL 0.2 MG TABLET PO SCH ×2 (06:52→14:44)
[2018-09-21] MEDS: HEPARIN SOD (PORCINE) 5,000 UNIT/ML 1 ML VIAL SUBCUT SCH ×2 (06:53→14:21)
[2018-09-21 07:15] LABS: MYCOPLASMA PNEUMONIAE IGG AB 358 U/mL (0-99); MYCOPLASMA PNEUMONIAE IGM AB <770 U/mL (0-769)
[2018-09-21] MEDS: INSULIN LISPRO 100 UNIT/ML 3 ML VIAL SUBCUT SCH ×2 (08:17→11:23)
[2018-09-21] MEDS: CALCIUM ACETATE 667 MG CAPSULE PO SCH ×2 (08:17→11:16)
[2018-09-21] MEDS ORDERED: INSULIN GLARGINE,HUM.REC.ANLOG 1,000 UNIT/10 ML VIAL (PYX) SUBCUT ONE (08:34)
[2018-09-21] MEDS ORDERED: INSULIN LISPRO 100 UNIT/ML 3 ML VIAL ONE (08:35)
[2018-09-21] MEDS ORDERED: INSULIN GLARGINE,HUM.REC.ANLOG 1,000 UNIT/10 ML VIAL SUBCUT SCH (09:00)
[2018-09-21 10:04] LABS: HEMATOCRIT 32.9 % (37.9-51.0); HEMOGLOBIN 10.8 g/dL (13.5-17.0); MEAN CORPUSCULAR HEMOGLOBIN 31.7 pg (27.0-33.4); MEAN CORPUSCULAR HGB CONC 32.7 g/dL (32.0-36.0); MEAN CORPUSCULAR VOLUME 97 fl (80-97); PLATELET COUNT 182 10^3/uL (150-450); RED BLOOD COUNT 3.41 10^6/uL (4.35-5.55); RED CELL DISTRIBUTION WIDTH 14.9 % (11.5-14.0); WHITE BLOOD COUNT 11.4 10^3/uL (4.0-10.5)
[2018-09-21 10:24] LABS: ABSOLUTE LYMPHOCYTES# (MANUAL) 0.7 10^3/uL (0.5-4.7); ABSOLUTE MONOCYTES # (MANUAL) 0.1 10^3/uL (0.1-1.4); ALANINE AMINOTRANSFERASE 17 U/L (21-72); ALKALINE PHOSPHATASE 112 U/L (38-126); ANION GAP 16 (5-19); ASPARTATE AMINO TRANSFERASE 16 U/L (17-59); BASOPHILS % (MANUAL) 0 % (0-2); BILIRUBIN,DIRECT 0.5 mg/dL (0.0-0.4); BILIRUBIN,TOTAL 0.6 mg/dL (0.2-1.3); BLOOD UREA NITROGEN 57 mg/dL (7-20); CALCIUM 8.9 mg/dL (8.4-10.2); CARBON DIOXIDE 22 mmol/L (22-30); CHLORIDE 93 mmol/L (98-107); EOSINOPHILS % (MANUAL) 0 % (0-6); LYMPHOCYTES % (MANUAL) 6 % (13-45); MONOCYTES % (MANUAL) 1 % (3-13); NUCLEATED RED BLOOD CELLS 2 /100 WBC (0); POTASSIUM 4.8 mmol/L (3.6-5.0); SEGMENTED NEUTROPHILS % (MAN) 93 % (42-78); TOTAL CELLS COUNTED 100; TOTAL PROTEIN 6.6 g/dL (6.3-8.2)
[2018-09-21 10:26] LABS: TOXIC VACUOLATION PRESENT
[2018-09-21 10:27] LABS: ANISOCYTOSIS SLIGHT; PLATELET COMMENT ADEQUATE; POIKILOCYTOSIS SLIGHT; POLYCHROMASIA 1+; TEAR DROP CELLS SLIGHT
[2018-09-21 10:34] LABS: GLUCOSE 508 mg/dL (75-110)
[2018-09-21] MEDS ORDERED: INSULIN LISPRO 100 UNIT/ML 3 ML VIAL SUBCUT SCH (11:00)
[2018-09-21] MEDS: PIPERACILLIN SODIUM/TAZOBACTAM 2.25 GM in NORMAL SALINE 50 ML IV SCH (11:09)
[2018-09-21] MEDS: PREDNISONE 20 MG TABLET PO SCH (11:14)
[2018-09-21] MEDS: ASPIRIN 81 MG TABLET, CHEWABLE PO SCH (11:14)
[2018-09-21] MEDS: FLUTICASONE NASAL SPRAY 50 MCG/SPRY 120 SPRAY/16 GM NASL SCH (11:14)
--- NOTE | 2018-09-21 12:38 | RADIOLOGY REPORT (SQ) ---
EXAM DESCRIPTION: CHEST 2 VIEWS COMPLETED DATE/TIME: 09/21/2018 12:08 pm REASON FOR STUDY: pna COMPARISON: 09/17/2018 EXAM PARAMETERS: NUMBER OF VIEWS: two views TECHNIQUE: Digital Frontal and Lateral radiographic views of the chest acquired. RADIATION DOSE: NA LIMITATIONS: none FINDINGS: LUNGS AND PLEURA: Improved aeration. Previously seen airspace disease in the right lung h as cleared. No focal infiltrates, masses or pneumothorax. No pleural effusion. MEDIASTINUM AND HILAR STRUCTURES: No masses or contour abnormalities. HEART AND VASCULAR STRUCTURES: Heart normal size. No evidence for failure. BONES: No acute findings. HARDWARE: None in the chest. OTHER: No other significant finding. IMPRESSION: IMPROVED APPEARANCE. PREVIOUSLY SEEN INFILTRATE IN THE RIGHT LUNG HAS CLEARED. TECHNICAL DOCUMENTATION: JOB ID: [id number] [employer]- All Rights Reserved Reading location - IP/workstation name: [email or web address]
[2018-09-21 15:48] VITALS: BP 161/91
[2018-09-22 00:36] LABS: D001-IGE D PTERONYSSINUS <0.10 kU/L (Class 0); D002-IGE D FARINAE MITE <0.10 kU/L (Class 0); E001-IGE CAT DANDER <0.10 kU/L (Class 0); E005-IGE DOG DANDER <0.10 kU/L (Class 0); G002-IGE BERMUDA GRASS <0.10 kU/L (Class 0); G008-IGE BLUEGRASS KENTUCKY <0.10 kU/L (Class 0); M001-IGE PENICILLIUM CHRYSOGEN <0.10 kU/L (Class 0); M002-IGE CLADOSPORIUM HERBARUM <0.10 kU/L (Class 0); M003-IGE ASPERGILLUS FUMIGATUS <0.10 kU/L (Class 0); M004-IGE MUCOR RACEMOSUS <0.10 kU/L (Class 0); M005-IGE CANDIDA ALBICANS <0.10 kU/L (Class 0); M006-IGE ALTERNARIA ALTERNATA <0.10 kU/L (Class 0); M009-IGE FUSARIUM PROLIFERATUM <0.10 kU/L (Class 0); M010-IGE STEMPHYLIUM HERBARUM <0.10 kU/L (Class 0); M012-IGE AUREOBASIDI PULLULANS <0.10 kU/L (Class 0); M013-IGE PHOMA BETAE <0.10 kU/L (Class 0); M014-IGE EPICOCCUM PURPURASCEN <0.10 kU/L (Class 0); T007-IGE OAK WHITE <0.10 kU/L (Class 0); T008-IGE ELM AMERICAN (WHITE <0.10 kU/L (Class 0); W001-IGE RAGWEED SHORT/COMMO <0.10 kU/L (Class 0); W009-IGE PLANTAIN ENGLISH <0.10 kU/L (Class 0)
[2018-09-22] MEDS ORDERED: INSULIN GLARGINE,HUM.REC.ANLOG 1,000 UNIT/10 ML VIAL SUBCUT SCH (08:00)
[2018-09-22 08:30] LABS: E072-IGE MOUSE URINE <0.10 kU/L (Class 0)
--- NOTE | 2018-09-22 18:09 | PDOC DISCHARGE SUMMARY ---
General - Admit/Disc Date/PCP Admission Date/Primary Care Provider: 09/17/18 23:35 Discharge Date: 09/21/18 - Discharge Diagnosis (1) Bilateral pneumonia Is this a current diagnosis for this admission?: Yes (2) End stage renal disease Is this a current diagnosis for this admission?: Yes (3) GERD (gastroesophageal reflux disease) Is this a current diagnosis for this admission?: Yes (4) Hyperlipidemia Is this a current diagnosis for this admission?: Yes (5) Acute respiratory failure with hypoxia Is this a current diagnosis for this admission?: Yes (6) Diabetes type 2, uncontrolled Is this a current diagnosis for this admission?: Yes (7) Anemia in chronic renal disease Is this a current diagnosis for this admission?: Yes - Additional Information Resuscitation Status: Full Code Discharge Diet: Diabetic Discharge Activity: Activity As Tolerated Prescriptions: Aspirin [[place] Aspirin] 81 mg PO DAILY 30 Days #30 tab.chew Atorvastatin Calcium [Lipitor 40 mg Tablet] 40 mg PO QHS 30 Days #30 tablet Doxycycline Hyclate [Vibramycin 100 mg Tablet] 100 mg PO Q12 10 Days #20 tablet Insulin Glargine,Hum.rec.anlog [Lantus Insulin 100 Unit/1 ml 10 ml] 30 unit SUBCUT BID 30 Days #3 unit Insulin Lispro [Humalog Insulin 100 Unit/1 ml 3 ml Vial] 0 - 12 unit SUBCUT .SLD SCALE 30 Days #10 ml Levofloxacin [Levaquin 500 mg Tablet] 500 mg PO Q48HS 3 Days #3 tablet Home Medications: Clonidine HCl [Catapres 0.3 mg Tablet] 0.3 mg PO BID 08/20/18 Amlodipine Besylate [Norvasc 10 mg Tablet] 10 mg PO DAILY 09/18/18 Calcium Carbonate [Tums Chewable 500 mg Tab.chew] 1,000 mg PO MEALS 09/18/18 Levofloxacin [Levaquin 500 mg Tablet] 500 mg PO Q48HS 3 Days #3 tablet 09/18/18 Aspirin [[place] Aspirin] 81 mg PO DAILY 30 Days #30 tab.chew 09/21/18 Atorvastatin Calcium [Lipitor 40 mg Tablet] 40 mg PO QHS 30 Days #30 tablet 09/21/18 Doxycycline Hyclate [Vibramycin 100 mg Tablet] 100 mg PO Q12 10 Days #20 tablet 09/21/18 Insulin Glargine,Hum.rec.anlog [Lantus Insulin 100 Unit/1 ml 10 ml] 30 unit SUBCUT BID 30 Days #3 unit 09/21/18 Insulin Lispro [Humalog Insulin 100 Unit/1 ml 3 ml Vial] 0 - 12 unit SUBCUT .SLD SCALE 30 Days #10 ml 09/21/18 History of Present Illness History of Present Illness: NAKUL MCNEIL is a 53 year old male with a partial past medical history of end-stage renal failure on hemodialysis Mondays, Tuesday and Tuesday, hypertension, diabetes and recent pneumonia requiring inpatient treatment 1 month ago. He presents with 2 weeks of progressive shortness of breath and productive cough of yellow and somewhat bloody sputum. he denies rhinorrhea, sore throat, acid reflux, aspiration or infectious contacts. In the emergency room he is found to have a right lower lobe infiltrate. He is started on empiric antibiotics and referred to the hospitalist for admission. He admits to recent unknown p.o. antibiotic discontinued approximately 10 days ago. Hospital Course Hospital Course: (1) Bilateral pneumonia Possibly eosinophilic pneumonitis VS allergic pneumonitis. Significant improvement. Repeat chest x-ray showed significant improvement and eosinophilia trended down to 0. Unsure if this is bacterial pneumonia. Patient was admitted last month for pneumonia was given ceftriaxone and was discharged on azithromycin. Reports exposure to a moldy pool and shortness of breath have been started since then. Serology positive for mycoplasma pneumonia elevated IgE G 358, IgM <770 Received 5 days of IV antibiotics. Received 5 days of IV Zosyn. Received 5 days of p.o. antibiotics. Discharged on doxycycline 10 days, levofloxacin 3 more days as per pulmonology recommendation. Pulmonology was consulted, recommendations noted. Please refer to note. An appointment was made for pulmonology as outpatient . (2) End stage renal disease On hemodialysis on Tuesday. Received hemodialysis while inpatient. Nephrology was consulted. Recommendations noted. Appears euvolemic, avoid nephrotoxic meds. Monitored volume status and electrolytes replace as needed. (3) GERD (gastroesophageal reflux disease) Continue PPIs. Outpatient gastroenterology follow-up for after EGD. Denies any melena. (4) Hyperlipidemia High intensity statins. Diet and lifestyle modification. (5) Acute respiratory failure with hypoxia Most likely due to #1 and underlying end-stage renal disease. As per #1 and #2. (6) Diabetes type 2, uncontrolled Optimized. Initially uncontrolled likely due to p.o. steroids. Patient not on antidiabetic's however based on chart review patient has been having uncontrolled diabetes and the previous admission. Was a started on diabetic diet, sliding scale insulin, long-acting insulin, pre-meal insulin, Accu-Chek, hypoglycemia protocol. Dosages was adjusted and patient was sent home on new insulin regimen. Patient also received diabetic education. Outpatient PCP follow-up. (7) Anemia in chronic renal disease Denies any external blood loss. Hemoglobin 9-10. May need Procrit in the future. Nephrology following. Physical Exam Vital Signs: Temp Pulse Resp BP Pulse Ox 97.5 F 81 19 161/91 H 100 09/21/18 16:53 09/21/18 16:53 09/21/18 16:53 09/21/18 15:45 09/21/18 16:53 Pulse Oximeter Nocturnal Start: 09/18/18 15:46 Freq: RTQ4 Status: Complete Protocol: Document 09/19/18 08:03 HCR (Rec: 09/19/18 08:17 HCR [email or web address]) Nocturnal Pulse Oximetry Equipment Usage Equipment Discontinued Continuous SpO2 Machine # 10 Intake & Output 09/21/18 09/22/18 09/23/18 06:59 06:59 06:59 Intake Total 100 530 Output Total 3900 Balance -3800 530 Weight 110.8 kg General appearance: PRESENT: no acute distress, well-developed, well-nourished Head exam: PRESENT: atraumatic, normocephalic Eye exam: PRESENT: conjunctiva pink, EOMI, PERRLA. ABSENT: scleral icterus Ear exam: PRESENT: normal external ear exam Mouth exam: PRESENT: moist, tongue midline Neck exam: ABSENT: carotid bruit, JVD, lymphadenopathy, thyromegaly Respiratory exam: PRESENT: clear to auscultation ursula. ABSENT: rales, rhonchi, wheezes Cardiovascular exam: PRESENT: RRR. ABSENT: diastolic murmur, rubs, systolic murmur Pulses: PRESENT: normal dorsalis pedis pul Vascular exam: PRESENT: normal capillary refill GI/Abdominal exam: PRESENT: normal bowel sounds, soft. ABSENT: distended, guarding, mass, organolmegaly, rebound, tenderness Rectal exam: PRESENT: deferred Extremities exam: PRESENT: full ROM. ABSENT: calf tenderness, clubbing, pedal edema Neurological exam: PRESENT: alert, awake, oriented to person, oriented to place, oriented to time, oriented to situation, CN II-XII grossly intact. ABSENT: motor sensory deficit Psychiatric exam: PRESENT: appropriate affect, normal mood. ABSENT: homicidal ideation, suicidal ideation Skin exam: PRESENT: dry, intact, warm. ABSENT: cyanosis, rash Results Laboratory Results: 09/21/18 09:47 09/21/18 13:46 09/17/18 22:20 Troponin I 0.183 Impressions: Chest X-Ray 09/21/18 00:00 IMPRESSION: IMPROVED APPEARANCE. PREVIOUSLY SEEN INFILTRATE IN THE RIGHT LUNG HAS CLEARED. Qualifiers - * PATIENT BEING DISCHARGED WITH ANY OF THE FOLLOWING DIAGNOSIS: No Acute Heart Failure - Is this a Heart Failure Patient?: No
== END 2018-09-21 16:40 | disposition home or self-care (01) | DRG 682 ==
LOC: ER 19:33 → EH 23:35 → 3W 09-18 01:30
PROVIDERS: ADMIT Internal Medicine; ATTEND Internal Medicine
PROC: 5A1D70Z Performance of Urinary Filtration, Intermittent, Less than 6 Hours Per Day (ICD-10-PCS; principal; 2018-09-18)
DX: I12.0 Hypertensive chronic kidney disease with stage 5 chronic kidney disease or end stage renal disease (principal); N18.6 End stage renal disease; J18.1 Lobar pneumonia, unspecified organism; J96.01 Acute respiratory failure with hypoxia; E11.21 Type 2 diabetes mellitus with diabetic nephropathy; E11.22 Type 2 diabetes mellitus with diabetic chronic kidney disease; E87.5 Hyperkalemia; E11.65 Type 2 diabetes mellitus with hyperglycemia; D63.1 Anemia in chronic kidney disease; I25.10 Atherosclerotic heart disease of native coronary artery without angina pectoris; E78.00 Pure hypercholesterolemia, unspecified; K21.9 Gastro-esophageal reflux disease without esophagitis; Z99.2 Dependence on renal dialysis
CPT/HCPCS: 36415; 71046; 80048; 80053; 82962; 83036; 83735; 84132; 84295; 84484; 85025; 85027; 86003; 86713; 86738; 87040; 87070; 87077; 87186; 87205; 93005; 93010; 94640; 94667; 94668; 94762; 94799; 96374; 99285; J1644; J1815; J2543; J3370; J3490; J7512; J7620; Q5105

== ENCOUNTER → 2018-11-15 | Outpatient (CLI) | payer MEDICARE ==
--- NOTE | 2018-11-15 12:08 | RADIOLOGY REPORT (SQ) ---
EXAM DESCRIPTION: CHEST SINGLE VIEW COMPLETED DATE/TIME: 11/15/2018 11:32 am REASON FOR STUDY: PNEUMONIA, UNSPECIFIED ORGANISM COMPARISON: None. EXAM PARAMETERS: NUMBER OF VIEWS: One view. TECHNIQUE: Single frontal radiographic view of the chest acquired. RADIATION DOSE: NA LIMITATIONS: None. FINDINGS: LUNGS AND PLEURA: Hazy opacification of the right upper and middle lobes. No significant effusion. Unremarkable left hemithorax. MEDIASTINUM AND HILAR STRUCTURES: No masses. Contour normal. HEART AND VASCULAR STRUCTURES: Heart normal in size. Normal vasculature. BONES: No acute findings. HARDWARE: None in the chest. OTHER: No other significant finding. IMPRESSION: Hazy right upper and middle lobe airspace disease most compatible with pneumonia. No si gnificant effusion. TECHNICAL DOCUMENTATION: JOB ID: [id number] [employer]- All Rights Reserved Reading location - IP/workstation name: [email or web address]
== END ==
LOC: OD 11:17
PROVIDERS: ATTEND Physician Assistant Medical
DX: J18.9 Pneumonia, unspecified organism (principal); I50.20 Unspecified systolic (congestive) heart failure
CPT/HCPCS: 71045

== ENCOUNTER 2018-12-31 15:22 | Emergency (ER) | payer MEDICARE ==
[2018-12-31] MEDS ORDERED: CALCIUM GLUCONATE 1000 MG/10 ML INJ IV ONE ×6 (15:28→17:23)
[2018-12-31] MEDS ORDERED: INSULIN REG, HUMAN 100 UNIT/ML 3 ML VIAL (PYX) IV ONE ×2 (15:30→16:53)
--- NOTE | 2018-12-31 15:35 | ER Document Report ---
ED General - General Chief Complaint: Respiratory Distress Stated Complaint: RESPIRATORY DISTRESS Time Seen by Provider: 12/31/18 15:30 Primary Care Provider: SUKI KIM MD [Primary Care Provider] - Follow up as needed Notes: HPI: Patient is a 53-year-old male who presents by EMS secondary to fatigue and weakness for the last 3 days. He also states a mild shortness of breath. He denies runny nose, congestion, or coughing. He denies any chest pain, fevers, abdominal pain, calf pain or leg swelling. Past medical history as recorded. Tuesday, Tuesday, Tuesday dialysis. Patient is followed by Dr. Del Toro and states that he did complete dialysis on Tuesday. Patient states he has not taken his insulin for the last 3 days given that he has just been "tired". EMS states that the patient did have a wide-complex rhythm. Blood pressure and vital signs have been stable. Satting 96% on room air. ROS: See HPI All other review of systems reviewed and otherwise negative Reviewed vital signs and nursing note as charted by RN. PHYSICAL EXAM: CONSTITUTIONAL: Alert and oriented and responds appropriately to questions. Well-appearing; well-nourished; patient does not appear to be in any obvious res piratory distress HEAD: Normocephalic; atraumatic ENT: No nasal congestion NECK: Supple without meningismus; non-tender; no cervical lymphadenopathy, no masses CARD: Regular rate and rhythm; no murmurs; symmetric distal pulses RESP: Normal chest excursion without splinting or tachypnea; breath sounds clear and equal bilaterally; no wheezes, no rhonchi, no rales ABD/GI: Normal bowel sounds; non-distended; soft, non-tender BACK: The back appears normal and is non-tender to palpation EXT: Normal ROM in all joints; non-tender to palpation; no edema SKIN: No acute lesions noted NEURO: CN 2-12 intact; 5/5 bilateral upper and lower extremity strength with sensation intact to light touch PSYCH: The patient's mood and manner are appropriate. Grooming and personal hygiene are appropriate. TRAVEL OUTSIDE OF THE [place] IN LAST 30 DAYS: No - Related Data Allergies/Adverse Reactions: latex Adverse Reaction (Verified 08/20/18 08:06) Past Medical History - Social History Smoking Status: Unknown if Ever Smoked Family History: CAD, DM, Hypertension Patient has suicidal ideation: No Patient has homicidal ideation: No - Past Medical History Cardiac Medical History: Reports: Hx Coronary Artery Disease, Hx Hypercholesterolemia, Hx Hypertension Denies: Hx Congestive Heart Failure, Hx DVT, Hx Heart Attack, Hx Pulmonary Embolism Pulmonary Medical History: Reports: Hx Pneumonia Denies: Hx Asthma, Hx Bronchitis, Hx COPD Neurological Medical History: Denies: Hx Cerebrovascular Accident, Hx Seizures Endocrine Medical History: Reports: Hx Diabetes Mellitus Type 1, 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 Denies: Hx Hyperthyroidism, Hx Hypothyroidism Renal/ Medical History: Reports: Hx End Stage Renal Disease, Hx Peritoneal Dialysis - Jul GI Medical History: Reports: Hx Gastroesophageal Reflux Disease. Denies: Hx Cirrhosis, Hx Crohn's Disease, Hx Hepatitis, Hx Ulcerative Colitis Musculoskeletal Medical History: Reports Hx Arthritis Skin Medical History: Denies Hx Eczema, Denies Hx Psoriasis Psychiatric Medical History: Denies: Hx Depression Traumatic Medical History: Denies: Hx Gunshot Wound Infectious Medical History: Denies: Hx Hepatitis, Hx HIV Past Surgical History: Reports: Hx Vascular Surgery - left arm fistula 2018 - Immunizations Hx Diphtheria, Pertussis, Tetanus Vaccination: Yes Physical Exam - Vital signs Vitals: Resp Pulse Ox 26 H 95 12/31/18 15:35 12/31/18 15:35 Course - Re-evaluation Re-evalutation: EKG shows a heart of 109, wide-complex tachycardia. P waves appear to be present. Old EKG from around 1 month ago shows a narrow complex QRS. 12/31/18 15:34 Given the history and physical examination with EKG as recorded, compared to the previous EKG, with no i-STAT present, I will provide 2 A of calcium gluconate as I wait for the patient's laboratory values as well as 10 units of IV insulin given the patient's Accu-Chek x2 of greater than 550. Currently do not have nephrology disposition clerk at this time. 12/31/18 15:54 Patient's QRS is now narrowing. However the patient's heart rate is now increased to 148. Patient is still cognizant with good pulses. I will provide 2 more amps of calcium gluconate, an amp of bicarbonate, bicarb drip, and reassess. 12/31/18 16:07 Glucose is greater than 625. Potassium is 8.1. I have provided fluid, bicarb drip, 2 more amps of calcium gluconate. I provided another 10 units of IV insulin. Despite dialysis and also providing a liter of fluid given the heart rate 165. Ultrasound shows no currently B-lines. X-ray of the chest shows no obvious increased lung markings or effusions. Patient is still verbal and cognizant. Still has good peripheral pulses. I have called the [facility] to speak to the MICU physician for air transport as well as to discuss possible blood pressure control given a blood pressure of 180/130 and a heart rate of 160. Repeat EKG shows a narrowing of the QRS complex with a tachycardia now at 159. 12/31/18 16:37 I am still awaiting callback from [facility]. I have attempted to call the patient's daycare provider but he is not disposition clerk and is currently not answering the phone. The is at bedside and does indeed state that the patient received dialysis. 12/31/18 16:53 I spoke to the car bracer at [facility] regarding the blood pressure and heart rate. He does believe an IV beta-wilber would be appropriate. I have ordered 10 units of IV labetalol. He would like the patient admitted to the hospitalist. 12/31/18 17:01 And currently sending a second potassium level. Kayexalate has been given. He art rate is currently 122. Blood pressure is 200/120. 12/31/18 17:10 Repeat EKG shows a heart rate of 91, narrow complex. 12/31/18 17:16 [facility] was accepted the patient to the ICU. - Vital Signs Vital signs: Temp Pulse Resp BP Pulse Ox 98.4 F 27 H 167/106 H 100 12/31/18 17:06 12/31/18 17:06 12/31/18 17:06 12/31/18 17:06 - Laboratory Result Diagrams: 12/31/18 15:33 12/31/18 15:33 Laboratory results interpreted by me: 12/31/18 12/31/18 12/31/18 15:27 15:33 15:33 WBC 11.4 H RBC 4.18 L MCV 99 H RDW 18.2 H Seg Neuts % (Manual) 91 H Lymphocytes % (Manual) 5 L Abs Neuts (Manual) 10.4 H VBG pH VBG pCO2 VBG HCO3 Sodium 130.5 L Potassium 8.1 H* Chloride 85 L Carbon Dioxide 11 L Anion Gap 35 H BUN 96 H Creatinine 11.95 H Est GFR ( Amer) 5 L Est GFR (MDRD) Non-Af 4 L Glucose 626 H* POC Glucose > 550 H* Calcium 7.7 L Total Bilirubin 3.0 H Direct Bilirubin 2.2 H AST 575 H Alkaline Phosphatase 159 H Creatine Kinase 624 H CK-MB (CK-2) 12/31/18 12/31/18 12/31/18 15:33 15:33 16:08 WBC RBC MCV RDW Seg Neuts % (Manual) Lymphocytes % (Manual) Abs Neuts (Manual) VBG pH 7.27 L VBG pCO2 28.9 L VBG HCO3 13.1 L Sodium Potassium Chloride Carbon Dioxide Anion Gap BUN Creatinine Est GFR ( Amer) Est GFR (MDRD) Non-Af Glucose POC Glucose 482 H* Calcium Total Bilirubin Direct Bilirubin AST Alkaline Phosphatase Creatine Kinase CK-MB (CK-2) 11.90 H 12/31/18 16:35 WBC RBC MCV RDW Seg Neuts % (Manual) Lymphocytes % (Manual) Abs Neuts (Manual) VBG pH VBG pCO2 VBG HCO3 Sodium Potassium Chloride Carbon Dioxide Anion Gap BUN Creatinine Est GFR ( Amer) Est GFR (MDRD) Non-Af Glucose POC Glucose > 550 H* Calcium Total Bilirubin Direct Bilirubin AST Alkaline Phosphatase Creatine Kinase CK-MB (CK-2) Critical Care Note - Critical Care Note Total time excluding time spent on procedures (mins): 130 Discharge - Discharge Clinical Impression: Hyperkalemia, Wide QRS ventricular tachycardia Diabetic ketoacidosis Qualifiers: Diabetes mellitus type: type 1 Diabetes mellitus complication detail: without coma Qualified Code(s): E10.10 - Type 1 diabetes mellitus with ketoacidosis without coma Condition: Critical Disposition: [facility] Unit Admitted: ICU Referrals: SUKI KIM MD [Primary Care Provider] - Follow up as needed
[2018-12-31 15:45] LABS: VENOUS BLOOD BASE EXCESS -12.3 mmol/L; VENOUS BLOOD HCO3 13.1 mmol/L (20-32); VENOUS BLOOD PCO2 28.9 mmHg (35-63); VENOUS BLOOD PH 7.27 (7.30-7.42)
[2018-12-31 15:48] LABS: HEMATOCRIT 41.6 % (37.9-51.0); HEMOGLOBIN 13.6 g/dL (13.5-17.0); MEAN CORPUSCULAR HEMOGLOBIN 32.4 pg (27.0-33.4); MEAN CORPUSCULAR HGB CONC 32.6 g/dL (32.0-36.0); MEAN CORPUSCULAR VOLUME 99 fl (80-97); PLATELET COUNT 174 10^3/uL (150-450); RED BLOOD COUNT 4.18 10^6/uL (4.35-5.55); RED CELL DISTRIBUTION WIDTH 18.2 % (11.5-14.0); WHITE BLOOD COUNT 11.4 10^3/uL (4.0-10.5)
[2018-12-31] MEDS ORDERED: NORMAL SALINE 1000 ML 1,000 ML IV ONE (15:57)
[2018-12-31] MEDS ORDERED: SODIUM BICARBONATE 8.4% INJ 50 MEQ/50 ML DISP.SYRIN ONE ×4 (15:57→15:59)
[2018-12-31 16:02] LABS: ALBUMIN 4.5 g/dL (3.5-5.0); ALKALINE PHOSPHATASE 159 U/L (38-126); ASPARTATE AMINO TRANSFERASE 575 U/L (17-59); BILIRUBIN,DIRECT 2.2 mg/dL (0.0-0.4); BLOOD UREA NITROGEN 96 mg/dL (7-20); CALCIUM 7.7 mg/dL (8.4-10.2); CREATINE KINASE 624 U/L (55-170); TOTAL PROTEIN 6.9 g/dL (6.3-8.2)
--- NOTE | 2018-12-31 16:04 | RADIOLOGY REPORT (SQ) ---
EXAM DESCRIPTION: CHEST SINGLE VIEW COMPLETED DATE/TIME: 12/31/2018 3:48 pm REASON FOR STUDY: tr2; sob COMPARISON: 11/15/2018 TECHNIQUE: Single frontal radiographic view of the chest acquired. NUMBER OF VIEWS: One view. LIMITATIONS: None. FINDINGS: LUNGS AND PLEURA: No pneumothorax. No consolidation or pleural effusion. MEDIASTINUM AND HILAR STRUCTURES: Stable. HEART AND VASCULAR STRUCTURES: Stable. BONES: No acute findings. HARDWARE: None in the chest. OTHER: No other significant finding. IMPRESSION: NO ACUTE FINDINGS. TECHNICAL DOCUMENTATION: JOB ID: [id number] 2010 [employer]- All Rights Reserved Reading location - IP/workstation name: [employer]
[2018-12-31 16:08] LABS: CARBON DIOXIDE 11 mmol/L (22-30); CHLORIDE 85 mmol/L (98-107)
[2018-12-31] MEDS ORDERED: INSULIN REG, HUMAN 100 UNIT/ML 3 ML VIAL (PYX) ONE (16:08)
[2018-12-31] MEDS ORDERED: DEXTROSE 5%-WATER 1000 ML 1,000 ML with SODIUM BICARBONATE 150 MEQ IV ONE ×2 (16:09)
[2018-12-31 16:14] LABS: CREATINE KINASE MB 11.9 ng/mL (<4.55)
[2018-12-31 16:17] LABS: TROPONIN I 0.442 ng/mL
[2018-12-31 16:20] LABS: POTASSIUM 8.1 mmol/L (3.6-5.0)
[2018-12-31 16:22] LABS: ANION GAP 35 (5-19); GLUCOSE 626 mg/dL (75-110)
[2018-12-31] MEDS ORDERED: SODIUM POLYSTYRENE SULFONATE 15 GM/60 ML PO ONE (16:29)
--- NOTE | 2018-12-31 16:40 | EKG REPORT ---
SEVERITY:- ABNORMAL ECG - SINUS TACHYCARDIA IVCD, CONSIDER ATYPICAL RBBB CONSIDER LEFT VENTRICULAR HYPERTROPHY : Confirmed by: Juarez Gallo MD 31-Dec-2018 16:38:22
[2018-12-31 16:52] LABS: ABSOLUTE LYMPHOCYTES# (MANUAL) 0.6 10^3/uL (0.5-4.7); ABSOLUTE MONOCYTES # (MANUAL) 0.5 10^3/uL (0.1-1.4); BASOPHILS % (MANUAL) 0 % (0-2); EOSINOPHILS % (MANUAL) 0 % (0-6); LYMPHOCYTES % (MANUAL) 5 % (13-45); MONOCYTES % (MANUAL) 4 % (3-13); SEGMENTED NEUTROPHILS % (MAN) 91 % (42-78); TOTAL CELLS COUNTED 100
[2018-12-31] MEDS ORDERED: LABETALOL HCL INJ 20 MG/4 ML DISP.SYRIN IV ONE (16:52)
[2018-12-31] MEDS ORDERED: SODIUM BICARBONATE 8.4% INJ 50 MEQ/50 ML DISP.SYRIN IV ONE (16:52)
[2018-12-31 16:53] LABS: ANISOCYTOSIS 1+; PLATELET COMMENT ADEQUATE
[2018-12-31] MEDS ORDERED: DEXTROSE 5%-WATER 1000 ML 1,000 ML with SODIUM BICARBONATE 150 MEQ IV PRN ×2 (16:58)
[2018-12-31 18:06] VITALS: BP 168/98
--- NOTE | 2018-12-31 21:40 | EKG REPORT ---
SEVERITY:- ABNORMAL ECG - SINUS TACHYCARDIA RIGHT BUNDLE BRANCH BLOCK : Confirmed by: Juarez Gallo MD 31-Dec-2018 21:40:14
--- NOTE | 2019-01-01 08:51 | EKG REPORT ---
SEVERITY:- ABNORMAL ECG - EXTREME TACHYCARDIA WITH WIDE COMPLEX, NO FURTHER RHYTHM ANALYSIS ATTEMPTED : Confirmed on behalf of: Juarez Gallo MD 01-Jan-2019 08:50:57
--- NOTE | 2019-01-01 08:52 | EKG REPORT ---
SEVERITY:- ABNORMAL ECG - SINUS OR ECTOPIC ATRIAL RHYTHM NONSPECIFIC REPOL ABNORMALITY, DIFFUSE LEADS PROLONGED QT INTERVAL : Confirmed on behalf of: Juarez Gallo MD 01-Jan-2019 08:51:25
--- NOTE | 2019-01-01 08:52 | EKG REPORT ---
SEVERITY:- ABNORMAL ECG - PROBABLY ATRIAL FIB WIDE COMPLEX TACHYCARDIA NONSPECIFIC INTRAVENTRICULAR CONDUCTION DELAY : Confirmed on behalf of: Juarez Gallo MD 01-Jan-2019 08:51:13
== END 2018-12-31 18:04 | disposition short-term general hospital (02) ==
LOC: ER 15:22
DX: E87.5 Hyperkalemia (principal); I47.2 Ventricular tachycardia; E10.10 Type 1 diabetes mellitus with ketoacidosis without coma; R06.03 Acute respiratory distress; R53.1 Weakness; E10.22 Type 1 diabetes mellitus with diabetic chronic kidney disease; I12.0 Hypertensive chronic kidney disease with stage 5 chronic kidney disease or end stage renal disease; N18.6 End stage renal disease; Z99.2 Dependence on renal dialysis; I25.10 Atherosclerotic heart disease of native coronary artery without angina pectoris; E78.00 Pure hypercholesterolemia, unspecified; Z91.040 Latex allergy status
CPT/HCPCS: 93005 ×2; 36415; 82553; 82962; 82550; 84132; 85025; 80053; 84484; 82803; 71045; 93010; J0610; J3490 ×2; A9270; J1815; J7060

== ENCOUNTER 2019-04-12 03:47 | Emergency (ER) | payer MEDICARE ==
[2019-04-12] MEDS ORDERED: MORPHINE SULFATE 10 MG/ML INJ IV PRN (05:20)
[2019-04-12] MEDS ORDERED: ONDANSETRON HCL INJ/PF 4 MG/2 ML SDV IV ONE ×2 (05:20→14:32)
[2019-04-12 05:26] LABS: HEMOGLOBIN 11.3 g/dL (13.5-17.0); MEAN CORPUSCULAR HEMOGLOBIN 33.1 pg (27.0-33.4); MEAN CORPUSCULAR HGB CONC 34.3 g/dL (32.0-36.0); MEAN CORPUSCULAR VOLUME 97 fl (80-97); PLATELET COUNT 193 10^3/uL (150-450); RED BLOOD COUNT 3.42 10^6/uL (4.35-5.55); RED CELL DISTRIBUTION WIDTH 18.5 % (11.5-14.0); WHITE BLOOD COUNT 5.2 10^3/uL (4.0-10.5)
[2019-04-12 05:44] LABS: ALBUMIN 3.9 g/dL (3.5-5.0); ALKALINE PHOSPHATASE 298 U/L (38-126); ANION GAP 18 (5-19); ASPARTATE AMINO TRANSFERASE 44 U/L (17-59); BILIRUBIN,DIRECT 1.1 mg/dL (0.0-0.4); BILIRUBIN,TOTAL 1.6 mg/dL (0.2-1.3); BLOOD UREA NITROGEN 43 mg/dL (7-20); CALCIUM 7.9 mg/dL (8.4-10.2); CARBON DIOXIDE 23 mmol/L (22-30); CHLORIDE 97 mmol/L (98-107); GLUCOSE 253 mg/dL (75-110); POTASSIUM 4.8 mmol/L (3.6-5.0); TOTAL PROTEIN 7.2 g/dL (6.3-8.2)
[2019-04-12 06:04] LABS: ABSOLUTE LYMPHOCYTES# (MANUAL) 0.7 10^3/uL (0.5-4.7); ABSOLUTE MONOCYTES # (MANUAL) 0.4 10^3/uL (0.1-1.4); BASOPHILS % (MANUAL) 1 % (0-2); EOSINOPHILS % (MANUAL) 1 % (0-6); LYMPHOCYTES % (MANUAL) 13 % (13-45); MONOCYTES % (MANUAL) 7 % (3-13); SEGMENTED NEUTROPHILS % (MAN) 78 % (42-78); TOTAL CELLS COUNTED 100
[2019-04-12 06:05] LABS: PLATELET COMMENT ADEQUATE
[2019-04-12 06:06] LABS: ANISOCYTOSIS 2+
[2019-04-12 06:08] LABS: TEAR DROP CELLS SLIGHT
[2019-04-12 11:23] LABS: INTERNATIONAL RATION (INR) 2.06; PROTHROMBIN TIME 23.6 SEC (11.4-15.4)
--- NOTE | 2019-04-12 12:20 | ER Document Report ---
Entered by KRIS MAYA SCRIBE 04/12/19 1057 Acting as scribe for:KANDY MARQUEZ MD ED GI/ - General Chief Complaint: Flank Pain Stated Complaint: INTENSE SIDE PAIN Time Seen by Provider: 04/12/19 10:40 Mode of Arrival: Ambulatory Information source: Patient Notes: This 53-year-old male patient presents to the emergency department today with complaints of right upper quadrant abdominal pain. Patient states he has recognized that his pain seems to always be when he is lying down to sleep. Patient states he has had a pain similar to this for the last week but it became much worse prior to arrival last night. The patient is on dialysis on a Tuesday and he did go yesterday. He is on Coumadin since December 2018 but he is unclear about the reason. He states it had something to do with the lower part of his heart. It sounds like it might be a diastolic dysfunction problem. TRAVEL OUTSIDE OF THE [place] IN LAST 30 DAYS: No - Related Data Allergies/Adverse Reactions: latex Adverse Reaction (Verified 04/12/19 04:37) Past Medical History - General Information source: Patient - Social History Smoking Status: Never Smoker Cigarette use (# per day): No Frequency of alcohol use: None Drug Abuse: None Lives with: Family Family History: Reviewed & Not Pertinent, CAD, DM, Hypertension Patient has suicidal ideation: No Patient has homicidal ideation: No - Past Medical History Cardiac Medical History: Reports: Hx Coronary Artery Disease, Hx Hyper cholesterolemia, Hx Hypertension Pulmonary Medical History: Reports: Hx Pneumonia Endocrine Medical History: Reports: Hx Diabetes Mellitus Type 2 - complicated by Neuropathy, nephropathy.Has proteinuria but unsure of his Renal/ Medical History: Reports: Hx End Stage Renal Disease, Hx Peritoneal Dialysis - Jul GI Medical History: Reports: Hx Gastroesophageal Reflux Disease Musculoskeletal Medical History: Reports Hx Arthritis Past Surgical History: Reports: Hx Vascular Surgery - left arm fistula 2018 - Immunizations Hx Diphtheria, Pertussis, Tetanus Vaccination: Yes Review of Systems - Review of Systems Constitutional: No symptoms reported EENT: No symptoms reported Cardiovascular: No symptoms reported Respiratory: No symptoms reported Gastrointestinal: See HPI, Abdominal pain - RUQ Genitourinary: No symptoms reported Male Genitourinary: No symptoms reported Musculoskeletal: No symptoms reported Skin: No symptoms reported Hematologic/Lymphatic: No symptoms reported Neurological/Psychological: No symptoms reported -: Yes All other systems reviewed and negative Physical Exam - Vital signs Vitals: Temp Pulse Resp BP Pulse Ox 97.5 F 72 20 134/105 H 97 04/12/19 03:58 04/12/19 03:58 04/12/19 03:58 04/12/19 03:58 04/12/19 03:58 - Notes Notes: Physical Exam: General: Alert, appears well. HEENT: Normocephalic. Atraumatic. PERRL. Extraocular movements intact. Oropharynx clear. Neck: Supple. Non-tender. Respiratory: No respiratory distress. Clear and equal breath sounds bilaterally. Cardiovascular: Regular rate and rhythm, normal S1 split S2. Abdominal: Tenderness with palpation of the right upper quadrant. No distension. Normal Bowel Sounds. Back: No gross abnormalities. No CVA tenderness to percussion. Extremities: Moves all four extremities. Upper extremities: Normal strength. Normal ROM. No edema. AV fistula in the left forearm. Lower extremities: Normal strength. Normal ROM. 1+ pitting edema. Neurological: Normal cognition. AAOx4. Normal speech. Psychological: Normal affect. Normal Mood. Skin: Warm. Dry. Normal color. Course - Re-evaluation Re-evalutation: 04/12/19 14:58 I did try to call [facility] to find out why this patient is on Coumadin. I was never able to advance past their multilevel phone tree. When I finally was able to press for 4 providers, it rang indefinitely and no one ever answered the phone. I made several other attempts to get through to a real person unsuccessfully. - Vital Signs Vital signs: Temp Pulse Resp BP Pulse Ox 97.6 F 69 16 132/75 H 95 04/12/19 07:49 04/12/19 07:49 04/12/19 07:49 04/12/19 07:49 04/12/19 07:49 - Laboratory Result Diagrams: 04/12/19 05:09 04/12/19 05:09 Laboratory results interpreted by me: 04/12/19 04/12/19 04/12/19 05:09 05:09 05:09 RBC 3.42 L Hgb 11.3 L Hct 33.0 L RDW 18.5 H PT 23.6 H Chloride 97 L BUN 43 H Creatinine 6.88 H Est GFR ( Amer) 10 L Est GFR (MDRD) Non-Af 8 L Glucose 253 H Calcium 7.9 L Total Bilirubin 1.6 H Direct Bilirubin 1.1 H Alkaline Phosphatase 298 H - Diagnostic Test Radiology reviewed: Image reviewed - Ultrasound shows gallbladder sludge with pericholecystic fluid and thickened edematous gallbladder wall. There is free fluid in Morison's pouch and multiple echogenic foci in the right kidney. - Consults Dr. Meyers Time consulted: 12:55 Consulted provider: will come to ER Dr. Huang Time consulted: 13:45 Consulted provider: other - Dr. Huang is the surgeon commissioner public works at [facility]. He stated he would be happy to take care of the patient for the gallbladder problem, but requested that I have the patient admitted to the hospitalist service. Dr. Salamanca Time consulted: 14:43 Consulted provider: other - will accept at [facility] Discharge - Discharge Clinical Impression: Acute cholecystitis, Chronic renal failure, stage 5, Anticoagulated on Coumadin, ESRD (end stage renal disease) Condition: Stable Disposition: [facility] Scribe Attestation: 04/12/19 13:31 I personally performed the services described in the documentation, reviewed and edited the documentation which was dictated to the scribe in my presence, and it accurately records my words and actions. I personally performed the services described in the documentation, reviewed and edited the documentation which was dictated to the scribe in my presence, and it accurately records my words and actions.
--- NOTE | 2019-04-12 13:06 | RADIOLOGY REPORT (SQ) ---
EXAM DESCRIPTION: U/S ABDOMEN LIMITED W/O DOP COMPLETED DATE/TIME: 04/12/2019 12:24 pm REASON FOR STUDY: Ruq abd pain COMPARISON: None. TECHNIQUE: Dynamic and static grayscale images acquired of the abdomen and recorded on PACS. Natalieo tiki selected color Doppler and spectral images recorded. LIMITATIONS: None. FINDINGS: PANCREAS: No masses. Visualized pancreatic duct normal caliber. LIVER: Enlarged, measuring 19 cm. Heterogenous echogenicity. No masses. LIVER VASCULATURE: Normal directional flow of the main portal vein and hepatic veins. GALLBLADDER: Layering sludge. Gallbladder wall thickening. Trace pericholecystic fluid. ULTRASOUND-DETECTED RODRIGUEZ'S SIGN: Negative. INTRAHEPATIC DUCTS AND COMMON DUCT: CBD and intrahepatic ducts normal caliber. No filling defects. INFERIOR VENA CAVA: Normal flow. AORTA: No aneurysm. RIGHT KIDNEY: Normal size. Normal echogenicity. No solid or suspicious masses. No hydronephrosis. P ossible 5 mm calculus. PERITONEAL AND RIGHT PLEURAL SPACE: Small amount of free fluid adjacent to the liver. OTHER: No other significant findings. IMPRESSION: 1. SLUDGE IN THE GALLBLADDER. GALLBLADDER WALL THICKENING AND TRACE PERICHOLECYSTIC FLUID. 2. HEPATOMEGALY. HETEROGENOUS ECHOGENICITY OF THE LIVER. POSSIBLE CHRONIC LIVER DISEASE. NO FOCAL LESIONS. 3. SMALL AMOUNT OF FREE FLUID IN THE UPPER ABDOMEN. 4. POSSIBLE NONOBSTRUCTING CALCULUS IN THE RIGHT KIDNEY. TECHNICAL DOCUMENTATION: JOB ID: [id number] 2010 [employer]- All Rights Reserved Reading location - IP/workstation name: [email or web address]
[2019-04-12] MEDS ORDERED: AMPICILLIN SOD/SULBACTAM 3 GM VIAL IV ONE (13:30)
[2019-04-12] MEDS ORDERED: MORPHINE SULFATE 10 MG/ML INJ IV ONE (14:32)
--- NOTE | 2019-04-12 14:42 | PDOC CONSULTATION ---
Consultation Consult Date: 04/12/19 Attending physician:: KANDY MARQUEZ Provider Consulted: ITALO MCCULLOUGH Consult reason:: Acute cholecystitis cholelithiasis History of Present Illness History of Present Illness: NAKUL MCNEIL is a 53 year old male Presents emergency department via ground rescue complaining of acute onset postprandial abdominal pain right upper quadrant radiating to the neck. Symptoms alleviated by changing body position. Patient has a history of similar symptoms, but never pursued a work-up. Patient was evaluated emergency department where he had a gallbladder ultrasound which revealed cholelithiasis, thickened gallbladder wall and pericholecystic fluid. Surgery was consulted. Patient was evaluated advised admission. Of note patient has a history of end- stage renal failure, currently dialyzing Tuesday and Tuesday; also history of cardiac dysfunction, currently taking Coumadin p.o. Past Medical History Cardiac Medical History: Reports: Coronary Artery Disease, Hyperlipidema, Hypertension Denies: Congestive Heart Failure, DVT, Myocardial Infarction, Pulmonary Embolism Pulmonary Medical History: Reports: Pneumonia Denies: Asthma, Bronchitis, Chronic Obstructive Pulmonary Disease (COPD) Neurological Medical History: Denies: Seizures Endocrine Medical History: Reports: Diabetes Mellitus Type 1, Diabetes Mellitus Type 2 - complicated by Neuropathy, nephropathy.Has proteinuria but unsure of his Denies: Hyperthyroidism, Hypothyroidism Renal/ Medical History: Reports: End Stage Renal Disease GI Medical History: Reports: Gastroesophageal Reflux Disease Denies: Cirrhosis, Crohn's Disease, Hepatitis, Ulcerative Colitis Musculoskeltal Medical History: Reports: Arthritis Skin Medical History: Denies: Eczema, Psoriasis Psychiatric Medical History: Denies: Depression Traumatic Medical History: Denies: Gunshot Wound Hematology: Denies: Anemia, Sickle Cell Disease Infectious Medical History: Denies: HIV Past Surgical History Past Surgical History: Status post previous peritoneal dialysis catheter insertion, AV fistula left arm Past Surgical History: Reports: Vascular Surgery - left arm fistula 2018 Social History Lives with: Family Smoking Status: Never Smoker Frequency of Alcohol Use: None Hx Recreational Drug Use: No Drugs: None Hx Prescription Drug Abuse: No Family History Family History: None, Reviewed & Not Pertinent, CAD, DM, Hypertension Parental Family History Reviewed: No Children Family History Reviewed: No Sibling(s) Family History Reviewed.: No Medication/Allergy Home Medications: Clonidine HCl [Catapres 0.3 mg Tablet] 0.3 mg PO BID 08/20/18 Amlodipine Besylate [Norvasc 10 mg Tablet] 10 mg PO DAILY 09/18/18 Calcium Carbonate [Tums Chewable 500 mg Tab.chew] 1,000 mg PO MEALS 09/18/18 Levofloxacin [Levaquin 500 mg Tablet] 500 mg PO Q48HS 3 Days #3 tablet 09/18/18 Aspirin [[place] Aspirin] 81 mg PO DAILY 30 Days #30 tab.chew 09/21/18 Atorvastatin Calcium [Lipitor 40 mg Tablet] 40 mg PO QHS 30 Days #30 tablet 09/21/18 Doxycycline Hyclate [Vibramycin 100 mg Tablet] 100 mg PO Q12 10 Days #20 tablet 09/21/18 Insulin Glargine,Hum.rec.anlog [Lantus Insulin 100 Unit/1 ml 10 ml] 30 unit SUBCUT BID 30 Days #3 unit 09/21/18 Insulin Lispro [Humalog Insulin 100 Unit/1 ml 3 ml Vial] 0 - 12 unit SUBCUT .SLD SCALE 30 Days #10 ml 09/21/18 Allergies/Adverse Reactions: latex Adverse Reaction (Verified 04/12/19 04:37) Review of Systems Constitutional: PRESENT: other - Patient denies constitutional symptoms of weight loss night sweats. Eyes: ABSENT: visual disturbances Ears: ABSENT: hearing changes Respiratory: PRESENT: other - Chronic shortness of breath Gastrointestinal: PRESENT: other - Never had a colonoscopy Musculoskeletal: PRESENT: other - Right knee pain Neurological: ABSENT: abnormal gait, abnormal speech, confusion, dizziness, focal weakness, syncope Psychiatric: ABSENT: anxiety, depression, homidical ideation, suicidal ideation Physical Exam Vital Signs: Temp Pulse Resp BP Pulse Ox 97.6 F 69 16 132/75 H 95 04/12/19 07:49 04/12/19 07:49 04/12/19 07:49 04/12/19 07:49 04/12/19 07:49 Intake & Output 04/11/19 04/12/19 04/13/19 06:59 06:59 06:59 Weight 115.666 kg General appearance: PRESENT: no acute distress Head exam: PRESENT: normocephalic Eye exam: PRESENT: EOMI Mouth exam: PRESENT: dry mucosa Neck exam: PRESENT: full ROM Respiratory exam: PRESENT: clear to auscultation ursula Cardiovascular exam: PRESENT: RRR Pulses: PRESENT: normal carotid pulses, normal radial pulses, normal femoral pulses GI/Abdominal exam: PRESENT: other - Soft; tender right upper quadrant with no guarding to moderate palpation. Bowel sounds hypoactive. Multiple scars consistent with previous peritoneal dialysis catheter insertion Rectal exam: PRESENT: deferred Extremities exam: PRESENT: full ROM Musculoskeletal exam: PRESENT: full ROM Neurological exam: PRESENT: oriented to person, oriented to place, oriented to time, oriented to situation Psychiatric exam: PRESENT: appropriate affect Skin exam: PRESENT: dry Results Laboratory Results: 04/12/19 05:09 04/12/19 05:09 04/12/19 04/12/19 05:09 05:09 WBC 5.2 RBC 3.42 L Hgb 11.3 L Hct 33.0 L MCV 97 MCH 33.1 MCHC 34.3 RDW 18.5 H Plt Count 193 Seg Neutrophils % Not Reportable Sodium 138.0 Potassium 4.8 Chloride 97 L Carbon Dioxide 23 Anion Gap 18 BUN 43 H Creatinine 6.88 H Est GFR ( Amer) 10 L Glucose 253 H Calcium 7.9 L Total Bilirubin 1.6 H AST 44 Alkaline Phosphatase 298 H Total Protein 7.2 Albumin 3.9 Lipase 127.1 Impressions: Abdomen Ultrasound 04/12/19 10:48 IMPRESSION: 1. SLUDGE IN THE GALLBLADDER. GALLBLADDER WALL THICKENING AND TRACE PERICHOLECYSTIC FLUID. 2. HEPATOMEGALY. HETEROGENOUS ECHOGENICITY OF THE LIVER. POSSIBLE CHRONIC LIVER DISEASE. NO FOCAL LESIONS. 3. SMALL AMOUNT OF FREE FLUID IN THE UPPER ABDOMEN. 4. POSSIBLE NONOBSTRUCTING CALCULUS IN THE RIGHT KIDNEY. Assessment & Plan - Diagnosis (1) Acute cholecystitis Is this a current diagnosis for this admission?: Yes Plan: Impression: Acute onset abdominal pain with work-up including gallbladder ultrasound, and elevated liver function studies all consistent with acute cholecystitis secondary to cholelithiasis. Multiple, active comorbidities including end-stage renal failure, last dialyzed yesterday, pharmacologic anticoagulation on Coumadin for cardiac dysfunction, and history of congestive heart failure. Currently patient is not septic and not in need of emergent surgery today Recommendations: 1. Discussed clinical situation with patient and ; we agree the patient should be admitted to the hospital, stabilized from a coagulation standpoint, evaluated from a perioperative cardiac standpoint and undergo interval cholecystectomy. 2. Unfortunately also more may not have the resources to accommodate this patient. This was discussed with patient. The emergency department is making arrangements to have her patient to a tertiary care level institution if services cannot be provided at [facility]. In the interim, we recommend keeping the patient n.p.o. on IV fluids and intravenous antibiotics. (2) Anticoagulated on Coumadin Is this a current diagnosis for this admission?: Yes (3) Chronic renal failure, stage 5 Is this a current diagnosis for this admission?: Yes (4) Diabetes type 2, uncontrolled Qualifiers: Is this a current diagnosis for this admission?: Yes (5) Hypertension Qualifiers: Hypertension type: essential hypertension Qualified Code(s): I10 - Essential (primary) hypertension Is this a current diagnosis for this admission?: Yes - Time Time Spent: 30 to 50 Minutes Medications reviewed and adjusted accordingly: Yes Anticipated discharge: Home - Inpatient Certification Based on my medical assessment, after consideration of the patient's comorbidities, presenting symptoms, or acuity I expect that the services needed warrant INPATIENT care.: Yes I certify that my determination is in accordance with my understanding of Medicare's requirements for reasonable and necessary INPATIENT services [42 CFR 412.3e].: Yes Medical Necessity: Need For IV Fluids, Need for Pain Control, Need for IV Antibiotics, Need for Surgery
[2019-04-12 16:13] VITALS: BP 148/78
== END 2019-04-12 16:17 | disposition short-term general hospital (02) ==
LOC: ER 03:47
DX: K81.0 Acute cholecystitis (principal); K82.8 Other specified diseases of gallbladder; I12.0 Hypertensive chronic kidney disease with stage 5 chronic kidney disease or end stage renal disease; E11.22 Type 2 diabetes mellitus with diabetic chronic kidney disease; N18.9 Chronic kidney disease, unspecified; Z99.2 Dependence on renal dialysis; I25.10 Atherosclerotic heart disease of native coronary artery without angina pectoris; Z79.01 Long term (current) use of anticoagulants
CPT/HCPCS: 36415; 87040; 83690; 85025; 85610; 80053; 76705; J0295; J2270; J2405; 87077; 87150

== ENCOUNTER → 2019-09-06 | Outpatient (CLI) | payer MEDICARE ==
--- NOTE | 2019-09-06 15:46 | RADIOLOGY REPORT (SQ) ---
EXAM DESCRIPTION: U/S ABDOMEN LIMITED W/O DOP IMAGES COMPLETED DATE/TIME: 09/06/2019 10:25 am REASON FOR STUDY: ABNORMAL RESULTS OF LIVER FUNCTION STUDIES (R94.5) R94.5 ABNORMAL RESULTS OF LIVE R FUNCTION STUDIES COMPARISON: 04/12/2019 TECHNIQUE: Dynamic and static grayscale images acquired of the abdomen and recorded on PACS. Additio nal selected color Doppler and spectral images recorded. LIMITATIONS: None. FINDINGS: PANCREAS: No masses. Visualized pancreatic duct normal caliber. LIVER: No masses. Echotexture normal. LIVER VASCULATURE: Normal directional flow of the main portal vein and hepatic veins. GALLBLADDER: Surgically absent. ULTRASOUND-DETECTED RODRIGUEZ'S SIGN: Not applicable. INTRAHEPATIC DUCTS AND COMMON DUCT: CBD and intrahepatic ducts normal caliber. No filling defects. INFERIOR VENA CAVA: Normal flow. AORTA: No aneurysm. RIGHT KIDNEY: Normal size. Normal echogenicity. No solid or suspicious masses. No hydronephrosis. No calcifications. PERITONEAL AND RIGHT PLEURAL SPACE: No ascites or effusions. OTHER: No other significant findings. IMPRESSION: Status post cholecystectomy. Otherwise normal right upper quadrant ultrasound. TECHNICAL DOCUMENTATION: JOB ID: [id number] [employer]- All Rights Reserved Reading location - IP/workstation name: [email or web address]
== END ==
LOC: RAD 08:17
PROVIDERS: ATTEND Internal Medicine Nephrology
DX: R94.5 Abnormal results of liver function studies (principal)
CPT/HCPCS: 76705